=== PATIENT | female | born 1995 | race Caucasian/White ===

== ENCOUNTER 2021-12-13 16:10 | Emergency (ER) | payer OTHER, SELFPAY ==
[2021-12-13 16:32] VITALS: BP 116/69; PULSE 91; RESP 18; TEMP 36.9; O2SAT 99
--- NOTE | 2021-12-13 17:17 | ED.URI ---
HPI - URI/Sore Throat General Chief Complaint: Upper Respiratory Infection Stated Complaint: sob,cough Time Seen by Provider: 12/13/21 17:18 Source: patient, family, RN notes reviewed and old records reviewed Mode of arrival: ambulatory Limitations: no limitations History of Present Illness HPI Narrative: 26-year-old female presents to express care with complaints of sore throat, body aches, cough for the past 1 week duration. Patient reports daughter had strep throat last week,she states she took 3 doses of amoxicillin 875mg that was her 's over the last 2 days, has also been taking ibuprofen and Tylenol for her symptoms.Patient has not had COVID vaccinations or Flu shot. Patient reports highest fever noted 99.9F reports feels like skin is on fire. MD elicited complaint: fever, cough, sore throat and nasal congestion Onset (ago): week(s) (1) Pain scale (0-10): 4 Able to tolerate fluids by mouth: Yes Related Data Allergies Allergy/AdvReac Type Severity Reaction Status Date / Time No Known Allergies Allergy Verified 12/13/21 16:50 Review of Systems Review of Systems: CONSTITUTIONAL: Reports highest fever 99.9F,positive for chills, or sweats. EYES: Denies visual changes, redness, or discharge. ENT: Positive rhinorrhea, congestion, sore throat, no otalgia. CARDIOVASCULAR: Denies chest pain, palpitations, or edema. RESPIRATORY: Positive for cough denies dyspnea. GASTROINTESTINAL: Denies abdominal pain, nausea, vomiting, or diarrhea. GENITOURINARY: Denies dysuria or hematuria. SKIN: Denies rash or itching. MUSCULOSKELETAL: Denies back pain, joint pain, or myalgia. NEUROLOGIC: Denies headache, numbness, or weakness. PSYCHIATRIC: Positive history of anxiety or depression. [facility] Past Medical History Medical History (Updated 12/14/21 @ 10:51 by Diamond Garcia NP) Anxiety Surgical History Surgical History (Updated 12/13/21 @ 17:35 by Diamond Garcia NP) Hx of appendectomy Social History Social History (Updated 12/14/21 @ 10:49 by Diamond Garcia NP) Smoking status: Current some day smoker Tobacco type: e-cigarettes/vaping Alcohol intake: never Substance use type: marijuana Last use: occaisional Living arrangements: with family Gender identity (if verbalized by the patient): Female Comments At time of signature, agree with nursing past medical, surgical, social and family history. There is no relevant family history pertinent to the presenting complaint Exam Narrative: GENERAL: Well-appearing, well-nourished, and in no acute distress. HEAD: Normocephalic, atraumatic. EYES: PERRLA and EOMI. ENT: Nares clear, no rhinorrhea or epistaxis. Mucous membranes moist.TM's normal with good light reflex, throat red no lesions or exudate, tonsils swollen huge and red. NECK: Supple.lymphadenopathy CHEST: Clear to auscultation. No respiratory distress.no dyspnea noted, speaks in full sentences, SAO2 99% on room air, no tachypnea HEART: Regular rate and rhythm. No murmur heard. Normal peripheral pulses. ABDOMEN: Soft, nontender, nondistended, normal active bowel sounds. EXTREMITIES: Normal range of motion. No edema. SKIN: Warm, dry, no rash. NEURO: No focal deficits. Alert and oriented x3. Course Course Level of Care: Express Care Visit Vital Signs Vital signs: Vital Signs Temperature 36.9 C 12/13/21 16:32 Pulse Rate 91 12/13/21 16:32 Respiratory Rate 18 12/13/21 16:32 Blood Pressure 116/69 12/13/21 16:32 Pulse Oximetry 99 12/13/21 16:32 Oxygen Delivery Room Air 12/13/21 16:32 Temperature 36.9 C 12/13/21 16:32 Pulse Rate 91 12/13/21 16:32 Respiratory Rate 18 12/13/21 16:32 Blood Pressure 116/69 12/13/21 16:32 Pulse Oximetry 99 12/13/21 16:32 Oxygen Delivery Room Air 12/13/21 16:32 MDM - URI/Sore Throat Differential Diagnosis Differential diagnosis: Likely upper respiratory infection, sinusitis, viral infection, pharyngitis and other (Strep pharyn
== END 2021-12-13 17:45 | disposition home or self-care (01) ==
PROVIDERS: Emergency Provider Registered Nurse; PCP Physician Assistant
DX: J06.9 Acute upper respiratory infection, unspecified (principal); Z20.818 Contact with and (suspected) exposure to other bacterial communicable diseases; Z20.822 Contact with and (suspected) exposure to COVID-19; F17.290 Nicotine dependence, other tobacco product, uncomplicated
CPT/HCPCS: 87081; 87426; 87880; 99213; C9803; G0463

== ENCOUNTER 2022-02-08 11:21 | Emergency (ER) | payer OTHER, SELFPAY ==
--- NOTE | ~2022-02-08 | XR_ITS ---
EXAMINATION: XR chest 2V 02/08/2022 11:51 INDICATION: Chest pain PROCEDURE: 2 view chest COMPARISON: 11/23/2016 FINDINGS: The lungs are clear. The cardiomediastinal silhouette is within normal limits. There are no pleural effusions. There is no pneumothorax suspected. IMPRESSION: 1: NO ACUTE CARDIOPULMONARY DISEASE. Reviewed, dictated and finalized at location A.
--- NOTE | ~2022-02-08 | XR_ITS ---
EXAMINATION: XR abdomen/kub 1V DATE: 02/08/2022 12:27 INDICATION: Lower to mid abdominal pain TECHNIQUE: A supine view of the abdomen on 2 radiographs was obtained. COMPARISON: 12/27/2017 FINDINGS: Moderate to large amount of stool scattered throughout the colon. No dilated gas-filled loops of smal l bowel to suggest obstruction. Hypoplastic riblets at a transitional thoracolumbar segment. 4 more c audal nonrib-bearing lumbar segments. IMPRESSION: 1. Moderate to large amount of colonic stool which could be seen with constipation. Reviewed, dictated and finalized at location A. IMPRESSION: 1. Moderate to large amount of colonic stool which could be seen with constipat ion.
[2022-02-08 11:30] VITALS: BP 114/65; PULSE 66; RESP 18; TEMP 37.2; O2SAT 100
--- NOTE | 2022-02-08 12:05 | ED.GENADULT ---
HPI - General Adult General Chief complaint: Abdominal Pain Stated complaint: Chest Pain,Abdominal Pain Time Seen by Provider: 02/08/22 12:05 History of Present Illness HPI narrative: Magda Vernon is a 27 yo female with a history of chest pain, chronic constipation, COVID in October, who comes with general complaints of abdominal pain and chest pain that resolved this morning. Patient states she has had chest pain on and off since her daughter was born 4 years ago. Patient has difficulty with constipation and states that he says she needs to manually remove feces at times. He is afebrile vital signs are stable; she states that her child is ill and had a negative strep and COVID at the ER last night Patient had COVID in October and she is unvaccinated Related Data Home Medications Medication Instructions Recorded Confirmed No Home Medications 02/08/22 02/08/22 Allergies Allergy/AdvReac Type Severity Reaction Status Date / Time No Known Allergies Allergy Verified 02/08/22 11:30 Review of Systems Review of Systems: CONSTITUTIONAL: Denies fever, chills, sweats. EYES: Denies visual changes, redness, discharge. ENT: Denies rhinorrhea, congestion, sore throat, otalgia. CARDIOVASCULAR: chest pain this morning that has resolved, palpitations, edema. RESPIRATORY: Denies dyspnea, wheezing, cough GASTROINTESTINAL: abdominal pain that made her leave work,no nausea, vomiting, diarrhea. GENITOURINARY: Denies dysuria, hematuria, abnormal discharge SKIN: Denies rash or itching. NEUROLOGIC: Denies numbness, or focal weakness. PSYCHIATRIC: Denies anxiety or depression. [facility] Past Medical History Medical History Acute appendicitis with localized peritonitis Anxiety Chronic constipation Surgical History Surgical History Hx of appendectomy Social History Social History Smoking status: Current some day smoker Tobacco type: e-cigarettes/vaping Alcohol intake: never Substance use type: marijuana Last use: occaisional Gender identity (if verbalized by the patient): Female Comments At time of signature, I agree with nursing past medical, surgical, social and family history. There is no relevant family history pertinent to the presenting complaint. Exam Narrative: GENERAL: This is a well-nourished, well-developed patient, in mild distress. HEAD: normocephalic, atraumatic. EYES: Sclera clear/white. Vision is grossly intact. EARS: External ears normal, Hearing grossly intact. NOSE: External nose normal without nasal discharge, nares without redness, no rhinorrhea. THROAT: Mucous membranes moist, NECK: Neck supple, non-tender CARDIOVASCULAR: Regular rate and rhythm without murmurs, gallops, or rubs. RESPIRATORY: Clear to auscultation. Breath sounds equal bilaterally. No wheezes, rales, or rhonchi. GASTROINTESTINAL: Abdomen soft, left lower quadrant pain, has hypoactive bowel sounds SKIN: warm, intact with no suspicious lesions or rash, good texture and turgor. NEURO: awake, alert, and oriented to person, place and time. There were no obvious focal neurologic abnormalities. Steady gait EXTREMITIES: Normal range of motion. BACK: Nontender without deformity Course Course Emergency Course: Patient comes with abdominal pain and she has had chest pain that has since resolved she has a history of intermittent chest pain for the last number of years Chest x-ray was negative has a normal cardiomediastinal silhouette and lungs are clear KUB- shows moderate to large amount of colonic stool moderate to large amount of colonic stool moderate to large amount of colonic stool Her uri to large amount colonic stoolnalysis showed trace blood trace protein and 1+ leukocytes but patient denies any dysuria or burning Discussed bowel routine with her and questioned her abo
== END 2022-02-08 12:54 | disposition home or self-care (01) ==
PROVIDERS: Emergency Provider Nurse Practitioner
DX: K59.00 Constipation, unspecified (principal); F17.290 Nicotine dependence, other tobacco product, uncomplicated; Z86.16 Personal history of COVID-19
CPT/HCPCS: 71046; 74018; 81003; 87086; 99213; G0463

== ENCOUNTER 2022-04-16 10:50 | Emergency (ER) | payer OTHER, SELFPAY ==
[2022-04-16 11:32] VITALS: BP 140/59; PULSE 80; RESP 20; TEMP 36.8; O2SAT 100
--- NOTE | 2022-04-16 12:12 | ED.FEMALEGU ---
HPI - Female Genitourinary General Chief complaint: Urogenital-Female Stated complaint: Possible UTI Source: patient Mode of arrival: ambulatory Limitations: no limitations History of Present Illness HPI Narrative: 27-year-old female presents to [facility] with complaints of urinary frequency, urgency, pain, burning and vaginal itching for the past 3 days. Patient reports history of urinary tract infections. Patient denies concern for STD or . Patient denies abdominal pain, flank pain, fever, bodies, chills, nausea, vomiting, diarrhea or vaginal discharge. MD elicited complaint: UTI and vaginal discharge Onset (ago): day(s) (3) Vaginal discharge: none Vaginal bleeding: none Urinary symptoms: Dysuria, Urgency and Frequency Treatment prior to arrival: OTC urinary analgesics Sexual activity: Yes Patient : No Related Data Allergies Allergy/AdvReac Type Severity Reaction Status Date / Time No Known Allergies Allergy Verified 04/16/22 12:09 Review of Systems Constitutional: Constitutional: Denies chills and Denies fatigue ENT: Denies vertigo and Denies dizziness Cardiovascular: Cardiovascular: Denies chest pain Respiratory: Respiratory: Denies chest congestion, Denies cough, Denies dyspnea and Denies wheezing Gastrointestinal: Gastrointestinal: Denies diarrhea, Denies nausea and Denies vomiting Genitourinary: Genitourinary: Reports nocturia and Reports dysuria Comments: Vaginal itching Integumentary/Breasts: Skin/Breast: Denies rash Neurologic: Denies headache(s) PMFSH Past Medical History Medical History Acute appendicitis with localized peritonitis Anxiety Chronic constipation Surgical History Surgical History Hx of appendectomy Social History Social History Smoking status: Current some day smoker Tobacco type: e-cigarettes/vaping Alcohol intake: never Substance use type: marijuana Last use: occaisional Gender identity (if verbalized by the patient): Female Comments At time of signature, I agree with nursing past medical, surgical, social and family history. There is no relevant family history pertinent to the presenting complaint. Exam Const: General: healthy appearing Nutritional Appearance: well nourished Orientation/consciousness: patient oriented x3 Limitations: no limitations Resp: Effort & Inspection: normal respiratory effort and not labored Auscultation: clear to auscultation bilaterally and no crackles Cardio: Rate: regular rate Rhythm: regular rhythm Heart sounds: no murmurs GI: Inspection: non-distended GI Palp: Yes Soft to palpation, No Tenderness to palpation present (GI), No Guarding due to palpation present (GI) and No Rigid due to palpation Auscultation: normal bowel sounds : General: Yes bladder normal to palpation and Yes no CVA tenderness Back/Spine/Pelvis: Back: no CVA tenderness Skin: General skin exam: normal color Rashes: no rashes Wounds: no wounds Neuro: General: patient oriented x3 Speech: normal speech Gait exam (Neuro): Normal gait present Psych: Appearance: grossly normal Affect: normal affect Attitude: cooperative Course Course Level of Care: Express Care Visit Vital Signs Vital signs: Vital Signs Temperature 36.8 C 04/16/22 11:32 Pulse Rate 80 04/16/22 11:32 Respiratory Rate 20 04/16/22 11:32 Blood Pressure 140/59 L 04/16/22 11:32 Pulse Oximetry 100 04/16/22 11:32 Oxygen Delivery Room Air 04/16/22 11:32 Temperature 36.8 C 04/16/22 11:32 Pulse Rate 80 04/16/22 11:32 Respiratory Rate 20 04/16/22 11:32 Blood Pressure 140/59 L 04/16/22 11:32 Pulse Oximetry 100 04/16/22 11:32 Oxygen Delivery Room Air 04/16/22 11:32 MDM - Female Genitourinary MDM Narrative Medical decision making narrative: Urine r
== END 2022-04-16 12:20 | disposition home or self-care (01) ==
PROVIDERS: Emergency Provider Nurse Practitioner Family
DX: N39.0 Urinary tract infection, site not specified (principal); F17.290 Nicotine dependence, other tobacco product, uncomplicated; F12.90 Cannabis use, unspecified, uncomplicated
CPT/HCPCS: 81003; 87077; 87086; 87088; 99213; G0463

== ENCOUNTER 2022-07-11 15:54 | Emergency (ER) | payer OTHER, SELFPAY ==
--- NOTE | ~2022-07-11 | US_ITS ---
EXAMINATION: US OB <=14 wk fetus w TV INDICATION: vaginal bleeding TECHNIQUE: Sonography of the pelvis was performed by transabdominal and transvaginal techniques. COMPARISON: None. RESULT: Uterus: Orientation: Retroverted. 9.1 x 6.2 x 4.8 cm. Myometrium: homogeneous echogenicity. Gestation: - Intrauterine gestational sac: Single present. - Mean Sac Diameter: 0.58 cm, corresponding gestational age 5 week 2 days. - Yolk sac: 0.27 cm . - Embryo: Not seen. - Subgestational hematoma: Absent . Right ovary: 3.2 x 2.0 x 1.8 cm. Normal sonographic appearance with physiologic follicles. . . Left ovary: 2.5 x 3.0 x 3.6 cm. Normal sonographic appearance with physiologic follicles. . . Pelvis free fluid: Small volume deep pelvic and right adnexal fluid. IMPRESSION: Intrauterine of uncertain viability. Recommend continued close clinical and sonographic fol low-up. Estimated Gestational Age: 5 weeks, 2 days by mean gestational sac diameter. DANIA by ultrasound 023. Reviewed, dictated and finalized at location K. BASKET TOP MAKER IMPRESSION: Intrauterine of uncertain viability. Recommend continued close clinic al and sonographic follow-up. Estimated Gestational Age: 5 weeks, 2 days by mean gestational sac diameter. E DD by ultrasound 03/11/2023.
[2022-07-11 16:36] VITALS: BP 109/66; PULSE 72; RESP 18; TEMP 36.4; O2SAT 100
[2022-07-11 18:44] VITALS: BP 117/63; PULSE 65; RESP 16; TEMP 36.8; O2SAT 100
[2022-07-11 19:03] LABS: Basophils Absolute Auto 0.1 K/mm3 (0.0-0.1); Basophils Percent Auto 0.9 % (0.2-1.2); Eosinophils Absolute Auto 0.3 K/mm3 (0-0.3); Eosinophils Percent Auto 3.7 % (0-4.4); Hematocrit 36.6 % (37.0-47.0); Hemoglobin 11.8 g/dL (12.0-15.0); Immature Granulocyte Absolute 0.02 K/mm3 (0.00-0.031); Immature Granulocyte Percent A 0.3 % (0-0.5); Lymphocytes Absolute Auto 1.88 K/mm3 (0.9-3.2); Lymphocytes Percent Auto 27.9 % (18.3-44.2); Mean Corpuscular HGB Conc 32.2 g/dl (32-36); Mean Corpuscular Hemoglobin 26.9 pg (26-34); Mean Corpuscular Volume 83.6 fl (80-100); Mean Platelet Volume 10.4 fl (7.4-10.4); Monocytes Absolute Auto 0.5 K/mm3 (0.1-0.6); Monocytes Percent Auto 7.9 % (2.6-8.5); Neutrophils Percent Auto 59.3 % (45.5-73.1); Platelet Count Result 356 k/mm3 (150-375); Red Blood Count 4.38 M/mm3 (4.2-5.4); White Blood Count 6.8 K/mm3 (4.5-10.0)
--- NOTE | 2022-07-11 22:05 | PC.NURSE ---
Patient did not answer page for room.
== END 2022-07-11 22:10 | disposition left against medical advice (07) ==
PROVIDERS: Emergency Provider Emergency Medicine
DX: O20.9 Hemorrhage in early pregnancy, unspecified (principal); Z3A.01 Less than 8 weeks gestation of pregnancy
CPT/HCPCS: 36415; 76801; 76817; 81025; 84702; 85025; 85461; 86850; 86900; 86901; 99199

== ENCOUNTER 2022-07-13 16:25 | Emergency (ER) | payer OTHER, SELFPAY ==
--- NOTE | ~2022-07-13 | US_ITS ---
US OB <=14 wk fetus w TV 07/13/2022 20:22 Indication: Vaginal bleeding. Positive beta hCG test. Procedure: High-resolution Limited obstetrical ultrasound using transabdominal and transvaginal techn ique. Comparison: Ultrasound dated 07/11/2022 Findings: Uterus measures 7.3 x 4.4 x 6.1 cm. There is fluid in the endometrium. No intrauterine gestational sac or pole identified. Endometr ium measures 7 mm. Right ovary measures 3.8 x 1.9 x 1.9 cm. Left ovary measures 4.3 x 2.1 x 2.6 cm. T here is normal Doppler signal in both ovaries. No free fluid in the pelvis. Uterus is retroverted. Impression: 1: No evidence for uterine gestational sac or pole, consistent with failed . Trace flu id in the endometrium. Recommend follow-up with serial quantitative beta-hCG levels and ultrasound as clinically indicated. Reviewed, dictated and finalized at location A. N MORTISER OPERATOR Impression: 1: No evidence for uterine gestational sac or pole, consistent with faile d . Trace fluid in the endometrium. Recommend follow-up with serial qu antitative beta-hCG levels and ultrasound as clinically indicated.
--- NOTE | 2022-07-13 16:49 | PC.NURSE ---
patient presented with POC and soiled underwear in grocery sack. both items were placed, unopened, into a specimen container. specimen container walked to pathology by tony Olvera.
[2022-07-13 17:18] VITALS: BP 112/52; PULSE 72; RESP 16; TEMP 36.9; O2SAT 100
[2022-07-13 17:43] LABS: Basophils Absolute Auto 0.1 K/mm3 (0.0-0.1); Basophils Percent Auto 0.6 % (0.2-1.2); Eosinophils Absolute Auto 0.3 K/mm3 (0-0.3); Eosinophils Percent Auto 2.8 % (0-4.4); Hematocrit 37.4 % (37.0-47.0); Hemoglobin 11.9 g/dL (12.0-15.0); Immature Granulocyte Absolute 0.05 K/mm3 (0.00-0.031); Immature Granulocyte Percent A 0.5 % (0-0.5); Lymphocytes Absolute Auto 1.72 K/mm3 (0.9-3.2); Lymphocytes Percent Auto 18.4 % (18.3-44.2); Mean Corpuscular HGB Conc 31.8 g/dl (32-36); Mean Corpuscular Hemoglobin 26.8 pg (26-34); Mean Corpuscular Volume 84.2 fl (80-100); Mean Platelet Volume 10.6 fl (7.4-10.4); Monocytes Absolute Auto 0.6 K/mm3 (0.1-0.6); Monocytes Percent Auto 6.8 % (2.6-8.5); Neutrophils Absolute Auto 6.6 K/mm3 (1.3-6.7); Neutrophils Percent Auto 70.9 % (45.5-73.1); Platelet Count Result 375 k/mm3 (150-375); Red Blood Count 4.44 M/mm3 (4.2-5.4); Red Cell Distribution Width 12.9 % (11.5-14.5); White Blood Count 9.3 K/mm3 (4.5-10.0)
--- NOTE | 2022-07-13 21:28 | ED.FEMALEGU ---
HPI - Female Genitourinary General Chief complaint: Vaginal Bleeding Stated complaint: miscarriage, has fetus? Time Seen by Provider: 07/13/22 21:28 Source: patient Mode of arrival: ambulatory Limitations: no limitations History of Present Illness HPI Narrative: Patient is a 27-year-old female G2, P1 approximately 8 weeks dated by last menstrual period May 21 returning to the ER for evaluation of passage of material that pt is worried is consistent with parts. Patient was seen her left third, no noticeable to review but patient had an OB ultrasound that showed an intrauterine without a detected heartbeat, and concern for failed . Patient's beta hCG at that visit per my chart review was 2052. Patient here with resolution of bleeding after passage of large clot that is concerning for material. This was taken down to pathology per protocol. Patient denies any significant pain. She denies fever, chills, nausea or vomiting. Patient had not followed with an FACTORY REPRESENTATIVE this . She is unsure of her blood type. Pt denies lightheadedness, dizziness, syncope. Pt denies dysuria or hematuria. Related Data Allergies Allergy/AdvReac Type Severity Reaction Status Date / Time No Known Allergies Allergy Verified 04/16/22 12:09 Review of Systems Review of Systems: CONSTITUTIONAL: Denies fever CARDIOVASCULAR: Denies chest pain RESPIRATORY: Denies cough or dyspnea. GASTROINTESTINAL: Denies abdominal pain, no pelvic pain : Reports vaginal bleeding, mostly resolved SKIN: Denies rash MUSCULOSKELETAL: Denies back pain NEUROLOGIC: Denies headache PMFSH Past Medical History Medical History Acute appendicitis with localized peritonitis Anxiety Chronic constipation Surgical History Surgical History Hx of appendectomy Social History Social History Smoking status: Current some day smoker Tobacco type: e-cigarettes/vaping Alcohol intake: never Substance use type: marijuana Last use: occaisional Gender identity (if verbalized by the patient): Female Exam Narrative: GENERAL: Awake, alert, conversant HEAD: Normocephalic, atraumatic. EYES: PERRLA and EOMI. ENT: Nares clear, no rhinorrhea or epistaxis. Mucous membranes moist. NECK: Supple. CHEST: No respiratory distress, breathing even and non labored HEART: Regular rate, sinus rhythm ABDOMEN:Non distended, non tender, no flank tenderness : Labia majora and minora normal without lesions. Vagina with scant blood. No brisk bleeding. No cervical motion tenderness. No adnexal tenderness or fullness bilaterally. No other discharge present. EXTREMITIES: Normal range of motion. No edema. SKIN: Warm, dry, no rash. NEURO:No focal deficits. Alert and oriented x3 Course Vital Signs Vital signs: Vital Signs Temperature 36.9 C 07/13/22 17:18 Pulse Rate 72 07/13/22 17:18 Respiratory Rate 16 07/13/22 17:18 Blood Pressure 112/52 L 07/13/22 17:18 Pulse Oximetry 100 07/13/22 17:18 Oxygen Delivery Room Air 07/13/22 17:18 Temperature 36.9 C 07/13/22 17:18 Pulse Rate 72 07/13/22 17:18 Respiratory Rate 16 07/13/22 17:18 Blood Pressure 112/52 L 07/13/22 17:18 Pulse Oximetry 100 07/13/22 17:18 Oxygen Delivery Room Air 07/13/22 17:18 MDM - Female Genitourinary MDM Narrative Medical decision making narrative: Patient is a 27-year-old female G2, P1 currently 8 weeks , presenting for evaluation of vaginal bleeding with concern for passed material. At the time of assessment, ABCs are intact and vital signs are stable. Patient is ambulatory, no significant tachycardia. No significant pain. She reports bleeding is mostly resolved. IV access obtained and labs are drawn. Laboratory results are notable for only very mild anem
--- NOTE | 2022-07-13 22:43 | PC.NURSE ---
[employer] Set Up Operator called. Spoke with Corrine Cardozo. Pt was given Share packet but declines to be contacted by Share.
== END 2022-07-13 22:44 | disposition home or self-care (01) ==
LOC: ANHED 21:57
PROVIDERS: Emergency Provider Emergency Medicine
DX: O03.9 Complete or unspecified spontaneous abortion without complication (principal); F17.290 Nicotine dependence, other tobacco product, uncomplicated
CPT/HCPCS: 36415; 76801; 76817; 84702; 85025; 85461; 86850; 86900; 86901; 88305; 99284

== ENCOUNTER 2024-02-25 00:51 | Emergency (ER) | payer OTHER, SELFPAY ==
--- NOTE | ~2024-02-25 | US_ITS ---
EXAMINATION: US OB transvaginal DATE: 02/25/2024 03:25 INDICATION: Vaginal bleeding in . TECHNIQUE: Real-time transvaginal pelvic ultrasound was performed. COMPARISON: Ultrasound 07/13/2022 FINDINGS: The uterus measures 7.9 x 4.7 x 5.6 cm. There is no visible intrauterine gestational sac. The endomet rial complex measures 17 mm in thickness. The right ovary measures 3.7 x 2.8 x 2.4 cm. The left ovary measures 2.6 x 2.1 x 2.4 cm. There is physiologic free fluid in the pelvis. IMPRESSION: 1. No visible intrauterine gestational sac, which may be normal in early . Spontaneous abor tion and ectopic are not excluded. Serial beta-hCGs are recommended. Reviewed, dictated and finalized at location A. IMPRESSION: 1. No visible intrauterine gestational sac, which may be normal in early pregn adelfo. Spontaneous and ectopic are not excluded. Serial beta- hCGs are recommended.
[2024-02-25 01:12] VITALS: BP 128/66; PULSE 96; RESP 20; TEMP 36.4; O2SAT 99
[2024-02-25 01:50] VITALS: BP 104/70; PULSE 80; RESP 15; O2SAT 100
--- NOTE | 2024-02-25 02:34 | PC.NURSE ---
[facility] coroner office called. Released at [id number].
--- NOTE | 2024-02-25 02:36 | PC.NURSE ---
Attempted to call share coordinator without answer.
--- NOTE | 2024-02-25 02:55 | PC.NURSE ---
SHARE folder given to patient at [phone], decision to have hospital dispose of remains.
[2024-02-25 03:41] VITALS: BP 114/74; PULSE 74; RESP 15; O2SAT 100
[2024-02-25 03:42] LABS: BEDSIDEPREGUCG Negative
[2024-02-25 03:47] LABS: Alanine Aminotransferase 9 U/L (6-35); Albumin Level 4.4 g/dL (3.5-5.1); Alkaline Phosphatase 55 U/L (38-126); Anion Gap 9 mmol/L (4-12); Aspartate Amino Transferase 16 U/L (14-36); Bilirubin,Total 0.2 mg/dL (0.2-1.3); Blood Urea Nitrogen 9 mg/dL (7-17); Calcium 9.2 mg/dL (8.4-10.2); Carbon Dioxide 27 mmol/L (22-30); Chloride 101 mmol/L (98-107); Estimated CRCL calculation 105 ml/min; Estimated Glomerular Filt Rate > 60; Glucose 113 mg/dL (65-110); Potassium 4.1 mmol/L (3.4-5.0); Sodium 137 mmol/L (137-145)
[2024-02-25 03:57] LABS: Basophils Percent Auto 0.5 % (0.2-1.2); Eosinophils Absolute Auto 0.3 K/mm3 (0-0.3); Eosinophils Percent Auto 3.1 % (0-4.4); Hematocrit 34.9 % (37.0-47.0); Hemoglobin 10.6 g/dL (12.0-15.0); Immature Granulocyte Absolute 0.02 K/mm3 (0.00-0.031); Immature Granulocyte Percent A 0.2 % (0-0.5); Lymphocytes Absolute Auto 2.47 K/mm3 (0.9-3.2); Lymphocytes Percent Auto 28.7 % (18.3-44.2); Mean Corpuscular HGB Conc 30.4 g/dl (32-36); Mean Corpuscular Hemoglobin 24.7 pg (26-34); Mean Corpuscular Volume 81.2 fl (80-100); Mean Platelet Volume 10.9 fl (7.4-10.4); Monocytes Absolute Auto 0.8 K/mm3 (0.1-0.6); Monocytes Percent Auto 9.2 % (2.6-8.5); Neutrophils Percent Auto 58.3 % (45.5-73.1); Platelet Count Result 387 k/mm3 (150-375); Red Cell Distribution Width 13.9 % (11.5-14.5); White Blood Count 8.6 K/mm3 (4.5-10.0)
--- NOTE | 2024-02-25 04:01 | PC.NURSE ---
Patient's bedside was positive.
[2024-02-25 04:02] LABS: Appearance Urine Clear (Clear); Color Urine Light Yellow (Yellow)
[2024-02-25 04:04] LABS: Blood Urine 3+ (Negative); Glucose Urine UA Negative (Negative); Ketones Urine Negative (Negative); Nitrate Urine Negative (Negative); Protein Urine 1+ mg/dL (Negative)
[2024-02-25 04:05] LABS: Add Urine Microscopic? YES; Bilirubin Urine Negative (Negative); Leukocyte Esterase Ur Negative LEU/UL (Negative); Urobilinogen Urine 0.2 mg/dL (<2.0)
--- NOTE | 2024-02-25 05:13 | ED.GENADULT ---
HPI - General Adult General Chief complaint: Vaginal Bleeding Stated complaint: vag bleed, miscarriage Time Seen by Provider: 02/25/24 01:53 History of Present Illness HPI narrative: This is a 29-year-old female presenting ED with chief of vaginal bleeding. Patient says that she began spotting 12 days ago. Then over the last 2-3 days she has had passage of clot which she believes to be material. Since the past clots her bleeding has slowed down. Patient then took a test is positive. She has 2 previous miscarriages last 2 pregnancies. Patient has no other complaints this time. Related Data Allergies Allergy/AdvReac Type Severity Reaction Status Date / Time No Known Allergies Allergy Verified 02/25/24 01:16 [facility] Past Medical History Medical History Acute appendicitis with localized peritonitis Anxiety Chronic constipation Surgical History Surgical History Hx of appendectomy Social History Social History Smoking status: Current some day smoker Tobacco type: e-cigarettes/vaping Alcohol intake: never Substance use type: marijuana Last use: occaisional Living arrangements: with family Gender identity (if verbalized by the patient): Female Exam Narrative: APPEARANCE: No apparent distress. Head: atraumatic. EYES: EOMI, NOSE: Atraumatic NECK: Trachea midline RESPIRATORY: No increased rate of breathing CARDIOVASCULAR: RRR, ABDOMINAL: Non-distended, soft nontender no guarding or rebound MUSCULOSKELETAl: No obvious deformities NEURO: Alert. Moving 4/4 extremities SKIN:: Warm, dry. Normal color PSYCHIATRIC: Normal affect Course Vital Signs Vital signs: Vital Signs Temperature 97.6 F 02/25/24 01:12 Pulse Rate 96 02/25/24 01:12 Respiratory Rate 20 02/25/24 01:12 Blood Pressure 128/66 02/25/24 01:12 Pulse Oximetry 99 02/25/24 01:12 Oxygen Delivery Room Air 02/25/24 01:12 Temperature 97.6 F 02/25/24 01:12 Pulse Rate 74 02/25/24 03:41 Respiratory Rate 15 02/25/24 03:41 Blood Pressure 114/74 02/25/24 03:41 Pulse Oximetry 100 02/25/24 03:41 Oxygen Delivery Room Air 02/25/24 01:12 Medical Decision Making MDM Narrative Medical decision making narrative: -Course: 27 vaginal bleeding in . Blood type A positive. HCG 1891. Transvaginal ultrasound: No visible intrauterine gestational sac, which may be normal in early . Spontaneous and ectopic are not excluded. Serial beta-hCGs are recommended. Results were explained to the patient. She has to leave immediately to go pickling solution maker her child. She is instructed to follow-up with her OBGYN in [address] Given return precautions. Vital Signs Vital Signs: Vital Signs Temperature 97.6 F 02/25/24 01:12 Pulse Rate 96 02/25/24 01:12 Respiratory Rate 20 02/25/24 01:12 Blood Pressure 128/66 02/25/24 01:12 Pulse Oximetry 99 02/25/24 01:12 Oxygen Delivery Room Air 02/25/24 01:12 Temperature 97.6 F 02/25/24 01:12 Pulse Rate 74 02/25/24 03:41 Respiratory Rate 15 02/25/24 03:41 Blood Pressure 114/74 02/25/24 03:41 Pulse Oximetry 100 02/25/24 03:41 Oxygen Delivery Room Air 02/25/24 01:12 Lab Data 02/25/24 03:40 02/25/24 03:00 Labs: Lab Results 02/25/24 02/25/24 02/25/24 Range/Units 03:00 03:33 03:40 WBC 8.6 (4.5-10.0) K/mm3 RBC 4.30 (4.2-5.4) M/mm3 Hgb 10.6 L (12.0-15.0) g/dL Hct 34.9 L (37.0-47.0) % MCV 81.2 (80-100) fl MCH 24.7 L (26-34) pg MCHC 30.4 L (32-36) g/dl RDW 13.9 (11.5-14.5) % Plt Count 387 H (150-375) k/mm3 MPV 10.9 H (7.4-10.4) fl Immature Gran % (Auto) 0.2 (0-0.5) % Neut % (Auto) 58.3 (45.5-73.1) % Lymph % (Auto) 28.7 (1
[2024-02-25 06:36] VITALS: BP 108/74; PULSE 77; RESP 15; O2SAT 100
== END 2024-02-25 06:37 | disposition home or self-care (01) ==
PROVIDERS: Emergency Provider Emergency Medicine
DX: N93.9 Abnormal uterine and vaginal bleeding, unspecified (principal); F17.290 Nicotine dependence, other tobacco product, uncomplicated
CPT/HCPCS: 36415; 76817; 80053; 81001; 81025; 84702; 85025; 88305; 99284

== ENCOUNTER 2024-06-30 08:51 | Emergency (ER) | payer OTHER, SELFPAY ==
[2024-06-30 09:09] VITALS: BP 113/67; PULSE 79; RESP 16; TEMP 36.5; O2SAT 100
--- NOTE | 2024-06-30 09:53 | ED_ITS ---
HPI - Dental/Oral General Chief complaint: Dental/Oral Stated complaint: RT Side tooth pain Time Seen by Provider: 06/30/24 09:53 Source: patient Mode of arrival: ambulatory History of Present Illness HPI Narrative: 29-year-old female presented for complaint of right lower with some to pain for few days. She states she has had intermittent pain to this tooth for over a year. She does not have a dentist or an oral surgeon. She states the center of the wisdom tooth did not grow in. She has taken ibuprofen and used liquid lidocaine which is no longer helping. Denies facial swelling, difficulty swallowing or fever. MD Complaint: tooth pain Related Data Home Medications ?Medication ?Instructions ?Recorded ?Confirmed ?Last Taken ?Type drospirenone (contraceptive) 4 mg 06/30/24 Unknown History (28) tablet (Slynd) Allergies Allergy/AdvReac Type Severity Reaction Status Date / Time No Known Allergies Allergy Verified 06/30/24 09:42 Review of Systems Review of Systems: CONSTITUTIONAL: Denies body aches, fever, chills ENT: Denies rhinorrhea, congestion, sore throat, or otalgia. Reports dental pain CARDIOVASCULAR: Denies chest pain, palpitations RESPIRATORY: Denies cough or dyspnea. SKIN: Denies rash, itching, or wounds. MUSCULOSKELETAL: Denies myalgia. NEUROLOGIC: Denies headache, numbness, tingling, or weakness. [facility], [facility] Past Medical History Medical History Chronic constipation Acute appendicitis with localized peritonitis Anxiety Surgical History Surgical History Hx of appendectomy Social History Social History Smoking status: Current some day smoker Tobacco type: e-cigarettes/vaping Alcohol intake: never Substance use type: marijuana Last use: occaisional Living arrangements: with family Gender identity (if verbalized by the patient): Female Comments At time of signature, I have reviewed and agree with nursing past medical, surgical, social and family history unless otherwise noted. Please see nursing chart for further information. There is no relevant family history pertinent to the presenting complaint Exam Narrative: GENERAL: Appears in pain; no acute distress. HEAD: Normocephalic, atraumatic. EYES: EOMI. No redness or drainage. Conjunctivae normal. ENT: Dental pain location of #32, center of tooth appears decayed, mild gum swelling and erythema surrounding the tooth. No facial swelling. Mucous membranes pink and moist. TMs normal bilaterally. Throat normal. no dysphagia, odynophagia, dysphonia, or dyspnea. No uvular deviation or soft palate edema. NECK: Normal AROM. No lymphadenopathy. no induration below mandible, no neck pain. CHEST: No respiratory distress. Clear to auscultation. HEART: Regular rate and rhythm. No murmur appreciated. SKIN: Warm, dry, no rash. Normal skin turgor. NEURO: No focal deficits. Alert and oriented x3. Gait steady. Course Course Emergency Course: Patient is aware of diagnosis, understands and agrees to treatment plan. Anticipatory guidance given. Patient agrees to follow-up as directed and is aware of reasons to seek care at the emergency department. Portions of this record may have been created with voice recognition software Level of Care: Express Care Visit Vital Signs Vital signs: Vital Signs Temperature 97.7 F 06/30/24 09:09 Pulse Rate 79 06/30/24 09:09 Respiratory Rate 16 06/30/24 09:09 Blood Pressure 113/67 06/30/24 09:09 Pulse Oximetry 100 06/30/24 09:09 Oxygen Delivery Room Air 06/30/24 09:09 Temperature 97.7 F 06/30/24 09:09 Pulse Rate 79 06/30/24 09:09 Respiratory Rate 16 06/30/24 09:09 Blood Pressure 113/67 06/30/24 09:09 Pulse Oximetry 100 06/30/24 09:09 Oxygen Delivery Room Air 06/30/24 09:09 MDM - Dental/Oral MDM Narrative Medical decision making narrative: Patients pain and complaint coupled with physical findings are consistent with dentalgia. There are no focal signs of space occupying lesions that are compromising to the airway; Patient is non-toxic appearing. The floor of the mouth is soft with no signs of Emeterio's Angina; Patient is without trismus or drooling and able to swallow secretions. Patient is felt appropriate for discharge home with dental follow up. Differential Diagnosis Differential diagnosis: Likely gingival abscess, dental caries, toothache, dental abscess, fracture of tooth and aphthous ulcer Discharge Plan Discharge Clinical Impression: Dental abscess Patient Disposition: Home, Self-Care Condition: Stable Instructions: Antibiotic Form, Dental Abscess (ED) Additional Instructions: Take antibiotic as directed May apply heat or ice to the face Gentle brushing and flossing. Rinse mouth with warm salt water at least 2 times a day. Alternate Tylenol and ibuprofen as needed for pain Follow-up with the dentist as soon as possible--see the list provided Go to the ER for worsening symptoms or concerns Patient Language: [place] Prescriptions: New ibuprofen 800 mg tablet 800 mg PO TID PRN (Reason: pain) Qty: 15 0RF lidocaine HCl [Lidocaine Viscous] 2 % solution 1 applic mucous membrane TID PRN (Reason: pain) Qty: 100 0RF Rx Instructions: apply with cotton swab to site of pain amoxicillin-pot clavulanate 875-125 mg tablet 1 tablet PO Q12H 7 Days Qty: 14 0RF No Action Slynd 4 mg (28) tablet nitrofurantoin monohyd/m-cryst [Macrobid] 100 mg capsule 100 mg PO Q12H 7 Days Qty: 14 0RF Rx Instructions: must administer with a meal/food fluconazole [Diflucan] 150 mg tablet 150 mg PO ONCE Qty: 1 0RF Rx Instructions: as a single dose acetaminophen 500 mg capsule 500 mg PO Q6H PRN (Reason: fever or pain) Qty: 30 0RF ibuprofen 400 mg tablet 400 mg PO TID PRN (Reason: fever or pain) 10 Days Qty: 30 0RF Follow-up/Referrals: PHYSICIAN,CYBER DEFENSE ANALYST [Primary Care Provider] - Time of Disposition: 10:00
--- OUTSIDE RECORDS SUMMARY | 2024-07-07 22:31 | XMS_ITS | Encounter Summary ---
Author Organization [facility] Address [address] [place] [address]. [place] [address] [place] [address] Care Team Providers Care Superintendent Stevedoring Name Role Phone None, Provider Primary Care Provider Jonel boyer Encounter Details Date Type Department Care Team (Late Contact Info) Description 02/26/2018 Hospital Follow-up Call [facility] [place] [address] Chapito Escalante, RN Social History Tobacco Use Types Packs/Day Years Used Date Smoking Tobacco: Some Days Cigarettes Smokeless Tobacco: Never Alcohol Use Standard Drinks/Week Comments No 0 (1 standard drink = 0.6 oz pur e alcohol) Comments Yes Sex and Gender Information Value Date Recorded Sex Assigned at Not on file Legal Sex Female 6:37 PM CDT Gender Identity Not on file Sexual Orientation Straight 10/30/2018 5: 50 PM CDT documented as of this encounter Plan of Treatment Upcoming Encounters Date Type Department Care Team (Late st Contact Info) Description 07/24/2024 Hospital Encounter [facility] [place], [place] [id number] Osmin Hunt MD [address] [place] [address] [address] [place] [address] Scheduled Procedures Name Priority Associated Diagnoses Date/Ti me ROBOTIC XI HYSTERECTOMY MENORRHAGIA, DYSMENORRHEA N92.4, N94.4 documented as of this encounter Visit Diagnoses Not on filedocumented in this encounter Care Teams Superintendent Stevedoring Relationship Specialty Start Date End Date None, Provider, PCP - General 07/17/18 documented as of this encounter
--- OUTSIDE RECORDS SUMMARY | 2024-07-07 22:31 | XMS_ITS | Encounter Summary ---
Author Organization [facility] Address [address] [place] [address]. [place] [address] [place] [address] Care Team Providers Care Trash Collector Supervisor Name Role Phone Unavailable Primary Care Provider Unavailabl e Reason for Visit * Reason Comments (Nausea and Vomiting) Encounter Details Date Type Department Care Team (Latest Contact Info) Description 04/15/2018 2:53 PM CDT - 04/15/2018 6:55 PM CDT Hospital Encounter [facility] [place] [address] Zohra Marie, (Nausea and Vomiting) Discharge Disposition: Home or Self Care (Routine Discharge) Social History Tobacco Use Types Packs/Day Years Used Date Smoking Tobacco: Former Cigarettes Q uit: 03/09/2018 Smokeless Tobacco: Never Alcohol Use Standard Drinks/Week Comments No 0 (1 standard drink = 0.6 oz pur e alcohol) Comments Yes Sex and Gender Information Value Date Recorded Sex Assigned at Not on file Legal Sex Female 6:37 PM CDT Gender Identity Not on file Sexual Orientation Straight 10/30/2018 5: 50 PM CDT documented as of this encounter Last Filed Vital Signs Vital Sign Reading Time Taken Comments Blood Pressure 109/72 04/15/2018 4:30 PM CDT Pulse 77 04/15/2018 4:30 PM CDT Temperature 36.6 ??C (97.9 ??F) 04/15/2018 4:14 PM CD T Respiratory Rate 18 04/15/2018 4:14 PM CDT Oxygen Saturation - - Inhaled Oxygen Concentration - - Weight 70.8 kg (156 lb) 04/15/2018 3:44 PM CDT Height 177.8 cm (5' 10 ) 04/15/2018 3:44 PM CDT Body Mass Index 22.38 04/15/2018 3:44 PM CDT documented in this encounter Discharge Summaries * Klever Mercer CNM - 04/15/2018 6:36 PM CDT Physician Final Progress Note Patient ID: Magda Vernon [id number] 23-year-old 1995 Admit date: 04/15/2018 Outcome of Hospitalization: Discharged home in stable condition Disposition: Home or Self Care (Routine Discharge) Provisions for Follow Up Care: Follow-up with [facility] provider in 1 week. Principal Diagnoses: Vomiting or nausea of Secondary Diagnoses: IUP @ 34.6 wks; Signed: KLEVER MERCER CNM 04/15/2018 6:36 PM documented in this encounter Discharge Instructions * Discharge Instructions* Charisse Husain RN - 04/15/2018 6:45 PM CDT Images from the original note were not included. Nausea and Vomiting of About this topic When you are , changes take place in your body. Some of these changes may make you feel sick to your stomach. You may also throw up. This stomach sickness may happen between the 5th to 18th weeks of your . Your nausea often gets better by the time you reach the 4th or 5th month. Some women say they have morning sickness because they feel worse in the morning. Morning sickness mayhappen at other times during the day as well. You may also have loss of appetite, sweating, feel dizzy, or belly pain. Treatment may be needed if your nausea or vomiting becomes very bad. Too much throwing up can causemany other health problems. Severe nausea may also affect your baby. What are the causes? ?? Hormone changes ?? Belly being pushed by the baby inside ?? Use of control pills and estrogen before getting ?? Motion sickness ?? Family history ?? History of migraine headaches What can make this more likely to happen? ?? History of nausea and vomiting in a previous ?? You are having more than one baby at one time ?? Belly problems even before getting What are the main signs? ?? Upset stomach ?? Throwing up ?? Feeling dizzy ?? Belly pain or cramps ?? Motion sickness How does the doctor diagnose this health problem? ?? Your doctor will take your history. Talk to your doctor about: ?? All the drugs you are taking. Be sure to include all prescription and mpav-iij-rrwyzma (OTC) drugs, and herbal supplements. Tell the doctor about any drug allergy. Bring a list of drugs you take with you. ?? Your doctor will do an exam and may order: ?? Lab tests ?? Ultrasound How does the doctor treat this health problem? ?? Your doctor may put an IV line into your blood vessels if you have been vomiting too much. The doctor may place an IV if you have signs of too much fluid loss. The doctor may give you drugs through this line if the nutrients in your body are too low. ?? Your doctor may give you a mouth rinse. Rinse your mouth after each time you throw up. ?? Your doctor may tell you to put a warm compress over your neck or chest. The warmth will help with any pain after throwing up. ?? Your doctor may want you to stay in bed for a few days What lifestyle changes are needed? ?? Stay away from foods that can bother your throat like popcorn, dry cereals, salty chips, and chocolate cake. ?? Stay away from spicy and sour foods. Spicy foods may make an upset stomach worse. ?? Eat small meals more often. Instead of eating 3 big meals, eat 5 to 6 small meals in a day. ?? Eat when you feel hungry. Hunger can sometimes cause nausea and vomiting. ?? Soft foods like soups, pureed fruits and vegetables may help with throat pain. ?? Eat bland foods that are easy on your stomach like oatmeal, applesauce, rice, and bananas. Your doctor may give you a list of foods. ?? Have a light snack before going to bed. Eat crackers or a sandwich before bedtime. Sit upright for 20 to 30 minutes before lying down to avoid heartburn. What drugs may be needed? The doctor may order drugs to: ?? Control vomiting ?? Stop dizziness ?? Help with pain ?? Soothe a sore throat ?? Balance the minerals inside your body ?? Control the acid in your belly What problems could happen? ?? Too much fluid loss ?? Belly pain ?? Throat bleeding ?? Problems with your baby ?? Malnutrition from too much nausea and vomiting What can be done to prevent this health problem? ?? Stay away from places where your triggers might be. If the smell of fish makes you feel sick, avoid going to lakes, beaches, and places that serve fish and seafood. If the smell of perfume makes you sick, ask the people around you to wear less perfume. ?? Take drugs to help with motion sickness before you travel. Ask your doctor what drugs you shouldtake. ?? Try to move about slowly. Avoid sudden movements that can make you dizzy and feel sick. Helpful tips ?? Know what triggers your nausea and vomiting. Try to stay away from these triggers. Stay away from smells that makes you feel sick to your stomach. ?? Drink 6 to 8 glasses of water each day if you can to replace what you lose when you vomit. Sip on a glass of water from time to time. ?? If you vomit while eating, wait for 20 minutes before your next bite. ?? Suck on a hard menthol candy or mints. The candy or mints may also help with the taste after vomiting. ?? Suck on ice chips or popsicles to relieve throat pain. ?? Take your time when getting out of bed. Sit up for a few minutes before standing to get out of bed. ?? Open the windows in your room or house to let fresh air in. Turn the exhaust fan on when workinginside the kitchen. Where can I learn more? September http://www.marchofdimes.com//yourbody_nausea.html National Association of [employer]ist Obstetricians [employer] Gynaecologists http://www.nasog.org.au/women/ovocof-k-karh/just-/hvgpqb-qrg-yojghmkn-du ring- Last Reviewed Date 2013-12-05 Consumer Information Use and Disclaimer This information is not specific medical advice and does not replace information you receive from your health care provider. This is only a brief summary of general information. It does NOT include all information about conditions, illnesses, injuries, tests, procedures, treatments, therapies, discharge instructions or life-style choices that may apply to you. You must talk with your health care provider for complete information about your health and treatment options. This information should not be used to decide whether or not to accept your health care provider???s advice, instructions or recommendations. Only your health care provider has the knowledge and training to provide advice that is right for you. Copyright Copyright ?? 2017 [employer] and its affiliates and/or licensors. All rights reserved. documented in this encounter Medications at Time of Discharge metoclopramide 10 MG tablet Take 1 tablet (10 mg total) by mouth 4 (four) times daily. 60 tablet 1 04/15/2018 9 ondansetron 4 MG tablet Take 1 tablet (4 mg total) by mouth every 8 (eight) hours as needed for Nausea. 60 tablet 1 04/15/2018 9 vitamin 27-1 MG Tab tablet Take 1 tablet by mouth daily. 9 promethazine 12.[address] 1 suppository (12.5 mg total) rectally every 6 (six) hours as needed for Nausea. 12 each 04/15/2018 8 Pyridoxine HCl 25 MG Tab Take 25 mg by mouth 3 (three) times a day. 9 ranitidine 150 MG tablet Take 150 mg by mouth 2 (two) times daily. 9 documented as of this encounter H&P Notes * Klever Mercer CNM - 04/15/2018 3:01 PM CDT Obstetric Antepartum Progress Note Date: 04/15/2018 Hospital Day: 0 Subjective: Admission for: Vomiting or nausea of Magda Vernon is a 23-year-old at 34w6d. Patient reports vomiting. States she has noteaten anything all day, and also notes she only drank 2 juice boxes. Movement: is normal Review of Systems Constitutional: Negative. HENT: Negative. Respiratory: Negative. Cardiovascular: Negative. Gastrointestinal: Positive for abdominal pain, nausea and vomiting. Genitourinary: Negative. Musculoskeletal: Negative. Neurological: Negative. Psychiatric/Behavioral: Negative. All other systems reviewed and are negative. Objective: Filed Vitals: 04/15/18 1516 04/15/18 1530 04/15/18 1544 BP: 108/72 109/67 Pulse: 100 106 Weight: 70.8 kg (156 lb) Height: 5' 10 (1.778 m) No intake or output data in the 24 hours ending 04/15/18 1547 Physical Exam: Physical Exam Constitutional: She is oriented to person, place, and time. She appears well- developed and well-nourished. Cardiovascular: Normal rate and regular rhythm. Pulmonary/Chest: Effort normal and breath sounds normal. Abdominal: Soft. Bowel sounds are normal. She exhibits no distension. There is no tenderness. Thereis no rebound and no guarding. Genitourinary: Vagina normal. Musculoskeletal: Normal range of motion. Neurological: She is alert and oriented to person, place, and time. Skin: Skin is warm. Cervix: Long/Firm/Closed/ Heart Tones: 155 BPM, moderate variability, present accelerations, absent decelerations, Category 1 Contraction frequency: irritability Contraction strength: Mild Non-stress Test: reactive Assessment/Plan: 23-year-old at 34w6d admitted for Vomiting or nausea of 1. IV hydration 2. Continuous monitoring 3. Anti-emetic therapy prn 4. Anticipate DC home documented in this encounter Plan of Treatment Upcoming Encounters Date Type Department Care Team (Late st Contact Info) Description 07/24/2024 Hospital Encounter [facility] [place] [address] Osmin Hunt MD [address] [facility] [address] [place] [address] Scheduled Procedures Name Priority Associated Diagnoses Date/Ti me ROBOTIC XI HYSTERECTOMY MENORRHAGIA, DYSMENORRHEA N92.4, N94.4 documented as of this encounter Procedures Procedure Name Priority Date/Time Associated Diagnosis Comments DRUG SCREEN RAPID STAT 04/15/2018 3:0 0 PM CDT Vomiting or nausea of (HHS/HCC) URINALYSIS STAT 04/15/2018 3:00 PM CDT Vomiting or nausea of (HHS/HCC) documented in this encounter Results * URINALYSIS (04/15/2018 3:00 PM CDT) SPECIMEN TYPE URINE CLEAN CATCH 04/15/2018 3:20 PM CDT [facility] COLOR (U) YELLOW 04/15/2018 3:49 PM CDT [facility] TRANSPARENCY CLEAR 04/15/2018 3:49 PM CDT [facility] SPECIFIC GRAVITY (U) 1.013 1.001 - 1.030 04/15/2018 3:49 PM CDT [facility] U PH 7.0 5.0 - 9.0 04/15/2018 3:49 PM CDT [facility] LEUKOCYTES (U) NEGATIVE NEGATIVE 04/15/2018 3:49 PM CDT [facility] NITRITES NEGATIVE NEGATIVE 04/15/2018 3:49 PM CDT [facility] PROTEIN (U) NEGATIVE <30 MG/DL 04/15/2018 3:49 PM CDT [facility] URINE GLUCOSE NEGATIVE NEGATIVE MG/DL 04/15/2018 3:49 PM CDT [facility] KETONES MG/DL (U) NEGATIVE NEGATIVE MG/DL 04/15/2018 3:49 PM CDT [facility] UROBILINOGEN NEGATIVE NEGATIVE MG/DL 04/15/2018 3:49 PM CDT [facility] BILIRUBIN (U) NEGATIVE NEGATIVE MG/DL 04/15/2018 3:49 PM CDT [facility] BLOOD (U) NEGATIVE NEGATIVE 04/15/2018 3:49 PM CDT [facility] URINE SPECIMEN OBTAINED BY CLEAN CATCH PROCEDURE / Unknown 04/15/2018 3:00 PM CDT us Klever Eagle VelascoJose CN URINE ORDERABLES Final Result [facility] [address] [place] [address], [place] [phone] * DRUG SCREEN RAPID (04/15/2018 3:00 PM CDT) Pathologist [facility] AMPHETAMINE (U) NEGATIVE NEGATIVE 8 3:58 PM CDT [facility] BARBITURATES SCREEN (U) NEGATIVE NEGATIVE 04/15/2018 3:58 PM CDT [facility] BENZODIAZEPINES SCREEN (U) NEGATIVE NEGATIVE 04/15/2018 3:58 PM CDT [facility] CANNABINOIDS SCREEN (U) NEGATIVE NEGATIVE 04/15/2018 3:58 PM CDT [facility] COCAINE METABOLITES (U) NEGATIVE NEGATIVE 04/15/2018 3:58 PM CDT [facility] METHADONE (U) NEGATIVE NEGATIVE 04/15/2018 3:58 PM CDT [facility] OPIATE SCREEN (U) NEGATIVE NEGATIVE 018 3:58 PM CDT [facility] PHENCYCLIDINE PCP (U) NEGATIVE NEGATIVE 04/15/2018 3:58 PM CDT [facility] Comment: NOTE: RESULTS OF THIS DRUG SCREEN SHOULD BE USED FOR MEDICAL PURPOSES ONLY AND NOT FOR LEGAL OR EMPLOYMENT PURPOSES. POSITIVE RESULTS ARE NOT CONFIRMED. MEDICATIONS CONTAINING EPHEDRINE MAY CAUSE FALSE POSITIVE AMPHETAMINE CALL [phone], LAB, TO REQUEST CONFIRMATION TESTING. IF CREATININE IS <40 mg/dL. ??RECOLLECTION IS SUGGESTED. AMPHETAMINE- ?500 NG/ML BARBITURATE- ?200 NG/ML BENZODIAZEPINES- ??200 NG/ML THC- ? 50 NG/ML COCAINE- ?150 NG/ML METHADONE- ?300 NG/ML OPIATE- ? 300 MG/ML PCP- ? 25 NG/ML CREATININE (U) 79.3 28 - 217 MG/DL 04/15/2018 3:58 PM CDT [facility] Urine specimen (specimen) URINE SPECIMEN / Unknown 04/15/2018 3:00 PM CDT us Klever Mercer CNM URINE ORDERABLES Final Result Performing Organization Address City/State/[facility] Co de Phone Number [facility] [address] [place] [address], [place] [phone] documented in this encounter Visit Diagnoses Diagnosis Vomiting or nausea of (HHS/HCC)- Primary Unspecified vomiting of , unspecified as to episode of care Vomiting or nausea of (HHS/HCC) Unspecified vomiting of , unspecified as to episode of care documented in this encounter Administered Medications Inactive Administered Medications - up to 3 most recent administrations Medication Order MAR Action Action Date Dose Rate Site lactated ringers bolus infusion 1,000 mL 1,000 mL, Intravenous, Administer over 60 Minutes, Once, 1 dose, On Sun04/15/18 at 1530, Notify provider once infusion is complete.Indications:Vomit ing or nausea of (HHS/HCC) New Bag 04/15/2018 3:54 PM CDT 1,000 mLs Right Arm lactated ringers infusion at 250 mL/hr, Intravenous, Continuous, Starting on 04/15/18 at 1530, Until Sun04/15/18 at 2108Indications:Vomiting or nausea of (HHS/HCC) New Bag 04/15/2018 4:39 PM CDT 250 mL/hr llywpsidh-emvqmxnh-felrgpo cone (MAALOX, MYLANTA EXTRA STRENGTH) 0466-6531-250 mg/30mL suspension 10 mL, Oral, Every 4 hours PRN, Heartburn, dyspepsia, Starting on Sun04/15/18 at 1457, Until Sun04/15/18 at 2108, Charles LockwoodIndications:Vomiting or nausea of (HHS/HCC) Given 04/15/2018 4:38 PM CDT 10 mLs ondansetron (ZOFRAN) injection 4 mg 4 mg, Intravenous, Every 6 hours PRN, Nausea, Vomiting, Starting on Sun04/15/18 at 1457, Until Sun04/15/18 at 2108Indications:Vomiting or nausea of (HHS/HCC) Given 04/15/2018 4:38 PM CDT 4 mg ondansetron (ZOFRAN-ODT) disintegrating tablet 4 mg 4 mg, Oral, Every 8 hours PRN, Nausea, Vomiting, Starting on Sun04/15/18 at 1513, Until Sun04/15/18 at 2108 documented in this encounter Active and Recently Administered Medications Times are shown in CDT. Scheduled Medication Order 04/13/2018 04/14/2018 04/15/2018 lactated ringers bolus infusion 1,000 mL (COMPLETED) 1,000 mL, Intravenous, Administer over 60 Minutes, Once, 1 dose, On Sun04/15/18 at 1530, Notify provider once infusion is complete. 1554 (New Bag - Prov ider: Charisse Husain RN)1639 (Infusion Stop Time - Provider: Charisse Husain RN) Continuous Medication Order 04/13/2018 04/14/2018 04/15/2018 lactated ringers infusion at 250 mL/hr, Intravenous, Continuous, Starting on Sun04/15/18 at 1530, Until Sun04/15/18 at 2108 1639 (New Bag - Prov ider: Charisse Husain RN)1850 (Infusion Stop Time - Provider: Charisse Husain RN) PRN Medication Order 04/13/2018 04/14/2018 04/15/2018 yavdqoqno-uqyzasqd-zxbgndxzcej (MAALOX, MYLANTA EXTRA STRENGTH) 2025-3483-135 mg/30mL suspension 10 mL, Oral, Every 4 hours PRN, Heartburn, dyspepsia, Starting on Sun04/15/18 at 1457, Until Sun04/15/18 at 2108, Shake Well 1638 (Given - Provid er: Charisse Husain RN) ondansetron (ZOFRAN) injection 4 mg 4 mg, Intravenous, Every 6 hours PRN, Nausea, Vomiting, Starting on Sun04/15/18 at 1457, Until Sun04/15/18 at 2108 1638 (Given - Provid er: Charisse Husain RN) ondansetron (ZOFRAN-ODT) disintegrating tablet 4 mg 4 mg, Oral, Every 8 hours PRN, Nausea, Vomiting, Starting on Sun04/15/18 at 1513, Until Sun04/15/18 at 2108 ondansetron (ZOFRAN-ODT) disintegrating tablet 8 mg 8 mg, Oral, Every 8 hours PRN, Nausea, Vomiting, Starting on Sun04/15/18 at 1457, Until Sun04/15/18 at 2108 documented in this encounter
--- OUTSIDE RECORDS SUMMARY | 2024-07-07 22:31 | XMS_ITS | Encounter Summary ---
Author Organization [facility] Address [address] [place] [address]. [place] [address] [place] [address] Care Team Providers Care Freight Engineer Name Role Phone None, Provider Primary Care Provider Jonel boyer Encounter Details Date Type Department Care Team (Latest Contact Info) Description 11/10/2023 Travel Social History Tobacco Use Types Packs/Day Years Used Date Smoking Tobacco: Former Cigarettes Q uit: 03/09/2018 Smokeless Tobacco: Never Alcohol Use Standard Drinks/Week Comments No 0 (1 standard drink = 0.6 oz pur e alcohol) Comments No Sex and Gender Information Value Date Recorded Sex Assigned at Not on file Legal Sex Female 6:37 PM CDT Gender Identity Not on file Sexual Orientation Straight 10/30/2018 5: 50 PM CDT documented as of this encounter Functional Status * RETIRED Are you deaf or do you have serious difficulty hearing Answer Date of Assessment Author Status No 11/01/2018 11:00 AM CDT Acti ve * RETIRED Are you blind or do you have serious difficulty seeing, even when wearing glasses? Answer Date of Assessment Author Status No 11/01/2018 11:00 AM CDT Acti ve * Do you have serious difficulty walking or climbing stairs? Answer Date of Assessment Author Status No 11/01/2018 11:00 AM YAHAIRAT Griselda Whitt FNP Active * Do you have difficulty dressing or bathing? Answer Date of Assessment Author Status No 11/01/2018 11:00 AM Griselda Martines FNP Active * Because of a physical, mental, or emotional condition, do you have difficulty doing errands alone such as visiting a doctor's office or shopping? Answer Date of Assessment Author Status No 11/01/2018 11:00 AM Griselda Martines FNP Active documented as of this encounter Mental Status * Because of a physical, mental, or emotional condition, do you have serious difficulty concentrating, remembering, or making decisions? Answer Entry Date Author Status No 11/01/2018 11:00 AM Griselda Martines FNP Active documented in this encounter Plan of Treatment Upcoming Encounters Date Type Department Care Team (Late st Contact Info) Description 07/24/2024 Hospital Encounter [facility] [place] [address] Osmin Hunt MD [address] [place] [id number] Scheduled Procedures Name Priority Associated Diagnoses Date/Ti me ROBOTIC XI HYSTERECTOMY MENORRHAGIA, DYSMENORRHEA N92.4, N94.4 documented as of this encounter Visit Diagnoses Not on filedocumented in this encounter Care Teams Freight Engineer Relationship Specialty Start Date End Date None, Provider, PCP - General 07/17/18 documented as of this encounter
--- OUTSIDE RECORDS SUMMARY | 2024-07-07 22:31 | XMS_ITS | Encounter Summary ---
Author Organization [facility] Address [address] [place] [address]. [place] [address] [place] [address] Care Team Providers Care Video Systems Engineer Name Role Phone Patti Briceño MD Primary Care Provider Unavailable None, Provider Primary Care Provider Unavaila ble Encounter Details Date Type Department Care Team (Late Contact Info) Description 05/12/2017 [place] [address] Patti Briceño MD Social History Tobacco Use Types Packs/Day Years Used Date Smoking Tobacco: Never Assessed Comments Unknown Sex and Gender Information Value Date Recorded Sex Assigned at Not on file Legal Sex Female 6:37 PM CDT Gender Identity Not on file Sexual Orientation Straight 10/30/2018 5: 50 PM CDT documented as of this encounter Plan of Treatment Upcoming Encounters Date Type Department Care Team (Late Contact Info) Description 07/24/2024 Hospital Encounter [facility] [place] [address] Osmin Hunt MD [address] [place] [address] Scheduled Procedures Name Priority Associated Diagnoses Date/Ti me ROBOTIC XI HYSTERECTOMY MENORRHAGIA, DYSMENORRHEA N92.4, N94.4 documented as of this encounter Visit Diagnoses Not on filedocumented in this encounter Care Teams Video Systems Engineer Relationship Specialty Start Date End Date Patti Briceño MD PCP - General 08/06/15 None, Provider, PCP - General 07/17/18 documented as of this encounter
--- OUTSIDE RECORDS SUMMARY | 2024-07-07 22:31 | XMS_ITS | Encounter Summary ---
Author Organization [facility] Address [address] [place] [address]. [place] [address] [place] [address] Care Team Providers Care Public Relations Manager Name Role Phone Unavailable Primary Care Provider Unavailabl e Reason for Visit * Reason Comments (Nausea and Vomiting) * Auth/Cert Specialty Diagnoses / Procedures Referred By Contac t Referred To Contact Diagnoses Nausea and vomiting Nausea & vomiting Referral ID Status Reason Start Date Expiration Date Visits Re quested Visits Authorized [id number] 1 1 Encounter Details Date Type Department Care Team (Latest Contact Info) Description 02/25/2018 2:40 PM CDT - 02/26/2018 8:00 AM [facility] Hospital Encounter [facility] [place] [address] Rosanna Aquino MD [address] [place] [address] [phone] Aiden Schreiber MD [address] [place] [phone] (Nausea and Vomiting) Discharge Disposition: Home or [...] Sign Reading Time Taken Comments Blood Pressure 103/58 02/26/2018 7:07 AM CDT Pulse 79 02/26/2018 7:07 AM CDT Temperature 36.9 ??C (98.5 ??F) 02/25/2018 3:30 PM CD T Respiratory Rate 16 02/25/2018 3:00 PM CDT Oxygen Saturation - - Inhaled Oxygen Concentration - - Weight 73.5 kg (162 lb) 02/26/2018 5:00 AM CDT Height 172.7 cm (5' 8 ) 02/26/2018 5:00 AM CDT Body Mass Index 24.63 02/26/2018 5:00 AM CDT documented in this encounter Discharge Summaries * Charline Dunbar, BRITTA - 02/26/2018 8:00 AM CDT Obstetric Antepartum Progress Note Date: 03/09/2018 Hospital Day: 1 Subjective: Admission for: <principal problem not specified> Magda Vernon is a 23-year-old at 29w4d weeks gestation with Estimated Date of Delivery: 05/21/18 who presents with nausea and vomiting. Denies vaginal bleeding, leaking of fluid and contractions. Movement: is normal Travel Exposure: Objective: Filed Vitals: 02/25/18 1739 02/25/18 1836 02/26/18 0500 02/26/18 0707 BP: (!) 86/42 104/60 103/58 Pulse: 87 88 79 Resp: Temp: Weight: 73.5 kg (162 lb) Height: 5' 8 (1.727 m) No intake or output data in the 24 hours ending 03/09/18 1127 Physical Exam: General: alert, mild distress Lungs: no respiratory distress Heart: regular rate and rhythm Abdomen: soft, non-tender, gravid Extremities: nontender, no edema, Jassi's sign: negative FHT: reactive NST Labs: WBC (x10'3/uL) Date Value 02/26/2018 12.3 HGB (G/DL) Date Value 02/26/2018 8.6 PLT (x10'3/uL) Date Value 02/26/2018 257 No results for input(s): NA, K, CL, CO2, AGAP, BUN, CR, BUNCREATININ, GFRNON, GFR, GLU, CA, TP, ALB, TBIL, ALKP, AST, ALT in the last 168 hours. No results found for this or any previous visit. Non-stress Test: reassuring for gestational age Assessment/Plan: 23-year-old at 29w4d admitted for <principal problem not specified>. has beencomplicated by hyperemesis. Plan as follows: 1. She received IV fluids and anti emetics. She was feeling better and sent home. She is to return if she starts vomiting again. documented in this encounter Discharge Instructions * Discharge Instructions* Chapito Escalante RN - 02/26/2018 7:46 AM CDT Images from the original note were [...] Be sure to include all prescription and febm-lpb-xasrkzk (OTC) drugs, and herbal supplements. Tell the [...] kitchen. Where can I learn more? September [employer] http://www.[employer].com//yourbody_nausea.html National Association of Specialist Obstetricians and Gynaecologists http://www.nasog.org.au/women/mosybn-p-cfih/just-/djxksw-bag-sddwrmnt-du ring- Last Reviewed Date 2013-12-05 Consumer Information [...] right for you. Copyright Copyright ?? 2017 [employer], [employer]. and its affiliates and/or licensors. All rights reserved. documented in this encounter Medications at Time of Discharge metoclopramide 10 MG tablet Take 10 mg by mouth 4 (four) times daily. 04/15/2018 ondansetron 4 MG tablet Take 4 mg by mouth every 8 (eight) hours as needed for Nausea. 04/15/2018 vitamin 27-1 MG Tab tablet Take 1 tablet by mouth daily. 07/17/2018 promethazine 12.5 MG tablet Take 12.5 mg by mouth every 6 (six) hours as needed for Nausea. 04/15/2018 Pyridoxine HCl 25 MG Tab Take 25 mg by mouth 3 (three) times a day. 07/17/2018 ranitidine 150 MG tablet Take 150 mg by mouth 2 (two) times daily. 07/17/2018 documented as of this encounter Progress Notes * Mariah Montelongo CNM - 02/25/2018 7:07 PM CDT Obstetric Antepartum Progress Note Date: 02/25/2018 Hospital Day: 1 Subjective: Patient states that she is feeling a little better but is still nauseous. Objective: Filed Vitals: 02/25/18 1728 02/25/18 1733 02/25/18 1739 02/25/18 1836 BP: (!) 86/42 104/60 Pulse: 88 86 87 88 Resp: Temp: Weight: No intake or output data in the 24 hours ending 02/25/18 1907 Physical Exam: General: alert, no distress, pale Lungs: no respiratory distress Heart: regular rate and rhythm Abdomen: gravid, non-tender Extremities: normal, non-tender bilaterally, edema None Assessment/Plan: 23-year-old at 27w6d observed for nausea and vomiting 1. Keep for observation and hydration 2. LR 150 mL/hr after D5LR complete 3. Repeat labs in the a.m. MARIAH MONTELONGO CNM documented in this encounter H&P Notes * Mariah Montelongo CNM - 02/25/2018 4:28 PM CDT Antepartum History and Physical Date: 02/25/2018 Hospital Day: 1 Subjective: Admission for: <principal problem not specified> Magda Vernon is a 23-year-old at 27w6d. Patient reports nausea and vomiting. She denies contractions, leaking of fluid or vaginal bleeding. Movement: is normal. has been complicated by hyperemesis which improved in second trimesters. She reports today that she feels the same as she did in the first trimester. Objective: Filed Vitals: 02/25/18 1608 02/25/18 1613 02/25/18 1618 02/25/18 1623 BP: Pulse: 83 93 91 84 Resp: Temp: No intake or output data in the 24 hours ending 02/25/18 1628 Labs: WBC (x10'3/uL) Date Value 02/25/2018 15.9 HGB (G/DL) Date Value 02/25/2018 10.1 PLT (x10'3/uL) Date Value 02/25/2018 295 No results found for this or any previous visit. History: No past medical history on file. Past Surgical History: Procedure Laterality Date ??? APPENDECTOMY Obstetric History T0 L0 SAB0 TAB0 Ectopic0 Molar0 Multiple0 Live Births0 Results 1st Trimester Date Time ABO/Rh A POSITIVE 09/30/17 0056 Antibody HCT 36.9 % (L) 09/29/17 2223 HGB 11.9 G/DL (L) 09/29/17 2223 Rubella Antibody RPR Urine Protein 30 MG/DL (H) 02/25/18 1550 HBsAG HIV Gonorrhea Chlamydia Pap Smear 2nd Trimester Date Time HCT 30.9 % (L) 02/25/18 1512 HGB 10.1 G/DL (L) 02/25/18 1512 Glucose 3rd Trimester Date Time HCT HGB RPR HIV Legend: ^: External ^^: Historical Physical Exam: General: alert, no distress, pale, afebrile Lungs: no respiratory distress Heart: regular rate and rhythm Abdomen: gravid, non-tender Extremities: normal, non-tender bilaterally, edema None Heart Tones: WNL for gestational age Contraction frequency: none Assessment/Plan: 23-year-old at 27w6d admitted for <principal problem not specified> 1. UA, UDS, CBC, CMP 2. Bolus 1 L D5LR and then 150 ml/hr 3. Observe 4. zofran for nausea MARIAH MONTELONGO CNM documented in this encounter Plan of Treatment Upcoming Encounters Date Type Department Care Team (Late st Contact Info) Description 07/24/[address] [facility] [place] [address] Osmin Hunt MD [address] [address] Scheduled Procedures Name Priority Associated Diagnoses Date/Ti me ROBOTIC XI HYSTERECTOMY MENORRHAGIA, DYSMENORRHEA N92.4, N94.4 documented as of this encounter Procedures Procedure Name Priority Date/Time Associated Diagnosis Comments COMPREHENSIVE METABOLIC PANEL Routine 02/26/2018 4:35 AM CDT CBC W/DIFF AUTOMATED Routine 02/26/2018 4:35 AM CDT DRUG SCREEN RAPID Routine 02/25/2018 3:5 0 PM CDT Vomiting affecting , delivered ([facility]) URINALYSIS STAT 02/25/2018 3:50 PM CDT Vomiting affecting , delivered ([facility]) URINE BACTERIA CULTURE Routine 8 3:50 PM CDT COMPREHENSIVE METABOLIC PANEL STAT 02/25/2018 3:12 PM CDT Vomiting affecting , delivered ([facility]) CBC W/DIFF AUTOMATED STAT 02/25/2018 3:12 PM CDT Vomiting affecting , delivered ([facility]) documented in this encounter Results * (ABNORMAL) COMPREHENSIVE METABOLIC PANEL (02/26/2018 4:35 AM CDT) [facility] GLUCOSE 81 70 - 99 MG/DL 02/26/2018 5:36 AM CDT [facility] BUN 5(L) 7 - 18 MG/DL 02/26/2018 5:36 AM CDT [facility] CREATININE S/P/B 0.48(L) 0.55 - 1.02 MG/DL 02/26/2018 5:36 AM T [facility] SODIUM S/P/B 141 136 - 145 MMOL/L 02/26/2018 5:36 AM T [facility] POTASSIUM S/P/B 3.6 3.5 - 5.1 MMOL/L 02/26/2018 5:36 AM T [facility] CHLORIDE S/P/B 110(H) 100 - 108 MMOL/L 02/26/2018 5:36 AM T [facility] CO2 24.0 21 - 32 MMOL/L 02/26/2018 5:36 AM T [facility] CALCIUM S/P/B 8.2(L) 8.5 - 10.1 MG/DL 02/26/2018 5:36 AM T [facility] BILIRUBIN TOTAL S/P/B 0.5 0.2 - 1.2 MG/DL 02/26/2018 5:36 AM CDT [facility] TOTAL PROTEIN S/P/B 6.2(L) 6.4 - 8.2 G/DL 02/26/2018 5:36 AM T [facility] ALBUMIN S/P/B 2.6(L) 3.4 - 5.0 G/DL 02/26/2018 5:36 AM T [facility] AST 12(L) 15 - 37 U/L 02/26/2018 5:36 AM CDT [facility] ALT 13(L) 14 - 55 U/L 02/26/2018 5:36 AM CDT [facility] ALKALINE PHOSPHATASE S/P/B 78 50 - 136 U/L 02/26/2018 5:36 AM CDT [facility] ANION GAP 10.6 8 - 20 MMOL/L 02/26/2018 5:36 AM CDT [facility] BUN CREATININE RATIO 10.3 6 - 26 02/26/2018 5:36 AM CDT [facility] A/G RATIO 0.7(L) 1.0 - 2.0 RATIO 02/26/2018 5:36 AM CDT [facility] EGFR NON-AFR. AMER. >90 >90 ML/MIN/1.7 3 M2 02/26/2018 5:36 AM CDT [facility] EGFR AFR. AMER. >90 >90 ML/MIN/1.7 3 M2 02/26/2018 5:36 AM CDT [facility] Comment: NOTE: eGFR is not calculated for patients <18 years of age. This is an estimated GFR (CKD EPI) and should not be used for calculating drug doses. 02/26/2018 4:35 AM CDT Mariah BALL LABORATORY Final Result [facility] [address] [place] [address], [place] [phone] * (ABNORMAL) CBC W/DIFF AUTOMATED (02/26/2018 4:35 AM CDT) WBC 12.3(H) 4.5 - 11.0 x10'3/uL 02/26/2018 5:13 AM CDT [facility] RBC 3.23(L) 4.20 - 5.40 x10'6/uL 02/26/2018 5:13 AM CDT [facility] HGB 8.6(L) 12.0 - 16.0 G/DL 02/26/2018 5:13 AM T [facility] HCT 27.3(L) 38.0 - 48.0 % 02/26/2018 5:13 AM CDT [facility] MCV 84.5 80.0 - 94.0 FL 02/26/2018 5:13 AM CDT [facility] MCH 26.6(L) 27.0 - 31.0 PG 02/26/2018 5:13 AM CDT [facility] MCHC 31.5(L) 32.0 - 36.0 G/DL 02/26/2018 5:13 AM CDT [facility] RDW 12.4 11.5 - 14.5 % 02/26/2018 5:13 AM CDT [facility] PLT 257 130 - 400 x10'3/uL 02/26/2018 5:13 AM T [facility] MPV 10.4 9.3 - 12.2 FL 02/26/2018 5:13 AM T [facility] DIFFERENTIAL TYPE MANUAL DIFFERENTIAL 02/26/2018 5:35 AM T [facility] SEG NEUTROPHILS 88 % 8 5:35 AM CDT [facility] LYMPHOCYTES 5 % 02/26/2018 5:35 AM CDT [facility] MONOCYTES 7 % 02/26/2018 5:35 AM T [facility] ABS. NEUTROPHILS CALCULATED 10.82(H) 1.80 - 7.70 x10'3/uL 02/26/2018 5:35 AM CDT [facility] ABS.LYMPHOCYTES CALCULATED 0.62(L) 1.00 - 4.80 x10'3/uL 02/26/2018 5:35 AM CDT [facility] ABS. MONOCYTES CALCULATED 0.86 0.24 - 0.86 x10'3/uL 02/26/2018 5:35 AM CDT [facility] RBC MORPHOLOGY RBC MORPHOLOGY APPEARS NORMAL. SLIDE REVIEWED. 02/26/2018 5:35 AM CDT [facility] PLT EST. ADEQUATE 02/26/2018 5:35 AM CDT [facility] 02/26/2018 4:35 AM CDT us Mraiah Montelongo CNM LABORATORY Final Result Performing Organization Address [facility] Co de Phone Number [facility] [address] [place] [phone], * CULTURE URINE (02/25/2018 3:50 PM CDT) SPEC DESCRIPTION URINE CLEAN CATCH 02/25/2018 8:51 PM CDT [facility] SPECIAL REQUESTS NO SPECIAL REQUEST 02/25/2018 8:51 PM CDT [facility] CULTURE RESULT POLYMICROBIAL GROWTH CONSISTENT WITH NORMAL GENITAL DEBORAH. ?? SUSCEPTIBILITIES NOT ROUTINELY PERFORMED. 02/28/2018 10:02 AM CDT [facility] URINE SPECIMEN OBTAINED BY CLEAN CATCH PROCEDURE / Unknown 02/25/2018 3:50 PM CDT 02/25/2018 8:51 PM CDT Aiden Schreiber MD MICROBIOLOGY - GENERAL ORDERA BLES Final Result Performing Organization Address [facility] Co de Phone Number [facility] [address] [place] [address], * (ABNORMAL) URINALYSIS (02/25/2018 3:50 PM CDT) SPECIMEN TYPE URINE CLEAN CATCH 02/25/2018 3:56 PM CDT [facility] COLOR (U) YELLOW 02/25/2018 4:12 PM CDT [facility] TRANSPARENCY CLOUDY 02/25/2018 4:12 PM CDT [facility] SPECIFIC GRAVITY (U) 1.018 1.001 - 1.030 02/25/2018 4:12 PM CDT [facility] U PH 6.0 5.0 - 9.0 02/25/2018 4:12 PM CDT [facility] LEUKOCYTES (U) SMALL(A) NEGATIVE 02/25/2018 4:12 PM CDT [facility] NITRITES NEGATIVE NEGATIVE 02/25/2018 4:12 PM CDT [facility] PROTEIN (U) 30(H) <30 MG/DL 02/25/2018 4:12 PM CDT [facility] URINE GLUCOSE NEGATIVE NEGATIVE MG/DL 02/25/2018 4:12 PM CDT [facility] KETONES MG/DL (U) 20(A) NEGATIVE MG/DL 02/25/2018 4:12 PM CDT [facility] UROBILINOGEN 2.0(A) NEGATIVE MG/DL 02/25/2018 4:12 PM CDT [facility] BILIRUBIN (U) NEGATIVE NEGATIVE MG/DL 02/25/2018 4:12 PM CDT [facility] BLOOD (U) NEGATIVE NEGATIVE 02/25/2018 4:12 PM CDT [facility] SQUAMOUS EPITHELIALS MANY /LPF 02/25/2018 4:12 PM CDT [facility] MUCUS MANY /LPF 02/25/2018 4:12 PM CDT [facility] WBC/HPF 5 <6 /HPF 02/25/2018 4:12 PM CDT [facility] RBC/HPF <1 <6 /HPF 02/25/2018 4:12 PM CDT [facility] URINE SPECIMEN OBTAINED BY CLEAN CATCH PROCEDURE / Unknown 02/25/2018 3:50 PM CDT Mariah Montelongo LIZZY URINE ORDERABLES Final Result [facility] [address] [place] [address], * (ABNORMAL) DRUG SCREEN RAPID (02/25/2018 3:50 PM CDT) AMPHETAMINE (U) NEGATIVE NEGATIVE 8 4:14 PM CDT [facility] BARBITURATES SCREEN (U) NEGATIVE NEGATIVE 02/25/2018 4:14 PM CDT [facility] BENZODIAZEPINES SCREEN (U) NEGATIVE NEGATIVE 02/25/2018 4:14 PM CDT [facility] CANNABINOIDS SCREEN (U) NEGATIVE NEGATIVE 02/25/2018 4:14 PM CDT [facility] COCAINE METABOLITES (U) NEGATIVE NEGATIVE 02/25/2018 4:14 PM CDT [facility] METHADONE (U) NEGATIVE NEGATIVE 02/25/2018 4:14 PM CDT [facility] OPIATE SCREEN (U) NEGATIVE NEGATIVE 018 4:14 PM CDT [facility] PHENCYCLIDINE PCP (U) NEGATIVE NEGATIVE 02/25/2018 4:14 PM CDT [facility] Comment: NOTE: RESULTS OF THIS DRUG SCREEN SHOULD BE USED FOR MEDICAL PURPOSES ONLY AND NOT FOR LEGAL OR EMPLOYMENT PURPOSES. POSITIVE RESULTS ARE NOT CONFIRMED. MEDICATIONS CONTAINING EPHEDRINE MAY CAUSE FALSE POSITIVE AMPHETAMINE CALL [phone], LAB, TO REQUEST CONFIRMATION TESTING. IF CREATININE IS <40 mg/dL. ??RECOLLECTION IS SUGGESTED. AMPHETAMINE- ?500 NG/ML BARBITURATE- ?200 NG/ML BENZODIAZEPINES- ??200 NG/ML THC- ? 50 NG/ML COCAINE- ?150 NG/ML METHADONE- ?300 NG/ML OPIATE- ? 300 MG/ML PCP- ? 25 NG/ML CREATININE (U) 247.0(H) 28 - 217 MG/DL 02/25/2018 4:14 PM CDT [facility] Urine specimen (specimen) URINE SPECIMEN / Unknown 02/25/2018 3:50 PM CDT Mariah BALL URINE ORDERABLES Final Result Performing Organization Address [facility]/State/ZIP Co de Phone Number [facility] [address] [place] [address], * (ABNORMAL) COMPREHENSIVE METABOLIC PANEL (02/25/2018 3:12 PM CDT) GLUCOSE 86 70 - 99 MG/DL 02/25/2018 4:20 PM CDT [facility] BUN 8 7 - 18 MG/DL 02/25/2018 4:20 PM CDT [facility] CREATININE S/P/B 0.58 0.55 - 1.02 MG/DL 02/25/2018 4:20 PM CDT [facility] SODIUM S/P/B 141 136 - 145 MMOL/L 02/25/2018 4:20 PM CDT [facility] POTASSIUM S/P/B 3.4(L) 3.5 - 5.1 MMOL/L 02/25/2018 4:20 PM CDT [facility] CHLORIDE S/P/B 109(H) 100 - 108 MMOL/L 02/25/2018 4:20 PM T [facility] CO2 21.8 21 - 32 MMOL/L 02/25/2018 4:20 PM [facility] CALCIUM S/P/B 8.5 8.5 - 10.1 MG/DL 02/25/2018 4:20 PM T [facility] BILIRUBIN TOTAL S/P/B 0.6 0.2 - 1.2 MG/DL 02/25/2018 4:20 PM T [facility] TOTAL PROTEIN S/P/B 7.3 6.4 - 8.2 G/DL 02/25/2018 4:20 PM [facility] ALBUMIN S/P/B 3.1(L) 3.4 - 5.0 G/DL 02/25/2018 4:20 PM T [facility] AST 17 15 - 37 U/L 02/25/2018 4:20 PM [facility] ALT 16 14 - 55 U/L 02/25/2018 4:20 PM [facility] ALKALINE PHOSPHATASE S/P/B 89 50 - 136 U/L 02/25/2018 4:20 PM [facility] ANION GAP 13.6 8 - 20 MMOL/L 02/25/2018 4:20 PM T [facility] BUN CREATININE RATIO 13.7 6 - 26 02/25/2018 4:20 PM [facility] A/G RATIO 0.7(L) 1.0 - 2.0 RATIO 02/25/2018 4:20 PM [facility] EGFR NON-AFR. AMER. >90 >90 ML/MIN/1.7 3 M2 02/25/2018 4:20 PM T [facility] EGFR AFR. AMER. >90 >90 ML/MIN/1.7 3 M2 02/25/2018 4:20 PM CDT [facility] Comment: NOTE: eGFR is not calculated for patients <18 years of age. This is an estimated GFR (CKD EPI) and should not be used for calculating drug doses. 02/25/2018 3:12 PM CDT Mariah BALL LABORATORY Final Result [facility] [address] [place] [address], * (ABNORMAL) CBC W/DIFF AUTOMATED (02/25/2018 3:12 PM CDT) WBC 15.9(H) 4.5 - 11.0 x10'3/uL 02/25/2018 4:05 PM CDT [facility] RBC 3.75(L) 4.20 - 5.40 x10'6/uL 02/25/2018 4:05 PM CDT [facility] HGB 10.1(L) 12.0 - 16.0 G/DL 02/25/2018 4:05 PM CDT [facility] HCT 30.9(L) 38.0 - 48.0 % 02/25/2018 4:05 PM CDT [facility] MCV 82.4 81.0 - 99.0 FL 02/25/2018 4:05 PM CDT [facility] MCH 26.9(L) 27.0 - 31.0 PG 02/25/2018 4:05 PM CDT [facility] MCHC 32.7 32.0 - 36.0 G/DL 02/25/2018 4:05 PM CDT [facility] RDW 12.3 11.5 - 14.5 % 02/25/2018 4:05 PM CDT [facility] PLT 295 130 - 400 x10'3/uL 02/25/2018 4:05 PM T [facility] MPV 10.2 9.3 - 12.2 FL 02/25/2018 4:05 PM T [facility] DIFFERENTIAL TYPE AUTOMATED DIFFERENTIAL 02/25/2018 4:05 PM CDT [facility] NEUTROPHILS % 86.9 % 02/25/2018 4:05 PM CDT [facility] LYMPHOCYTES % 5.9 % 02/25/2018 4:05 PM T [facility] MONOCYTES % 6.1 % 02/25/2018 4:05 PM CDT [facility] EOSINOPHILS 0.3 % 02/25/2018 4:05 PM CDT [facility] BASOPHILS 0.2 % 02/25/2018 4:05 PM CDT [facility] IMMATURE GRANS % 0.6(H) 0 % 02/26/20 4:05 PM T [facility] ABS. NEUTROPHILS TOTAL 13.77(H) 1.80 - 7.70 x10'3/uL 02/25/2018 4:05 PM T [facility] ABS. LYMPHOCYTES 0.93(L) 1.00 - 4.80 x10'3/uL 02/25/2018 4:05 PM CDT [facility] ABS. MONOCYTES 0.97(H) 0.24 - 0.86 x10'3/uL 02/25/2018 4:05 PM [facility] ABS. EOSINOPHILS 0.05 0.04 - 0.36 x10'3/uL 02/25/2018 4:05 PM T [facility] ABS. BASOPHILS 0.03 0.01 - 0.08 x10'3/uL 02/25/2018 4:05 PM CDT [facility] ABS. IMMATURE GRANULOCYTES 0.10(H) 0.00 - 0.03 x10'02/25/2018 4:05 PM CDT [facility] 02/25/2018 3:12 PM CDT Mariah Montelongo CNM LABORATORY Final Result [facility] [address] [place] [address], [place] [phone] documented in this encounter Visit Diagnoses Diagnosis Vomiting affecting , delivered ([facility])- Primary Nausea & vomiting Nausea with vomiting documented in this encounter Administered Medications Inactive Administered Medications - up to 3 most recent administrations Medication Order MAR Action Action Date Dose Rate Site acetaminophen (TYLENOL) tablet 1,000 mg 1,000 mg, Oral, Every 6 hours PRN, Mild pain (Scale 1 - 3), Starting on Sun02/25/18 at 2045, Until Sun02/26/18 at 1027, Maximum dose of acetaminophen is 4000 mg from all sources in 24 hours. Given 02/26/2018 7:54 AM CDT 1,000 mg Given 02/25/2018 9:00 PM CDT 1,000 mg dextrose 5 % lactated ringers infusion at 999 mL/hr, Intravenous, Once, 1 dose, On Sun02/25/18 at 1530Indications:Vomiting affecting , delivered ([facility]) New Bag 02/25/2018 4:00 PM CDT 999 mL/hr 999 mL/hr dextrose 5 % lactated ringers infusion at 150 mL/hr, Intravenous, Continuous, Starting on Sun02/25/18 at 1745, Until Sun02/25/18 at 1912 New Bag 02/25/2018 5:40 PM CDT 150 mL/hr 150 mL/hr lactated ringers infusion at 150 mL/hr, Intravenous, Continuous, Starting on Sun02/25/18 at 1930, Until Sun02/26/18 at 1027 New Bag 02/26/2018 2:36 AM CDT 150 mLs 150 mL/hr New Bag 02/25/2018 8:30 PM CDT 150 mL/hr 150 mL/hr metoclopramide (REGLAN) injection 10 mg 10 mg, Intravenous, Every 6 hours, First dose on Sun02/25/18 at 1930, Until Discontinued, Administer IV over 1-2 minutes Given 02/26/2018 7:53 AM CDT 10 mg ondansetron (ZOFRAN) injection 4 mg 4 mg, Intravenous, Every 6 hours PRN, Nausea, Vomiting, Starting on Sun02/25/18 at 1510, Until Sun02/26/18 at 1027Indications:Vomiting affecting , delivered ([facility]) Given 02/25/2018 4:47 PM CDT 4 mg ondansetron (ZOFRAN-ODT) disintegrating tablet 8 mg 8 mg, Oral, Every 8 hours PRN, Nausea, Vomiting, Starting on Sun02/25/18 at 1510, Until Sun02/26/18 at 1027Indications:Vomiting affecting , delivered ([facility]) potassium chloride 20 mEq in sodium chloride 0.9 % 250 mL IV Infusion 20 mEq, Intravenous, Administer over 120 Minutes, Once, 1 dose, On Sun02/25/18 at 1700 New Bag 02/25/2018 6:04 PM CDT 20 mEq 125 mL/hr documented in this encounter Active and Recently Administered Medications Times are shown in CDT. Scheduled Medication Order 02/24/2018 02/25/2018 02/26/2018 dextrose 5 % lactated ringers infusion (COMPLETED) at 999 mL/hr, Intravenous, Once, 1 dose, On Sun02/25/18 at 1530 1600 (New Bag - Provider: Bella Miranda RN) metoclopramide (REGLAN) injection 10 mg 10 mg, Intravenous, Every 6 hours, First dose on Sun02/25/18 at 1930, Until Discontinued, Administer IV over 1-2 minutes 1930 (Canceled Entry - Provider: Automatic Discharge Provider - Comment: Automatically canceled at discontinue of medication order) 0234 (Not Given - Provider: Bekah Ewing RN - Reason: Patient sleeping)0753 (Given - Provider: Chapito Escalante RN) potassium chloride 20 mEq in sodium chloride 0.9 % 250 mL IV Infusion (COMPLETED) 20 mEq, Intravenous, Administer over 120 Minutes, Once, 1 dose, On Sun02/25/18 at 1700 1804 (New Bag - Provider: Bella Miranda, RN)2009 (Infusion Stop Time - Provider: Kezia Yang RN) Continuous Medication Order 02/24/2018 02/25/2018 02/26/2018 dextrose 5 % lactated ringers infusion (CANCELED) at 150 mL/hr, Intravenous, Continuous, Starting on Sun02/25/18 at 1745, Until Sun02/25/18 at 1912 1740 (New Bag - Provider: Bella Miranda, DENY) lactated ringers infusion at 150 mL/hr, Intravenous, Continuous, Starting on Sun02/25/18 at 1930, Until Sun02/26/18 at 1027 2030 (New Bag - Provider: Bekah Ewing, DENY) 0236 (New Bag - Provider: Bekah Ewing, DENY) PRN Medication Order 02/24/2018 02/25/2018 02/26/2018 acetaminophen (TYLENOL) tablet 1,000 mg 1,000 mg, Oral, Every 6 hours PRN, Mild pain (Scale 1 - 3), Starting on Sun02/25/18 at 2045, Until Sun02/26/18 at 1027, Maximum dose of acetaminophen is 4000 mg from all sources in 24 hours. 2100 (Given - Provider: Kezia Yang, DENY) 0754 (Given - Provider: Chapito Escalante, DENY) ondansetron (ZOFRAN) injection 4 mg 4 mg, Intravenous, Every 6 hours PRN, Nausea, Vomiting, Starting on Sun02/25/18 at 1510, Until Sun02/26/18 at 1027 1647 (Given - Provider: Britt Azevedo RN) ondansetron (ZOFRAN-ODT) disintegrating tablet 8 mg 8 mg, Oral, Every 8 hours PRN, Nausea, Vomiting, Starting on Sun02/25/18 at 1510, Until Sun02/26/18 at 1027 documented in this encounter
--- OUTSIDE RECORDS SUMMARY | 2024-07-07 22:31 | XMS_ITS | Encounter Summary ---
Author Organization [facility] Address [address] [place] [address]. [place] [address] [place] [address] Care Team Providers Care Automatic Lehr Operator Name Role Phone None, Provider Primary Care Provider Unavaila ble Reason for Referral * Imaging (Emergency) - Closed Specialty Diagnoses / Procedures Referred By Contac t Referred To Contact Procedures US PELVIC NON OB COMP TV Mario Rodríguez MD Referral ID Status Reason Start Date Expiration Date Visits Re quested Visits Authorized [id number] Closed 07/17/2018 08/17/2019 1 1 TELLER * Imaging (Emergency) - Closed Specialty Diagnoses / Procedures Referred By Contac t Referred To Contact Procedures CT ABD+PEL W IV CON ONLY Mario Rodríguez MD Referral ID Status Reason Start Date Expiration Date Visits Re quested Visits Authorized [id number] Closed 07/17/2018 08/17/2019 1 1 TELLER Reason for Visit * Reason Comments Chest Pain Encounter Details Date Type Department Care Team (Late st Contact Info) Description 07/17/2018 3:46 AM TUBE TELLER - 07/17/2018 8:26 AM TUBE TELLER Emergency [facility] [place] [address] Mario Rodríguez MD Chest Pain Discharge Disposition: Home or Self Care (Routine Discharge) Social History Tobacco Use Types Packs/Day Years Used Date Smoking Tobacco: Former Cigarettes Q uit: 03/09/2018 Smokeless Tobacco: Never Alcohol Use Standard Drinks/Week Comments No 0 (1 standard drink = 0.6 oz pur e alcohol) Comments Unknown Sex and Gender Information Value Date Recorded Sex Assigned at Not on file Legal Sex Female 6:37 PM CDT Gender Identity Not on file Sexual Orientation Straight 10/30/2018 5: 50 PM CDT documented as of this encounter Last Filed Vital Signs Vital Sign Reading Time Taken Comments Blood Pressure 110/70 07/17/2018 8:16 AM TUBE TELLER Pulse 62 07/17/2018 8:16 AM TUBE TELLER Temperature 36.9 ??C (98.5 ??F) 07/17/2018 8:16 AM CS T Respiratory Rate 20 07/17/2018 8:16 AM TUBE TELLER Oxygen Saturation 99% 07/17/2018 8:16 AM TUBE TELLER Inhaled Oxygen Concentration - - Weight 74 kg (163 lb 1.6 oz) 07/17/2018 3:37 AM TUBE TELLER Height 170.2 cm (5' 7 ) 07/17/2018 3:37 AM TUBE TELLER Body Mass Index 25.55 07/17/2018 3:37 AM TUBE TELLER documented in this encounter Discharge Instructions * Discharge Instructions* Mario Rodríguez MD - 07/17/2018 7:57 AM TUBE TELLER Please follow-up with your CABLE DRILLER for further evaluation of your cysts on your ovaries and the endometrial findings on the ultrasound. This requires repeat ultrasounds and further evaluation as we discussed. Please take the oral medicines to help make your bowel movements looser. If this does not help, please use the rectal suppositories as directed. This should stimulate your intestines to cause a bowelmovement. Increase your fluid intake as dehydration can worsen your constipation. When your constipation has improved please increase your fiber intake in the future to prevent future episodes, for instance please eat foods with fiber supplementation, fruits and veggies. If you take narcotic pain medicines please contact your primary care provider as these can cause constipation. Additionally, itis important you follow up with your primary care provider as you may require additional testing, for example a colonoscopy, to determine why you are having constipation. TELLER * Attachments The following attachments cannot be sent through Care Everywhere. * Ovarian Cyst Discharge Instructions (Libyan) * Constipation Discharge Instructions, Adult (Libyan) documented in this encounter Medications at Time of Discharge bisacodyl [address] 1 suppository (10 mg total) rectally daily as needed for Constipation. 12 suppository 07/17/2018 07/27/19 19 gabapentin 300 MG capsule Take 300 mg by mouth 3 (three) times daily. 0 06/25/2018 10/31/19 19 polyethylene glycol (MIRALAX) powder Take 17 g by mouth daily for 5 days. Dissolve powder in 240 mL water 85 g 07/17/2018 07/22/19 19 documented as of this encounter ED Notes * Alicia Vega RN - 07/17/2018 5:49 AM CST Pt returned from CT Scan TELLER * Mario Rodríguez MD - 07/17/2018 4:00 AM CST Chief Complaint Chief Complaint Patient presents with ??? Chest Pain History of Present Illness 23 year old female with PMH of anemia presents to ED for evaluation of midsternal chest pain that radiates to right chest and down center of abdomen. Reports intermittent episodes of chest pain that last about 5 minutes. Reports she had to stop on the way here to vomit. Denies any pain medication. Denies diarrhea. Has surgical history of appendectomy. Has no history of kidney stones or gallbladder disease. No known allergies. Reports she quit smoking and does not use alcohol. History provided by: Patient american sign language interpreter used: No Chest Pain Associated symptoms: abdominal pain and vomiting Associated symptoms: no back pain, no cough, no fever, no headache and no nausea Medical History ALLERGIES: No Known Allergies MEDICATIONS: Prior to Admission medications Medication Sig Start Date End Date Taking? Authorizing Provider bisacodyl [address] 1 suppository (10 mg total) rectally daily as needed for Constipation. 07/17/18 07/27/18 Yes Mario Rodríguez MD gabapentin 300 MG capsule Take 300 mg by mouth 3 (three) times daily. 06/25/18 Yes Doc Abstract polyethylene glycol (MIRALAX) powder Take 17 g by mouth daily for 5 days. Dissolve powder in 240 mLwater 07/17/18 07/22/18 Yes Mario Rodríguez MD PAST MEDICAL HISTORY: Past Medical History: Diagnosis Date ??? Anemia dx with PAST SURGICAL HISTORY: Past Surgical History: Procedure Laterality Date ??? APPENDECTOMY FAMILY HISTORY: No family history on file. SOCIAL HISTORY: Social History Tobacco Use ??? Smoking status: Former Smoker Packs/day: 0.25 Types: Cigarettes Last attempt to quit: 03/09/2018 Years since quittin.3 ??? Smokeless tobacco: Never Used Substance Use Topics ??? Alcohol use: No ??? Drug use: No Review of Systems Review of Systems Constitutional: Negative for chills and fever. HENT: Negative for ear pain and hearing loss. Respiratory: Negative for cough. Cardiovascular: Positive for chest pain. Gastrointestinal: Positive for abdominal pain and vomiting. Negative for diarrhea and nausea. Genitourinary: Negative for dysuria. Musculoskeletal: Negative for back pain, myalgias and neck pain. Skin: Negative for rash. Neurological: Negative for headaches. Physical Exam Filed Vitals: 07/17/18 0438 07/17/18 0445 07/17/18 0500 07/17/18 0617 BP: 118/68 118/68 95/58 112/66 Pulse: 51 59 (!) 49 58 Resp: 17 19 18 18 Temp: SpO2: 100% Weight: Height: Physical Exam Constitutional: She is oriented to person, place, and time. She appears well- developed and well-nourished. No distress. HENT: Head: Normocephalic and atraumatic. Eyes: EOM are normal. Neck: Normal range of motion. Neck supple. No tracheal deviation present. Cardiovascular: Normal rate, regular rhythm, normal heart sounds and intact distal pulses. Exam reveals no gallop and no friction rub. No murmur heard. Pulmonary/Chest: Effort normal and breath sounds normal. No stridor. No respiratory distress. She has no wheezes. She has no rales. She exhibits no tenderness. Abdominal: Soft. She exhibits no distension. There is tenderness. There is no rebound and no guarding. Musculoskeletal: Normal range of motion. She exhibits no edema. Neurological: She is alert and oriented to person, place, and time. Skin: Skin is warm and dry. She is not diaphoretic. Psychiatric: She has a normal mood and affect. Her behavior is normal. Judgment normal. Nursing note and vitals reviewed. Diagnostic Studies / Procedures ELECTROCARDIOGRAMS: Results for orders placed or performed during the hospital encounter of 07/17/18 ECG 12-Lead Narrative [facility] [address] [place] [address] Test Date: 2018-07-17 Pat Name: DOREEN NOBLES Department: Room: Gender: Female Kennel Supervisor: amy : 1995 Requested By: MARIO RODRÍGUEZ Order Number: [id number] Reading MD: Measurements Intervals [place] Rate: 50 P: 57 IA: 132 QRS: 43 QRSD: 85 T: 26 QT: 415 QTc: 381 Interpretive Statements SINUS BRADYCARDIA WITH SINUS ARRHYTHMIA No previous ECG available for comparison Sinus bradycardia, rate of 50. Normal axis, normal intervals. No ischemic changes. LABORATORY STUDIES: Results for orders placed or performed during the hospital encounter of 07/17/18 CBC W/DIFF AUTOMATED Result Value Ref Range WBC 8.1 4.5 - 11.0 x10'3/uL RBC 4.66 4.20 - 5.40 x10'6/uL HGB 11.1 (L) 12.0 - 16.0 G/DL HCT 37.7 (L) 38.0 - 48.0 % MCV 80.9 80.0 - 94.0 FL MCH 23.8 (L) 27.0 - 31.0 PG MCHC 29.4 (L) 32.0 - 36.0 G/DL RDW 16.8 (H) 11.5 - 14.5 % PLT 428 (H) 130 - 400 x10'3/uL MPV 10.7 9.3 - 12.2 FL DIFFERENTIAL TYPE AUTOMATED DIFFERENTIAL NEUTROPHILS 51.7 % LYMPHOCYTES 33.7 % MONOCYTES 9.3 % EOSINOPHILS 4.3 % BASOPHILS 0.9 % IMMATURE GRANS 0.1 (H) 0 % ABS. NEUTROPHILS TOTAL 4.21 1.80 - 7.70 x10'3/uL ABS. LYMPHOCYTES 2.74 1.00 - 4.80 x10'3/uL ABS. MONOCYTES 0.76 0.24 - 0.86 x10'3/uL ABS. EOSINOPHILS 0.35 0.04 - 0.36 x10'3/uL ABS. BASOPHILS 0.07 0.01 - 0.08 x10'3/uL ABS. IMMATURE GRANULOCYTES 0.01 0.00 - 0.03 x10'3/uL COMPREHENSIVE METABOLIC PANEL Result Value Ref Range GLUCOSE 104 (H) 70 - 99 MG/DL BUN 10 7 - 18 MG/DL CREATININE 0.84 0.55 - 1.02 MG/DL SODIUM 140 136 - 145 MMOL/L POTASSIUM 3.3 (L) 3.5 - 5.1 MMOL/L CHLORIDE 104 100 - 108 MMOL/L CO2 29.8 21 - 32 MMOL/L CALCIUM 8.7 8.5 - 10.1 MG/DL TOTAL BILIRUBIN 0.3 0.2 - 1.2 MG/DL TOTAL PROTEIN 8.1 6.4 - 8.2 G/DL ALBUMIN 4.1 3.4 - 5.0 G/DL AST 14 (L) 15 - 37 U/L ALT 15 14 - 55 U/L ALK PHOS 108 50 - 136 U/L ANION GAP 9.5 8 - 20 MMOL/L BUN CREATININE RATIO 12.0 6 - 26 A/G RATIO 1.0 1.0 - 2.0 RATIO eGFR Non-Afr. Amer. >90 >90 ML/MIN/1.73 M2 eGFR Afr. Amer. >90 >90 ML/MIN/1.73 M2 TROPONIN, QUANT Result Value Ref Range TROPONIN I <0.015 <0.045 ng/mL. LIPASE Result Value Ref Range LIPASE 250 73 - 393 UNITS/L POCT urine Result Value Ref Range URINE HCG TEST NEG NEGATIVE INT CTRL PERFORMED EXPECTED? LOT: [id number] IMAGING STUDIES US PELVIC NON OB COMP TV Final Result by User, [id number] (07/17 738) EXAMINATION: Pelvic ultrasound EXAM DATE/TIME: 07/17/2018 6:28 AM REASON FOR EXAM: r/o torsion Right lower quadrant and left lower quadrant abdominal pain. Nausea. 2 months ago. Check for ovarian torsion. COMPARISON: CT scan abdomen pelvis July 17, 2018. TECHNIQUE: Transvaginal ultrasound evaluation of the pelvic contents was performed for analysis of grayscale and color Doppler imaging characteristics. FINDINGS: The uterus measures 7.4 cm in length. Uterus is retroflexed. No myometrial mass identified. Endometrial complex is thickened measuring up to 21.6 mm. Heterogeneous echogenicity of the endometrium. Etiology is findings uncertain. Underlying hemorrhage or mass cannot be excluded. Small amount of free fluid is noted in the pelvis. Right ovary measures 3.9 x 2.5 x 2.1 cm. Follicle cysts are noted on the right ovary. Blood flow right ovary on spectral analysis. Mixed echogenicity region right ovary measuring up to 8.6 mm. This is primarily hyperechoic. Etiology uncertain. Possible hemorrhagic cyst. Possible fatty mass. Left ovary measures 5.95 x 4.7 x 3.0 cm. Blood flow left ovary on spectral analysis. None simple cystic area left ovary measuring 4.4 x 3.3 x 2.8 cm. Some internal soft tissue and septation noted. Small internal daughter cyst is possible. Other nonsimple cystic lesions are noted in the left adnexa. ===== IMPRESSION: ===== 1. No ovarian torsion. 2. Multiple nonsimple cystic lesions left ovary. Largest one measures up to 4.4 cm. Etiology uncertain. Correlate with beta hCG level to exclude ectopic. Developing cystic mass is not excluded. Continued follow-up recommended. 3. Follicle cysts right ovary. Predominantly echogenic lesion right ovary measuring up to 8.6 mm. Etiology uncertain. Possible hemorrhagic cyst. Possible fat-containing lesion. 4. Thickened endometrial complex up to 21.6 mm with heterogeneous echogenicity. Etiology uncertain. Underlying hemorrhage or mass not excluded. Follow-up recommended. 5. Free fluid within the pelvis. Interpreted By: Darryl Green MD, 07/17/2018 7:[address] ABD+PEL W IV CON ONLY Final Result by User, [email or web address] (07/17 0552) CT ABD+PEL W CON: 07/17/2018 5:26 AM CLINICAL INFORMATION: abdominal pain lower midline abdominal pain recurrent episodes COMPARISON: No relevant studies available for comparison. TECHNIQUE: Computed tomography of the abdomen, and pelvis was performed before after the administration of 100 mL Isovue-370 contrast according to routine protocol without immediate complication. A dose lowering technique was used for this procedure, which may include, but is not limited to, dose reduction technique, automated exposure control, the use of iterative reconstruction, and ALARA (As Low As Reasonably Achievable) / Image Gently techniques. Oral contrast: No oral contrast administered. FINDINGS: Lower Chest: within normal limits. Abdomen: Liver: Mild diffuse fatty infiltration of the liver. Bile Ducts: Normal caliber. Gallbladder: Few small calculi dependent aspect of the gallbladder. No gallbladder wall thickening. Pancreas: No pancreatic ductal dilatation. No discrete mass. Spleen: No evidence of splenomegaly. Adrenals: No suspicious adrenal enlargement. Kidneys: No hydronephrosis. No suspicious mass. Pelvis: Reproductive Organs: Prominent left ovary measuring 4 cm in diameter probable multiple ovarian cysts. Some free pelvic fluid and prominence of the endometrium. Nonspecific in a premenopausal female. Left ovary measures 3 cm. Ureters: within normal limits. Bladder: Incompletely distended and of the bladder. Appendix: The appendix is not visualized. Bowel: Moderate stool burden ascending and transverse colon. No small bowel distention. Mesenteric Lymph Nodes: No enlarged mesenteric lymph nodes. Peritoneum: Minimal free fluid within the pelvis Vessels: Normal caliber aorta Retroperitoneum: within normal limits. Abdominal Wall: within normal limits. Bones: No osseous destructive lesions. IMPRESSION: Enlarged left adnexa probably ovarian cysts. Nonvisualization of appendix. Moderate stool burden ascending transverse colon. CHEST PORTABLE Final Result by User, [id number] (07/17 0415) Examination: Chest radiograph Exam time: 07/17/2018 3:58 AM Clinical history: chest pain . Comparison: None Technique: Single of the chest obtained. Findings: The cardiac silhouette, mediastinal contours, and pulmonary vessels appear normal. The lungs are clear. No pneumothorax. No consolidations or effusions are seen. Osseous structures are unremarkable. IMPRESSION: No acute findings. Course / Medical Decision Making The patient is a 23-year-old female who has a past medical history of Anemia. The patient presents today with pain from her sternum down through her abdomen. Patient initially came in for chest pain however during prolonged discussion it appears that it is entire abdominal pain. Unclear etiology patient is a fairly poor historian. Concern for gastritis, pancreatitis, bowel obstruction, or possible pneumonia with referred pain. Obtain blood work chest x-ray CT scan of the abdomen and pelvis. After the patient's urine test was negative we gave the patient morphine for her pain. EKG was unremarkable, chest x-ray was clear. Blood work was notable for hypokalemia but was otherwise unremarkable. The CT scan showed significant significant stool burden up to her transverse colon as well as right ovarian cysts. Patient was continuing to have a significant amount of diffuse abdominal pain. Will obtain transvaginal ultrasound to rule out torsion. On explaining the results the patient says that this could be her constipation pain however says it is more significant. Was given adose of Dilaudid as well as another dose of Zofran as she still felt nauseous. Transvaginal ultrasound showed no signs of torsion however mention multiple different cystic masseson the ovaries. Repeatedly stressed the importance to the patient and her that she needs tohave CABLE DRILLER follow-up for these. Patient stated an understanding. was in the room during this discussion and he expressed an understanding as well. Will prescribe MiraLAX and suppositories for the constipation and will discharge home. Addendum: Patient was given a printout of her results, states that they will make an appointment later today. Clinical Impression Bilateral ovarian cysts (Primary) Constipation Disposition: Discharge I, Ely Smiley, acting as a scribe, am personally taking down the notes in the presence of Dr. Mario Rodríguez MD. Take no action on this note until reviewed and authenticated by the physician. Mario Rodríguez MD 07/17/18 0759 Mario Rodríguez MD 07/17/18 0804 TELLER TELLER * Cyndi Fuentes RN - 07/17/2018 3:46 AM CST Bed: 18 Expected date: Expected time: Means of arrival: Comments: Do not use TELLER * Alicia Vega RN - 07/17/2018 3:36 AM CST Pt reports substernal chest pain today sharp in nature that occurred 2 other times, states it radiates into right chest area. TELLER documented in this encounter Plan of Treatment Upcoming Encounters Date Type Department Care Team (Late st Contact Info) Description 07/24/[address] [facility] [place] [address] Osmin Hunt MD [address] [place] [address] Scheduled Procedures Name Priority Associated Diagnoses Date/Ti me ROBOTIC XI HYSTERECTOMY MENORRHAGIA, DYSMENORRHEA N92.4, N94.4 documented as of this encounter Procedures Procedure Name Priority Date/Time Associated Diagnosis Comments US PELVIC NON OB COMP TV STAT 07/17/2018 7:[address] ABD+PEL W CON STAT 07/17/2018 5:32 AM TUBE TELLER POCT URINE (BACK OFFICE) STAT 07/17/2018 4:31 AM TUBE TELLER XR CHEST PORTABLE STAT 07/17/2018 4:1 3 AM TUBE TELLER COMPREHENSIVE METABOLIC PANEL STAT 07/17/2018 3:46 AM TUBE TELLER CBC W/DIFF AUTOMATED STAT 07/17/2018 3:46 AM TUBE TELLER TROPONIN, QUANT STAT 07/17/2018 3:46 AM TUBE TELLER LIPASE STAT 07/17/2018 3:46 AM TUBE TELLER ECG 12-LEAD STAT 07/17/2018 3:37 AM TUBE TELLER documented in this encounter Results * US PELVIC NON OB COMP TV (07/17/2018 7:31 AM TUBE TELLER) Anatomical Region Laterality Modality Pelvis Ultrasound 07/17/2018 7:31 AM TUBE TELLER Narrative 07/17/2018 7:38 AM TUBE TELLER EXAMINATION: Pelvic ultrasound EXAM DATE/TIME: 07/17/2018 6:28 AM REASON FOR EXAM: ??r/o torsion ?? Right lower quadrant and left lower quadrant abdominal pain. ??Nausea. ??C- section 2 months ago. ??Check for ovarian torsion. COMPARISON: CT scan abdomen pelvis July 17, 2018. TECHNIQUE: Transvaginal ultrasound evaluation of the pelvic contents was performed for analysis of grayscale and color Doppler imaging characteristics. FINDINGS: The uterus measures 7.4 cm in length. ??Uterus is retroflexed. ??No myometrial mass identified. ??Endometrial complex is thickened measuring up to 21.6 mm. ??Heterogeneous echogenicity of the endometrium. ??Etiology is findings uncertain. ??Underlying hemorrhage or mass cannot be excluded. ??Small amount of free fluid is noted in the pelvis. Right ovary measures 3.9 x 2.5 x 2.1 cm. ??Follicle cysts are noted on the right ovary. ??Blood flow right ovary on spectral analysis. ??Mixed echogenicity region right ovary measuring up to 8.6 mm. ??This is primarily hyperechoic. ??Etiology uncertain. ??Possible hemorrhagic cyst. ??Possible fatty mass. Left ovary measures 5.95 x 4.7 x 3.0 cm. ??Blood flow left ovary on spectral analysis. ??None simple cystic area left ovary measuring 4.4 x 3.3 x 2.8 cm. ??Some internal soft tissue and septation noted. ??Small internal daughter cyst is possible. ??Other nonsimple cystic lesions are noted in the left adnexa. ===== IMPRESSION: ===== 1. ??No ovarian torsion. 2. ??Multiple nonsimple cystic lesions left ovary. ??Largest one measures up to 4.4 cm. ??Etiology uncertain. ??Correlate with beta hCG level to exclude ectopic. ??Developing cystic mass is not excluded. ??Continued follow-up recommended. 3. ??Follicle cysts right ovary. ??Predominantly echogenic lesion right ovary measuring up to 8.6 mm. ??Etiology uncertain. ??Possible hemorrhagic cyst. ??Possible fat-containing lesion. 4. ??Thickened endometrial complex up to 21.6 mm with heterogeneous echogenicity. ??Etiology uncertain. ??Underlying hemorrhage or mass not excluded. ??Follow-up recommended. 5. ??Free fluid within the pelvis. Interpreted By: Darryl Green MD, 07/17/2018 7:31 AM Procedure Note Adan Green MD - 07/17/2018 EXAMINATION: Pelvic ultrasound EXAM DATE/TIME: 07/17/2018 6:28 AM REASON FOR EXAM: r/o torsion Right lower quadrant and left lower quadrant abdominal pain. Nausea. 2 months ago. Check for ovarian torsion. COMPARISON: CT scan abdomen pelvis July 17, 2018. TECHNIQUE: Transvaginal ultrasound evaluation of the pelvic contents wasperformed for analysis of grayscale and color Doppler imagingcharacteristics. FINDINGS: The uterus measures 7.4 cm in length. Uterus is retroflexed.No myometrial mass identified. Endometrial complex is thickened measuringup to 21.6 mm. Heterogeneous echogenicity of the endometrium. Etiologyis findings uncertain. Underlying hemorrhage or mass cannot be excluded.Small amount of free fluid is noted in the pelvis. Right ovary measures 3.9 x 2.5 x 2.1 cm. Follicle cysts are noted on theright ovary. Blood flow right ovary on spectral analysis. Mixedechogenicity region right ovary measuring up to 8.6 mm. This is primarilyhyperechoic. Etiology uncertain. Possible hemorrhagic cyst. Possiblefatty mass. Left ovary measures 5.95 x 4.7 x 3.0 cm. Blood flow left ovary onspectral analysis. None simple cystic area left ovary measuring 4.4 x 3.3x 2.8 cm. Some internal soft tissue and septation noted. Small internaldaughter cyst is possible. Other nonsimple cystic lesions are noted inthe left adnexa. ===== IMPRESSION: ===== 1. No ovarian torsion. 2. Multiple nonsimple cystic lesions left ovary. Largest one measures upto 4.4 cm. Etiology uncertain. Correlate with beta hCG level to excludeectopic. Developing cystic mass is not excluded. Continued follow-uprecommended. 3. Follicle cysts right ovary. Predominantly echogenic lesion rightovary measuring up to 8.6 mm. Etiology uncertain. Possible hemorrhagiccyst. Possible fat-containing lesion. 4. Thickened endometrial complex up to 21.6 mm with heterogeneousechogenicity. Etiology uncertain. Underlying hemorrhage or mass notexcluded. Follow-up recommended. 5. Free fluid within the pelvis. Interpreted By: Darryl Green MD, 07/17/2018 7:31 AM Mario Rodríguez MD ULTRASOUND Final Result * CT ABD+PEL W IV CON ONLY (07/17/2018 5:32 AM TUBE TELLER) Anatomical Region Laterality Modality Abdomen Computed Tomogra phy 07/17/2018 5:47 AM TUBE TELLER Impressions 07/17/2018 5:51 AM TUBE TELLER IMPRESSION: Enlarged left adnexa probably ovarian cysts. Nonvisualization of appendix. Moderate stool burden ascending transverse colon. Narrative 07/17/2018 5:[address] ABD+PEL W CON: 07/17/2018 5:26 AM CLINICAL INFORMATION: abdominal pain ?lower midline abdominal pain recurrent episodes COMPARISON: No relevant studies available for comparison. TECHNIQUE: Computed tomography of the ??abdomen, and pelvis was performed before after the administration of 100 mL Isovue-370 contrast according to routine protocol without immediate complication. A dose lowering technique was used for this procedure, which may include, but is not limited to, dose reduction technique, automated exposure control, the use of iterative reconstruction, and ALARA (As Low As Reasonably Achievable) / Image Gently techniques. Oral contrast: No oral contrast administered. ?? FINDINGS: Lower Chest: within normal limits. Abdomen: Liver: Mild diffuse fatty infiltration of the liver. Bile Ducts: Normal caliber. Gallbladder: Few small calculi dependent aspect of the gallbladder. No gallbladder wall thickening. Pancreas: No pancreatic ductal dilatation. No discrete mass. Spleen: No evidence of splenomegaly. Adrenals: No suspicious adrenal enlargement. Kidneys: No hydronephrosis. No suspicious mass. Pelvis: Reproductive Organs: Prominent left ovary measuring 4 cm in diameter probable multiple ovarian cysts. Some free pelvic fluid and prominence of the endometrium. Nonspecific in a premenopausal female. Left ovary measures 3 cm. Ureters: within normal limits. Bladder: Incompletely distended and of the bladder. Appendix: The appendix is not visualized. Bowel: Moderate stool burden ascending and transverse colon. No small bowel distention. Mesenteric Lymph Nodes: No enlarged mesenteric lymph nodes. Peritoneum: Minimal free fluid within the pelvis Vessels: Normal caliber aorta Retroperitoneum: within normal limits. Abdominal Wall: within normal limits. Bones: No osseous destructive lesions. ?? Procedure Note Genny Pineda MD - 07/17/2018 CT ABD+PEL W CON: 07/17/2018 5:26 AM CLINICAL INFORMATION: abdominal pain lower midline abdominal pain recurrent episodes COMPARISON: No relevant studies available for comparison. TECHNIQUE: Computed tomography of the abdomen, and pelvis was performed before after the administration of 100 mL Isovue-370 contrast accordingto routine protocol without immediate complication. A dose loweringtechnique was used for this procedure, which may include, but is not limited to,dose reduction technique, automated exposure control, the use of iterative reconstruction, and ALARA (As Low As Reasonably Achievable) / ImageGently techniques. Oral contrast: No oral contrast administered. FINDINGS: Lower Chest: within normal limits. Abdomen: Liver: Mild diffuse fatty infiltration of the liver. Bile Ducts: Normal caliber. Gallbladder: Few small calculi dependent aspect of the gallbladder. No gallbladder wall thickening. Pancreas: No pancreatic ductal dilatation. No discrete mass. Spleen: No evidence of splenomegaly. Adrenals: No suspicious adrenal enlargement. Kidneys: No hydronephrosis. No suspicious mass. Pelvis: Reproductive Organs: Prominent left ovary measuring 4 cm in diameter probable multiple ovarian cysts. Some free pelvic fluid and prominenceof the endometrium. Nonspecific in a premenopausal female. Left ovarymeasures 3 cm. Ureters: within normal limits. Bladder: Incompletely distended and of the bladder. Appendix: The appendix is not visualized. Bowel: Moderate stool burden ascending and transverse colon. No smallbowel distention. Mesenteric Lymph Nodes: No enlarged mesenteric lymph nodes. Peritoneum: Minimal free fluid within the pelvis Vessels: Normal caliber aorta Retroperitoneum: within normal limits. Abdominal Wall: within normal limits. Bones: No osseous destructive lesions. IMPRESSION: Enlarged left adnexa probably ovarian cysts. Nonvisualization of appendix. Moderate stool burden ascending transverse colon. Mario Rodríguez MD CT Final Result * POCT urine (07/17/2018 4:31 AM TUBE TELLER) URINE HCG TEST NEG NEGATIVE Internal Control performed as Expected? LOT: [id number] Comment:CONTROL PRESENT us Mario Rodríguez MD POINT OF CARE TEST ORDERABLES Fi nal Result * XR CHEST PORTABLE (07/17/2018 4:13 AM TUBE TELLER) Anatomical Region Laterality Modality Chest Radiographic Heidi ging 07/17/2018 4:14 AM TUBE TELLER Impressions 07/17/2018 4:14 AM TUBE TELLER IMPRESSION: No acute findings. Narrative 07/17/2018 4:14 AM TUBE TELLER Examination: Chest radiograph Exam time: 07/17/2018 3:58 AM Clinical history: chest pain ? . Comparison: None Technique: ??Single of the chest obtained. Findings: ??The cardiac silhouette, mediastinal contours, and pulmonary vessels appear normal. The lungs are clear. No pneumothorax. No consolidations or effusions are seen. Osseous structures are unremarkable. Procedure Note Genny Pineda MD - 07/17/2018 Examination: Chest radiograph Exam time: 07/17/2018 3:58 AM Clinical history: chest pain . Comparison: None Technique: Single of the chest obtained. Findings: The cardiac silhouette, mediastinal contours, and pulmonary vessels appear normal. The lungs are clear. No pneumothorax. No consolidationsor effusions are seen. Osseous structures are unremarkable. IMPRESSION: No acute findings. us Mario Rodríguez MD GENERAL IMAGING Final Result * LIPASE (07/17/2018 3:46 AM TUBE TELLER) LIPASE 250 73 - 393 UNITS/L 07/17/2018 4:18 AM TUBE TELLER [facility] 07/17/2018 3:46 AM TUBE TELLER Mario Rodríguez MD LABORATORY Final Result Performing Organization Address City/[facility]/ZIP Co de Phone Number [facility] [address] [place] [address], [place] [phone] * TROPONIN, QUANT (07/17/2018 3:46 AM TUBE TELLER) TROPONIN I <0.015 <0.045 ng/mL. 07/17/2018 4:18 AM TUBE TELLER [facility] Comment: HIGH DOSES OF BIOTIN MAY INTERFERE WITH THIS TEST RESULT. CORRELATION TO CLINICAL HISTORY AND PRESENTATION RECOMMENDED. 07/17/2018 3:46 AM TUBE TELLER Mario Rodríguez MD LABORATORY Final Result Performing Organization Address [facility] Co de Phone Number [facility] [address] [place] [address], [place] [phone] * (ABNORMAL) COMPREHENSIVE METABOLIC PANEL (07/17/2018 3:46 AM TUBE TELLER) GLUCOSE 104(H) 70 - 99 MG/DL 07/17/2018 4:18 AM [facility] BUN 10 7 - 18 MG/DL 07/17/2018 4:18 AM [facility] CREATININE S/P/B 0.84 0.55 - 1.02 MG/DL 07/17/2018 4:18 AM [facility] SODIUM S/P/B 140 136 - 145 MMOL/L 07/17/2018 4:18 AM [facility] POTASSIUM S/P/B 3.3(L) 3.5 - 5.1 MMOL/L 07/17/2018 4:18 AM [facility] CHLORIDE S/P/B 104 100 - 108 MMOL/L 07/17/2018 4:18 AM [facility] CO2 29.8 21 - 32 MMOL/L 07/17/2018 4:18 AM [facility] CALCIUM S/P/B 8.7 8.5 - 10.1 MG/DL 07/17/2018 4:18 AM [facility] BILIRUBIN TOTAL S/P/B 0.3 0.2 - 1.2 MG/DL 07/17/2018 4:18 AM [facility] TOTAL PROTEIN S/P/B 8.1 6.4 - 8.2 G/DL 07/17/2018 4:18 AM [facility] ALBUMIN S/P/B 4.1 3.4 - 5.0 G/DL 07/17/2018 4:18 AM [facility] AST 14(L) 15 - 37 U/L 07/17/2018 4:18 AM [facility] ALT 15 14 - 55 U/L 07/17/2018 4:18 AM [facility] ALKALINE PHOSPHATASE S/P/B 108 50 - 136 U/L 07/17/2018 4:18 AM [facility] ANION GAP 9.5 8 - 20 MMOL/L 07/17/2018 4:18 AM [facility] BUN CREATININE RATIO 12.0 6 - 26 07/17/2018 4:18 AM [facility] A/G RATIO 1.0 1.0 - 2.0 RATIO 07/17/2018 4:18 AM [facility] EGFR NON-AFR. AMER. >90 >90 ML/MIN/1.7 3 M2 07/17/2018 4:18 AM [facility] EGFR AFR. AMER. >90 >90 ML/MIN/1.7 3 M2 07/17/2018 4:18 AM [facility] Comment: NOTE: eGFR is not calculated for patients <18 years of age. This is an estimated GFR (CKD EPI) and should not be used for calculating drug doses. 07/17/2018 3:46 AM TUBE TELLER Mario Rodríguez MD LABORATORY Final Result [facility] [address] [place] [address], * (ABNORMAL) CBC W/DIFF AUTOMATED (07/17/2018 3:46 AM TUBE TELLER) WBC 8.1 4.5 - 11.0 x10'3/uL 07/17/2018 4:09 AM [facility] RBC 4.66 4.20 - 5.40 x10'6/uL 07/17/2018 4:09 AM [facility] HGB 11.1(L) 12.0 - 16.0 G/DL 07/17/2018 4:09 AM [facility] HCT 37.7(L) 38.0 - 48.0 % 07/17/2018 4:09 AM [facility] MCV 80.9 80.0 - 94.0 FL 07/17/2018 4:09 AM [facility] MCH 23.8(L) 27.0 - 31.0 PG 07/17/2018 4:09 AM [facility] MCHC 29.4(L) 32.0 - 36.0 G/DL 07/17/2018 4:09 AM [facility] RDW 16.8(H) 11.5 - 14.5 % 07/17/2018 4:09 AM [facility] PLT 428(H) 130 - 400 x10'3/uL 07/17/2018 4:09 AM [facility] MPV 10.7 9.3 - 12.2 FL 07/17/2018 4:09 AM [facility] DIFFERENTIAL TYPE AUTOMATED DIFFERENTIAL 07/17/2018 4:09 AM [facility] NEUTROPHILS % 51.7 % 07/17/2018 4:09 AM [facility] LYMPHOCYTES % 33.7 % 07/17/2018 4:09 AM [facility] MONOCYTES % 9.3 % 07/17/2018 4:09 AM [facility] EOSINOPHILS 4.3 % 07/17/2018 4:09 AM [facility] BASOPHILS 0.9 % 07/17/2018 4:09 AM [facility] IMMATURE GRANS % 0.1(H) 0 % 07/17/19 19 4:09 AM [facility] ABS. NEUTROPHILS TOTAL 4.21 1.80 - 7.70 x10'3/uL 07/17/2018 4:09 AM [facility] ABS. LYMPHOCYTES 2.74 1.00 - 4.80 x10'3/uL 07/17/2018 4:09 AM [facility] ABS. MONOCYTES 0.76 0.24 - 0.86 x10'3/uL 07/17/2018 4:09 AM [facility] ABS. EOSINOPHILS 0.35 0.04 - 0.36 x10'3/uL 07/17/2018 4:09 AM [facility] ABS. BASOPHILS 0.07 0.01 - 0.08 x10'3/uL 07/17/2018 4:09 AM [facility] ABS. IMMATURE GRANULOCYTES 0.01 0.00 - 0.03 x10'3/uL 07/17/2018 4:09 AM [facility] 07/17/2018 3:46 AM TUBE TELLER us Mario Rodríguez MD LABORATORY Final Result [facility] [address] [place] [address], * ECG 12-Lead (07/17/2018 3:37 AM TUBE TELLER) 07/17/2018 3:37 AM TUBE TELLER Narrative [facility] NEAL RODRIGUEZ ([facility]) RAD - 07/17/2018 10:17 PM TUBE TELLER ?[facility] [address] [facility] [place] ? Test Date: ?2018-07-17 Pat Name: ? DOREEN NOBLES ?Department: ? Room: ? Gender: ? Female ? 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 ev : ?1995 ? Requested By: MARIO RODRÍGUEZ Order Number: [id number] ? Reading : ?? Maria Del Rosario Shahid ? Measurements Intervals ?[place] ? Rate: ? 50 ? P: ?57 IA: ? 132 ?QRS: ?43 QRSD: ? 85 ? T: ?26 QT: ? 415 ? QTc: ?381 ? Interpretive Statements SINUS BRADYCARDIA WITH SINUS ARRHYTHMIA Early transition No previous ECG available for comparison TELLER Procedure Note Maria Del Rosario Shahid MD - 07/17/[address] 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: ev : 1995 Requested By: MARIO RODRÍGUEZ Order Number: [id number] Reading : Maria Del Rosario Shahid Measurements Intervals [place] Rate: 50 P: 57 IA: 132 QRS: 43 QRSD: 85 T: 26 QT: 415 QTc: 381 Interpretive Statements SINUS BRADYCARDIA WITH SINUS ARRHYTHMIA Early transition No previous ECG available for comparison TELLER us Mario Rodríguez MD ECG ORDERABLES Final Result [facility] NEAL RODRIGUEZ ([facility]EN[facility]) RAD documented in this encounter Visit Diagnoses Diagnosis Bilateral ovarian cysts- Primary Other and unspecified ovarian cyst Constipation Unspecified constipation documented in this encounter Administered Medications Inactive Administered Medications - up to 3 most recent administrations Medication Order MAR Action Action Date Dose Rate Site HYDROmorphone (DILAUDID) injection 1 mg 1 mg, Intravenous, Once, 1 dose, On Sun07/17/18 at 0630, Administer slowly over at least 2-3 minutes. Given 07/17/2018 6:44 AM TUBE TELLER 1 mg iopamidol (ISOVUE-370) 76 % injection 100 mL 100 mL, Intravenous, IMG once as needed, Contrast, 1 dose, Starting on Sun07/17/18 at 0541, Until Sun07/17/18 at 0528 Given 07/17/2018 5:28 AM TUBE TELLER 100 mLs Other morphine injection 4 mg 4 mg, Intravenous, Once, 1 dose, On Sun07/17/18 at 0445 Given 07/17/2018 6:07 AM TUBE TELLER 4 mg ondansetron (ZOFRAN) injection 4 mg 4 mg, Intravenous, Once, 1 dose, On Sun07/17/18 at 0415, IV push over 2-5 minutes. Given 07/17/2018 6:07 AM TUBE TELLER 4 mg ondansetron (ZOFRAN) injection 4 mg 4 mg, Intravenous, Once, 1 dose, On Sun07/17/18 at 0645, IV push over 2-5 minutes. Given 07/17/2018 6:42 AM TUBE TELLER 4 mg potassium chloride (K-TAB) tablet 40 mEq 40 mEq, Oral, Once, 1 dose, On Sun07/17/18 at 0730, Do not break, chew, or crush. Given 07/17/2018 8:09 AM TUBE TELLER 40 mEq documented in this encounter Active and Recently Administered Medications Times are shown in TUBE TELLER. Scheduled Medication Order 07/15/2018 07/16/2018 07/17/2018 aspirin chewable tablet 324 mg 324 mg, Oral, Once, 1 dose, On Sun07/17/18 at 0345, If not given by EMS or taken immediately prior to arrival 0345 (Canceled Entry - Provider: Automatic Discharge Provider - Comment: Automatically canceled at discontinue of medication order) HYDROmorphone (DILAUDID) injection 1 mg (COMPLETED) 1 mg, Intravenous, Once, 1 dose, On Sun07/17/18 at 0630, Administer slowly over at least 2-3 minutes. 0644 (Given - Provid er: Shanda Box RN) morphine injection 4 mg (COMPLETED) 4 mg, Intravenous, Once, 1 dose, On Sun07/17/18 at 0445 0607 (Given - Provid er: Bekah Tuttle RN) ondansetron (ZOFRAN) injection 4 mg (COMPLETED) 4 mg, Intravenous, Once, 1 dose, On Sun07/17/18 at 0415, IV push over 2-5 minutes. 0607 (Given - Provid er: Bekah Tuttle RN)0645 (Due) ondansetron (ZOFRAN) injection 4 mg (COMPLETED) 4 mg, Intravenous, Once, 1 dose, On Sun07/17/18 at 0645, IV push over 2-5 minutes. 0642 (Given - Provid er: Shanda Box RN) potassium chloride (K-TAB) tablet 40 mEq (COMPLETED) 40 mEq, Oral, Once, 1 dose, On Sun07/17/18 at 0730, Do not break, chew, or crush. 0809 (Given - Provid er: Sharon Grimes RN) PRN Medication Order 07/15/2018 07/16/2018 07/17/2018 iopamidol (ISOVUE-370) 76 % injection 100 mL (COMPLETED) 100 mL, Intravenous, IMG once as needed, Contrast, 1 dose, Starting on Sun07/17/18 at 0541, Until Sun07/17/18 at 0528 0528 (Given - Provid er: Joseph Gong, RTR - Comment: Right Wrist) documented in this encounter Care Teams Automatic Lehr Operator Relationship Specialty Start Date End Date None, Provider, PCP - General 07/17/18 documented as of this encounter
--- OUTSIDE RECORDS SUMMARY | 2024-07-07 22:31 | XMS_ITS | Encounter Summary ---
Author Organization [facility] Address [address] [place] [address]. [place] [address] [place] [address] Care Team Providers Care Fabricator Special Items Name Role Phone None, Provider Primary Care Provider Unavaila ble Reason for Visit * Auth/Cert Specialty Diagnoses / Procedures Referred By Contac t Referred To Contact Diagnoses Abdominal pain Nausea and vomiting Common bile duct dilatation Abdominal pain Procedures INPT Referral ID Status Reason Start Date Expiration Date Visits Re quested Visits Authorized [id number] 1 1 Encounter Details Date Type Department Care Team (Late st Contact Info) Description 10/31/2018 4:42 PM CDT Anesthesia Event [facility] [place] [address] Tal Nuñez MD [address] [place] [phone] [phone] (Work) Richi Thomas, MULTI OPERATION FORMING MACHINE SETTER [address] [address] Anesthesia Record Procedure Summary Procedure Name Responsible Anesthesiologist Anesthesia Start Time Anesthesia Stop Time ERCP with sphinterotomy , Cholangiogram, stone removal with extractor and placement of Pancreatic Stent 4x 5, Tal Nuñez MD 10/31/18 1642 10/31/18 1750 Events Date Time Event Comment 10/31/2018 1640 1640 AN Anesthesia Prepped 1641 AN MULTI OPERATION FORMING MACHINE SETTER Prepped 1642 An Start Patient ID and consent checked and patient reassessed. 1642 An Start Data 1644 Preoxygenation 1646 An Induction 1648 An Intubation 1655 Anesthesia Ready 1732 an norma now 1734 An Emergence 1741 An Extubation 1741 Face Mask Applied 1745 an stop data 1748 Post Anesthetic Care Handoff I completed my handoff to the receiving nurse during which we: 1. Identified the patient 2. Identified the responsible provider 3. Reviewed the pertinent medical history 4. Discussed the surgical course 5. Reviewed intra-op anesthesia management and issues during anesthesia 6. Set expectations for post-procedure period 7. Allowed opportunity for questions and acknowledgement of understanding. 1750 An Stop Meds Name Total midazolam 2 mg/2 mL injection 2 mg fentaNYL (SUBLIMAZE) 100 mcg/2 mL inject ion 100 mcg lidocaine (PF) (XYLOCAINE) 2% injection 50 mg propofol (DIPRIVAN) 200 mg/20 mL injecti on 200 mg succinylcholine (ANECTINE) 20 mg/mL inje ction 120 mg ondansetron (ZOFRAN) 4 mg/2 mL injection 4 mg glycopyrrolate (ROBINUL) injection 0.2 m g phenylephrine (LEIGHA-SYNEPHRINE) 1 mg/10 m L IV premix syringe 200 mcg glucagon injection (diagnostic) 0.5 mg lactated ringers infusion 800 mL * Agents Name O2 N2O Air Inspired Sevoflurane Inspired Isoflurane Sevoflurane Isoflurane * Blood No blood administrations on file. Lines, Drains, and Airways Type Details Placement Removal Peripheral IV Placement Date: 10/08 10/25; Placement Time: 1526; Placed Outside of This Facility?: No; Size: 22 G; Orientation: Right; Location: Antecubital; Site Prep: Chlorhexidine; Insertion attempts: 1; Patient Tolerance: Tolerated well; Removal Date: 11/02/18; Removal Time: 0839; Removal Reason: Patient Discharged 10/30/18 1526 by Raj Galicia RN 11/02/18 0839 by Erika Dalton RN Peripheral IV Placement Date: 10/08 11/24; Placed Outside of This Facility?: No; Size: 20 G; Orientation: Left; Location: Hand; Removal Date: 11/02/18; Removal Time: 0839; Removal Reason: Patient Discharged 10/31/18 0000 by Luciana Bear RN 11/02/18 0839 by Erika Dalton RN Peripheral IV Placement Date: 10/08 11/24; Placement Time: 1018; Placed Outside of This Facility?: No; Size: 20 G; Orientation: Distal, Right, Anterior; Location: Forearm; Removal Date: 11/02/18; Removal Time: 0840; Removal Reason: Other (IV not present at discharge) 10/31/18 1018 by MARGARET Sharp 11/02/18 0840 by Erika Dalton RN ETT Placement Date: 10/08 11/24; Placement Time: 1648; Placed Outside of This Facility?:No; Mask Ventilate: Prior to intubation, Easy; Size (mm) : 7; Endotracheal: Oral, Stylet used; Blade Type: MAC 3; Placement Method: Direct Laryngoscopy (blade type in comment); View Grade: 1; Viewable Anatomy: Epiglottis, Arytenoid, Vocal cords; Insertion Attempts: 1; Placement Verified By: Capnography, Auscultation, Chest Rise; Placed By: BRE; Extubation Assessment: Alert, Tolerated well, Suctioned, Aware of surroundings, Patient spontaneously breathing, Deep breathes w/equal chest movements, Able to swallow, Atraumatic; Removal Date: 10/31/18; Removal Time: 174; Removal Person: MULTI OPERATION FORMING MACHINE SETTER; Removal Reason: End of Case 10/31/18 164 by Richi Thomas CRNA 10/31/18 174 by Richi Thomas CRNA documented in this encounter Social History Tobacco Use Types Packs/Day Years [...] as of this encounter Functional Status * Question Answer Date of Assessment Author Status Do you have serious difficulty walking or climbing stairs? No 11/01/2018 11:00 AM CDT Zamzam Whitt FNP Active * Question Answer Date of Assessment Author Status Do you have difficulty dressing or bathing? No 11/01/2018 11:00 AM YAHAIRAT Steven Whitt FNP Active Because of a physical, mental, or emotional condition, do you have difficulty doing errands alone such as visiting a doctor's office or shopping? No 11/01/2018 11:00 AM YAHAIRAT Zamzam Whitt FNP Active * RETIRED Are you deaf or do you have serious difficulty hearing Answer Date of Assessment Author Status No 10/30/2018 5:52 PM CDT Activ e * RETIRED Are you blind or do you have serious difficulty seeing, even when wearing glasses? Answer Date of Assessment Author Status No 10/30/2018 5:52 PM CDT Activ e * Do you have serious difficulty walking or climbing stairs? Answer Date of Assessment Author Status No 10/30/2018 5:52 PM CDT Ti [place] R N Active * Do you have difficulty dressing or bathing? Answer Date of Assessment Author Status No 10/30/2018 5:52 PM CDT Ti [place] R N Active * Because of a physical, mental, or emotional condition, do you have difficulty doing errands alone such as visiting a doctor's office or shopping? Answer Date of Assessment Author Status No 10/30/2018 5:52 PM CDT Ti [place] R N Active documented as of this encounter Mental Status * Question Answer Entry Date Author Status Because of a physical, mental, or emotional condition, do you have serious difficulty concentrating, remembering, or making decisions? No 11/01/2018 11:00 AM Griselda Martines FNP Active documented in this encounter OR Notes * Anesthesia Postprocedure Evaluation - Rich Mulligan CRNA - 11/01/2018 1:53 PM CDT Anesthesia Post-op Note Magda Vernon Procedure(s): ERCP with sphinterotomy , Cholangiogram, stone removal with extractor and placement of Pancreatic Stent 4x 5, (N/A ) Anesthesia type: general Vitals: 11/01/18 1300 BP: 99/62 Vitals: 11/01/18 1300 Pulse: 85 Vitals: 11/01/18 1300 Resp: 15 Vitals: 11/01/18 1300 Temp: 36.8 ??C Vitals: 11/01/18 1300 SpO2: 99% Patient Location: Inpatient Unit Level of Consciousness: awake, alert and oriented Pain Management: adequate analgesia Airway Patency: patent Respiratory Status: acceptable Cardiovascular Status: acceptable and stable Post-Op Nausea: none Postoperative Hydration: euvolemic Complications: no anesthesia complication Comments: Blood pressure 99/62, pulse 85, temperature 36.8 ??C, temperature source Oral, resp. rate15, height 5' 8 (1.727 m), weight 67.7 kg (149 lb 4 oz), last menstrual period 10/09/2018, SpO2 99%, not currently . * Anesthesia Postprocedure Evaluation - Tal Nuñez MD - 11/01/2018 6:47 AM CDT Anesthesia Post-op Note Magda Lindquist Vernon Procedure(s): ERCP with sphinterotomy , Cholangiogram, stone removal with extractor and placement of Pancreatic Stent 4x 5, (N/A ) Anesthesia type: general Vitals: 11/01/185 BP: 99/45 Vitals: 11/01/18 0425 Pulse: (!) 47 Vitals: 11/01/18 0425 Resp: 17 Vitals: 11/01/185 Temp: 36.6 ??C Vitals: 11/01/185 SpO2: 98% Patient Location: PACU Level of Consciousness: awake, alert and oriented Pain Management: adequate analgesia Airway Patency: patent Respiratory Status: spontaneous ventilation, unassisted and nonlabored ventilation Cardiovascular Status: hemodynamically stable Post-Op Nausea: none Postoperative Hydration: euvolemic Complications: no anesthesia complication Comments: Patient evaluated prior to discharge from PACU. * Anesthesia Preprocedure Evaluation - Tal Nuñez MD - 10/31/2018 4:39 PM CDT Anesthesia ROS/MED History Reviewed: Patient summary , Nursing notes , ECG, Family history anesthesia, Anesthesia history , Medications , Labs , Unchecked boxes are not applicable Pre-Anesthetic State: alert, awake and responds appropriately Pulmonary (+) smoker Cardiovascular Exercise tolerance:good Neuro/Psych neg neuro/psych ROS GI/Hepatic/Renal neg GI/hepatic/renal ROS Endo/Other neg endo/other ROS GENERAL COMMENTS Past Surgical History: No date: APPENDECTOMY Past Medical History: No date: Anemia Comment: dx with Physical Evaluation Airway Mallampati: II TM Distance: >3 FB Neck ROM: normal Dental No notable dental history Pulmonary Pulmonary exam normal Breath sounds clear to auscultation Cardiovascular Rhythm: regular Rate: normal Cardiovascular exam normal Anesthesia Plan ASA 2 Intravenous Induction Anesthesia type: general Discussed potential risks of General Anesthesia including but not limited to corneal abrasion, visual impairment or visual loss, mouth injury, dental damage, sore throat, hoarseness, esophageal injury, awareness under anesthesia, nerve injury due to positioning, aspiration, pneumonia, stroke, cardiac event, adverse drug reactions and . Informed Consent Anesthetic plan and risks discussed with patient of whom consent was obtained. . documented in this encounter Plan of Treatment Upcoming Encounters Date Type Department Care Team (Late st Contact Info) Description 07/24/2024 Hospital Encounter [facility] [place] [address] Osmin Hunt MD [address] [place] [id number] Scheduled Procedures Name Priority Associated Diagnoses Date/Ti me ROBOTIC XI HYSTERECTOMY MENORRHAGIA, DYSMENORRHEA N92.4, N94.4 documented as of this encounter Visit Diagnoses Not on filedocumented in this encounter Administered Medications Inactive Administered Medications - up to 3 most recent administrations Medication Order MAR Action Action Date Dose Rate Site fentaNYL (SUBLIMAZE) injection Intravenous, PRN, Starting on [place] 10/31/18 at 1642, Until [place] 10/31/18 at 1750, Anesthesia Intra-Op Given 10/31/2018 5:00 PM CDT 50 mcg Given 10/31/2018 4:42 PM CDT 50 mcg glucagon injection PRN, Starting on [place] 10/31/18 at 1716, Until [place] 10/31/18 at 1750, Anesthesia Intra-Op Given 10/31/2018 5:16 PM CDT 0.5 mg glycopyrrolate (ROBINUL) injection Intravenous, PRN, Starting on [place] 10/31/18 at 1659, Until [place] 10/31/18 at 1750, Anesthesia Intra-Op Given 10/31/2018 4:59 PM CDT 0.2 mg lactated ringers infusion Intravenous, Continuous PRN, Starting on [place] 10/31/18 at 1642, Until [place] 10/31/18 at 1750, Anesthesia Intra-Op New Bag 10/31/2018 4:42 PM CDT lidocaine (PF) (XYLOCAINE) 2 % injection Intravenous, PRN, Starting on [place] 10/31/18 at 1646, Until [place] 10/31/18 at 1750, Anesthesia Intra-Op Given 10/31/2018 4:46 PM CDT 50 mg midazolam (VERSED) injection Intravenous, PRN, Starting on [place] 10/31/18 at 1642, Until [place] 10/31/18 at 1750, Anesthesia Intra-Op Given 10/31/2018 4:42 PM CDT 2 mg ondansetron (ZOFRAN) injection Intravenous, PRN, Starting on [place] 10/31/18 at 1712, Until [place] 10/31/18 at 1750, Anesthesia Intra-Op Given 10/31/2018 5:12 PM CDT 4 mg phenylephrine (LEIGHA-SYNEPHRINE) injection Intravenous, PRN, Starting on [place] 10/31/18 at 1657, Until [place] 10/31/18 at 1750, Anesthesia Intra-Op Given 10/31/2018 5:20 PM CDT 100 mcg Given 10/31/2018 4:57 PM CDT 100 mcg propofol (DIPRIVAN) IV bolus Intravenous, PRN, Starting on [place] 10/31/18 at 1646, Until [place] 10/31/18 at 1750, Anesthesia Intra-Op Given 10/31/2018 4:46 PM CDT 200 mg succinylcholine (ANECTINE) injection Intravenous, PRN, Starting on [place] 10/31/18 at 1647, Until [place] 10/31/18 at 1750, Anesthesia Intra-Op Given 10/31/2018 4:47 PM CDT 120 mg documented in this encounter Care Teams Fabricator Special Items Relationship Specialty Start Date End Date None, Provider, PCP - General 07/17/18 documented as of this encounter
--- OUTSIDE RECORDS SUMMARY | 2024-07-07 22:31 | XMS_ITS | Encounter Summary ---
Author Organization [facility] Address [address] [place] [address]. [place] [address] [place] [address] Care Team Providers Care Durability Technician Name Role Phone Unavailable Primary Care Provider Unavailabl e Reason for Visit * Reason Comments Cough Encounter Details Date Type Department Care Team (Latest Contact Info) Description 10/27/2017 1:03 PM CDT - 10/27/2017 1:34 PM CDT Hospital Encounter [facility] [address] [place] [address] Olena Canales, FOAM MOLDER [address] [place], [place] [id number] Cough Discharge Disposition: Home or Self Care (Routine Discharge) Social History Tobacco Use Types Packs/Day Years Used Date Smoking Tobacco: Some Days Smokeless Tobacco: Never Alcohol Use Standard Drinks/Week [...] Sign Reading Time Taken Comments Blood Pressure 112/63 10/27/2017 1:08 PM CDT Pulse 82 10/27/2017 1:08 PM CDT Temperature 36.9 ??C (98.4 ??F) 10/27/2017 1:08 PM CD T Respiratory Rate 18 10/27/2017 1:08 PM CDT Oxygen Saturation 98% 10/27/2017 1:08 PM CDT Inhaled Oxygen Concentration - - Weight 70.8 kg (156 lb) 10/27/2017 1:08 PM CDT Height 172.7 cm (5' 8 ) 10/27/2017 1:08 PM CDT Body Mass Index 23.72 10/27/2017 1:08 PM CDT documented in this encounter Discharge Instructions * Discharge Instructions* Olena Canales, FOAM MOLDER - 10/27/2017 1:25 PM CDT Images from the original note were not included. Patient Education Viral Upper Respiratory Infection Discharge Instructions, Adult About this topic You have a viral upper respiratory infection. It is also called a URI or cold. A tiny germ called avirus causes this infection. It often affects your nose, throat, ears, and sinuses. A cold can easily spread from person to person. Coughing, sneezing, and touching something with the germ on it spreads the cold. Viral infections often go away after 2 to 3 weeks without treatment. But some can cause very serious health problems. What care is needed at home? ?? Ask your doctor what you need to do when you go home. Make sure you ask questions if you do not understand what the doctor says. This way you will know what you need to do. ?? Drink lots of water, juice, or broth to replace fluids lost in runny nose and fever. ?? Gargle with warm salt water a few times daily. Mix 1/2 teaspoon (2.5 grams) salt with a cup (240mL) of warm water. ?? Keep your room cool. Use a cool mist humidifier. This will add moisture to the air and help easecongestion and coughing. ?? You may use saline nose drops to relieve stuffiness. ?? Use 2 to 3 pillows under your head and shoulders when you lie down. This will make it easier to breathe and sleep. ?? Do not smoke. Stay away from others who are smoking. What follow-up care is needed? Your doctor may ask you to make visits to the office to check on your progress. Be sure to keep these visits. What drugs may be needed? The doctor may order drugs to: ?? Open up the tubes of your lungs ?? Treat viral infection ?? Relieve or stop coughing ?? Help with pain from a sore throat ?? Relieve runny and stuffy nose ?? Provide oxygen Will physical activity be limited? You need to rest for a few days to let your body recover from the infection. What changes to diet are needed? Eat soft foods like soup if swallowing is too painful. What problems could happen? ?? Asthma attack ?? Sinus infections ?? Lung problems like pneumonia and bronchitis ?? Severe fluid loss. This is dehydration. What can be done to prevent this health problem? ?? Wash your hands often with soap and water for at least 15 seconds, especially after coughing or sneezing. Alcohol-based hand sanitizers also work to kill the virus. ?? If you are sick, cover your mouth and nose with tissue when you cough or sneeze. You can also cough into your elbow. Throw away tissues in the trash and wash your hands after touching used tissues. ?? Do not get too close (kissing, hugging) to people who are sick. ?? Do not share towels or hankies with anyone who is sick. Clean commonly handled things like door handles, remotes, toys, and phones. Wipe them with a disinfectant. ?? Stay away from crowded places. ?? Cover your nose and mouth when you sneeze or cough. ?? Take vitamin C to help build up your body's ability to fight disease. ?? Get a flu shot each year. When do I need to call the doctor? ?? Signs of infection. These include a fever of 100.4??F (38??C) or higher, chills, very bad sore throat, ear or sinus pain, cough, more sputum or change in color of sputum, mouth sores. ?? Throwing up and can't keep liquids down ?? Breathing very fast, more than 40 breaths in 1 minute ?? Trouble breathing while lying down flat on your back ?? Excessive tiredness ?? Your fingertips or lips are starting to turn bluish Teach Back: Helping You Understand The Teach Back Method helps you understand the information we are giving you. The idea is simple. After talking with the staff, tell them in your own words what you were just told. This helps to makesure the staff has covered each thing clearly. It also helps to explain things that may have been abit confusing. Before going home, make sure you are able to do these: ?? I can tell you about my condition. ?? I can tell you what may help ease my signs. ?? I can tell you what I will do if I have a fever, chills, breathing very fast, or trouble breathing. Where can I learn more? [place] [employer] http://www.lung.ca/diseases-maladies/a-z/cold-rhume/index_e.php National [place] [employer]ious [employer] http://www.niaid.nih.gov/topics/commonCold/Pages/treatment.aspx Last Reviewed Date 2015-03-05 Consumer Information Use and Disclaimer This information [...] is right for you. Copyright Copyright ?? 2018 [employer] and its affiliates and/or licensors. All rights reserved. * Attachments The following attachments cannot be sent through Care Everywhere. * SMOKING IN (GHANAIAN) * TAKING [id number] MEDICINES DURING (GHANAIAN) documented in this encounter Medications at Time of Discharge fluticasone propionate (FLONASE) 50 MCG/ACT nasal spray 1 spray by Each Nare route 2 (two) times a day for 10 days. 16 g 10/27/2017 11/06/2017 guaifenesin 12 hr (MUCINEX) 600 MG 12 hr tablet Take 2 tablets (1,200 mg total) by mouth 2 (two) times daily for 10 days. 40 tablet 10/27/2017 11/06/2017 documented as of this encounter ED Notes * Olena Canales APRN - 10/27/2017 1:19 PM CDT Chief Complaint Chief Complaint Patient presents with ??? Cough History of Present Illness HPI Comments: 22-year-old female resents to urgent care with complaints of deep cough for the past week. Patient is 10 weeks she has not seen OB care. She is tried Advil or established cold and sinus without any relief. Patient denies fever shortness of breath nausea vomiting diarrhea urinary frequency burning hesitancy Patient is a 22-year-old female presenting with cough. 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 Authorizing Provider fluticasone propionate (FLONASE) 50 MCG/ACT nasal spray 1 spray by Each Nare route 2 (two) times a day for 10 days. 10/27/17 11/06/17 Yes Olena Canales APRN guaifenesin 12 hr (MUCINEX) 600 MG 12 hr tablet Take 2 tablets (1,200 mg total) by mouth 2 (two) times daily for 10 days. 10/27/17 11/06/17 Yes Olena Canales APRN PAST MEDICAL HISTORY: History reviewed. No pertinent past medical history. PAST SURGICAL HISTORY: Past Surgical History: Procedure Laterality Date ??? APPENDECTOMY FAMILY HISTORY: No family history on file. SOCIAL HISTORY: Social History Substance Use Topics ??? Smoking status: Current Some Day Smoker ??? Smokeless tobacco: Never Used ??? Alcohol use No Review of Systems Review of Systems Constitutional: Negative. HENT: Positive for congestion and rhinorrhea. Eyes: Negative. Respiratory: Positive for cough. Cardiovascular: Negative. Gastrointestinal: Negative. Endocrine: Negative. Genitourinary: Negative. Musculoskeletal: Negative. Skin: Negative. Allergic/Immunologic: Negative. Hematological: Negative. Psychiatric/Behavioral: Negative. Physical Exam Filed Vitals: 10/27/17 1308 BP: 112/63 Pulse: 82 Resp: 18 Temp: 98.4 ??F (36.9 ??C) TempSrc: Oral SpO2: 98% Weight: 70.8 kg (156 lb) Height: 5' 8 (1.727 m) Physical Exam Constitutional: She is oriented to person, place, and time. Vital signs are normal. She appears well-developed and well-nourished. She is cooperative. Non- toxic appearance. She does not have a sicklyappearance. She does not appear ill. No distress. 22 y/o female 10 weeks gestation HENT: Head: Normocephalic. Right Ear: Hearing, tympanic membrane, external ear and ear canal normal. Left Ear: Hearing, tympanic membrane, external ear and ear canal normal. Nose: Mucosal edema and rhinorrhea present. Mouth/Throat: Uvula is midline and oropharynx is clear and moist. Eyes: Conjunctivae are normal. Pupils are equal, round, and reactive to light. Neck: Normal range of motion. Neck supple. Cardiovascular: Normal rate and normal heart sounds. Pulmonary/Chest: Effort normal and breath sounds normal. She has no decreased breath sounds. She has no wheezes. She has no rhonchi. She has no rales. Abdominal: Soft. Bowel sounds are normal. Musculoskeletal: Normal range of motion. Neurological: She is alert and oriented to person, place, and time. No cranial nerve deficit. Coordination normal. Skin: Skin is warm and dry. She is not diaphoretic. Psychiatric: She has a normal mood and affect. Her behavior is normal. Judgment and thought contentnormal. Nursing note and vitals reviewed. Diagnostic Studies / Procedures ELECTROCARDIOGRAMS: No results found for this visit on 10/27/17. LABORATORY STUDIES: No results found for this visit on 10/27/17. IMAGING STUDIES No orders to display ED Course / Medical Decision Making MDM Number of Diagnoses or Management Options Risk of Complications, Morbidity, and/or Mortality Presenting problems: low Diagnostic procedures: low Management options: low Patient Progress Patient progress: stable Clinical Impression Viral URI with cough (Primary) Disposition: Discharge Olena Canales APRN 10/27/17 1326 * Cristina Yi RN - 10/27/2017 1:12 PM CDT PT TO UC WITH C/O DEEP COUGH, DRY, CHEST SORE. NASAL DRAINAGE, SINUS CONGESTION, POST NASAL DRIP, SX FOR 1 WEEK. PT IS 10 WEEKS . documented in this encounter Plan of Treatment Upcoming Encounters Date Type Department Care Team (Late st Contact Info) Description 07/24/2024 Hospital Encounter [facility] [place] [address] Osmin Hunt MD [address] [place], [place] [id number] Scheduled Procedures Name Priority Associated Diagnoses Date/Ti me ROBOTIC XI HYSTERECTOMY MENORRHAGIA, DYSMENORRHEA N92.4, N94.4 documented as of this encounter Visit Diagnoses Diagnosis Viral URI with cough- Primary Acute upper respiratory infections of unspecified site documented in this encounter
--- OUTSIDE RECORDS SUMMARY | 2024-07-07 22:31 | XMS_ITS | Encounter Summary ---
Author Organization [facility] Address [address] [place] [address]. [place] [address] [place] [address] Care Team Providers Care Beauty Counselor Name Role Phone None, Provider Primary Care Provider Unavaila ble Reason for Referral * Surgical (Routine) - Closed Specialty Diagnoses / Procedures Referred By Contac t Referred To Contact Procedures Case request operating room: ERCP WITH STONE REMOVAL DUCT Cecilio Rousseau MD [address] [place] [id number] Phone: tel: fax: Referral ID Status Reason Start Date Expiration Date Visits Re quested Visits Authorized [id number] Closed 10/31/2018 12/01/2019 1 1 * Imaging (Emergency) - Closed Specialty Diagnoses / Procedures Referred By Contac t Referred To Contact RADIOLOGY Procedures CT ABD+PEL W CON Elena Horta FNP-BC Referral ID Status Reason Start Date Expiration Date Visits Re quested Visits Authorized [id number] Closed 10/30/2018 11/30/2019 1 1 Reason for Visit * Reason Comments Abdominal Pain * Auth/Cert Specialty Diagnoses / Procedures Referred By Contac t Referred To Contact Diagnoses Abdominal pain Nausea and vomiting Common bile duct dilatation Abdominal pain Procedures INPT Referral ID Status Reason Start Date Expiration Date Visits Re quested Visits Authorized [id number] 1 1 Encounter Details Date Type Department Care Team (Late st Contact Info) Description 10/30/2018 12:46 PM CDT - 11/02/2018 9:08 AM CDT Hospital Encounter [facility] Clinical Decision Unit [address] [place] [address] Elena Horta, PSYCHIATRIC SECRETARY- Ignacio Sherman MD [address] [place], [place] [id number] Lety Meza MD [address] [facility] [address] [place] [address] Abdominal Pain Discharge Disposition: Home or Self Care [...] Sign Reading Time Taken Comments Blood Pressure 105/59 11/02/2018 4:21 AM CDT Pulse 60 11/02/2018 4:21 AM CDT Temperature 36.6 ??C (97.8 ??F) 11/02/2018 4:21 AM CD T Respiratory Rate 18 11/02/2018 4:21 AM CDT Oxygen Saturation 100% 11/02/2018 4:21 AM CDT Inhaled Oxygen Concentration - - Weight 67.7 kg (149 lb 4 oz) 10/31/2018 5:48 AM CDT Height 172.7 cm (5' 8 ) 10/30/2018 12:41 PM CDT Body Mass Index 22.69 10/30/2018 12:41 PM CDT documented in this encounter Functional Status * Question Answer Date of Assessment Author Status Do you have serious difficulty walking or climbing stairs? No 11/01/2018 11:00 AM Zamzam Martines FNP Active * Question Answer Date of Assessment Author Status Do you have difficulty dressing or bathing? No 11/01/2018 11:00 AM Steven Martines FNP Active Because of a physical, mental, or emotional condition, do you have difficulty doing errands alone such as visiting a doctor's office or shopping? No 11/01/2018 11:00 AM Zamzam Martines FNP Active * RETIRED Are you deaf [...] 11:00 AM Griselda Martines FNP Active * Do you have difficulty [...] Martines FNP Active documented in this encounter Discharge Summaries * Leno Oconnor MD - 10/31/2018 2:36 PM CDT Physician Discharge Summary Patient ID: Doreen Nobles [id number] 23-year-old 1995 Admit date: 10/30/2018 Expected Discharge Date: 11/02/2018 Admitting Physician: Lety Meza MD Discharge Physician: Lety Meza MD Admission Diagnoses: Abdominal pain [R10.9] Nausea and vomiting [R11.2] Common bile duct dilatation [K83.8] Discharge Diagnoses: cholelithiasis Admission Condition: good Discharged Condition: good Indication for Admission: abdominal pain with gallstones requiring intervention Hospital Course: Ms. Nobles is a 23 yo F with PMH of anxiety, appendicitis s/p appendectomy, constipation, who presented with 3 days of severe epigastric pain. Labs and CT abdomen were done and she wasfound to have elevated liver enzymes and dilated common bile duct, with cholelithiasis. She was started on high volume IV fluids, and had endoscopic retrograde cholangiopancreatography on 10/31, and one 4mm stone was removed. A pancreatic stent was initially placed, but then removed when it failed to remain in place. Her pain improved post- procedure. An iatrogenic pancreatitis, concurrent with a mild to moderate epigastric pain was observed following the procedure. High volume fluids were given.Her pain and nausea continued to decrease on oral acetaminophen, diet was advanced to regular, and on day of discharge, her vitals were within normal limits for 24 hours, and her LFTs trending down. She was discharged to home, and instructed to follow-up by scheduling cholecystectomy with general surgery, and seeing her PCP. Code Status: Full Code Procedures: ERCP Significant Diagnostic Studies: radiology: CT scan: Radiology Results (Last 30 days) 10/31/18 1733 SURG XR ERCP W YANI Final result Impression: IMPRESSION: 1) Fluoroscopy and imaging for operative control purposes. 10/30/[address] ABD+PEL W CON Final result Impression: Impression: 1. Mild intrahepatic and extra hepatic biliary dilation. The common bile duct measures up to 1 cm in diameter. No definite intraluminal filling defect is identified on this study. Consider further evaluation with an MRCP. 2. Stones are seen within the gallbladder lumen without findings of cholecystitis. 3. A 5.6 cm right ovarian cyst is identified. There is a small amount of free fluid adjacent to the ovary, which may represent sequelae of a ruptured cyst versus physiologic free fluid. Treatments: ERCP Disposition: Home or Self Care (Routine Discharge) Patient Instructions: There are no discharge medications for this patient. Activity: activity as tolerated Diet: regular diet Wound Care: none needed Follow-up with PCP in 2-4 weeks. Signed: Leno Oconnor MD 11/02/2018 10:52 AM Cosigned by Lety Meza MD at 11/02/2018 4:44 PM CDT Associated attestation - Lety Meza MD - 11/02/2018 4:44 PM CDT I saw the patient on the day of discharge and agree with the discharge plans and disposition. documented in this encounter Discharge Instructions * Discharge Instructions* Erika Dalton RN - 11/02/2018 8:45 AM CDT Images from the original note were not included. Patient Education Acute Abdomen (Belly Pain) Discharge Instructions, Adult About this topic Pain can be an unpleasant feeling that happens in any part of the body. It can be mild or very bad.Pain can cause upset stomach and throwing up. When you are in pain you may not feel hungry. You mayfeel nervous. Pain may be a warning sign that something is wrong inside the body. The pain may be from many different health conditions. Acute pain happens over a short period of time. This may be a few hours or a few days. Abdominal or belly pain is pain between your chest and hips. Sometimes, it is a sign of a problem that is not very serious. Viruses or germs are a common cause. Overeating, gas pains, and food poisoning can all cause belly pain. Stools that are too loose or too hard can also cause belly pain. Sometimes, belly pain is a sign of a very bad health problem, like appendicitis. How bad the pain is does not reflect how bad the problem may be. Some serious problems can cause very little pain. What care is needed at home? ?? Ask your doctor what you need to do when you go home. Make sure you ask questions if you do not understand what the doctor says. This way you will know what you need to do. ?? Keep a diary of the pain. Write down: ? How often the pain happens, when it started, and how long it lasts ? If anything brings it on or what you were doing before the pain started ? What the pain feels like, such as throbbing, pricking, dull ache, cramping, burning, stabbing, sharp, or off and on, coming in waves ? Where the pain is located and if it is widespread, spreading throughout more than half of your belly or in one area of your belly ? If the pain spreads and to what other part of your body ? What helps to ease the pain ? How you feel after taking drugs for pain ? Any side effects from the pain drugs ? Any other problems you get with the pain, like nausea, throwing up, and loose stools ?? Share this information with your doctor on your follow-up visits. ?? Be active. It is OK to rest until your belly pain is better. ?? If you have loose stools, ask the doctor if you need special fluids. ?? The doctor may tell you to use heat or cold to help with pain. If so: ? Place an ice pack or a bag of frozen peas wrapped in a towel over the painful part. Never put iceright on the skin. Do not leave the ice on more than 10 to 15 minutes at a time. Use for the first 24 to 48 hours after an injury or workout. ? Heat may be used later but not right away. Do not use heat with sharp pain or after an acute injury. Heat can make swelling worse. If your doctor tells you to use heat, put a heating pad on your painful part for no more than 20 minutes at a time. Never go to sleep with a heating pad on as this can cause saunders. ?? Stress may make you feel more pain. Find ways to manage stress and keep yourself calm. ?? Your doctor may suggest a soft diet or other special food or drinks until your stomach or bowel is better and ready for regular food. ?? Drink 8 to 10 glasses of water each day. This may help prevent loss of body fluids. ?? You may try other methods of relieving pain such as massage, relaxation, breathing exercises, yoga, image therapy, or music therapy. What follow-up care is needed? Your doctor may ask you to make visits to the office to check on your progress. Be sure to keep these visits. What drugs may be needed? The drugs that your doctor will give depend on what causes the pain. The doctor may order drugs to: ?? Help with pain and swelling ?? Lower muscle spasms or contractions ?? Lower acid levels in your belly ?? Relax bowel muscles ?? Fight an infection ?? Control hormones ?? Lower stress or anxiety Take your drugs as directed by your doctor. Talk to you doctor about side effects of the drugs. Will physical activity be limited? ?? Physical activities may be limited if you are in pain. Ask your doctor about the right amount ofactivities for you. ?? Regular exercise is good unless the pain is too much. What changes to diet are needed? ?? Eating smaller meals more often may help. Ask your doctor about eating foods that are high in fiber. ?? Avoid eating greasy foods. ?? Avoid foods that may cause gas. ?? Eliminate foods that are proven to cause allergies or problems for you, like lactose or gluten. Your doctor will advise you about this. ?? Avoid alcohol. What problems could happen? ?? Trouble dealing with ongoing pain ?? Less appetite ?? Not able to do regular activities What can be done to prevent this health problem? ?? Treat the underlying condition that causes belly pain. ?? Ask your doctor for ways to prevent conditions that cause belly pain. When do I need to call the doctor? ?? Signs of infection. These include a fever of 100.4??F (38??C) or higher, chills, pain with passing urine. ?? Blood in the urine, stool, or throw up ?? Black or tarry stools ?? Very bad back, side, chest, or belly pain ?? Very bad dizziness or passing out ?? Trouble breathing ?? Upset stomach or throwing up ?? Skin looks yellow ?? Pain gets worse or comes more often ?? You are not feeling better in 2 to 3 days or you are feeling worse Teach Back: Helping You Understand The Teach [...] ?? I can tell you about my pain. ?? I can tell you what may help ease my pain. ?? I can tell you what I will do if I have very bad back, side, chest, or belly pain; more pain; orthe pain comes more often. Where can I learn more? International Foundation for Gastrointestinal Diseases https://www.iffgd.org/ National Institutes for Health [employer] [place] of Diabetes and Digestive and Kidney Diseases https://www.niddk.nih.gov/health-information/digestive-diseases National Institutes of Health https://www.niddk.nih.gov/health-information/professionals/bwvjwplb-ncvde-tqoxod k-zedfacuoc-pzfmqmyl?q=abdominal+pain&o=relevance&au=pa Last Reviewed Date 2018-07-11 Consumer Information Use and Disclaimer This information [...] is right for you. Copyright Copyright ?? 2019 [employer] and its affiliates and/or licensors. All rights reserved. * Attachments The following attachments cannot be sent through Care Everywhere. * High Fiber Diet (Malaysian) * Constipation in Adults (Malaysian) documented in this encounter Progress Notes * Pebbles Stubbs RN - 11/02/2018 6:10 AM CDT Problem: Pain Goal: Patient's pain/discomfort is manageable Assess and monitor patient's pain using appropriate pain scale. Collaborate with interdisciplinary team and initiate plan and interventions as ordered. Re- assess patient's pain level 30 - 60 minutes after pain management intervention. Outcome: Progressing Patient complained of abdominal pain. RN gave Tylenol x2. Problem: Safety Goal: Patient will be injury free during hospitalization Assess and monitor vitals signs, neurological status including level of consciousness and orientation. Assess patient's risk for falls and implement fall prevention plan of care and interventions perhospital policy. Ensure arm band on, uncluttered walking paths in room, adequate room lighting, call light and overbed table within reach, bed in low position, wheels locked, side rails up per policy, and non-skid footwear provided. Outcome: Met This Shift Patient remained free of falls and injury. Problem: Daily Care Goal: Daily care needs are met Assess and monitor ability to perform self care and identify potential discharge needs. Outcome: Met This Shift Daily care needs are met by patient and staff. Comments: Patient rested well overnight; will continue to monitor. * MARGARET Carlson - 11/01/2018 10:36 AM CDT GASTROENTEROLOGY PROGRESS NOTE GI Consultation Dr. Rousseau Interval History: Patient seen and examined at bedside today. Patient states she's feeling better. Reports that abdominal pain is improving. Denies n/v. Tolerated general diet for breakfast, back to clears for now. Abdomen soft, mild tenderness. Labs: Recent Labs Lab 10/30/18 1258 WBC 5.8 HGB 11.4* HCT 36.9* MCV 80.9* PLT 380 Ref. Range 10/31/2018 06:12 11/01/2018 05:42 TOTAL BILIRUBIN Latest Ref Range: 0.2 - 1.2 MG/DL 2.8 (H) 0.9 ALK PHOS Latest Ref Range: 50 - 136 U/L 283 (H) 210 (H) AST Latest Ref Range: 15 - 37 U/L 285 (H) 103 (H) ALT Latest Ref Range: 14 - 55 U/L 409 (H) 255 (H) LIPASE Latest Ref Range: 73 - 393 UNITS/L 13,500 (H) Assessment & Recommendations: A. Abdominal pain, n/v, choledocholithiasis -10/31/18 ERCP w/ sphinterotomy with Dr. Rousseau: 4mm stone extracted from distal CBD, protective PD stent placed -Will need outpatient cholecystectomy -LFTs improved B. Acute pancreatitis -Most likely related to ERCP -Elevated lipase, re-check tomorrow -Clear liquid diet for now -Supportive treatment -Continue to observe Thank you very much for allowing me to share in the care of your patient. MARGARET Ba Cosigned by Cecilio Rousseau MD at 11/01/2018 4:11 PM CDT * Elle Roy DO - 11/01/2018 7:41 AM CDTAssociated Problem(s): Acute pancreatitis (HHS/HCC) Acute, 2/2 pancreatic duct stent placement. Symptoms mild at this time, has tolerated ana maria crackers and sips of water. - Discussed with GI, recommended observing patient until symptoms resolve and repeat lipase in am to ensure trending down - Continue toradol PRN pain - Continue zofran PRN nausea - Repeat lipase in am - ADAT * Elle Roy DO - 11/01/2018 7:12 AM CDT Subjective: CBD and PD stent placed last night, with removal of 4mm obstructing stone. Per GI, patient will need to have non-urgent cholecystectomy as an outpatient. This morning, continues to have epigastric pain, different than when she was admitted. Was able to eat a few ana maria crackers this morning with sips of water. Denies SOB, CP, diarrhea. ROS-as above Scheduled medications: ??? famotidine 20 mg Intravenous 2 times per day Or ??? famotidine 20 mg Oral 2 times per day PRN medications: ibuprofen, ketorolac, meperidine, ondansetron, prochlorperazine Objective: Temp: [97.5 ??F (36.4 ??C)-98.9 ??F (37.2 ??C)] 97.8 ??F (36.6 ??C) Pulse: [46-105] 47 Resp: [12-22] 17 BP: (98-119)/(45-77) 99/45 Blood pressure 99/45, pulse (!) 47, temperature 97.8 ??F (36.6 ??C), temperature source Oral, resp.rate 17, height 5' 8 (1.727 m), weight 67.7 kg (149 lb 4 oz), last menstrual period 10/09/2018, SpO2 98 %, not currently . Intake/Output Summary (Last 24 hours) at 11/01/2018 0744 Last data filed at 10/31/20182024 Gross per 24 hour Intake 920 ml Output 1 ml Net 919 ml Last 5 Recorded Weights 10/30/18 1241 10/30/18 2104 10/31/18 0548 Weight: 67.5 kg (148 lb 12.8 oz) 67.7 kg (149 lb 4 oz) 67.7 kg (149 lb 4 oz) Physical Exam Constitutional: She is oriented to person, place, and time. Vital signs are normal. She appears healthy. She does not have a sickly appearance. She appears distressed. HENT: Head: Normocephalic and atraumatic. Cardiovascular: Normal rate and regular rhythm. Pulmonary/Chest: Effort normal and breath sounds normal. Abdominal: Soft. Bowel sounds are normal. There is tenderness in the epigastric area. Neurological: She is oriented to person, place, and time. Skin: Skin is warm, dry and intact. Psychiatric: Mood and affect normal. Labs: Recent Labs Lab 10/30/18 1258 WBC 5.8 RBC 4.56 HGB 11.4* HCT 36.9* MCV 80.9* MCH 25.0* MCHC 30.9* PLT 380 RDW 14.2 MPV 10.5 PERNEU 73.1 PERLYM 14.2 PERMON 9.2 LYMC 0.82* MONOC 0.53 EOSC 0.14 BASOC 0.05 DTYPE AUTOMATED DIFFERENTIAL Recent Labs Lab 10/30/18 1258 10/31/18 0612 11/01/18 0542 NA 138 138 139 K 3.9 3.5 3.5 CL 104 107 111* CO2 28.5 26.7 24.9 AGAP 9.4 7.8* 6.6* BUN 6* 5* 6* CR 0.72 0.65 0.57 BUNCREATININ 8.3 7.7 10.6 GFRNON >90 >90 >90 GFR >90 >90 >90 GLU 103* 90 93 CA 9.6 8.6 8.2* TP 8.7* 7.4 6.1* ALB 4.3 3.7 3.0* TBIL 3.7* 2.8* 0.9 ALKP 343* 283* 210* AST 436* 285* 103* ALT 539* 409* 255* No results for input(s): INR in the last 168 hours. Invalid input(s): PT Recent Labs Lab 10/30/18 1258 TROP <0.015 CPK 57 No results for input(s): LACTICACID, PROCT in the last 168 hours. No results for input(s): PH, PCO2, PO2, [id number], BICARBWB, BASEDEFICIT, BASEEXCESS in the [id number] hours. Cultures: Blood: No results found for this visit on 10/30/18 (from the past 168 hour(s)). Urine: No results found for this visit on 10/30/18 (from the past 168 hour(s)). Radiology studies: Radiology Results (Last 48 hours) 10/30/[address] ABD+PEL W CON Final result Impression: Impression: 1. Mild intrahepatic and extra hepatic biliary dilation. The common bile duct measures up to 1 cm in diameter. No definite intraluminal filling defect is identified on this study. Consider further evaluation with an MRCP. 2. Stones are seen within the gallbladder lumen without findings of cholecystitis. 3. A 5.6 cm right ovarian cyst is identified. There is a small amount of free fluid adjacent to the ovary, which may represent sequelae of a ruptured cyst versus physiologic free fluid. Assessment and Plan: Nervous * Abdominal pain Assessment & Plan Acute, resolving. Pain now epigastric post-ERCP with stent placement x2. Tolerating some PO intake. - Continue nausea and pain control - GI to see this afternoon - F/U with GI as outpatient - Will need cholecystectomy as outpatient Digestive Acute pancreatitis Assessment & Plan Acute, 2/2 pancreatic duct stent placement. Symptoms mild at this time, has tolerated ana maria crackers and sips of water. - Discussed with GI, recommended observing patient until symptoms resolve and repeat lipase in am to ensure trending down - Continue toradol PRN pain - Continue zofran PRN nausea - Repeat lipase in am - ADAT FEN: 100mL/hr, ADAT PPx: SCDs DISPO: Pending resolution of symptoms. Discussed with loan processing supervisor. Discussed with attending physician. ELLE ROY DO, Resident Physician, PGY-2 Cosigned by Lety Meza MD at 11/01/2018 12:30 PM CDT Associated attestation - Lety Meza MD - 11/01/2018 12:30 PM CDT I reviewed with the resident the medical history and the resident???s findings on physical examination. I discussed with the resident the patient???s diagnosis and concur with the treatment plan as documented in the resident note. High volume fluid resuscitation in setting of pancreatitis. * MELANI Campbell - 10/31/2018 11:15 AM CDT 11:15 AM 10/31 Pt denies any discharge needs. Pt and friend didn't say much but deny any needs. Pt to return home with family. Family/friend to transport home. No hh or dme needs. Pt IADL. No financial concerns. Pt denies any needs. * Corrine Duarte, PharmD - 10/31/2018 10:18 AM CDT Pharmacy VTE Note Stratified patient as moderate VTE risk per MD. Will enter a pharmacologic contraindication since plans for ERCP on 11/01. SCD's ordered. * Elle Roy, DO - 10/31/2018 7:04 AM CDT Subjective: No events overnight. Pain well controlled. No N/V. Review of Systems Constitutional: Negative for chills and fever. Eyes: Negative for blurred vision. Respiratory: Negative for shortness of breath. Gastrointestinal: Positive for abdominal pain. Negative for nausea and vomiting. Skin: Negative for itching. Scheduled medications: ??? famotidine 20 mg Intravenous 2 times per day Or ??? famotidine 20 mg Oral 2 times per day PRN medications: ibuprofen, ketorolac, ondansetron Objective: Temp: [97.7 ??F (36.5 ??C)-98.4 ??F (36.9 ??C)] 97.7 ??F (36.5 ??C) Pulse: [66-73] 66 Resp: [18] 18 BP: (101-123)/(49-74) 106/60 Blood pressure 106/60, pulse 66, temperature 97.7 ??F (36.5 ??C), temperature source Oral, resp. rate 18, height 5' 8 (1.727 m), weight 67.7 kg (149 lb 4 oz), last menstrual period 10/09/2018, SpO2 100 %, not currently . No intake or output data in the 24 hours ending 10/31/18 0704 Last 5 Recorded Weights 10/30/18 1241 10/30/18 2104 10/31/18 0548 Weight: 67.5 kg (148 lb 12.8 oz) 67.7 kg (149 lb 4 oz) 67.7 kg (149 lb 4 oz) Physical Exam Constitutional: She is well-developed, well-nourished, and in no distress. No distress. Cardiovascular: Normal rate and regular rhythm. Pulmonary/Chest: Effort normal and breath sounds normal. Abdominal: Soft. There is tenderness. Labs: Recent Labs Lab 10/30/18 1258 WBC 5.8 RBC 4.56 HGB 11.4* HCT 36.9* MCV 80.9* MCH 25.0* MCHC 30.9* PLT 380 RDW 14.2 MPV 10.5 PERNEU 73.1 PERLYM 14.2 PERMON 9.2 LYMC 0.82* MONOC 0.53 EOSC 0.14 BASOC 0.05 DTYPE AUTOMATED DIFFERENTIAL Recent Labs Lab 10/30/18 1258 NA 138 K 3.9 CL 104 CO2 28.5 AGAP 9.4 BUN 6* CR 0.72 BUNCREATININ 8.3 GFRNON >90 GFR >90 GLU 103* CA 9.6 TP 8.7* ALB 4.3 TBIL 3.7* ALKP 343* AST 436* ALT 539* No results for input(s): INR in the last 168 hours. Invalid input(s): PT Recent Labs Lab 10/30/18 1258 TROP <0.015 CPK 57 No results for input(s): LACTICACID, PROCT in the last 168 hours. No results for input(s): PH, PCO2, PO2, [id number], BICARBWB, BASEDEFICIT, BASEEXCESS in the [id number] hours. Cultures: Blood: No results found for this visit on 10/30/18 (from the past 168 hour(s)). Urine: No results found for this visit on 10/30/18 (from the past 168 hour(s)). Radiology studies: Radiology Results (Last 48 hours) 10/30/[address] ABD+PEL W CON Final result Impression: Impression: 1. Mild intrahepatic and extra hepatic biliary dilation. The common bile duct measures up to 1 cm in diameter. No definite intraluminal filling defect is identified on this study. Consider further evaluation with an MRCP. 2. Stones are seen within the gallbladder lumen without findings of cholecystitis. 3. A 5.6 cm right ovarian cyst is identified. There is a small amount of free fluid adjacent to the ovary, which may represent sequelae of a ruptured cyst versus physiologic free fluid. Assessment and Plan: Nervous * Abdominal pain Assessment & Plan Acute, imaging shows dilated CBD and gall stones. GI recommending NPO at midnight and ERCP per ED provider. - GI consulted, will follow recommendations - Toradol PRN pain - Zofran PRN nausea - NPO at midnight pending ERCP FEN: 100mL/hr NS, NPO PPx: SCDs DISPO: Pending ERCP. Discussed with attending physician. ELLE ROY DO, Resident Physician, PGY-2 Cosigned by Osmin Rousseau MD at 10/31/2018 11:27 AM CDT Associated attestation - Osmin Rousseau MD - 10/31/2018 11:27 AM CDT I have seen and examined the patient with the resident and I agree with the findings and plan of care as documented by the resident. * Elle Roy DO - 10/30/2018 6:32 PM CDTAssociated Problem(s): Abdominal pain Acute, resolving. Pain now epigastric post-ERCP with stent placement x2. Tolerating some PO intake. - Continue nausea and pain control - GI to see this afternoon - F/U with GI as outpatient - Will need cholecystectomy as outpatient documented in this encounter H&P Notes * Elle Roy DO - 10/30/2018 4:35 PM CDT HISTORY, PHYSICAL, ASSESSMENT, PLAN DATE: 10/30/2018 ID: [id number] Doreen Nobles CC: abdominal pain HPI: Ms. Nobles is a 23 yo F with PMH of anxiety (not treated), appendicitis s/p appendectomy, and anemia related to previous , who presents to the ED for 3 days of severe, epigastric pain. She states she has had this pain on and off for quite some time , but the past three days have been severe. She has waves of nausea but denies vomiting. She states her pain comes and goes, is not associatedwith eating, and is not sure if the pain is associated with BMs because she is severely constipated. She requires use of enemas every few days at home for relief of constipation. She denies personal or family history of gall bladder disease. Denies fevers/chills or recent illness. ED Course: Vitals: WNL Labs: Total bilirubin 3.7, ALP 343, AST 436, ALT 539, Hb 11.4 with MCV of 80.9 Imaging: CT abdomen shows: 1. Mild intrahepatic and extra hepatic biliary dilation. The common bile duct measures up to 1 cm in diameter. No definite intraluminal filling defect is identified on this study. Consider further evaluation with an MRCP. 2. Stones are seen within the gallbladder lumen without findings of cholecystitis. ED provider discussed patient's CT findings with loan processing supervisor. Will admit to med/surg for ERCP tomorrow. REVIEW OF SYSTEMS: Review of Systems Constitutional: Negative for chills, fever, malaise/fatigue and weight loss. Eyes: Negative for blurred vision and double vision. Respiratory: Negative for shortness of breath. Cardiovascular: Negative for chest pain. Gastrointestinal: Positive for abdominal pain, constipation and nausea. Negative for diarrhea and vomiting. Genitourinary: Negative for dysuria. Musculoskeletal: Negative for myalgias. Neurological: Negative for dizziness, weakness and headaches. Endo/Heme/Allergies: Does not bruise/bleed easily. Psychiatric/Behavioral: The patient is nervous/anxious. PAST MEDICAL HISTORY: Past Medical History: Diagnosis Date ??? Anemia dx with SURGICAL HISTORY: Past Surgical History: Procedure Laterality Date ??? APPENDECTOMY ALLERGIES: No Known Allergies MEDICATIONS: ??? famotidine 20 mg Intravenous 2 times per day Or ??? famotidine 20 mg Oral 2 times per day SOCIAL HISTORY: Social History Socioeconomic History ??? Marital status: Single Spouse name: Not on file ??? Number of children: Not on file ??? Years of education: Not on file ??? Highest education level: Not on file Occupational History ??? Not on file Social Needs ??? Financial resource strain: Not on file ??? Food insecurity: Worry: Not on file Inability: Not on file ??? Transportation needs: Medical: Not on file Non-medical: Not on file Tobacco Use ??? Smoking status: Former Smoker Packs/day: 0.25 Types: Cigarettes Last attempt to quit: 03/09/2018 Years since quittin.6 ??? Smokeless tobacco: Never Used Substance and Sexual Activity ??? Alcohol use: No ??? Drug use: No ??? Sexual activity: Not on file Lifestyle ??? Physical activity: Days per week: Not on file Minutes per session: Not on file ??? Stress: Not on file Relationships ??? Social connections: Talks on phone: Not on file Gets together: Not on file Attends latter-day service: Not on file Active member of club or organization: Not on file Attends meetings of clubs or organizations: Not on file Relationship status: Not on file ??? Intimate partner violence: Fear of current or ex partner: Not on file Emotionally abused: Not on file Physically abused: Not on file Forced sexual activity: Not on file Other Topics Concern ??? Not on file Social History Narrative ??? Not on file FAMILY HISTORY: No family history on file. PRIMARY CARE PROVIDER: Provider None, MD CODE STATUS: Code Status: Full Code OBJECTIVE Temp: [98.2 ??F (36.8 ??C)] 98.2 ??F (36.8 ??C) Pulse: [71] 71 Resp: [18] 18 BP: (123)/(74) 123/74 Blood pressure 123/74, pulse 71, temperature 98.2 ??F (36.8 ??C), temperature source Oral, resp. rate 18, height 5' 8 (1.727 m), weight 67.5 kg (148 lb 12.8 oz), last menstrual period 10/09/2018, SpO2 99 %, not currently . Last Recorded Weight 10/30/18 1241 Weight: 67.5 kg (148 lb 12.8 oz) Body mass index is 22.62 kg/m??. Physical Exam: Physical Exam Constitutional: She is oriented to person, place, and time and well-developed, well-nourished, and in no distress. Vital signs are normal. She appears not dehydrated. She appears healthy. She does not have a sickly appearance. HENT: Head: Normocephalic and atraumatic. Eyes: EOM are normal. Pupils are equal, round, and reactive to light. Cardiovascular: Normal rate and regular rhythm. Pulses: Radial pulses are 2+ on the right side, and 2+ on the left side. Pulmonary/Chest: Effort normal and breath sounds normal. Abdominal: Soft. Normal appearance and bowel sounds are normal. There is tenderness in the right upper quadrant. Neurological: She is oriented to person, place, and time. Skin: Skin is warm and dry. Psychiatric: Mood and affect normal. Labs: Recent Labs Lab 10/30/18 1258 WBC 5.8 RBC 4.56 HGB 11.4* HCT 36.9* MCV 80.9* MCH 25.0* MCHC 30.9* PLT 380 RDW 14.2 MPV 10.5 PERNEU 73.1 PERLYM 14.2 PERMON 9.2 LYMC 0.82* MONOC 0.53 EOSC 0.14 BASOC 0.05 DTYPE AUTOMATED DIFFERENTIAL Recent Labs Lab 10/30/18 1258 NA 138 K 3.9 CL 104 CO2 28.5 AGAP 9.4 BUN 6* CR 0.72 BUNCREATININ 8.3 GFRNON >90 GFR >90 GLU 103* CA 9.6 TP 8.7* ALB 4.3 TBIL 3.7* ALKP 343* AST 436* ALT 539* No results for input(s): PTT, INR in the last 168 hours. Recent Labs Lab 10/30/18 1258 TROP <0.015 CPK 57 No results for input(s): LACTICACID, PROCT in the last 168 hours. No results for input(s): PH, PCO2, PO2, [id number], BICARBWB, BASEDEFICIT, BASEEXCESS in the [id number] hours. Cultures: Blood: No results found for this visit on 10/30/18 (from the past 168 hour(s)). Urine: No results found for this visit on 10/30/18 (from the past 168 hour(s)). Radiology studies: Radiology Results (Last 48 hours) 10/30/[address] ABD+PEL W CON Final result Impression: Impression: 1. Mild intrahepatic and extra hepatic biliary dilation. The common bile duct measures up to 1 cm in diameter. No definite intraluminal filling defect is identified on this study. Consider further evaluation with an MRCP. 2. Stones are seen within the gallbladder lumen without findings of cholecystitis. 3. A 5.6 cm right ovarian cyst is identified. There is a small amount of free fluid adjacent to the ovary, which may represent sequelae of a ruptured cyst versus physiologic free fluid. SSMENT and PLAN 23 yo F with no significant medical history admitted for dilated CBD and GI consultation, likely ERCP tomorrow. Abdominal pain Acute, imaging shows dilated CBD and gall stones. GI recommending NPO at midnight and ERCP per ED provider. - GI consulted, will follow recommendations - Toradol PRN pain - Zofran PRN nausea - NPO at midnight pending ERCP FEN: SLIV, NPO and midnight VTE Prophylaxis: SCDs DISPO: Pending GI recommendations. Discussed with attending physician. ELLE ROY DO, Resident Physician, PGY-2 Cosigned by Osmin Rousseau MD at 10/31/2018 11:21 AM CDT Associated attestation - Osmin Rousseau MD - 10/31/2018 11:21 AM CDT I have seen and examined the patient with the resident and I agree with the findings and plan of care as documented by the resident. documented in this encounter Consult Notes * Cecilio Rousseau MD - 10/30/2018 6:05 PM CDTAssociated Order(s): IP CONSULT TO GASTROENTEROLOGY GASTROENTEROLOGY CONSULT 10/30/2018 6:05 PM Reason for Consult: Severe abdominal pain. Chief Complaint: Same History of Present Illness: Doreen Nobles is a 23-year-old female admitted to the hospital with severe abdominal pain. Rather sudden onset of upper abdominal pain and epigastric pain. She also had nausea and vomiting. The first symptoms have subsided and the pain is less currently. She was found on imaging studies to h ave a dilated common bile duct. She also has markedly elevated liver enzymes as well as elevated bilirubin of 3.5. Common bile duct measures up to 1 cm in size. She also has stones in the gallbladder. Patient Active Problem List Diagnosis ? ? Nausea & vomiting ??? Vomiting or nausea of ??? Abdominal pain Past Medical History: Diagnosis Date ??? Anemia dx with Past Surgical History: Procedure Laterality Date ??? APPENDECTOMY No family history on file. Social History Socioeconomic History ??? Marital status: Single Spouse name: Not on file ??? Number of children: Not on file ??? Years of education: Not on file ??? Highest education level: Not on file Occupational History ??? Not on file Social Needs ??? Financial resource strain: Not on file ??? Food insecurity: Worry: Not on file Inability: Not on file ??? Transportation needs: Medical: Not on file Non-medical: Not on file Tobacco Use ??? Smoking status: Former Smoker Packs/day: 0.25 Types: Cigarettes Last attempt to quit: 03/09/2018 Years since quittin.6 ??? Smokeless tobacco: Never Used Substance and Sexual Activity ??? Alcohol use: No ??? Drug use: No ??? Sexual activity: Not on file Lifestyle ??? Physical activity: Days per week: Not on file Minutes per session: Not on file ??? Stress: Not on file Relationships ??? Social connections: Talks on phone: Not on file Gets together: Not on file Attends latter-day service: Not on file Active member of club or organization: Not on file Attends meetings of clubs or organizations: Not on file Relationship status: Not on file ??? Intimate partner violence: Fear of current or ex partner: Not on file Emotionally abused: Not on file Physically abused: Not on file Forced sexual activity: Not on file Other Topics Concern ??? Not on file Social History Narrative ??? Not on file ??? ondansetron ??? enoxaparin 40 mg Subcutaneous Q24H ??? famotidine 20 mg Intravenous 2 times per day Or ??? famotidine 20 mg Oral 2 times per day No Known Allergies REVIEW OF SYSTEMS: General: no fever, chills, malaise, fatigue, weight loss or gain. HEENT: no acute changes in vision or hearing Respiratory: no shortness of breath, cough, sputum production, hemoptysis Cardiovascular: no chest pain, palpitations, orthopnea Gastrointestinal: as per HPI Genitourinary: no dysuria, hematuria, incontinence Musculoskeletal: no extremity edema, myalgia. Neuro: no dizziness, headache, seizures Hematology: no easy bruising, bleeding Skin: no new skin rashes or lesions. PHYSICAL EXAM: Filed Vitals: 10/30/18 1241 BP: 123/74 Pulse: 71 Resp: 18 Temp: 98.2 ??F (36.8 ??C) TempSrc: Oral SpO2: 99% Weight: 67.5 kg (148 lb 12.8 oz) Height: 5' 8 (1.727 m) Wt Readings from Last 3 Encounters: 10/30/18 67.5 kg (148 lb 12.8 oz) 07/17/18 74 kg (163 lb 1.6 oz) 04/15/18 70.8 kg (156 lb) General: pleasant, no distress HEENT: conjunctivae/corneas clear. PERRL. Neck: supple, symmetrical, trachea midline Lungs: clear to auscultation bilaterally Heart: regular rate and rhythm, normal s1-s2 Abdomen: soft, epig tender, non-distended, bowel sounds normal, no palpable masses Rectal: deferred Extremities: no edema, palpable pulses Skin: no obvious rashes, no jaundice Neuro: Alert, oriented, cooperative Labs: Recent Labs Lab 10/30/18 1258 WBC 5.8 HGB 11.4* MCV 80.9* PLT 380 Recent Labs Lab 10/30/18 1258 NA 138 K 3.9 CL 104 CO2 28.5 BUN 6* Recent Labs Lab 10/30/18 1258 AST 436* ALT 539* ALB 4.3 ? Imaging/Procedures: CT scan shows dilated common bile duct of 1 cm. Stones in the gallbladder. Previous Endoscopy: None Assessment and Plan: Severe upper abdominal pain associated with an elevated bilirubin and transaminases. CT scan with dilated common bile duct and gallstones noted. She very likely has choledocholithiasis and will need an ERCP. Eventually she should have a cholecystectomy as well. PLAN ERCP in the morning. Patient was advised procedure risks benefits alternatives and specific risks related to the procedure are pancreatitis, bleeding, bowel injury or perforation, infection, anesthesia related risks but not limited to the above. He voices understanding of these risks and wishes to proceed. The procedural risks, benefits, alternatives, including the risks of complications of bleeding, infection, bowel injury or perforation, anesthesia related risks, but not limited to the above were explained and discussed fully with the patient and all questions answered. The complications could leadto possible hospitalization, antibiotics and surgery and even remote chance of . The patient verbalizes understanding and wishes to proceed. Thank you for this consult. Please do not hesitate to contact us with further questions. CECILIO ROUSSEAU MD documented in this encounter OR Notes * Op Note - Cecilio Rousseau MD - 10/31/2018 5:29 PM CDT [facility] OpNote ERCP with sphinterotomy and STONE REMOVAL ,and stone extraction , insertion of Pancreatic Stent 4x 5, Procedure Note Doreen Nobles 10/30/2018 - 10/31/2018 1630 Procedure(s) (LRB): ERCP with sphinterotomy and STONE REMOVAL ,and stone extraction , insertion of Pancreatic Stent 4x 5, (N/A) Surgeon(s): Cecilio Rousseau MD Staff: GI Nurse: Rafaela Bauman, DENY; Deysi Peterson, DENY; Melisa Guevara RN assembler corncob pipes: Cinthya Lim [facility] Anesthesia: General Anesthesiologist: Tal Nuñez MD NURSE'S ASSISTANT: Micha Son CRNA; Richi Thomas CRNA Pre-Op Diagnosis: choledocholith Post-Op Diagnosis: Dilated common bile duct with stone. Procedure Description: Informed consent obtained earlier. Patient brought to the OR placed in supine lateral decubitus position and sedated under MAC anesthesia. The GIF 180 side-viewing duodenoscopewas lubricated and inserted into the hypopharynx and advanced by indirect technique. Stomach was grossly normal. For second part of duodenum grossly normal. Ampulla was identified to be grossly normal. Ultratome with a 20 mm monofilament was utilized to cannulate the pancreatic duct initially. Wirewas utilized. Small amount of contrast was injected to confirm the pancreatic duct. Looked normal. After several attempts kept going into the PD so a 4 Sami by 5 cm PD stent was placed. The Ultratome was then reorientated and common duct was cannulated. Contrast was injected and it showed a markedly dilated common bile duct. The common duct as well as intrahepatics were moderately dilated. There was a small 4 mm filling defect distally. Sphincterotomy was subsequently performed. A 9 to 12 mm balloon was then threaded over the wire into the duct and balloon dredging was performed to remove the stone. Duct cholangiogram was obtained and it was clean. There is excellent flow of bile afterward. The PD stent was almost out so it was removed. Patient was given rectal Indocin. Findings: Dilated common bile duct and intrahepatics. 4 mm filling defect was seen in the distal CBD. Stone was extracted using a balloon after sphincterotomy performed. Protective PD stent was initially placed and removed. Plan: Advance diet as tolerated. Patient will need a cholecystectomy. Timing of the cholecystectomyper surgeon discretion. Complications: None immediate. Watch for signs of pancreatitis. Estimated Blood Loss: * No values recorded between 10/31/2018 4:42 PM and 10/31/2018 5:29 PM * Specimens:* No orders in the log * CECILIO ROUSSEAU MD Date: 10/31/2018 Time: 5:29 PM documented in this encounter ED Notes * Jaja Cantor RN - 10/30/2018 1:57 PM CDT Patient heard hollering from the room at the nurses station. Upon entering room patient is screaming and kicking on the stretcher and cursing at staff saying the IV is hurting. IV inspected and notedto have infiltrated. IV fluids stopped, IV removed and KENNY wrap placed for compression. This nurse asked patient if she wants another IV for the fluids or if she would like to do without, stated the choice is hers. Patient stated she wanted to calm down and think about it. Emotional support provided to patient. Patient continued to scream and kick and use curse words. * MARGARET Schmitt - 10/30/2018 1:46 PM CDT Chief Complaint Chief Complaint Patient presents with ??? Abdominal Pain History of Present Illness History provided by: Patient performance test consultant used: No Abdominal Pain Associated symptoms: nausea and vomiting Associated symptoms: no chest pain, no chills, no constipation, no cough, no diarrhea, no dysuria, no fever, no shortness of breath and no sore throat Doreen Nobles is a 23 year old female who presents to ED c/o abdominal pain, nausea, and vomiting x 3 days. Pt states she has discomfort in her chest when she needs to vomit. Pt also states I am severely dehydrated and reports orange pee. She has recently increased her water intake and has been urinating more frequently. Denies pain with urination or any other acute complaints. She has not taken any medication at home for symptoms. Medical History ALLERGIES: No Known Allergies MEDICATIONS: Prior to Admission medications Not on File PAST MEDICAL HISTORY: Past Medical History: Diagnosis Date ??? Anemia dx with PAST SURGICAL HISTORY: Past Surgical History: Procedure Laterality Date ??? APPENDECTOMY FAMILY HISTORY: No family history on file. SOCIAL HISTORY: Social History Tobacco Use ??? Smoking status: Former Smoker Packs/day: 0.25 Types: Cigarettes Last attempt to quit: 03/09/2018 Years since quittin.6 ??? Smokeless tobacco: Never Used Substance Use Topics ??? Alcohol use: No ??? Drug use: No Review of Systems Review of Systems Constitutional: Negative for chills and fever. HENT: Negative for congestion, sinus pain and sore throat. Eyes: Negative for pain and redness. Respiratory: Negative for cough, chest tightness, shortness of breath and wheezing. Cardiovascular: Negative for chest pain. Chest discomfort. Gastrointestinal: Positive for abdominal pain, nausea and vomiting. Negative for constipation and diarrhea. Genitourinary: Negative for dysuria. Musculoskeletal: Negative for arthralgias and joint swelling. Skin: Negative for rash and wound. Neurological: Negative for headaches. Psychiatric/Behavioral: Negative for agitation. The patient is not nervous/anxious. Physical Exam Filed Vitals: 10/30/18 1241 BP: 123/74 Pulse: 71 Resp: 18 Temp: 98.2 ??F (36.8 ??C) TempSrc: Oral SpO2: 99% Weight: 67.5 kg (148 lb 12.8 oz) Height: 5' 8 (1.727 m) Physical Exam Constitutional: She is oriented to person, place, and time. She appears well- developed and well-nourished. HENT: Head: Normocephalic and atraumatic. Eyes: Pupils are equal, round, and reactive to light. Neck: Normal range of motion. Cardiovascular: Normal rate, regular rhythm and normal heart sounds. Pulmonary/Chest: Effort normal and breath sounds normal. No respiratory distress. Abdominal: Soft. Bowel sounds are normal. She exhibits no distension. Diffuse abdominal tenderness with palpation. Musculoskeletal: Normal range of motion. No CVA tenderness. Neurological: She is alert and oriented to person, place, and time. Skin: Skin is warm and dry. Psychiatric: She has a normal mood and affect. Nursing note and vitals reviewed. Diagnostic Studies / Procedures ELECTROCARDIOGRAMS: Results for orders placed or performed during the hospital encounter of 10/30/18 ECG 12 lead Narrative [place] Test Date: 2018-10-30 Pat Name: DOREEN NOBLES Department: Room: Gender: Female [employer] Developer: EJ : 1995 Requested By: ELENA HORTA Order Number: [id number] Reading MD: Measurements Intervals [place] Rate: 63 P: 55 NM: 122 QRS: 59 QRSD: 83 T: 37 QT: 379 QTc: 388 Interpretive Statements SINUS RHYTHM WITH SINUS ARRHYTHMIA Compared to ECG 07/17/2018 03:37:32 Sinus bradycardia no longer present 13:[address] Shaikh. No ischemic changes. Compared to EKG on 07/17/2018. Normal Sinus Rhythm. Rate of 63. LABORATORY STUDIES: Results for orders placed or performed during the hospital encounter of 10/30/18 CBC W/DIFF AUTOMATED Result Value Ref Range WBC 5.8 4.5 - 11.0 x10'3/uL RBC 4.56 4.20 - 5.40 x10'6/uL HGB 11.4 (L) 12.0 - 16.0 G/DL HCT 36.9 (L) 38.0 - 48.0 % MCV 80.9 (L) 81.0 - 99.0 FL MCH 25.0 (L) 27.0 - 31.0 PG MCHC 30.9 (L) 32.0 - 36.0 G/DL RDW 14.2 11.5 - 14.5 % PLT 380 130 - 400 x10'3/uL MPV 10.5 9.3 - 12.2 FL DIFFERENTIAL TYPE AUTOMATED DIFFERENTIAL NEUTROPHILS 73.1 % LYMPHOCYTES 14.2 % MONOCYTES 9.2 % EOSINOPHILS 2.4 % BASOPHILS 0.9 % IMMATURE GRANS 0.2 % ABS. NEUTROPHILS TOTAL 4.24 1.80 - 7.70 x10'3/uL ABS. LYMPHOCYTES 0.82 (L) 1.00 - 4.80 x10'3/uL ABS. MONOCYTES 0.53 0.24 - 0.86 x10'3/uL ABS. EOSINOPHILS 0.14 0.04 - 0.36 x10'3/uL ABS. BASOPHILS 0.05 0.01 - 0.08 x10'3/uL ABS. IMMATURE GRANULOCYTES 0.01 0.00 - 0.49 x10'3/uL COMPREHENSIVE METABOLIC PANEL Result Value Ref Range GLUCOSE 103 (H) 70 - 99 MG/DL BUN 6 (L) 7 - 18 MG/DL CREATININE 0.72 0.55 - 1.02 MG/DL SODIUM 138 136 - 145 MMOL/L POTASSIUM 3.9 3.5 - 5.1 MMOL/L CHLORIDE 104 100 - 108 MMOL/L CO2 28.5 21 - 32 MMOL/L CALCIUM 9.6 8.5 - 10.1 MG/DL TOTAL BILIRUBIN 3.7 (H) 0.2 - 1.2 MG/DL TOTAL PROTEIN 8.7 (H) 6.4 - 8.2 G/DL ALBUMIN 4.3 3.4 - 5.0 G/DL AST 436 (H) 15 - 37 U/L ALT 539 (H) 14 - 55 U/L ALK PHOS 343 (H) 50 - 136 U/L ANION GAP 9.4 8 - 20 MMOL/L BUN CREATININE RATIO 8.3 6 - 26 A/G RATIO 1.0 1.0 - 2.0 RATIO eGFR Non-Afr. Amer. >90 >90 ML/MIN/1.73 M2 eGFR Afr. Amer. >90 >90 ML/MIN/1.73 M2 LIPASE Result Value Ref Range LIPASE 144 73 - 393 UNITS/L URINALYSIS WI REFLEX TO CULTURE Result Value Ref Range Specimen Type URINE CLEAN CATCH COLOR ROBIN TRANSPARENCY CLEAR Specific [place] (U) 1.020 1.001 - 1.030 U PH 7.0 5.0 - 9.0 LEUKOCYTE ESTERASE NEGATIVE NEGATIVE NITRITES NEGATIVE NEGATIVE PROTEIN, URINE 30 (H) <30 MG/DL URINE GLUCOSE NEGATIVE NEGATIVE MG/DL U KETONES TRACE (A) NEGATIVE MG/DL UROBILINOGEN 4.0 (A) NEGATIVE MG/DL Urine Bilirubin 4.0 (A) NEGATIVE MG/DL BLOOD NEGATIVE NEGATIVE CULTURE & SENSITIVITY INDICATED? CULTURE IS NOT INDICATED SQUAMOUS EPITHELIALS MANY /LPF MUCUS MODERATE /LPF WBC/HPF 1 <6 /HPF RBC/HPF 1 <6 /HPF TROPONIN, QUANT Result Value Ref Range TROPONIN I <0.015 <0.045 ng/mL. CK (CPK) Result Value Ref Range CPK 57 21 - 215 U/L POCT urine Result Value Ref Range URINE HCG TEST negative NEGATIVE INT CTRL PERFORMED EXPECTED? [id number]: IMAGING STUDIES CT ABD+PEL W CON Final Result by User, [id number] (10/30 [id number]) Examination: CT abdomen and pelvis with IV contrast. Clinical Information: Abdominal pain with nausea and vomiting. Comparison: CT 07/17/2018. Technique: IV contrast: 100 mL Isovue 370. Oral contrast: None. Technical comments: Standard technique. Dose reduction: This CT exam was performed using one or more of the following dose reduction techniques: Automated exposure control, adjustment of the mA and/or kV according to patient size, and/or use of iterative reconstruction technique. Findings: LOWER CHEST Heart is normal in size. Lung bases are clear. No pleural or pericardial effusions. UPPER ABDOMEN Liver and bile ducts: No focal liver lesion. Portal vein and hepatic veins are patent. Mild intrahepatic and extrahepatic biliary dilation. The common bile duct measures up to 1 cm in diameter. No definite intraluminal filling defect is identified on this exam. Gallbladder: Stones are seen within the gallbladder lumen. No gallbladder wall thickening or pericholecystic fluid. Pancreas: Normal. Spleen: Normal. RETROPERITONEUM Adrenals: Normal. Kidneys: Normal. Lymph nodes: No lymphadenopathy in the abdomen or pelvis. BOWEL AND PERITONEUM Bowel: No obstruction. No bowel wall thickening or inflammatory change identified. Free air or fluid: Trace free fluid seen in the pelvic cul-de-sac. VASCULATURE The abdominal aorta is normal in caliber. PELVIS The uterus enhances normally. A 5.6 x 3.7 cm water density simple appearing right ovarian cyst is identified (series 2 image 125). A small amount of free pelvic fluid is seen adjacent to the ovary, which may represent sequelae of a ruptured cyst or physiologic fluid. The left ovary demonstrates normal physiologic follicles. The urinary bladder is decompressed. BONES/SOFT TISSUES No significant lesion. Impression: 1. Mild intrahepatic and extra hepatic biliary dilation. The common bile duct measures up to 1 cm in diameter. No definite intraluminal filling defect is identified on this study. Consider further evaluation with an MRCP. 2. Stones are seen within the gallbladder lumen without findings of cholecystitis. 3. A 5.6 cm right ovarian cyst is identified. There is a small amount of free fluid adjacent to the ovary, which may represent sequelae of a ruptured cyst versus physiologic free fluid. Course / Medical Decision Making ED Course as of Oct 30 1633SunOct 30, 2018 1618 1615--Paged GI. Dr Rousseau returned page. Agreeable to ERCP tomorrow. Would like patient to remainNPO after midnight. Pt aware of plan and agreeable. Community coverage paged for admission. [MP] 1631 1632--Dr Hutchinson, U resident, returned page. Agreeable to med/surg admission. Orders placed accordingly. [MP] ED Course User Index [MP] MARGARET Schmitt Clinical Impression Abdominal pain (Primary) Nausea and vomiting Common bile duct dilatation Disposition: Admit I, Erika Theodore, acting as a scribe, am personally taking down the notes in the presence of MARGARET Schmitt. Take no action on this note until reviewed and authenticated by the physician. MARGARET Schmitt 10/30/18 1634 Cosigned by Sandra Shaikh MD at 10/30/2018 9:00 PM CDT * Jaja Cantor RN - 10/30/2018 1:22 PM CDT Attempted IV access x 1. Patient did not tolerate well, became tense and could not sit still. Patient requested nurse return after she calms down to make second attempt at an IV. * Sharon Grimes RN - 10/30/2018 12:43 PM CDT Pt presents to triage with c/o abdominal pain (epigastric/upper abdomen) x 3 Days with nausea and vomiting. Pt denies urinary symptoms or diarrhea. LMP 2-3 weeks ago, denies chances of . * MARGARET Schmitt - 10/30/2018 12:32 PM CDT [place], [place] EMERGENCY DEPARTMENT ENCOUNTER Medical Screening Examination 10/30/18 12:32 PM Chief Complaint : No chief complaint on file. HPI : Doreen Nobles is a 23-year-old female who presents c/o abdominal pain, nausea and vomiting that began 3 days ago. Pt reports that she has discomfort in her chest when she needs to vomit. Pt also reports I am severely dehydrated and reports orange pee . Vital Signs: There were no vitals filed for this visit. Physical exam: A brief physical exam was completed to facilitate/expedite patient care. Diffuse abdominal pain Plan: Necessary labs/imaging/medications ordered to initiate pt care. MARGARET Schmitt 10/30/18 1232 Cosigned by Sandra Shaikh MD at 10/30/2018 8:59 PM CDT documented in this encounter Plan of Treatment Upcoming Encounters Date Type Department Care Team (Late st Contact Info) Description 07/24/2024 Hospital Encounter [facility] [place] [address] Osmin Hunt MD [address] [place] [address] [address] [place] [address] Scheduled Orders Name Type Priority Associated Diagnoses Orde r Schedule Case request operating room: ERCP WITH STONE REMOVAL DUCT Case Request Routine Once for 1 Occur rences starting 10/31/2018 until 10/31/2018 Scheduled Procedures Name Priority Associated Diagnoses Date/Ti me ROBOTIC XI HYSTERECTOMY MENORRHAGIA, DYSMENORRHEA N92.4, N94.4 documented as of this encounter Procedures Procedure Name Priority Date/Time Associated Diagnosis Comments LIPASE Routine 11/02/2018 6:34 AM CDT COMPREHENSIVE METABOLIC PANEL TIMED 11/01/2018 5:42 AM CDT LIPASE TIMED 11/01/2018 5:42 AM CDT SURG XR ERCP W YANI Routine 10/31/2018 5 :33 PM CDT Pain PROCEDURE GENERIC 10/31/2018 4:3 6 PM CDT ERCP WITH STONE REMOVAL DUCT 10/31/2018 4:26 PM CDT choledocholith COMPREHENSIVE METABOLIC PANEL Routine 10/31/2018 6:12 AM CDT MAGNESIUM Routine 10/31/2018 6:[address] ABD+PEL W CON STAT 10/30/2018 3:40 PM CDT URINALYSIS WI REFLEX TO CULTURE STAT 10/30/2018 1:08 PM CDT POCT URINE (BACK OFFICE) STAT 10/30/2018 1:08 PM CDT ECG 12-LEAD STAT 10/30/2018 1:01 PM CDT COMPREHENSIVE METABOLIC PANEL STAT 10/30/2018 12:58 PM CDT CBC W/DIFF AUTOMATED STAT 10/30/2018 12:58 PM CDT TROPONIN, QUANT STAT 10/30/2018 12:58 PM CDT LIPASE STAT 10/30/2018 12:58 PM CDT CK (CPK) STAT 10/30/2018 12:58 PM CDT documented in this encounter Results * (ABNORMAL) LIPASE (11/02/2018 6:34 AM CDT) LIPASE 3,235(H) 73 - 393 UNITS/L 11/02/2018 7:07 AM CDT [facility] 11/02/2018 6:34 AM CDT Elle Roy DO LABORATORY Final Resul t [facility] [address] [place] [address], * (ABNORMAL) COMPREHENSIVE METABOLIC PANEL (11/01/2018 5:42 AM CDT) GLUCOSE 93 70 - 99 MG/DL 11/01/2018 6:27 AM CDT [facility] BUN 6(L) 7 - 18 MG/DL 11/01/2018 6:27 AM CDT [facility] CREATININE S/P/B 0.57 0.55 - 1.02 MG/DL 11/01/2018 6:27 AM CDT [facility] SODIUM S/P/B 139 136 - 145 MMOL/L 11/01/2018 6:27 AM CDT [facility] POTASSIUM S/P/B 3.5 3.5 - 5.1 MMOL/L 11/01/2018 6:27 AM CDT [facility] CHLORIDE S/P/B 111(H) 100 - 108 MMOL/L 11/01/2018 6:27 AM CDT [facility] CO2 24.9 21 - 32 MMOL/L 11/01/2018 6:27 AM T [facility] CALCIUM S/P/B 8.2(L) 8.5 - 10.1 MG/DL 11/01/2018 6:27 AM [facility] BILIRUBIN TOTAL S/P/B 0.9 0.2 - 1.2 MG/DL 11/01/2018 6:27 AM T [facility] TOTAL PROTEIN S/P/B 6.1(L) 6.4 - 8.2 G/DL 11/01/2018 6:27 AM [facility] ALBUMIN S/P/B 3.0(L) 3.4 - 5.0 G/DL 11/01/2018 6:27 AM [facility] AST 103(H) 15 - 37 U/L 11/01/2018 6:27 AM [facility] ALT 255(H) 14 - 55 U/L 11/01/2018 6:27 AM [facility] ALKALINE PHOSPHATASE S/P/B 210(H) 50 - 136 U/L 11/01/2018 6:27 AM [facility] ANION GAP 6.6(L) 8 - 20 MMOL/L 11/01/2018 6:27 AM [facility] BUN CREATININE RATIO 10.6 11/01/2018 6:27 AM [facility] A/G RATIO 1.0 1.0 - 2.0 RATIO 11/01/2018 6:27 AM [facility] EGFR NON-AFR. AMER. >90 >90 ML/MIN/1.7 3 M2 11/01/2018 6:27 AM [facility] EGFR AFR. AMER. >90 >90 ML/MIN/1.7 3 M2 11/01/2018 6:27 AM CDT [facility] Comment: NOTE: eGFR is not calculated for patients <18 years of age. This is an estimated GFR (CKD EPI) and should not be used for calculating drug doses. 11/01/2018 5:42 AM CDT [facility] LABORATORY Final Resul t Performing Organization Address [facility] Co de Phone Number [facility] [address] [place] [address], [place] [phone] * (ABNORMAL) LIPASE (11/01/2018 5:42 AM CDT) LIPASE 13,500(H) 73 - 393 UNITS/L 11/01/2018 6:27 AM CDT [facility] 11/01/2018 5:42 AM CDT [facility] LABORATORY Final Resul t Performing Organization Address [facility] de Phone Number [facility] [address] [place] [address], [place] [phone] * SURG XR ERCP W YANI (10/31/2018 5:33 PM CDT) Anatomical Region Laterality Modality Abdomen Fluoroscopy 11/01/2018 8:37 AM CDT Impressions 11/01/2018 8:39 AM CDT IMPRESSION: 1) Fluoroscopy and imaging for operative control purposes. Narrative 11/01/2018 8:39 AM CDT Examination: SURG XR ERCP W YANI Exam time: 10/31/2018 4:46 PM Clinical history: Sphincterotomy and stone removal. Insertion of pancreatic stent. Comparison: 10/30/2018 CT abdomen and pelvis Technique: 3 fluoroscopic spot film images were obtained for procedure control purposes. 4 minutes 25 seconds fluoroscopy time. Findings: Images demonstrate an endoscope. Guidewire is visualized within the pancreatic duct. There are rounded filling defect within the distal common bile duct with significant dilatation of the common hepatic and common bile duct. Procedure Note Joseph Perry MD - 11/01/2018 Examination: SURG XR ERCP W YANI Exam time: 10/31/2018 4:46 PM Clinical history: Sphincterotomy and stone removal. Insertion ofpancreatic stent. Comparison: 10/30/2018 CT abdomen and pelvis Technique: 3 fluoroscopic spot film images were obtained for procedure control purposes. 4 minutes 25 seconds fluoroscopy time. Findings: Images demonstrate an endoscope. Guidewire is visualizedwithin the pancreatic duct. There are rounded filling defect within the distal common bile duct with significant dilatation of the common hepatic and common bile duct. IMPRESSION: 1) Fluoroscopy and imaging for operative control purposes. Cecilio Rousseau MD IMAGES ONLY Final Result * PROCEDURE GENERIC (10/31/2018 4:36 PM CDT) Narrative 10/31/2018 4:36 PM CDT Ordered by an unspecified provider. us Documents [facility] Final Result * MAGNESIUM (10/31/2018 6:12 AM CDT) MAGNESIUM 2.1 1.8 - 2.4 MG/DL 10/31/2018 7:53 AM CDT [facility] 10/31/2018 6:12 AM CDT Elle Roy DO LABORATORY Final Resul t [facility] [address] [place] [address], [place] [phone] * (ABNORMAL) COMPREHENSIVE METABOLIC PANEL (10/31/2018 6:12 AM CDT) GLUCOSE 90 70 - 99 MG/DL 10/31/2018 7:53 AM CDT [facility] BUN 5(L) 7 - 18 MG/DL 10/31/2018 7:53 AM T [facility] CREATININE S/P/B 0.65 0.55 - 1.02 MG/DL 10/31/2018 7:53 AM T [facility] SODIUM S/P/B 138 136 - 145 MMOL/L 10/31/2018 7:53 AM T [facility] POTASSIUM S/P/B 3.5 3.5 - 5.1 MMOL/L 10/31/2018 7:53 AM T [facility] CHLORIDE S/P/B 107 100 - 108 MMOL/L 10/31/2018 7:53 AM T [facility] CO2 26.7 21 - 32 MMOL/L 10/31/2018 7:53 AM T [facility] CALCIUM S/P/B 8.6 8.5 - 10.1 MG/DL 10/31/2018 7:53 AM T [facility] BILIRUBIN TOTAL S/P/B 2.8(H) 0.2 - 1.2 MG/DL 10/31/2018 7:53 AM T [facility] TOTAL PROTEIN S/P/B 7.4 6.4 - 8.2 G/DL 10/31/2018 7:53 AM T [facility] ALBUMIN S/P/B 3.7 3.4 - 5.0 G/DL 10/31/2018 7:53 AM T [facility] AST 285(H) 15 - 37 U/L 10/31/2018 7:53 AM T [facility] ALT 409(H) 14 - 55 U/L 10/31/2018 7:53 AM T [facility] ALKALINE PHOSPHATASE S/P/B 283(H) 50 - 136 U/L 10/31/2018 7:53 AM CDT [facility] ANION GAP 7.8(L) 8 - 20 MMOL/L 10/31/2018 7:53 AM CDT [facility] BUN CREATININE RATIO 7.7 6 - 26 10/31/2018 7:53 AM CDT [facility] A/G RATIO 1.0 1.0 - 2.0 RATIO 10/31/2018 7:53 AM CDT [facility] EGFR NON-AFR. AMER. >90 >90 ML/MIN/1.7 3 M2 10/31/2018 7:53 AM CDT [facility] EGFR AFR. AMER. >90 >90 ML/MIN/1.7 3 M2 10/31/2018 7:53 AM CDT [facility] Comment: NOTE: eGFR is not calculated for patients <18 years of age. This is an estimated GFR (CKD EPI) and should not be used for calculating drug doses. 10/31/2018 6:12 AM CDT us Elle Roy DO LABORATORY Final Resul t [facility] [address] [place] [address], * CT ABD+PEL W CON (10/30/2018 3:40 PM CDT) Anatomical Region Laterality Modality Abdomen Computed Tomogra phy 10/30/2018 3:51 PM CDT Impressions 10/30/2018 4:06 PM CDT Impression: 1. Mild intrahepatic and extra hepatic biliary dilation. The common bile duct measures up to 1 cm in diameter. No definite intraluminal filling defect is identified on this study. Consider further evaluation with an MRCP. 2. Stones are seen within the gallbladder lumen without findings of cholecystitis. 3. A 5.6 cm right ovarian cyst is identified. There is a small amount of free fluid adjacent to the ovary, which may represent sequelae of a ruptured cyst versus physiologic free fluid. Narrative 10/30/2018 4:06 PM CDT Examination: CT abdomen and pelvis with IV contrast. Clinical Information: Abdominal pain with nausea and vomiting. Comparison: CT 07/17/2018. Technique: IV contrast: 100 mL Isovue 370. Oral contrast: None. Technical comments: Standard technique. Dose reduction: This CT exam was performed using one or more of the following dose reduction techniques: Automated exposure control, adjustment of the mA and/or kV according to patient size, and/or use of iterative reconstruction technique. Findings: LOWER CHEST Heart is normal in size. Lung bases are clear. No pleural or pericardial effusions. UPPER ABDOMEN Liver and bile ducts: No focal liver lesion. ??Portal vein and hepatic veins are patent. Mild intrahepatic and extrahepatic biliary dilation. The common bile duct measures up to 1 cm in diameter. No definite intraluminal filling defect is identified on this exam. Gallbladder: Stones are seen within the gallbladder lumen. No gallbladder wall thickening or pericholecystic fluid. Pancreas: Normal. Spleen: Normal. RETROPERITONEUM Adrenals: Normal. Kidneys: Normal. Lymph nodes: No lymphadenopathy in the abdomen or pelvis. BOWEL AND PERITONEUM Bowel: No obstruction. No bowel wall thickening or inflammatory change identified. Free air or fluid: Trace free fluid seen in the pelvic cul-de-sac. VASCULATURE The abdominal aorta is normal in caliber. PELVIS The uterus enhances normally. A 5.6 x 3.7 cm water density simple appearing right ovarian cyst is identified (series 2 image 125). A small amount of free pelvic fluid is seen adjacent to the ovary, which may represent sequelae of a ruptured cyst or physiologic fluid. The left ovary demonstrates normal physiologic follicles. The urinary bladder is decompressed. BONES/SOFT TISSUES No significant lesion. Procedure Note Ti Ruano MD - 10/30/2018 Examination: CT abdomen and pelvis with IV contrast. Clinical Information: Abdominal pain with nausea and vomiting. Comparison: CT 07/17/2018. Technique: IV contrast: 100 mL Isovue 370. Oral contrast: None. Technical comments: Standard technique. Dose reduction: This CT exam was performed using one or more of the following dose reduction techniques: Automated exposure control,adjustment of the mA and/or kV according to patient size, and/or use of iterative reconstruction technique. Findings: LOWER CHEST Heart is normal in size. Lung bases are clear. No pleural or pericardial effusions. UPPER ABDOMEN Liver and bile ducts: No focal liver lesion. Portal vein and hepaticveins are patent. Mild intrahepatic and extrahepatic biliary dilation. Thecommon bile duct measures up to 1 cm in diameter. No definite intraluminalfilling defect is identified on this exam. Gallbladder: Stones are seen within the gallbladder lumen. Nogallbladder wall thickening or pericholecystic fluid. Pancreas: Normal. Spleen: Normal. RETROPERITONEUM Adrenals: Normal. Kidneys: Normal. Lymph nodes: No lymphadenopathy in the abdomen or pelvis. BOWEL AND PERITONEUM Bowel: No obstruction. No bowel wall thickening or inflammatory change identified. Free air or fluid: Trace free fluid seen in the pelvic cul-de-sac. VASCULATURE The abdominal aorta is normal in caliber. PELVIS The uterus enhances normally. A 5.6 x 3.7 cm water density simpleappearing right ovarian cyst is identified (series 2 image 125). A small amount of free pelvic fluid is seen adjacent to the ovary, which may represent sequelae of a ruptured cyst or physiologic fluid. The left ovary demonstrates normal physiologic follicles. The urinary bladder is decompressed. BONES/SOFT TISSUES No significant lesion. Impression: 1. Mild intrahepatic and extra hepatic biliary dilation. The common bile duct measures up to 1 cm in diameter. No definite intraluminal filling defect is identified on this study. Consider further evaluation with an MRCP. 2. Stones are seen within the gallbladder lumen without findings of cholecystitis. 3. A 5.6 cm right ovarian cyst is identified. There is a small amount of free fluid adjacent to the ovary, which may represent sequelae of a ruptured cyst versus physiologic free fluid. Elena Horta PSYCHIATRIC SECRETARY-BC CT Final Res ult * (ABNORMAL) URINALYSIS WI REFLEX TO CULTURE (10/30/2018 1:08 PM CDT) SPECIMEN TYPE URINE CLEAN CATCH 10/30/2018 1:09 PM CDT [facility] COLOR (U) ROBIN 10/30/2018 1:38 PM CDT [facility] TRANSPARENCY CLEAR 10/30/2018 1:38 PM T [facility] SPECIFIC GRAVITY (U) 1.020 1.001 - 1.030 10/30/2018 1:38 PM T [facility] U PH 7.0 5.0 - 9.0 10/30/2018 1:38 PM T [facility] LEUKOCYTES (U) NEGATIVE NEGATIVE 10/30/2018 1:38 PM T [facility] NITRITES NEGATIVE NEGATIVE 10/30/2018 1:38 PM T [facility] PROTEIN (U) 30(H) <30 MG/DL 10/30/2018 1:38 PM T [facility] URINE GLUCOSE NEGATIVE NEGATIVE MG/DL 10/30/2018 1:38 PM T [facility] KETONES MG/DL (U) TRACE(A) NEGATIVE MG/DL 10/30/2018 1:38 PM T [facility] UROBILINOGEN 4.0(A) NEGATIVE MG/DL 10/30/2018 1:38 PM T [facility] BILIRUBIN (U) 4.0(A) NEGATIVE MG/DL 10/30/2018 1:38 PM T [facility] BLOOD (U) NEGATIVE NEGATIVE 10/30/2018 1:38 PM T [facility] CULTURE & SENSITIVITY INDICATED? CULTURE IS NOT INDICATED 10/30/2018 1:38 PM T [facility] SQUAMOUS EPITHELIALS MANY /LPF 10/30/2018 1:38 PM T [facility] MUCUS MODERATE /LPF 10/30/2018 1:38 PM [facility] WBC/HPF 1 <6 /HPF 10/30/2018 1:38 PM T [facility] RBC/HPF 1 <6 /HPF 10/30/2018 1:38 PM CDT [facility] URINE SPECIMEN OBTAINED BY CLEAN CATCH PROCEDURE / Unknown 10/30/2018 1:08 PM CDT Elena Horta PSYCHIATRIC SECRETARY-BC URINE ORDERABLES Final Re sult [facility] [address] [place] [address], * POCT urine (10/30/2018 1:08 PM CDT) URINE HCG TEST negative NEGATIVE Internal Control performed as Expected? [id number] P: Elena Horta PSYCHIATRIC SECRETARY-BC POINT OF CARE TEST ORDERA BLES Final Result * ECG 12 lead (10/30/2018 1:01 PM CDT) 10/30/2018 1:01 PM CDT Narrative [facility] ([place] - 10/31/2018 1:10 AM CDT ?[facility] ? [address] [place] ? Test Date: ?2018-10-30 Pat Name: ? DOREEN NOBLES ?Department: ? Room: ? C10 Gender: ? Female ? Datacap Developer: ?? CM : ?1995 ? Requested By: ELENA HORTA Order Number: [id number] ? Reading : ?? Coreen Apodaca ? Measurements Intervals ?Somers ? Rate: ? 63 ? P: ?55 NM: ? 122 ?QRS: ?59 QRSD: ? 83 ? T: ?37 QT: ? 379 ? QTc: ?388 ? Interpretive Statements SINUS RHYTHM WITH SINUS ARRHYTHMIA Compared to ECG 07/17/2018 03:37:32 Rate is faster. Procedure Note Coreen Apodaca MD - 10/31/[address] [place] Test Date: 2018-10-30 Pat Name: DOREEN NOBLES Department: Room: [facility] Gender: Female Datacap Developer: EJ : 1995 Requested By: ELENA HORTA Order Number: [id number] Reading MD: Coreen Apodaca Measurements Intervals [place] Rate: 63 P: 55 NM: 122 QRS: 59 QRSD: 83 T: 37 QT: 379 QTc: 388 Interpretive Statements SINUS RHYTHM WITH SINUS ARRHYTHMIA Compared to ECG 07/17/2018 03:37:32 Rate is faster. Elena Horta PSYCHIATRIC SECRETARY-BC ECG ORDERABLES Final Res ult [facility] ([place] * CK (CPK) (10/30/2018 12:58 PM CDT) CPK 57 21 - 215 U/L 10/30/2018 1:34 PM CDT [facility] 10/30/2018 12:5 8 PM CDT Elena Horta [facility]- LABORATORY Final Res ult [facility] [address] [place] [address], [place] [phone] * TROPONIN, QUANT (10/30/2018 12:58 PM CDT) TROPONIN I <0.015 <0.045 ng/mL. 10/30/2018 1:34 PM CDT [facility] Comment: HIGH DOSES OF BIOTIN MAY INTERFERE WITH THIS TEST RESULT. CORRELATION TO CLINICAL HISTORY AND PRESENTATION RECOMMENDED. 10/30/2018 12:5 8 PM CDT Elena Horta [facility] Final Res ult [facility] [address] [place] [address], * LIPASE (10/30/2018 12:58 PM CDT) LIPASE 144 73 - 393 UNITS/L 10/30/2018 1:34 PM CDT [facility] 10/30/2018 12:5 8 PM CDT Elena Horta [facility] Final Res ult Performing Organization Address [facility] Co de Phone Number [facility] [address] [place] [address], * (ABNORMAL) COMPREHENSIVE METABOLIC PANEL (10/30/2018 12:58 PM CDT) GLUCOSE 103(H) 70 - 99 MG/DL 10/30/2018 1:34 PM CDT [facility] BUN 6(L) 7 - 18 MG/DL 10/30/2018 1:34 PM CDT [facility] CREATININE S/P/B 0.72 0.55 - 1.02 MG/DL 10/30/2018 1:34 PM CDT [facility] SODIUM S/P/B 138 136 - 145 MMOL/L 10/30/2018 1:34 PM CDT [facility] POTASSIUM S/P/B 3.9 3.5 - 5.1 MMOL/L 10/30/2018 1:34 PM CDT [facility] CHLORIDE S/P/B 104 100 - 108 MMOL/L 10/30/2018 1:34 PM CDT [facility] CO2 28.5 21 - 32 MMOL/L 10/30/2018 1:34 PM [facility] CALCIUM S/P/B 9.6 8.5 - 10.1 MG/DL 10/30/2018 1:34 PM [facility] BILIRUBIN TOTAL S/P/B 3.7(H) 0.2 - 1.2 MG/DL 10/30/2018 1:34 PM [facility] TOTAL PROTEIN S/P/B 8.7(H) 6.4 - 8.2 G/DL 10/30/2018 1:34 PM [facility] ALBUMIN S/P/B 4.3 3.4 - 5.0 G/DL 10/30/2018 1:34 PM [facility] AST 436(H) 15 - 37 U/L 10/30/2018 1:34 PM [facility] ALT 539(H) 14 - 55 U/L 10/30/2018 1:34 PM [facility] ALKALINE PHOSPHATASE S/P/B 343(H) 50 - 136 U/L 10/30/2018 1:34 PM [facility] ANION GAP 9.4 8 - 20 MMOL/L 10/30/2018 1:34 PM [facility] BUN CREATININE RATIO 8.3 6 - 26 10/30/2018 1:34 PM [facility] A/G RATIO 1.0 1.0 - 2.0 RATIO 10/30/2018 1:34 PM [facility] EGFR NON-AFR. AMER. >90 >90 ML/MIN/1.7 3 M2 10/30/2018 1:34 PM [facility] EGFR AFR. AMER. >90 >90 ML/MIN/1.7 3 M2 10/30/2018 1:34 PM [facility] Comment: NOTE: eGFR is not calculated for patients <18 years of age. This is an estimated GFR (CKD EPI) and should not be used for calculating drug doses. 10/30/2018 12:5 8 PM CDT us Elena Horta PSYCHIATRIC SECRETARY-BC LABORATORY Final Res ult [facility] [address] [place] [address], * (ABNORMAL) CBC W/DIFF AUTOMATED (10/30/2018 12:58 PM CDT) WBC 5.8 4.5 - 11.0 x10'3/uL 10/30/2018 1:09 PM CDT [facility] RBC 4.56 4.20 - 5.40 x10'6/uL 10/30/2018 1:09 PM CDT [facility] HGB 11.4(L) 12.0 - 16.0 G/DL 10/30/2018 1:09 PM CDT [facility] HCT 36.9(L) 38.0 - 48.0 % 10/30/2018 1:09 PM CDT [facility] MCV 80.9(L) 81.0 - 99.0 FL 10/30/2018 1:09 PM CDT [facility] MCH 25.0(L) 27.0 - 31.0 PG 10/30/2018 1:09 PM CDT [facility] MCHC 30.9(L) 32.0 - 36.0 G/DL 10/30/2018 1:09 PM CDT [facility] RDW 14.2 11.5 - 14.5 % 10/30/2018 1:09 PM CDT [facility] PLT 380 130 - 400 x10'3/uL 10/30/2018 1:09 PM CDT [facility] MPV 10.5 9.3 - 12.2 FL 10/30/2018 1:09 PM CDT [facility] DIFFERENTIAL TYPE AUTOMATED DIFFERENTIAL 10/30/2018 1:09 PM CDT [facility] NEUTROPHILS % 73.1 % 10/30/2018 1:09 PM CDT [facility] LYMPHOCYTES % 14.2 % 10/30/2018 1:09 PM CDT [facility] MONOCYTES % 9.2 % 10/30/2018 1:09 PM CDT [facility] EOSINOPHILS 2.4 % 10/30/2018 1:09 PM CDT [facility] BASOPHILS 0.9 % 10/30/2018 1:09 PM CDT [facility] IMMATURE GRANS % 0.2 % 10/31/19 19 1:09 PM CDT [facility] ABS. NEUTROPHILS TOTAL 4.24 1.80 - 7.70 x10'3/uL 10/30/2018 1:09 PM CDT [facility] ABS. LYMPHOCYTES 0.82(L) 1.00 - 4.80 x10'3/uL 10/30/2018 1:09 PM CDT [facility] ABS. MONOCYTES 0.53 0.24 - 0.86 x10'3/uL 10/30/2018 1:09 PM CDT [facility] ABS. EOSINOPHILS 0.14 0.04 - 0.36 x10'3/uL 10/30/2018 1:09 PM CDT [facility] ABS. BASOPHILS 0.05 0.01 - 0.08 x10'3/uL 10/30/2018 1:09 PM CDT [facility] ABS. IMMATURE GRANULOCYTES 0.01 0.00 - 0.49 x10'3/uL 10/30/2018 1:09 PM CDT [facility] 10/30/2018 12:5 8 PM CDT Elena Horta [facility] Final Res ult [facility] [address] [place] [address], documented in this encounter Visit Diagnoses Diagnosis Abdominal pain- Primary Abdominal pain, unspecified site Abdominal pain Abdominal pain, unspecified site Nausea and vomiting Nausea with vomiting Common bile duct dilatation Other specified disorders of biliary tract Pain Generalized pain Acute pancreatitis (HHS/HCC) Acute pancreatitis documented in this encounter Administered Medications Inactive Administered Medications - up to 3 most recent administrations Medication Order MAR Action Action Date Dose Rate Site acetaminophen (TYLENOL) tablet 650 mg 650 mg, Oral, Every 4 hours PRN, Mild pain (Scale 1 - 3), Starting on Sun11/01/18 at 0838, Until 11/02/18 at 1108, Maximum dose of acetaminophen is 4000 mg from all sources in 24 hours. Given 11/02/2018 1:24 AM CDT 650 mg Given 11/01/2018 8:49 PM CDT 650 mg Given 11/01/2018 2:21 PM CDT 650 mg famotidine (PEPCID) injection 20 mg 20 mg, Intravenous, Every 12 hours scheduled (2 times per day), First dose on Sun10/30/18 at 2100, Until Discontinued, Give if unable to take PO. IV Push over 2 minutes Given 11/01/2018 8:05 AM CDT 20 mg Given 10/31/2018 8:29 PM CDT 20 mg Given 10/31/2018 8:10 AM CDT 20 mg famotidine (PEPCID) tablet 20 mg 20 mg, Oral, Every 12 hours scheduled (2 times per day), First dose on Sun10/30/18 at 2100, Until Discontinued Given 11/01/2018 8:48 PM CDT 20 mg Given 10/30/2018 9:33 PM CDT 20 mg ibuprofen (MOTRIN) tablet 400 mg 400 mg, Oral, Every 6 hours PRN, Mild pain (Scale 1 - 3), Starting on Sun10/30/18 at 1634, Until Sun11/01/18 at 0838 Given 10/31/2018 1:16 PM CDT 400 mg Given 10/31/2018 6:49 AM CDT 400 mg iopamidol (ISOVUE-370) 76 % injection 100 mL 100 mL, Intravenous, IMG once as needed, Contrast, 1 dose, Starting on Sun10/30/18 at 1540, Until Sun10/30/18 at 1540 Given 10/30/2018 3:40 PM CDT 100 mLs Ri ght Arm ketorolac (TORADOL) injection 15 mg 15 mg, Intravenous, Once, 1 dose, On Sun10/30/18 at 1245, For IV administration, give over 15 seconds. Given 10/30/2018 1:42 PM CDT 15 mg ketorolac (TORADOL) injection 15 mg 15 mg, Intravenous, Once, 1 dose, On Sun10/30/18 at 1630, For IV administration, give over 15 seconds. Given 10/30/2018 5:08 PM CDT ketorolac (TORADOL) injection 15 mg 15 mg, Intravenous, Every 6 hours PRN, Moderate pain (Scale 4 - 7), Starting on Sun10/30/18 at 1826, Until Sun11/01/18 at 0838, For IV administration, give over 15 seconds. Given 10/31/2018 11:50 AM CDT 15 mg Given 10/31/2018 4:41 AM CDT 15 mg lactated ringers infusion at 250 mL/hr, Intravenous, Continuous, Starting on [place] 10/31/18 at 1730, Until 11/02/18 at 1108, PACU New Bag 11/02/2018 5:43 AM CDT 250 m L/hr New Bag 11/02/2018 1:24 AM CDT 250 mL/hr New Bag 11/01/2018 6:47 PM CDT 250 mL/hr ondansetron (ZOFRAN) 4 MG/2ML injection 1 dose, Starting on Sun10/30/18 at 1758, Until Sun10/30/18 at 1819, Created by cabinet override Given 10/30/2018 6:19 PM CDT ondansetron (ZOFRAN) injection 4 mg 4 mg, Intravenous, Once, 1 dose, On Sun10/30/18 at 1245, IV push over 2-5 minutes. Given 10/30/2018 1:42 PM CDT 4 mg ondansetron (ZOFRAN) injection 4 mg 4 mg, Intravenous, Every 6 hours PRN, Nausea, Starting on Sun10/30/18 at 1756, Until 11/02/18 at 1108, IV push over 2-5 minutes. Given 10/31/2018 4:50 AM CDT 4 mg prochlorperazine (COMPAZINE) injection 5 mg 5 mg, Intravenous, Every 6 hours PRN, Nausea, Vomiting, Starting on [place] 10/31/18 at 1904, Until 11/02/18 at 1108, Further dilute to a concentration of 1 mg/mL and give 1 mL/min. Monitor vitals every 10 minutes for 30 minutes post dose. Given 10/31/2018 7:54 PM CDT 5 mg sodium chloride 0.9% bolus infusion SOLN 1,000 mL 1,000 mL, Intravenous, Administer over 15 Minutes, Once, 1 dose, On Sun10/30/18 at 1245 Rate/Dose Change 10/30/2018 4:00 PM CDT 1,000 mLs New Bag 10/30/2018 1:42 PM CDT 1,000 mLs sodium chloride 0.9% infusion at 100 mL/hr, Intravenous, Continuous, Starting on Sun10/31/18 at 0000, Until Sun10/31/18 at 2359 New Bag 10/30/2018 11:53 PM CDT 100 mL/hr documented in this encounter Active and Recently Administered Medications Times are shown in CDT. Scheduled Medication Order 10/31/2018 11/01/2018 11/02/2018 famotidine (PEPCID) injection 20 mg(Linked Group 1) 20 mg, Intravenous, Every 12 hours scheduled (2 times per day), First dose on Sun10/30/18 at 2100, Until Discontinued, Give if unable to take PO. IV Push over 2 minutes 0810 (Given - Provider: Griselda Whitt)2028 (Given - Provider: Pebbles Stubbs RN) 0805 (Given - Provider: Griselda Whitt)2047 (See Alternative - Provider: Pebbles Stubbs RN) 0900 (Canceled Entry - Provider: Automatic Discharge Provider - Comment: Automatically canceled at discontinue of medication order) famotidine (PEPCID) tablet 20 mg(Linked Group 1) 20 mg, Oral, Every 12 hours scheduled (2 times per day), First dose on Sun10/30/18 at 2100, Until Discontinued 0810 (See Alternative - Provider: Griselda Whitt)2028 (See Alternative - Provider: Pebbles Stubbs RN) 0805 (See Alternative - Provider: Griselda Whitt)204 (Given - Provider: Pebbles Stubbs RN) 0900 (Canceled Entry - Provider: Automatic Discharge Provider - Comment: Automatically canceled at discontinue of medication order) Continuous Medication Order 10/31/2018 11/01/2018 11/02/2018 lactated ringers infusion at 250 mL/hr, Intravenous, Continuous, Starting on [place] 10/31/18 at 1730, Until 11/02/18 at 1108, PACU 1830 (Not Given - Provider: Griselda Whitt - Reason: Other - Comment: Bag already given in PACU and not scanned) 0142 (New Bag - Provider: Pebbles Stubbs RN)0919 (Rate/Dose Change - Provider: Griselda Whitt)1015 (New Bag - Provider: Griselda Whitt)1457 (New Bag - Provider: Griselda Whitt)1847 (New Bag - Provider: Griselda Whitt) 0124 (New Bag - Provider: Pebbles Stubbs RN)0543 (New Bag - Provider: Pebbles Stubbs RN)0840 (Infusion Stop Time - Provider: Erika Dalton RN) PRN Medication Order 10/31/2018 11/01/2018 11/02/2018 acetaminophen (TYLENOL) tablet 650 mg 650 mg, Oral, Every 4 hours PRN, Mild pain (Scale 1 - 3), Starting on 11/01/18 at 0838, Until 11/02/18 at 1108, Maximum dose of acetaminophen is 4000 mg from all sources in 24 hours. 1016 (Given - Provider: Griselda Whitt)1421 (Given - Provider: Griselda Whitt)2049 (Given - Provider: Pebbles Stubbs RN) 0124 (Given - Provider: Pebbles Stubbs RN) ibuprofen (MOTRIN) tablet 400 mg (CANCELED) 400 mg, Oral, Every 6 hours PRN, Mild pain (Scale 1 - 3), Starting on Sun10/30/18 at 1634, Until Sun11/01/18 at 0838 0649 (Given - Provider: Osmin Nguyen RN)1316 (Given - Provider: Ti Boston RN) indomethacin (INDOCIN) supppository (CANCELED) As needed, Starting on [place] 10/31/18 at 1724, Until Sun10/31/18 at 1743, Intra-Op 1724 (Given - Provider: Melisa Guevara RN - Comment: 100 mg given) iopamidol (ISOVUE-M 300) 61 % 10 mL in sodium chloride 0.9 % 10 mL contrast solution (CANCELED) As needed, Starting on Sun10/31/18 at 1000, Until [place] 10/31/18 at 1743, Intra-Op 1000 (Given - Provider: Cecilio Rousseau MD - Comment: Cholangiogram) ketorolac (TORADOL) injection 15 mg (CANCELED) 15 mg, Intravenous, Every 6 hours PRN, Moderate pain (Scale 4 - 7), Starting on Sun10/30/18 at 1826, Until Sun11/01/18 at 0838, For IV administration, give over 15 seconds. 0441 (Given - Provider: Osmin Nguyen RN)1150 (Given - Provider: Griselda Whitt) ondansetron (ZOFRAN) injection 4 mg 4 mg, Intravenous, Every 6 hours PRN, Nausea, Starting on Sun10/30/18 at 1756, Until 11/02/18 at 1108, IV push over 2-5 minutes. 0450 (Given - Provider: Osmin Nguyen RN) prochlorperazine (COMPAZINE) injection 5 mg 5 mg, Intravenous, Every 6 hours PRN, Nausea, Vomiting, Starting on Sun10/31/18 at 1904, Until 11/02/18 at 1108, Further dilute to a concentration of 1 mg/mL and give 1 mL/min. Monitor vitals every 10 minutes for 30 minutes post dose. 1953 (Given - Provider: Pebbles Stubbs RN) Linked Groups Order Group 1: famotidine (PEPCID) injection 20 mgJump to med 20 mg, Intravenous, Every 12 hours scheduled (2 times per day), First dose on Sun10/30/18 at 2100, Until Discontinued, Give if unable to take PO. IV Push over 2 minutes Or famotidine (PEPCID) tablet 20 mgJump to med 20 mg, Oral, Every 12 hours scheduled (2 times per day), First dose on Sun10/30/18 at 2100, Until Discontinued documented in this encounter Care Teams Beauty Counselor Relationship Specialty Start Date End Date None, Provider, PCP - General 07/17/18 documented as of this encounter
--- OUTSIDE RECORDS SUMMARY | 2024-07-07 22:31 | XMS_ITS | Encounter Summary ---
Author Organization [facility] Address [address] [place] [address]. [place] [address] [place] [address] Care Team Providers Care Client Success Specialist Name Role Phone None, Provider Primary Care Provider Unavaila ble Reason for Visit * Imaging (Routine) - Closed Specialty Diagnoses / Procedures Referred By Contac t Referred To Contact RADIOLOGY Diagnoses Calculus of gallbladder and bile duct without cholecystitis Procedures US ABD LIMITED US ABD COMPLETE Jami Henson PA-C [address] [place] [address] Phone: tel: fax: Referral ID Status Reason Start Date Expiration Date Visits Re quested Visits Authorized [id number] Closed 07/11/2019 08/11/2020 1 1 Encounter Details Date Type Department Care Team (Latest Contact Info) Description 07/17/2019 8:14 AM [employer] ARCHITECT - 07/17/2019 11:59 PM [facility] Hospital Encounter [facility] Ultrasound [address] [place] [address] Jami Henson PA-C [address] [place] [address] Discharge Disposition: Home or Self Care (Routine [...] st Contact Info) Description 07/24/2024 Hospital Encounter [facility] [place] [address] Osmin Hunt MD [address] [address] Scheduled Procedures Name Priority Associated Diagnoses Date/Ti me ROBOTIC XI HYSTERECTOMY MENORRHAGIA, DYSMENORRHEA N92.4, N94.4 documented as of this encounter Procedures Procedure Name Priority Date/Time Associated Diagnosis Comments US ABD LIMITED Routine 07/17/2019 8:56 AM [employer] ARCHITECT Calculus of gallbladder and bile duct without cholecystitis documented in this encounter Results * US ABD LIMITED (07/17/2019 8:56 AM [employer] ARCHITECT) Anatomical Region Laterality Modality Abdomen Ultrasound 07/17/2019 10:3 9 AM [employer] ARCHITECT Impressions 07/17/2019 10:41 AM [employer] ARCHITECT IMPRESSION: 1. ??Dilation of the common bile duct consistent with prior history of cholelithiasis and ERCP. No visible gallstones. Interpreted By: Donavan Klein, 07/17/2019 10:39 AM Narrative 07/17/2019 10:41 AM [employer] ARCHITECT IMAGING STUDIES: ??US ABD LIMITED ? DATE: ??07/17/2019 8:35 AM COMPARISON STUDIES: No previous exams available CLINICAL HISTORY: Calculus of gallbladder and bile duct without cholecystitis without obstruction. Past history of ERCP, stone removal and stent placement. FINDINGS: Real-time ultrasound examination performed by the wrapper off demonstrates: Pancreas: No obvious focal lesions within the partially visualized pancreatic region. Liver: The liver appears homogeneous without evidence of focal lesions. The portal vein and hepatic veins are patent. ?? . Gallbladder: The gallbladder demonstrates no internal echoes, gallbladder wall thickening or pericholecystic fluid. The common bile duct measures 5.2 mm. Right kidney: The right kidney has a longitudinal diameter of 10.6 cm. with normal corticomedullary differentiation and no hydronephrosis. . ?. Procedure Note Donavan Klein MD - 07/17/2019 IMAGING STUDIES: US ABD LIMITED DATE: 07/17/2019 8:35 AM COMPARISON STUDIES: No previous exams available CLINICAL HISTORY: Calculus of gallbladder and bile duct without cholecystitis without obstruction. Past history of ERCP, stone removaland stent placement. FINDINGS: Real-time ultrasound examination performed by the wrapper off demonstrates: Pancreas: No obvious focal lesions within the partially visualized pancreatic region. Liver: The liver appears homogeneous without evidence of focal lesions.The portal vein and hepatic veins are patent. . Gallbladder: The gallbladder demonstrates no internal echoes,gallbladder wall thickening or pericholecystic fluid. The common bile duct measures5.2 mm. Right kidney: The right kidney has a longitudinal diameter of 10.6 cm.with normal corticomedullary differentiation and no hydronephrosis. . . IMPRESSION: 1. Dilation of the common bile duct consistent with prior history of cholelithiasis and ERCP. No visible gallstones. Interpreted By: Donavan Klein, 07/17/2019 10:39 AM us Jami Henson PA-C ULTRASOUND Final Resul t documented in this encounter Visit Diagnoses Diagnosis Calculus of gallbladder and bile duct without cholecystitis Calculus of gallbladder and bile duct without cholecystitis, without mention of obstruction documented in this encounter Care Teams Client Success Specialist Relationship Specialty Start Date End Date None, Provider, PCP - General 07/17/18 documented as of this encounter
--- OUTSIDE RECORDS SUMMARY | 2024-07-07 22:31 | XMS_ITS | Encounter Summary ---
Author Organization [facility] Address [address] [place] [address]. [place] [address] [place] [address] Care Team Providers Care Fish And Wildlife Biologist Name Role Phone None, Provider Primary Care Provider Unavaila ble Reason for Visit * Reason Comments Ankle Pain Encounter Details Date Type Department Care Team (Late st Contact Info) Description 11/10/2023 2:02 PM CDT - 11/10/2023 2:40 PM CDT Emergency [facility] [place] [address] Diane Da Silva PA [address] [place] [address] Ankle Pain Discharge Disposition: Home or Self Care (Routine Discharge) Social History Tobacco Use Types Packs/Day Years Used Date Smoking Tobacco: Former Cigarettes Q uit: 03/09/2018 Smokeless Tobacco: Never Tobacco Cessation:Counseling Given: Not Answered Alcohol Use Standard Drinks/Week Comments No 0 [...] Sign Reading Time Taken Comments Blood Pressure 103/60 11/10/2023 1:11 PM CDT Pulse 78 11/10/2023 1:11 PM CDT Temperature 36.6 ??C (97.8 ??F) 11/10/2023 1:11 PM CD T Respiratory Rate 16 11/10/2023 1:11 PM CDT Oxygen Saturation 98% 11/10/2023 1:11 PM CDT Inhaled Oxygen Concentration - - Weight 74.8 kg (165 lb) 11/10/2023 1:12 PM CDT Height 172.7 cm (5' 8 ) 11/10/2023 1:11 PM CDT Body Mass Index 25.09 11/10/2023 1:11 PM CDT documented in this encounter Functional Status * RETIRED Are [...] Author Status No 11/01/2018 11:00 AM CDT Griselda Whitt FNP Active * Do you have difficulty dressing or bathing? Answer Date of Assessment Author Status No 11/01/2018 11:00 AM CDT Griselda Whitt FNP Active * Because of a physical, mental, or emotional condition, do you have difficulty doing errands alone such as visiting a doctor's office or shopping? Answer Date of Assessment Author Status No 11/01/2018 11:00 AM YAHAIRAT Griselda Whitt FNP Active documented as of this encounter Mental Status * Because of a physical, mental, or emotional condition, do you have serious difficulty concentrating, remembering, or making decisions? Answer Entry Date Author Status No 11/01/2018 11:00 AM YAHAIRAT Griselda Whitt FNP Active documented in this encounter Discharge Instructions * Discharge Instructions* SEMAJ Louie - 11/10/2023 2:11 PM CDT 1)Important to rest the affected area for the next 24-48 hours. Ice 20 min on and off multiple times a day to help reduce swelling. Keep area wrapped and elevated above heart level. Can use Tylenol/Iburprofen per packet instructions for additional pain relief. 2) Follow up with PCP/your doctor in 1 week for re-evaluation. 3) Return to the emergency room for any new or worsening symptoms which include:fever, loss of sensation, loss of mobility, loss of warmth/color in affected area, increase pain/redness/swelling or other new emergent concerns. Thank you for giving us the opportunity to care for you today. If at any point you are becoming more ill, your condition worsens or have concern, please call your doctor or return here. You are always welcome back. If you have any questions about this visit, concerns about your symptoms, questions about your medications or other concerns, please give us a call... Our practice is committed to providing you the exceptional care. We want to hear from you! Please fill out the survey you get from us. Your feedback is anonymous & helps us improve the patient experience for you and others in the community we serve. - Diane Da Silva PA-C - Emergency Medicine Provider ADDITIONAL DISCHARGE INSTRUCTIONS: --Please follow all the instructions that we have discussed or are provided here. Take all medications as directed. --Emergency Departments (ED) provide medical screening exams and initial stabilizing treatment of emergency medical conditions. Medicine is an inexact science and many conditions cannot be diagnosed or completely treated during a single ED visit. Your treating healthcare provider(s) today feel yourcondition has been stabilized so further care as an outpatient is reasonable. Emergency care does not substitute for complete, ongoing, or follow-up care by your primary care physician or peoplesoft consultant.Please mention to your follow-up physician that you were in the emergency department and request that they review your labs and/or imaging to ensure all findings are followed up on. --Your medication list was reviewed prior to treatment, and at discharge, by the treating provider for the purpose of this outpatient visit only. Please review this entire medication list with your pharmacist, primary care physician, and specialist(s). It is your responsibility to share any new medication instructions you received this visit with your doctor(s). Although no medicine is without risk, your healthcare provider today feels reasonable decisions were made concerning starting new medications and stopping or changing the dosages of your usual medications until you receive follow-up care. Take medications only as directed. Many medications can cause drowsiness, especially those for pain, anxiety, muscle spasms, nausea, and allergies. DO NOT drive, drink alcohol, operate power machinery, or participate in potentially dangerous activities if taking medicines that make you tired. Chronic pain is best managed by pain specialists or primary care physicians, so narcotic refills are not routinely dispensed in the ED. DO NOT take multiple medications containing acetaminophen (Tylenol), such as many narcotic drug combinations and [id number] cold medicines. --Again, it was a pleasure taking care of you. * Attachments The following attachments cannot be sent through Care Everywhere. * Ankle Sprain Discharge Instructions (Tanzanian) documented in this encounter ED Notes * Marisel Roberts RN - 11/10/2023 2:41 PM CDT Provider discussed today's findings with the patient/family. The patient has been given informationregarding their treatment, follow up and concerning symptoms for which they should seek urgent or emergent attention. I have expressed the the importance of seeking attention should there be any new,or worsening symptoms or persistence of their condition. Patient verbalized understanding of the discharge instructions. * Karen Rand RN - 11/10/2023 2:02 PM CDT Bed: H42 Expected date: Expected time: Means of arrival: Comments: MERI MCKEON * Rosanna Galicia RN - 11/10/2023 1:19 PM CDT Pt to triage with c/o I was on the playground today and I hurt my left ankle. Pt presents with a swollen ankle. Limited ROM d/t swelling/pain. Unable to bare weight d/t pain. ROSANNA GALICIA RN * SEMAJ Louie - 11/10/2023 1:04 PM CDT ED NOTE Chief Complaint Chief Complaint Patient presents with Ankle Pain History of Present Illness 28-year-old female with a history of anemia presents to the emergency room for left ankle pain thatstarted today. Patient was on a platform that was couple feet off the ground at the playground whenshe stepped down and rolled her left ankle. Hard to bear weight. Has swelling to the lateral aspect. Does have some tenderness to the distal foot. No other areas of injury or concern. No history of surgical invention to affected area in the past. Medical History ALLERGIES: Review of patient's allergies indicates: No Known Allergies MEDICATIONS: Prior to Admission medications Not on File PAST MEDICAL HISTORY: Past Medical History: Diagnosis Date Anemia dx with PAST SURGICAL HISTORY: Past Surgical History: Procedure Laterality Date APPENDECTOMY FAMILY HISTORY: No family history on file. SOCIAL HISTORY: Social History Tobacco Use Smoking status: Former Current packs/day: 0.00 Types: Cigarettes Quit date: 03/09/2018 Years since quittin.6 Smokeless tobacco: Never Vaping Use Vaping status: Every Day Substance Use Topics Alcohol use: No Drug use: No Physical Exam Filed Vitals: 11/10/23 1311 11/10/23 1312 BP: 103/60 Pulse: 78 Resp: 16 Temp: 97.8 ??F (36.6 ??C) TempSrc: Oral SpO2: 98% Weight: 74.8 kg (165 lb) 74.8 kg (165 lb) Height: 1.727 m (5' 8 ) Physical Exam Vitals and nursing note reviewed. Constitutional: Appearance: Normal appearance. She is well-developed. Comments: Nontoxic appearing HENT: Head: Normocephalic and atraumatic. Nose: Nose normal. Mouth/Throat: Mouth: Mucous membranes are moist. Pharynx: Oropharynx is clear. Eyes: Conjunctiva/sclera: Conjunctivae normal. Cardiovascular: Rate and Rhythm: Normal rate and regular rhythm. Pulses: Normal pulses. Heart sounds: Normal heart sounds. Pulmonary: Effort: Pulmonary effort is normal. No respiratory distress. Breath sounds: Normal breath sounds. Abdominal: General: Bowel sounds are normal. Palpations: Abdomen is soft. Musculoskeletal: General: Normal range of motion. Cervical back: Normal range of motion and neck supple. Comments: Left knee- no obvious swelling, erythema, or signs of trauma. Full AROM w/o limitation. Left leg compartments soft. Nonttp. Distal pulses, sensation, CR, temp and strength intact. Left ankle- swelling to lateral aspect. limitedROM 2/2 pain. No redness/warmth. Diffusely ttp. Ableto wiggle all toes. Unable to assess gait. No left calf pain Skin: General: Skin is warm and dry. Capillary Refill: Capillary refill takes less than 2 seconds. Neurological: General: No focal deficit present. Mental Status: She is alert and oriented to person, place, and time. Psychiatric: Mood and Affect: Mood normal. Behavior: Behavior normal. Diagnostic Studies / Procedures ELECTROCARDIOGRAMS: No results found for this visit on 11/10/23. LABORATORY STUDIES: No results found for this visit on 11/10/23. IMAGING STUDIES XR FOOT LT 3V Final Result by User, [id number] (11/09 0459) Examination: Left ankle and foot. Exam time: 1321 hours. Clinical history: Lateral sided pain and swelling after injury. Comparison: None. Technique: Three views each. Findings: No fracture, dislocation or other acute bony abnormality is identified. No other significant bone or joint abnormality is noted.Os peroneum, accessory ossicle, is incidentally noted. There is mild soft tissue swelling overlying the lateral malleolus. The soft tissues are otherwise unremarkable. IMPRESSION: No evidence of acute osseous injury. Referred By: Interpreted By: Thierry Garza MD, 11/10/2023 2:03 PM XR ANKLE LT M3V Final Result by User, [id number] (11/09 6452) Examination: Left ankle and foot. Exam time: 1321 hours. Clinical history: Lateral sided pain and swelling after injury. Comparison: None. Technique: Three views each. Findings: No fracture, dislocation or other acute bony abnormality is identified. No other significant bone or joint abnormality is noted.Os peroneum, accessory ossicle, is incidentally noted. There is mild soft tissue swelling overlying the lateral malleolus. The soft tissues are otherwise unremarkable. IMPRESSION: No evidence of acute osseous injury. Referred By: Interpreted By: Thierry Garza MD, 11/10/2023 2:03 PM ED Course / Medical Decision Making MDM Amount and/or Complexity of Data Reviewed Tests in the radiology section of CPT??: ordered and reviewed ED Course as of 11/10/23 1423 Sat November 10, 2023 1410 XR ANKLE LT M3V Per rad read: No evidence of acute osseous injury. [AD] 1410 XR FOOT LT 3V Per rad read: No evidence of acute osseous injury. [AD] 1414 XR negative for fx, suspect likely sprain. Imaging results reviewed with pt. No signs of arterial or vascular occlusion. No evidence of compartment syndrome. No overlying cellulitis to suggest septic arthritis/joint. No pain out of proportion, crepitus, areas of necrosis/gangrene to suggest necrotizing soft tissue infection. Recommend conservative measures. RICE instructions provided. Advised Follow-up with PCP this week for re-evaluation. Diagnosis: ankle sprain State it occurred in: [place] Right ankle stirrup applied to right ankle NVI post application. Strict verbal return precautions reviewed. Patient expresses verbal understanding and agreement with plan. All questions answered to the best of my ability. Teachback performed by patient. Nontoxic exit exam. Patient discharged home in stable condition. [AD] ED Course User Index [AD] SEMAJ Louie Medications HYDROcodone-acetaminophen (NORCO) 5-325 MG tablet 1 tablet (1 tablet Oral Given 11/10/23 5594) Clinical Impression Ankle sprain (Primary) There are no discharge medications for this patient. Disposition: Discharge Follow-Up: [address], [address], [place] [address] SEMAJ LOUIE 11/10/2023 SEMAJ Louie 11/10/23 1423 Cosigned by Bekah Perez MD at 11/10/2023 2:53 PM CDT documented in this encounter Plan of Treatment Upcoming Encounters Date Type Department Care Team (Late st Contact Info) Description 07/24/2024 Hospital Encounter [facility] [place] [address] Osmin Hunt MD [address] [facility] [address] [place] [address] Scheduled Procedures Name Priority Associated Diagnoses Date/Ti me ROBOTIC XI HYSTERECTOMY MENORRHAGIA, DYSMENORRHEA N92.4, N94.4 documented as of this encounter Procedures Procedure Name Priority Date/Time Associated Diagnosis Comments XR FOOT LT 3V STAT 11/10/2023 1:54 PM CDT XR ANKLE LT M3V STAT 11/10/2023 1:54 PM CDT documented in this encounter Results * XR ANKLE LT M3V (11/10/2023 1:54 PM CDT) Anatomical Region Laterality Modality Ankle Radiographic Heidi ging 11/10/2023 2:03 PM CDT Impressions 11/10/2023 2:05 PM CDT IMPRESSION: No evidence of acute osseous injury. Referred By: ?? Interpreted By: Thierry Garza MD, 11/10/2023 2:03 PM Narrative 11/10/2023 2:05 PM CDT Examination: Left ankle and foot. Exam time: 1321 hours. Clinical history: Lateral sided pain and swelling after injury. Comparison: None. Technique: Three views each. Findings: No fracture, dislocation or other acute bony abnormality is identified. No other significant bone or joint abnormality is noted.Os peroneum, accessory ossicle, is incidentally noted. ??There is mild soft tissue swelling overlying the lateral malleolus. The soft tissues are otherwise unremarkable. Procedure Note Thierry Garza MD - 11/10/2023 Examination: Left ankle and foot. Exam time: 1321 hours. Clinical history: Lateral sided pain and swelling after injury. Comparison: None. Technique: Three views each. Findings: No fracture, dislocation or other acute bony abnormality isidentified. No other significant bone or joint abnormality is noted.Osperoneum, accessory ossicle, is incidentally noted. There is mild softtissue swelling overlying the lateral malleolus. The soft tissues areotherwise unremarkable. IMPRESSION: No evidence of acute osseous injury. Referred By: Interpreted By: Thierry Garza MD, 11/10/2023 2:03 PM us Diane [facility] Final Result * XR FOOT LT 3V (11/10/2023 1:54 PM CDT) Anatomical Region Laterality Modality Foot Radiographic Heidi ging 11/10/2023 2:03 PM CDT Impressions 11/10/2023 2:05 PM CDT IMPRESSION: No evidence of acute osseous injury. Referred By: ?? Interpreted By: Thierry Garza MD, 11/10/2023 2:03 PM Narrative 11/10/2023 2:05 PM CDT Examination: Left ankle and foot. Exam time: 1321 hours. Clinical history: Lateral sided pain and swelling after injury. Comparison: None. Technique: Three views each. Findings: No fracture, dislocation or other acute bony abnormality is identified. No other significant bone or joint abnormality is noted.Os peroneum, accessory ossicle, is incidentally noted. ??There is mild soft tissue swelling overlying the lateral malleolus. The soft tissues are otherwise unremarkable. Procedure Note Thierry Garza MD - 11/10/2023 Examination: Left ankle and foot. Exam time: 1321 hours. Clinical history: Lateral sided pain and swelling after injury. Comparison: None. Technique: Three views each. Findings: No fracture, dislocation or other acute bony abnormality isidentified. No other significant bone or joint abnormality is noted.Osperoneum, accessory ossicle, is incidentally noted. There is mild softtissue swelling overlying the lateral malleolus. The soft tissues areotherwise unremarkable. IMPRESSION: No evidence of acute osseous injury. Referred By: Interpreted By: Thierry Garza MD, 11/10/2023 2:03 PM Diane [facility] Final Result documented in this encounter Visit Diagnoses Diagnosis Ankle sprain- Primary Sprain of ankle, unspecified site documented in this encounter Administered Medications Inactive Administered Medications - up to 3 most recent administrations Medication Order MAR Action Action Date Dose Rate Site HYDROcodone-acetaminophen (NORCO) 5-325 MG tablet 1 tablet 1 tablet, Oral, Once, 1 dose, On 11/10/23 at 1315, Maximum dose of acetaminophen is 4000 mg from all sources in 24 hours. Given 11/10/2023 2:09 PM CDT 1 tablet documented in this encounter Active and Recently Administered Medications Times are shown in CDT. Scheduled Medication Order 11/08/2023 11/09/2023 11/10/2023 HYDROcodone-acetaminophen (NORCO) 5-325 MG tablet 1 tablet (COMPLETED) 1 tablet, Oral, Once, 1 dose, On 11/10/23 at 1315, Maximum dose of acetaminophen is 4000 mg from all sources in 24 hours. 1409 (Given - Provid er: Marisel Roberts RN) documented in this encounter Care Teams Fish And Wildlife Biologist Relationship Specialty Start Date End Date None, Provider, PCP - General 07/17/18 documented as of this encounter
--- OUTSIDE RECORDS SUMMARY | 2024-07-07 22:31 | XMS_ITS | Clinical Summary ---
Author Organization [facility] Address [address] [place] [address]. [place] [address] [place] [address] Care Team Providers Care Commercial Technician Name Role Phone None, Provider MD Primary Care Provider Unavaila ble Allergies No known active allergies Medications No known medications Active Problems Problem Noted Date Diagnosed Date Acute pancreatitis ([facility]) 11/01/2018 Assessment & Plan (11/01/2018 7:42 AM CDT): Acute, 2/2 pancreatic duct stent placement. Symptoms mild at this time, has tolerated aan maria crackers and sips of water. - Discussed with GI, recommended observing patient until symptoms resolve and repeat lipase in am to ensure trending down - Continue toradol PRN pain - Continue zofran PRN nausea - Repeat lipase in am - ADAT Abdominal pain 10/30/2018 Assessment & Plan (11/01/2018 7:44 AM CDT): Acute, resolving. Pain now epigastric post-ERCP with stent placement x2. Tolerating some PO intake. - Continue nausea and pain control - GI to see this afternoon - F/U with GI as outpatient - Will need cholecystectomy as outpatient Vomiting or nausea of ([facility]) 2017 Nausea & vomiting 02/25/2018 Social History Tobacco Use Types Packs/Day Years [...] Orientation Straight 10/30/2018 5: 50 PM CDT Last Filed Vital Signs Vital Sign Reading [...] Mass Index 25.09 11/10/2023 1:11 PM CDT Plan of Treatment Upcoming Encounters Date Type Department Care Team (Late st Contact Info) Description 07/24/[address] [facility] [place] [address] Osmin Hunt MD [address] [place] [address] Scheduled Procedures Name Priority Associated Diagnoses Date/Ti me ROBOTIC XI HYSTERECTOMY MENORRHAGIA, DYSMENORRHEA N92.4, N94.4 Health Maintenance Due Date Last Done Comments Cervical Cancer Screening Pap Smear (Age 21 to 29) Every 3 Years 1997 Cervical Cancer Screening 1997 Annual Physical 01/21/2000 DTaP, Tdap and Td Vaccines (5 - Tdap) 01/21/2008 01/13/2003, 02/14/2002, 05/02/2001, Additional history exists Hepatitis C 2015 Hepatitis B Vaccines (1 of 3 - 19+ 3-dose series) 01/21/2016 COVID-19 Vaccine ( season) 2024 Influenza Adult (#1) 2024 05/12/2009 Meningococcal Vaccine Aged Out 03/10/2009 No dain oziel eligible based on patient's age to complete this topic HPV Vaccines Completed 09/08/2009, 110 10/2008, 03/10/2009 Pneumococcal Vaccine: Pediatrics (0 to 5 Years) and At-Risk Patients (6 to 64 Years) Aged Out No longer eligible based on patient's age to complete this topic RSV Immunizations Under 20 Months Aged Out No longer eligible based on patient's age to complete this topic Medical Devices Implanted Type [employer] Manager Device Identifier Shelf Expiration Date Model / Serial / Lot Advanix Pancreatic Stent Implanted:Qty: 1 on 10/31/2018 by Isrrael Rousseau MD at [facility] N/A: Pancreas [id number] 03/26/2020 / [id number] / [id number] Insurance [facility] Advance Directives * Full Code (Latest Code Status on File) Date Activated Date Inactivated Comments 10/30/2018 4:35 PM 11/02/2018 11:13 AM Care Teams Commercial Technician Relationship Specialty Start Date End Date None, Provider, PCP - General 07/17/18
--- OUTSIDE RECORDS SUMMARY | 2024-07-07 22:31 | XMS_ITS | Encounter Summary ---
Author Organization [facility] Address [address] [place] [address]. [place] [address] [place] [address] Care Team Providers Care Plate Glass Installer Name Role Phone Patti Cortez MD Primary Care Provider Unavailable Encounter Details Date Type Department Care Team (Late st Contact Info) Description 08/06/[address] [facility] [address] [place] [address] Griselda Han, REPRINT SORTER [address] [facility] [address] [place] [address] Social History Tobacco Use Types Packs/Day Years [...] Contact Info) Description 07/24/[address] [facility] [place], [place] [address] Osmin Hunt MD [address] [place] [address] [address] [place] [address] Scheduled Procedures Name Priority Associated Diagnoses Date/Ti me ROBOTIC XI HYSTERECTOMY MENORRHAGIA, DYSMENORRHEA N92.4, N94.4 documented as of this encounter Procedures Procedure Name Priority Date/Time Associated Diagnosis Comments CULTURE STREP A Routine 08/06/2015 12:30 PM JOY OPERATOR RAPID STREP A STAT 08/06/2015 12:30 PM JOY OPERATOR documented in this encounter Results * CULTURE STREP A (08/06/2015 12:30 PM JOY OPERATOR) SPEC DESCRIPTION THROAT 08/06/2015 12:44 PM JOY OPERATOR [facility] SPECIAL REQUESTS NO SPECIAL REQUEST 08/06/2015 12:44 PM JOY OPERATOR [facility] CULTURE RESULT NO STREPTOCOCCUS PYOGENES (GROUP A) ISOLATED 08/08/2015 9:02 AM JOY OPERATOR [facility] THROAT SWAB / Unknown 08/06/2015 12:30 PM JOY OPERATOR 08/06/2015 12:43 PM JOY OPERATOR us Generic Conversion Md [facility] MICROBIOLOGY - GENERAL ORDERABLES Final Result Performing Organization Address City/[facility]/ZIP Co de Phone Number [facility] [address] [place] [place] [address], * RAPID STREP A (08/06/2015 12:30 PM JOY OPERATOR) SPECIMEN TYPE THROAT 08/06/2015 12:35 PM JOY OPERATOR [facility] RAPID STREP TEST NEGATIVE NEGATIVE 08/06/2015 12:43 PM JOY OPERATOR [facility] Comment: TESTING PERFORMED AT [facility] [address] [place] [address] ??[id number] JOHANNA DAVIS M.D., QUALITY ASSURANCE NURSE THROAT SWAB / Unknown 08/06/2015 12:30 PM JOY OPERATOR 08/06/2015 12:35 PM JOY OPERATOR us Generic Conversion Md [facility] MICROBIOLOGY - GENERAL ORDERABLES Final Result [facility] [address] [place] [address], documented in this encounter Visit Diagnoses Diagnosis Acute pharyngitis documented in this encounter Care Teams Plate Glass Installer Relationship Specialty Start Date End Date Patti Cortez, PCP - General 08/06/15 documented as of this encounter
--- OUTSIDE RECORDS SUMMARY | 2024-07-07 22:31 | XMS_ITS | Encounter Summary ---
Author Organization [facility] Address [address] [place] [address]. [place] [address] [place] [address] Care Team Providers Care Financial Associate Name Role Phone None, Provider Primary Care Provider Unavaila ble Reason for Visit * Reason Comments Abdominal Pain * Auth/Cert Specialty Diagnoses / Procedures Referred By Contac t Referred To Contact Diagnoses Abdominal pain Nausea and vomiting Common bile duct dilatation Abdominal pain Procedures INPT Referral ID Status Reason Start Date Expiration Date Visits Re quested Visits Authorized [id number] 1 1 Encounter Details Date Type Department Care Team (Late st Contact Info) Description 10/31/2018 4:30 PM CDT - 10/31/2018 5:56 PM CDT Surgery [facility] [place] [address] Cceilio Rousseau MD [address] [address] ERCP with sphinterotomy , Cholangiogram, stone removal with extractor and placement of Pancreatic Stent 4x 5, Surgery Details Date/Time Status Location OR Service Patient Class Case Class Case Type Trauma Case? 10/31/2018 4:30 PM Posted [facility] 3 Gastroenterology Inpatient No Panel 1 Procedure LRB Anes Op Region Wound Class Comments ERCP with sphinterotomy , Cholangiogram, stone removal with extractor and placement of Pancreatic Stent 4x 5, N/A General Clean Contaminated Fluoroscopy time 4..29 sec Surgeon Surgeon Role Service Panel Cecilio Rousseau MD Primary Gastroenterology 1 documented in this encounter Social History Tobacco [...] Sign Reading Time Taken Comments Blood Pressure 104/75 10/31/2018 5:46 PM CDT Pulse 96 10/31/2018 5:46 PM CDT Temperature 36.6 ??C (97.8 ??F) 10/31/2018 5:46 PM CD T Respiratory Rate 12 10/31/2018 5:46 PM CDT Oxygen Saturation 99% 10/31/2018 5:46 PM CDT Inhaled Oxygen Concentration - - Weight 67.7 kg (149 lb 4 oz) 10/31/2018 5:48 AM CDT Height 172.7 cm (5' 8 ) 10/30/2018 12:41 PM CDT Body Mass Index 22.69 10/30/2018 12:41 PM CDT documented in this encounter Functional Status * Question Answer Date of Assessment Author Status Do you have serious difficulty walking or climbing stairs? No 10/30/2018 5:52 PM CDT Ti Boston RN Acti ve * Question Answer Date of Assessment Author Status Do you have difficulty dressing or bathing? No 10/30/2018 5:52 PM CDT Ti Boston RN Active Because of a physical, mental, or emotional condition, do you have difficulty doing errands alone such as visiting a doctor's office or shopping? No 10/30/2018 5:52 PM CDT Carlito Boston RN Active * RETIRED Are you deaf or [...] Physician Discharge Summary Patient ID: Doreen Nobles [id number] 23-year-old 1995 Admit date: 10/30/2018 Expected Discharge [...] Diseases https://www.iffgd.org/ National Institutes for Health National [place] of Diabetes and Digestive and Kidney Diseases https://www.niddk.nih.gov/health-information/digestive-diseases National Institutes of Health https://www.niddk.nih.gov/health-information/professionals/crnxjixl-zryvf-uhlzjv y-gpmwmifqp-zjhezfes?q=abdominal+pain&o=relevance&au=pa Last Reviewed Date 2018-07-11 Consumer Information Use [...] right for you. Copyright Copyright ?? 2019 [employer]. and its affiliates and/or licensors. All rights reserved. * Attachments The following attachments cannot be sent through Care Everywhere. * High Fiber Diet ([place]) * Constipation in Adults ([place]) documented in this encounter Progress Notes * [...] overnight; will continue to monitor. * MARGARET Carlosn - 11/01/2018 10:36 AM CDT GASTROENTEROLOGY PROGRESS [...] No results for input(s): PH, PCO2, PO2, [id number], BICARBWB, BASEDEFICIT, BASEEXCESS in the fajp562 hours. Cultures: Blood: No results found for [...] DISPO: Pending resolution of symptoms. Discussed with energy derivatives trader. Discussed with attending physician. ELLE ROY DO, [...] ERCP on 11/01. SCD's ordered. * Elle Roy DO - 10/31/2018 7:04 AM CDT Subjective: [...] No results for input(s): PH, PCO2, PO2, [id number], BICARBWB, BASEDEFICIT, BASEEXCESS in the ccim100 hours. Cultures: Blood: No results found for [...] HISTORY, PHYSICAL, ASSESSMENT, PLAN DATE: 10/30/2018 ID: [id number] Doreen Nobles CC: abdominal pain HPI: Ms. [...] ED provider discussed patient's CT findings with energy derivatives trader. Will admit to med/surg for ERCP tomorrow. [...] file Gets together: Not on file Attends latter day service: Not on file Active member of [...] history on file. PRIMARY CARE PROVIDER: Provider Guillermina, CODE STATUS: Code Status: Full Code OBJECTIVE [...] No results for input(s): PH, PCO2, PO2, [id number], BICARBWB, BASEDEFICIT, BASEEXCESS in the mxld313 hours. Cultures: Blood: No results found for [...] file Gets together: Not on file Attends latter day service: Not on file Active member of [...] DENY; Deysi Peterson, DENY; Melisa Guevara RN car rental deliverer: Cinthya Lim [facility] Anesthesia: General Anesthesiologist: Tal Nuñez MD SET UP MECHANIC STAMPING MACHINES: Micha Son CRNA; Richi Thomas CRNA Pre-Op [...] going into the PD so a 4 Polish by 5 cm PD stent was placed. [...] and kick and use curse words. * Elena Eden AustynMARGARET - 10/30/2018 1:46 PM CDT Chief Complaint Chief Complaint Patient presents with ??? Abdominal Pain History of Present Illness History provided by: Patient interpreter and translator used: No Abdominal Pain Associated symptoms: nausea [...] encounter of 10/30/18 ECG 12 lead Narrative [place] Test Date: 2018-10-30 Pat Name: DOREEN NOBLES Department: Room: Gender: Female Bread Slicer Machine: EJ : 1995 Requested By: ELENA HORTA Order Number: [id number] Reading MD: Measurements Intervals [place] Rate: 63 P: 55 [place]: 122 QRS: 59 QRSD: 83 T: 37 [...] CLEAN CATCH COLOR ROBIN TRANSPARENCY CLEAR Specific [place] (U) 1.020 1.001 - 1.030 U PH [...] TEST negative NEGATIVE INT CTRL PERFORMED EXPECTED? [id number]: IMAGING STUDIES CT ABD+PEL W CON Final Result by User, [id number] (10/30 3474) Examination: CT abdomen and pelvis with IV [...] as of Oct 30 1633SunOct 30, 2018 [phone]--Paged GI. Dr Rousseau returned page. Agreeable to ERCP tomorrow. Would like patient to remainNPO after midnight. Pt aware of plan and agreeable. Community coverage paged for admission. [MP] [phone]--Dr Hutchinson, U resident, returned page. Agreeable to med/surg admission. Orders placed accordingly. [MP] ED Course User Index [MP] MARGARET Schmitt Clinical Impression Abdominal pain (Primary) Nausea and vomiting Common bile duct dilatation Disposition: Admit I, Erika Silva Colemanjanay, acting as a scribe, am personally taking [...] MARGARET Schmitt - 10/30/2018 12:32 PM CDT [place], [place] EMERGENCY DEPARTMENT ENCOUNTER Medical Screening Examination [...] st Contact Info) Description 07/24/2024 Hospital Encounter [facility] [place] [address] Osmin Hunt MD [address] [place] [id number] Scheduled Orders Name Type Priority Associated Diagnoses [...] - 393 UNITS/L 11/02/2018 7:07 AM CDT [facility] 11/02/2018 6:34 AM CDT us Elle Roy DO LABORATORY Final Resul t [facility] [address] [place] [address], [place] [phone] * (ABNORMAL) COMPREHENSIVE METABOLIC PANEL (11/01/2018 5:42 AM CDT) [facility] GLUCOSE 93 70 - 99 MG/DL 11/01/2018 6:27 AM T [facility] BUN 6(L) 7 - 18 MG/DL 11/01/2018 6:27 AM T [facility] CREATININE S/P/B 0.57 0.55 - 1.02 MG/DL 11/01/2018 6:27 AM T [facility] SODIUM S/P/B 139 136 - 145 MMOL/L 11/01/2018 6:27 AM T [facility] POTASSIUM S/P/B 3.5 3.5 - 5.1 MMOL/L 11/01/2018 6:27 AM T [facility] CHLORIDE S/P/B 111(H) 100 - 108 MMOL/L 11/01/2018 6:27 AM T [facility] CO2 24.9 21 - 32 MMOL/L 11/01/2018 6:27 AM T [facility] CALCIUM S/P/B 8.2(L) 8.5 - 10.1 MG/DL 11/01/2018 6:27 AM T [facility] BILIRUBIN TOTAL S/P/B 0.9 0.2 - 1.2 MG/DL 11/01/2018 6:27 AM T [facility] TOTAL PROTEIN S/P/B 6.1(L) 6.4 - 8.2 G/DL 11/01/2018 6:27 AM T [facility] ALBUMIN S/P/B 3.0(L) 3.4 - 5.0 G/DL 11/01/2018 6:27 AM T [facility] AST 103(H) 15 - 37 U/L 11/01/2018 6:27 AM T [facility] ALT 255(H) 14 - 55 U/L 11/01/2018 6:27 AM CDT [facility] ALKALINE PHOSPHATASE S/P/B 210(H) 50 - 136 U/L 11/01/2018 6:27 AM T [facility] ANION GAP 6.6(L) 8 - 20 MMOL/L 11/01/2018 6:27 AM CDT [facility] BUN CREATININE RATIO 10.6 6 11/01/2018 6:27 AM CDT [facility] A/G RATIO 1.0 1.0 - 2.0 RATIO 11/01/2018 6:27 AM T [facility] EGFR NON-AFR. AMER. >90 >90 ML/MIN/1.7 3 M2 11/01/2018 6:27 AM CDT [facility] EGFR AFR. AMER. >90 >90 ML/MIN/1.7 3 M2 11/01/2018 6:27 AM T [facility] Comment: NOTE: eGFR is not calculated for patients <18 years of age. This is an estimated GFR (CKD EPI) and should not be used for calculating drug doses. 11/01/2018 5:42 AM CDT Elle Roy DO LABORATORY Final Resul t [facility] [address] [place] [address], [place] [phone] * (ABNORMAL) LIPASE (11/01/2018 5:42 AM CDT) LIPASE 13,500(H) 73 - 393 UNITS/L 11/01/2018 6:27 AM CDT [facility] 11/01/2018 5:42 AM CDT Elle K Loyke DO LABORATORY Final Resul t [facility] [address] [place] [address], [place] [phone] * SURG XR ERCP W YANI (10/31/2018 [...] Fluoroscopy and imaging for operative control purposes. us Cecilio Rousseau MD IMAGES ONLY Final Result * PROCEDURE GENERIC (10/31/2018 4:36 PM CDT) Narrative 10/31/2018 4:36 PM CDT Ordered by an unspecified provider. us Documents [facility] Final Result * MAGNESIUM (10/31/2018 6:12 AM CDT) MAGNESIUM 2.1 1.8 - 2.4 MG/DL 10/31/2018 7:53 AM CDT [facility] 10/31/2018 6:12 AM CDT Elle Roy DO LABORATORY Final Resul t [facility] [address] [place] [address], * (ABNORMAL) COMPREHENSIVE METABOLIC PANEL (10/31/2018 6:12 AM CDT) GLUCOSE 90 70 - 99 MG/DL 10/31/2018 7:53 AM CDT [facility] BUN 5(L) 7 - 18 MG/DL 10/31/2018 7:53 AM CDT [facility] CREATININE S/P/B 0.65 0.55 - 1.02 MG/DL 10/31/2018 7:53 AM CDT [facility] SODIUM S/P/B 138 136 - 145 MMOL/L 10/31/2018 7:53 AM CDT [facility] POTASSIUM S/P/B 3.5 3.5 - 5.1 MMOL/L 10/31/2018 7:53 AM CDT [facility] CHLORIDE S/P/B 107 100 - 108 MMOL/L 10/31/2018 7:53 AM CDT [facility] CO2 26.7 21 - 32 MMOL/L 10/31/2018 7:53 AM CDT [facility] CALCIUM S/P/B 8.6 8.5 - 10.1 MG/DL 10/31/2018 7:53 AM [facility] BILIRUBIN TOTAL S/P/B 2.8(H) 0.2 - 1.2 MG/DL 10/31/2018 7:53 AM [facility] TOTAL PROTEIN S/P/B 7.4 6.4 - 8.2 G/DL 10/31/2018 7:53 AM [facility] ALBUMIN S/P/B 3.7 3.4 - 5.0 G/DL 10/31/2018 7:53 AM [facility] AST 285(H) 15 - 37 U/L 10/31/2018 7:53 AM [facility] ALT 409(H) 14 - 55 U/L 10/31/2018 7:53 AM [facility] ALKALINE PHOSPHATASE S/P/B 283(H) 50 - 136 U/L 10/31/2018 7:53 AM [facility] ANION GAP 7.8(L) 8 - 20 MMOL/L 10/31/2018 7:53 AM [facility] BUN CREATININE RATIO 7.7 6 - 26 10/31/2018 7:53 AM [facility] A/G RATIO 1.0 1.0 - 2.0 RATIO 10/31/2018 7:53 AM [facility] EGFR NON-AFR. AMER. >90 >90 ML/MIN/1.7 3 M2 10/31/2018 7:53 AM [facility] EGFR AFR. AMER. >90 >90 ML/MIN/1.7 3 M2 10/31/2018 7:53 AM [facility] Comment: NOTE: eGFR is not calculated for patients <18 years of age. This is an estimated GFR (CKD EPI) and should not be used for calculating drug doses. 10/31/2018 6:12 AM CDT Elle Roy DO LABORATORY Final Resul t [facility] [address] [place] [address], [place] [phone] * CT ABD+PEL W CON (10/30/2018 3:40 [...] cyst versus physiologic free fluid. Elena Horta GEOTHERMAL PLANT MANAGER-BC CT Final Res ult * (ABNORMAL) URINALYSIS WI REFLEX TO CULTURE (10/30/2018 1:08 PM CDT) SPECIMEN TYPE URINE CLEAN CATCH 10/30/2018 1:09 PM CDT [facility] COLOR (U) ROBIN 10/30/2018 1:38 PM CDT [facility] TRANSPARENCY CLEAR 10/30/2018 1:38 PM CDT [facility] SPECIFIC GRAVITY (U) 1.020 1.001 - 1.030 10/30/2018 1:38 PM CDT [facility] U PH 7.0 5.0 - 9.0 10/30/2018 1:38 PM CDT [facility] LEUKOCYTES (U) NEGATIVE NEGATIVE 10/30/2018 1:38 PM CDT [facility] NITRITES NEGATIVE NEGATIVE 10/30/2018 1:38 PM CDT [facility] PROTEIN (U) 30(H) <30 MG/DL 10/30/2018 1:38 PM CDT [facility] URINE GLUCOSE NEGATIVE NEGATIVE MG/DL 10/30/2018 1:38 PM CDT [facility] KETONES MG/DL (U) TRACE(A) NEGATIVE MG/DL 10/30/2018 1:38 PM CDT [facility] UROBILINOGEN 4.0(A) NEGATIVE MG/DL 10/30/2018 1:38 PM CDT [facility] BILIRUBIN (U) 4.0(A) NEGATIVE MG/DL 10/30/2018 1:38 PM CDT [facility] BLOOD (U) NEGATIVE NEGATIVE 10/30/2018 1:38 PM CDT [facility] CULTURE & SENSITIVITY INDICATED? CULTURE IS NOT INDICATED 10/30/2018 1:38 PM CDT [facility] SQUAMOUS EPITHELIALS MANY /LPF 10/30/2018 1:38 PM CDT [facility] MUCUS MODERATE /LPF 10/30/2018 1:38 PM CDT [facility] WBC/HPF 1 <6 /HPF 10/30/2018 1:38 PM CDT [facility] RBC/HPF 1 <6 /HPF 10/30/2018 1:38 PM CDT [facility] URINE SPECIMEN OBTAINED BY CLEAN CATCH PROCEDURE / Unknown 10/30/2018 1:08 PM CDT Elena Horta GEOTHERMAL PLANT MANAGER-BC URINE ORDERABLES Final Re sult [facility] [address] [place] [address], * POCT urine (10/30/2018 1:08 PM CDT) URINE HCG TEST negative NEGATIVE Internal Control performed as Expected? [id number] P: Elena Karey Austyn GEOTHERMAL PLANT MANAGER-BC POINT OF CARE TEST ORDERA BLES Final Result * ECG 12 lead (10/30/2018 1:01 PM CDT) 10/30/2018 1:01 PM CDT Narrative [facility] - 10/31/2018 1:10 AM CDT ?[place]h Hardy ? [address] [facility] [place] ? Test Date: ?2018-10-30 Pat Name: ? DOREEN NOBLES ?Department: ? Room: ? C10 Gender: ? Female ? Bread Slicer Machine: ?? CM : ?1995 ? Requested By: ELENA HORTA Order Number: [id number] ? Reading MD: ?? Paban Paulie ? Measurements Intervals ?[place] ? Rate: ? 63 ? P: ?55 [place]: ? 122 ?QRS: ?59 QRSD: ? 83 ? T: ?37 QT: ? 379 ? QTc: ?388 ? Interpretive Statements SINUS RHYTHM WITH SINUS ARRHYTHMIA Compared to ECG 07/17/2018 03:37:32 Rate is faster. Procedure Note Coreen Apodaca MD - 10/31/[address] [place] Test Date: 2018-10-30 Pat Name: DOREEN NOBLES Department: Room: [facility] Gender: Female Bread Slicer Machine: EJ : 1995 Requested By: ELENA HORTA Order Number: [id number] Reading MD: Coreen Apodaca Measurements Intervals [place] Rate: 63 P: 55 [place]: 122 QRS: 59 QRSD: 83 T: 37 QT: 379 QTc: 388 Interpretive Statements SINUS RHYTHM WITH SINUS ARRHYTHMIA Compared to ECG 07/17/2018 03:37:32 Rate is faster. us Elena Horta GEOTHERMAL PLANT MANAGER-BC ECG ORDERABLES Final Res ult [facility] * CK (CPK) (10/30/2018 12:58 PM CDT) CPK 57 21 - 215 U/L 10/30/2018 1:34 PM CDT [facility] 10/30/2018 12:5 8 PM CDT [facility] Karey Horta [facility] Final Res ult Performing Organization Address City/[facility]/ZIP Co de Phone Number [facility] [address] [place] [address], [place] [phone] * TROPONIN, QUANT (10/30/2018 12:58 PM CDT) TROPONIN I <0.015 <0.045 ng/mL. 10/30/2018 1:34 PM CDT [facility] Comment: HIGH DOSES OF BIOTIN MAY INTERFERE WITH THIS TEST RESULT. CORRELATION TO CLINICAL HISTORY AND PRESENTATION RECOMMENDED. 10/30/2018 12:5 8 PM CDT [facility] Final Res ult Performing Organization Address City/[facility]/ZIP Co de Phone Number [facility] [address] [place] [address], [place] [phone] * LIPASE (10/30/2018 12:58 PM CDT) LIPASE 144 73 - 393 UNITS/L 10/30/2018 1:34 PM CDT [facility] 10/30/2018 12:5 8 PM CDT [facility] Final Res ult [facility] [address] [place] [address], [place] [phone] * (ABNORMAL) COMPREHENSIVE METABOLIC PANEL (10/30/2018 12:58 PM CDT) [facility] GLUCOSE 103(H) 70 - 99 MG/DL 10/30/2018 1:34 PM CDT [facility] BUN 6(L) 7 - 18 MG/DL 10/30/2018 1:34 PM T [facility] CREATININE S/P/B 0.72 0.55 - 1.02 MG/DL 10/30/2018 1:34 PM CDT [facility] SODIUM S/P/B 138 136 - 145 MMOL/L 10/30/2018 1:34 PM T [facility] POTASSIUM S/P/B 3.9 3.5 - 5.1 MMOL/L 10/30/2018 1:34 PM T [facility] CHLORIDE S/P/B 104 100 - 108 MMOL/L 10/30/2018 1:34 PM T [facility] CO2 28.5 21 - 32 MMOL/L 10/30/2018 1:34 PM T [facility] CALCIUM S/P/B 9.6 8.5 - 10.1 MG/DL 10/30/2018 1:34 PM T [facility] BILIRUBIN TOTAL S/P/B 3.7(H) 0.2 - 1.2 MG/DL 10/30/2018 1:34 PM CDT [facility] TOTAL PROTEIN S/P/B 8.7(H) 6.4 - 8.2 G/DL 10/30/2018 1:34 PM T [facility] ALBUMIN S/P/B 4.3 3.4 - 5.0 G/DL 10/30/2018 1:34 PM T [facility] AST 436(H) 15 - 37 U/L 10/30/2018 1:34 PM T [facility] ALT 539(H) 14 - 55 U/L 10/30/2018 1:34 PM CDT [facility] ALKALINE PHOSPHATASE S/P/B 343(H) 50 - 136 U/L 10/30/2018 1:34 PM CDT [facility] ANION GAP 9.4 8 - 20 MMOL/L 10/30/2018 1:34 PM CDT [facility] BUN CREATININE RATIO 8.3 6 - 26 10/30/2018 1:34 PM CDT [facility] A/G RATIO 1.0 1.0 - 2.0 RATIO 10/30/2018 1:34 PM CDT [facility] EGFR NON-AFR. AMER. >90 >90 ML/MIN/1.7 3 M2 10/30/2018 1:34 PM CDT [facility] EGFR AFR. AMER. >90 >90 ML/MIN/1.7 3 M2 10/30/2018 1:34 PM CDT [facility] Comment: NOTE: eGFR is not calculated for patients <18 years of age. This is an estimated GFR (CKD EPI) and should not be used for calculating drug doses. 10/30/2018 12:5 8 PM CDT Elena Eden Austyn [facility]- LABORATORY Final Res ult [facility] [address] [place] [address], * (ABNORMAL) CBC W/DIFF AUTOMATED (10/30/2018 12:58 PM CDT) WBC 5.8 4.5 - 11.0 x10'3/uL 10/30/2018 1:09 PM CDT [facility] RBC 4.56 4.20 - 5.40 x10'6/uL 10/30/2018 1:09 PM CDT [facility] HGB 11.4(L) 12.0 - 16.0 G/DL 10/30/2018 1:09 PM CDT [facility] HCT 36.9(L) 38.0 - 48.0 % 10/30/2018 1:09 PM CDT [facility] MCV 80.9(L) 81.0 - 99.0 FL 10/30/2018 1:09 PM CDT [facility] MCH 25.0(L) 27.0 - 31.0 PG 10/30/2018 1:09 PM CDT [facility] MCHC 30.9(L) 32.0 - 36.0 G/DL 10/30/2018 1:09 PM CDT [facility] RDW 14.2 11.5 - 14.5 % 10/30/2018 1:09 PM CDT [facility] PLT 380 130 - 400 x10'3/uL 10/30/2018 1:09 PM CDT [facility] MPV 10.5 9.3 - 12.2 FL 10/30/2018 1:09 PM CDT [facility] DIFFERENTIAL TYPE AUTOMATED DIFFERENTIAL 10/30/2018 1:09 PM CDT [facility] NEUTROPHILS % 73.1 % 10/30/2018 1:09 PM CDT [facility] LYMPHOCYTES % 14.2 % 10/30/2018 1:09 PM CDT [facility] MONOCYTES % 9.2 % 10/30/2018 1:09 PM CDT [facility] EOSINOPHILS 2.4 % 10/30/2018 1:09 PM CDT [facility] BASOPHILS 0.9 % 10/30/2018 1:09 PM CDT [facility] IMMATURE GRANS % 0.2 % 10/31/19 19 1:09 PM CDT [facility] ABS. NEUTROPHILS TOTAL 4.24 1.80 - 7.70 x10'3/uL 10/30/2018 1:09 PM CDT [facility] ABS. LYMPHOCYTES 0.82(L) 1.00 - 4.80 x10'3/uL 10/30/2018 1:09 PM CDT [facility] ABS. MONOCYTES 0.53 0.24 - 0.86 x10'3/uL 10/30/2018 1:09 PM CDT [facility] ABS. EOSINOPHILS 0.14 0.04 - 0.36 x10'3/uL 10/30/2018 1:09 PM CDT [facility] ABS. BASOPHILS 0.05 0.01 - 0.08 x10'3/uL 10/30/2018 1:09 PM CDT [facility] ABS. IMMATURE GRANULOCYTES 0.01 0.00 - 0.49 x10'3/uL 10/30/2018 1:09 PM CDT [facility] 10/30/2018 12:5 8 PM CDT Elena Horta [facility] Final Res ult [facility] [address] [place] [address], [place] [phone] documented in this encounter Visit Diagnoses Not on filedocumented [...] Given 10/30/2018 9:33 PM CDT 20 mg indomethacin (INDOCIN) supppository As needed, Starting on Sun10/31/18 at 1724, Until [place] 10/31/18 at 1743, Intra-Op Given 10/31/2018 5:24 PM CDT 50 mg Right Accessory Cephalic iopamidol (ISOVUE-M 300) 61 % 10 mL in sodium chloride 0.9 % 10 mL contrast solution As needed, Starting on Sun10/31/18 at 1000, Until [place] 10/31/18 at 1743, Intra-Op Given 10/31/2018 10:00 AM CDT 10 mLs Other lactated ringers infusion at 250 mL/hr, Intravenous, Continuous, Starting on [place] 10/31/18 at 1730, Until 11/02/18 at 1108, PACU New Bag 11/02/2018 5:43 AM CDT 250 mL/hr New Bag 11/02/2018 1:24 AM CDT 250 mL/hr New Bag 11/01/2018 6:47 PM CDT 250 mL/hr ondansetron (ZOFRAN) injection 4 mg 4 mg, [...] Given 10/31/2018 7:54 PM CDT 5 mg documented in this encounter Active and Recently [...] Whitt)2028 (Given - Provider: Pebbles Stubbs RN) 08 (Given - Provider: Griselda Whitt)2047 (See Alternative [...] RN) 0805 (See Alternative - Provider: Griselda Whitt)2047 (Given - Provider: Pebbles Stubbs RN) 0900 [...] (INDOCIN) supppository (CANCELED) As needed, Starting on Sun10/31/18 at 1724, Until [place] 10/31/18 at 1743, Intra-Op 1724 (Given - Provider: Melisa Guevara RN - Comment: 100 mg given) iopamidol (ISOVUE-M 300) 61 % 10 mL in sodium chloride 0.9 % 10 mL contrast solution (CANCELED) As needed, Starting on [place] 10/31/18 at 1000, Until [place] 10/31/18 at 1743, [...] Discontinued documented in this encounter Care Teams Financial Associate Relationship Specialty Start Date End Date None, Provider, PCP - General 07/17/18 documented as of this encounter
--- OUTSIDE RECORDS SUMMARY | 2024-07-07 22:31 | XMS_ITS | Encounter Summary ---
Author Organization [facility] Address [address] [place] [address]. [place] [address] [place] [address] Care Team Providers Care Inspector Type Name Role Phone Unavailable Primary Care Provider Unavailabl e Reason for Referral * (Emergency) - Closed Specialty Diagnoses / Procedures Referred By Contac t Referred To Contact Procedures US OB TRANSVAG US OB <[id number] TA Schuyler Zhong MD Phone: tel: fax: Referral ID Status Reason Start Date Expiration Date Visits Re quested Visits Authorized [id number] Closed 09/29/2017 10/30/2018 1 1 Reason for Visit * Reason Comments Abdominal Pain Encounter Details Date Type Department Care Team (Late st Contact Info) Description 09/29/2017 9:38 PM CDT - 09/30/2017 1:18 AM CDT Emergency [facility] [place] [address] Schuyler Zhong MD [address] [place] [address] [place] [address] Abdominal Pain Discharge Disposition: Home or Self [...] Sign Reading Time Taken Comments Blood Pressure 96/68 09/30/2017 1:17 AM CDT Pulse 62 09/30/2017 1:03 AM CDT Temperature 36.1 ??C (96.9 ??F) 09/29/2017 9:36 PM CD T Respiratory Rate 17 09/30/2017 1:03 AM CDT Oxygen Saturation 100% 09/30/2017 1:17 AM CDT Inhaled Oxygen Concentration - - Weight 73.6 kg (162 lb 4.1 oz) 09/29/2017 9:36 P M CDT Height 175.3 cm (5' 9 ) 09/29/2017 9:36 PM CDT Body Mass Index 23.96 09/29/2017 9:36 PM CDT documented in this encounter Discharge Instructions * Discharge Instructions* Schuyler Zhong MD - 09/30/2017 12:58 AM CDT Close follow-up without fail till resolution and further diagnostic imaging as indicated with handson reassessment. Fluids rest call follow-up abstinence vitamins care call U education Patient Education Activity During The Basics Written by the doctors and editors at [facility] What do I need to do differently while I am ???--??During , most women can be as active as they were before they got . This includes traveling, working, exercising, and having sex. If you have any questions about doing an activity during , be sure to ask your doctor or water quality specialist. Women with certain conditions might need to limit their activity. If your doctor or water quality specialist thinks you should limit your activity, he or she will let you know. Travel??--??Women can drive and travel by car throughout their . But when traveling by car, it's important to: ?Always wear your seat belt. The shoulder belt should go between your breasts and to the side of your belly. The lap belt should go under your belly. ?Take plenty of breaks during long trips. Be sure to stop often so that you can walk and stretch your legs. ?Keep the car's air bags turned on. Women can also travel by plane during . But if you are planning to fly toward the end of your , check with the airline. Most airlines don't allow women to fly during their last month of . During long flights, be sure to shift your position while seated, and move your legs and feet often. You should also stand up and move around when it is safe to do so. This can prevent blood clots from forming in your legs. If you are planning to travel to another country, let your doctor or water quality specialist know. In some countries, infection is a concern. Ask your doctor or water quality specialist whether you can safely go there. For example, many health care providers recommend that women not travel to places in the world where malaria or Zika virus is common. Exercise??--??Doctors recommend that all adults, including women, get at least 30 minutes of exercise on all or most days of the week. Exercise has many benefits during . It can help with your mood, energy level, and sleep. It can also help with symptoms such as constipation, bloating, swelling, and back pain. The type of exercise that is right for you depends on your current , past pregnancies, andhow active you were before you got . In general, doctors usually recommend walking and swimming as good types of exercise for women. women should avoid activities in which they could easily fall or hurt their belly. These include hockey, soccer, basketball, horseback riding, downhill skiing, and gymnastics. To exercise safely, you should: ?Avoid lying flat on your back (after the first 3 months of ) ?Start off slowly and slowly increase your level of activity ?Avoid exercising in hot or humid weather ?Drink plenty of water ?Wear a bra that supports your breasts ?Stop exercising if you get out of breath and can't talk easily You should stop exercising and let your doctor or water quality specialist know if you have any of the following symptoms: ?Bleeding from the vagina ?Trouble breathing ?Feeling light-headed or dizzy ?A headache or chest pain ?Muscle weakness ?Contractions ?Fluid leaking from vagina ?Leg swelling, pain, redness, or warmth ?Not feeling your baby move as much as usual Work??--??Whether or not you should stop working depends on your health, your baby's health, and what your work involves. Women who have no problems during can usually work up until they go into labor. But it depends on your job and what it involves. Every employer has a Material Safety Data Sheet that contains information on the chemical properties and health effects of the substances used in the workplace. If you work with or near chemicals or other toxic substances, you should read this worksheet and discuss with your doctor. Sex??--??Women can keep having sex during a normal . All topics are updated as new evidence becomes available and our peer review process is complete. This topic retrieved from [employer] on: Jul 12, 2017. Topic 61293 Version 5.0 Release: 25.6.2-122 - C26.3 ?2018??[employer] and/or its affiliates.??All rights reserved. Consumer Information Use and Disclaimer This information [...] or not to accept your health care provider's advice, instructions or recommendations. Only your health care provider has the knowledge and training to provide advice that is right for you.The use of [employer] content is governed by the [employer] Terms of Use. ??2018 [employer]. All rights reserved. Copyright ?2018??[employer] and/or its affiliates.??All rights reserved. Patient Education Bleeding With About this topic Vaginal bleeding when is common for many women. Bleeding happens more often during the first 3 months. You may have spotty bleeding or your bleeding may be light to very heavy. You may also pass blood clots. Many things may cause you to bleed while you are . The problem may be minor or a sign of a more serious problem. Bleeding may be a sign there is a problem with your baby. Call your doctor if you have bleeding at any time when you are . What are the causes? You may have a small amount of bleeding when the egg implants into the lining of the womb. While you are you may also have bleeding from things like: ?? Sexual relations ?? Having an exam like a Pap test or internal exam ?? A vaginal or yeast infection ?? Cervical polyp ?? Contractions that cause your cervix to dilate You may have a problem with your that causes you to bleed. You may have: ?? A problem with the placenta ?? labor ?? An egg that implants outside the womb. Doctors call this an ectopic . ?? A mass that is not a baby forms in the womb. Doctors call this is a molar . ?? A miscarriage What can make this more likely to happen? You may be more likely to have bleeding if you have been before and had problems. You may be more at risk if you are older than 35. Some health problems, like high blood pressure or sickle cell anemia, may cause bleeding. If you are carrying more than one baby, your risk is higher. Using cocaine, heroin, or methamphetamines may make bleeding more likely to happen. How does the doctor diagnose this health problem? Your doctor will take your history and do an exam. The doctor will want to know how much bleeding you have had. Also, tell the doctor when the bleeding started and what color the blood is. The doctormay listen to the baby???s heartbeat and also order tests like: ?? Lab tests ?? Ultrasound How does the doctor treat this health problem? Treatment is based on the cause of the bleeding. Your doctor may suggest: ?? Rest. You may need to be on full bedrest or even stay in the hospital. ?? Fewer activities ?? Avoiding sex ?? Keeping a record of your bleeding ?? I.V. fluids or a blood transfusion ?? Drugs ?? Surgery What drugs may be needed? The doctor may order drugs to: ?? Fight an infection ?? Stop labor ?? Help with pain What problems could happen? Miscarriage or a stillbirth What can be done to prevent this health problem? ?? Keep in close contact with your doctor, especially if you have had other pregnancies with bleeding problems. ?? Avoid smoking and use of illegal drugs. ?? Keep health problems like high blood pressure under control. Where can I learn more? [place] [employer] https://www.acog.org/Patients/FAQs/Kcewtsjf-Tsszoa-Eaizztbem [place] [employer] http://americanpregnancy.org/-complications/chexfvdd-vgzpyl-yueutyuwk/ NHS Choices http://www.nhs.uk/conditions/kowjiaxol-ano-dhcl/pages/cyphkto-bziexmxh-bxsdhnez. aspx#close Last Reviewed Date 2017-06-26 Consumer Information Use and Disclaimer This information [...] right for you. Copyright Copyright ?? 2018 [employer] and its affiliates and/or licensors. All rights reserved. documented in this encounter Medications at Time of Discharge ondansetron 4 MG disintegrating tablet Take 1 tablet (4 mg total) by mouth every 8 (eight) hours as needed. 12 tablet 09/30/201710/27/ 8 documented as of this encounter ED Notes * Frank Jimenes RN - 09/30/2017 1:17 AM CDT Patient given discharge information and prescriptions. Patient instructed to f/u with PCP or returnto the ER if symptoms persisted. Patient had no further questions and VS recorded prior to discharge. * Schuyler Zhong MD - 09/29/2017 11:51 PM CDT Chief Complaint Chief Complaint Patient presents with ??? Abdominal Pain History of Present Illness Patient is a 22-year-old female presenting with abdominal pain. History provided by: Patient (My stomach hurts in the middle and goes up into my chest lower part) Abdominal Pain Pain location: Periumbilical Pain quality: cramping and sharp Pain radiates to: Epigastric region and suprapubic region Pain severity: Moderate Onset quality: Gradual Duration: 2 weeks Timing: Intermittent Progression: Waxing and waning Chronicity: New Context comment: last menstrual period 1 month ago unsure of the Relieved by: Nothing Worsened by: Nothing Ineffective treatments: None tried Associated symptoms: no anorexia, no chest pain, no chills, no cough, no diarrhea, no dysuria, no fatigue, no fever, no hematuria, no shortness of breath, no vaginal bleeding, no vaginal discharge and no vomiting Risk factors comment: Rule out unsure last menstrual period date 1 month ago Medical History ALLERGIES: Allergies no known allergies MEDICATIONS: Prior to Admission medications Medication Sig Start Date End Date Taking? Authorizing Provider ondansetron 4 MG disintegrating tablet Take 1 tablet (4 mg total) by mouth every 8 (eight) hours asneeded. 09/30/17 Yes Schuyler Zhong MD PAST MEDICAL HISTORY: History reviewed. No pertinent past medical history. PAST SURGICAL HISTORY: Past Surgical History: Procedure Laterality Date ??? CHOLECYSTECTOMY FAMILY HISTORY: No family history on file. SOCIAL HISTORY: Social History Substance Use Topics ??? Smoking status: Current Some Day Smoker ??? Smokeless tobacco: Never Used ??? Alcohol use No Review of Systems Review of Systems Constitutional: Negative for chills, fatigue and fever. HENT: Negative for dental problem, ear discharge, facial swelling and sinus pressure. Eyes: Negative for pain. Respiratory: Negative for cough, chest tightness and shortness of breath. Cardiovascular: Negative for chest pain. Gastrointestinal: Positive for abdominal pain. Negative for anorexia, diarrhea and vomiting. Endocrine: Negative for heat intolerance and polydipsia. Genitourinary: Negative for dysuria, enuresis, hematuria, vaginal bleeding and vaginal discharge. Musculoskeletal: Negative for gait problem and joint swelling. Skin: Negative for pallor and rash. Allergic/Immunologic: Negative for environmental allergies. Neurological: Negative for facial asymmetry and numbness. Hematological: Negative for adenopathy. Does not bruise/bleed easily. Psychiatric/Behavioral: Negative for confusion, decreased concentration and dysphoric mood. All other systems reviewed and are negative. Physical Exam Filed Vitals: 09/29/17 2136 09/30/17 0103 09/30/17 0117 BP: (!) 111/39 102/52 96/68 Pulse: 68 62 Resp: 20 17 Temp: 96.9 ??F (36.1 ??C) TempSrc: Temporal SpO2: 98% 100% 100% Weight: 73.6 kg (162 lb 4.1 oz) Height: 5' 9 (1.753 m) Physical Exam Constitutional: She is oriented to person, place, and time. Vital signs are normal. She appears well-developed. Non-toxic appearance. She does not have a sickly appearance. She does not appear ill. No distress. HENT: Head: Normocephalic. Eyes: EOM are normal. Neck: No JVD present. No tracheal deviation present. No thyromegaly present. Cardiovascular: Normal rate and regular rhythm. No murmur heard. Pulmonary/Chest: No respiratory distress. She has no wheezes. Abdominal: She exhibits no distension. There is no tenderness. There is no rebound. Genitourinary: Genitourinary Comments: Pelvic negative CX close no adnexal tenderness no vaginal bleeding Musculoskeletal: She exhibits no edema. Neurological: She is alert and oriented to person, place, and time. She displays normal reflexes. No cranial nerve deficit. Skin: Skin is warm and dry. No rash noted. Psychiatric: She has a normal mood and affect. Her behavior is normal. Thought content normal. Nursing note and vitals reviewed. Diagnostic Studies / Procedures ELECTROCARDIOGRAMS: No results found for this visit on 09/29/17. LABORATORY STUDIES: Results for orders placed or performed during the hospital encounter of 09/29/17 CBC W/DIFF AUTOMATED Result Value Ref Range WBC 8.5 4.8 - 10.8 x10'3/uL RBC 4.39 4.20 - 5.40 x10'6/uL HGB 11.9 (L) 12.0 - 16.0 G/DL HCT 36.9 (L) 38.0 - 48.0 % MCV 84.1 81.0 - 99.0 FL MCH 27.1 27.0 - 31.0 PG MCHC 32.2 32.0 - 36.0 G/DL RDW 12.2 11.5 - 14.5 % PLT 339 130 - 400 x10'3/uL MPV 10.7 9.3 - 12.2 FL NEUTROPHILS 67.4 (H) 43.0 - 65.0 % LYMPHOCYTES 21.1 20.0 - 46.0 % MONOCYTES 8.9 5.0 - 12.0 % EOSINOPHILS 1.8 1.0 - 3.0 % BASOPHILS 0.6 0.0 - 1.0 % IMMATURE GRANS 0.2 0.0 - 1.0 % COMPREHENSIVE METABOLIC PANEL Result Value Ref Range GLUCOSE 102 (H) 70 - 99 MG/DL BUN 7 7 - 18 MG/DL CREATININE 0.73 0.55 - 1.02 MG/DL SODIUM 136 136 - 145 MMOL/L POTASSIUM 3.6 3.5 - 5.1 MMOL/L CHLORIDE 103 100 - 108 MMOL/L CO2 27.5 21 - 32 MMOL/L CALCIUM 9.0 8.5 - 10.1 MG/DL TOTAL BILIRUBIN 0.3 0.2 - 1.2 MG/DL TOTAL PROTEIN 8.2 6.4 - 8.2 G/DL ALBUMIN 4.2 3.4 - 5.0 G/DL AST 17 15 - 37 U/L ALT 18 14 - 55 U/L ALK PHOS 75 50 - 136 U/L ANION GAP 9.1 8 - 20 MMOL/L BUN CREATININE RATIO 9.5 6 - 26 A/G RATIO 1.0 1.0 - 2.0 RATIO eGFR Non-Afr. Amer. >60 >60 ML/MIN/1.73 M2 eGFR Afr. Amer. >60 >60 ML/MIN/1.73 M2 Quantitative HCG Result Value Ref Range HCG, QUANTITATIVE 07630 MIU/ML URINALYSIS Result Value Ref Range Specimen Type URINE CLEAN CATCH COLOR STRAW TRANSPARENCY CLEAR Specific [place] (U) 1.003 1.001 - 1.030 U PH 6.0 5.0 - 9.0 LEUKOCYTES NEGATIVE NEGATIVE NITRITES NEGATIVE NEGATIVE PROTEIN, URINE NEGATIVE <30 MG/DL URINE GLUCOSE NEGATIVE NEGATIVE MG/DL U KETONES NEGATIVE NEGATIVE MG/DL UROBILINOGEN NEGATIVE NEGATIVE MG/DL Urine Bilirubin NEGATIVE NEGATIVE MG/DL BLOOD SMALL (A) NEGATIVE CULTURE & SENSITIVITY INDICATED? CULTURE IS NOT INDICATED SQUAMOUS EPITHELIALS MODERATE /LPF WBC/HPF <1 <6 /HPF RBC/HPF 2 <6 /HPF Spermatozoa SPERMATOZOA PRESENT LIPASE Result Value Ref Range LIPASE 134 73 - 393 UNITS/L IMAGING STUDIES US OB TRANSVAG (Results Pending) ED Course / Medical Decision Making Workup Notes Comment By Time Preg + no vaginal bleeding check ultrasound threatened miscarriage ectopic not excluded Schuyler Zhong MD 09/29 2335 Single live IUP 6 weeks 2 days heart rate 124 no hemorrhage will schedule care with [facility]-threatened miscarriage still not excluded Schuyler Zhong MD 09/30 0056 MDM Number of Diagnoses or Management Options Diagnosis management comments: Abdominal pain 2 weeks unsure last menstrual period check check lab Clinical Impression Threatened miscarriage (Primary) Early stage of Disposition: Discharge Schuyler Zhong MD 09/30/17 0128 * Alicia Vega RN - 09/29/2017 9:34 PM CDT Pt complains of abdominal pain, nausea and vomiting for 2 weeks documented in this encounter Plan of Treatment Upcoming Encounters Date Type Department Care Team (Late st Contact Info) Description 07/24/2024 Hospital Encounter [facility] [place] [address] Osmin Hunt MD [address] [address] Scheduled Procedures Name Priority Associated Diagnoses Date/Ti me ROBOTIC XI HYSTERECTOMY MENORRHAGIA, DYSMENORRHEA N92.4, N94.4 documented as of this encounter Procedures Procedure Name Priority Date/Time Associated Diagnosis Comments BLOOD TYPING, ABO AND RH STAT 09/30/2017 12:56 AM CDT US OB TRANSVAG STAT 09/30/2017 12:20 AM CDT URINALYSIS STAT 09/29/2017 10:23 PM CDT COMPREHENSIVE METABOLIC PANEL STAT 09/29/2017 10:23 PM CDT HCG QUANT (SERUM)-CHORIONIC GONADOTROPIN STAT 09/29/2017 10:23 PM CDT CBC W/DIFF AUTOMATED STAT 09/29/2017 10:23 PM CDT LIPASE STAT 09/29/2017 10:23 PM CDT documented in this encounter Results * BLOOD TYPING, ABO AND RH (09/30/2017 12:56 AM CDT) ABO/RH A POSITIVE 09/30/2017 1:47 AM CDT [facility] 09/30/2017 12:5 6 AM CDT Schuyler Zhong MD BLOOD BANK TEST ORDERA BLES Final Result [facility] [address] [place] [address], [place] [phone] * US OB TRANSVAG (09/30/2017 12:20 AM CDT) Anatomical Region Laterality Modality Abdomen, Pelvis Ultrasound 09/30/2017 9:45 AM CDT Impressions 09/30/2017 9:47 AM CDT =====IMPRESSION:===== 1. ??6 week 2 day size intrauterine . Estimated due date 05/23/2018. heart rate 124 bpm. 2. ??No evidence of marginal abruption. 3. ??No adnexal mass or torsion. 4. ??Small amount of free fluid in the pelvis. Narrative 09/30/2017 9:47 AM CDT EXAMINATION: OB ultrasound with transvaginal imaging EXAM DATE/TIME: 09/29/2017 11:54 PM REASON FOR EXAM: ??threatened ab ? . Threatened . Lower abdominal pain and cramping pelvic pain. Nausea. Vomiting. COMPARISON: None TECHNIQUE: Transvaginal ultrasound evaluation of the pelvic contents was performed for analysis of grayscale and color Doppler imaging characteristics. FINDINGS: Uterus measures 8.7 cm in length. Intrauterine gestational sac identified. pole and yolk sac identified. No evidence of marginal abruption. Developing sentinel is not defined. Adequate amniotic fluid. Right ovary measures up to 4.4 cm. Follicle cysts right ovary. Blood flow right ovary on spectral analysis. Left ovary measures up to 3.5 cm. Follicle cysts left ovary. Blood flow left ovary on spectral analysis. Small amount of free fluid in the pelvis. heart rate 124 bpm. [place]-rump length 5.0 mm, 6 week 2 day size. Procedure Note Adan Green MD - 09/30/2017 EXAMINATION: OB ultrasound with transvaginal imaging EXAM DATE/TIME: 09/29/2017 11:54 PM REASON FOR EXAM: threatened ab . Threatened . Lower abdominal pain and cramping pelvic pain. Nausea. Vomiting. COMPARISON: None TECHNIQUE: Transvaginal ultrasound evaluation of the pelvic contents was performed for analysis of grayscale and color Doppler imaging characteristics. FINDINGS: Uterus measures 8.7 cm in length. Intrauterine gestational sac identified. pole and yolk sac identified. No evidence of marginal abruption. Developing sentinel is not defined. Adequate amniotic fluid. Right ovary measures up to 4.4 cm. Follicle cysts right ovary. Bloodflow right ovary on spectral analysis. Left ovary measures up to 3.5 cm. Follicle cysts left ovary. Blood flow left ovary on spectral analysis. Small amount of free fluid in the pelvis. heart rate 124 bpm. [place]-rump length 5.0 mm, 6 week 2 day size. =====IMPRESSION:===== 1. 6 week 2 day size intrauterine . Estimated due date 05/23/2018. heart rate 124 bpm. 2. No evidence of marginal abruption. 3. No adnexal mass or torsion. 4. Small amount of free fluid in the pelvis. us Schuyler Zhong MD ULTRASOUND Final Result * LIPASE (09/29/2017 10:23 PM CDT) LIPASE 134 73 - 393 UNITS/L 09/29/2017 11:19 PM CDT [facility] 09/29/2017 10:2 3 PM CDT us Schuyler Zhong MD LABORATORY Final Result [facility] [address] [place] [address], * (ABNORMAL) URINALYSIS (09/29/2017 10:23 PM CDT) SPECIMEN TYPE URINE CLEAN CATCH 09/29/2017 10:20 PM CDT [facility] COLOR (U) STRAW 09/29/2017 10:45 PM CDT [facility] TRANSPARENCY CLEAR 09/29/2017 10:45 PM CDT [facility] SPECIFIC GRAVITY (U) 1.003 1.001 - 1.030 09/29/2017 10:45 PM CDT [facility] U PH 6.0 5.0 - 9.0 09/29/2017 10:45 PM CDT [facility] LEUKOCYTES (U) NEGATIVE NEGATIVE 09/29/2017 10:45 PM CDT [facility] NITRITES NEGATIVE NEGATIVE 09/29/2017 10:45 PM CDT [facility] PROTEIN (U) NEGATIVE <30 MG/DL 09/29/2017 10:45 PM CDT [facility] URINE GLUCOSE NEGATIVE NEGATIVE MG/DL 09/29/2017 10:45 PM CDT [facility] KETONES MG/DL (U) NEGATIVE NEGATIVE MG/DL 09/29/2017 10:45 PM CDT [facility] UROBILINOGEN NEGATIVE NEGATIVE MG/DL 09/29/2017 10:45 PM CDT [facility] BILIRUBIN (U) NEGATIVE NEGATIVE MG/DL 09/29/2017 10:45 PM CDT [facility] BLOOD (U) SMALL(A) NEGATIVE 09/29/2017 10:45 PM CDT [facility] CULTURE & SENSITIVITY INDICATED? CULTURE IS NOT INDICATED 09/29/2017 10:45 PM CDT [facility] SQUAMOUS EPITHELIALS MODERATE /LPF 09/29/2017 10:45 PM CDT [facility] WBC/HPF <1 <6 /HPF 09/29/2017 10:45 PM CDT [facility] RBC/HPF 2 <6 /HPF 09/29/2017 10:45 PM CDT [facility] SPERM (U) SPERMATOZOA PRESENT 09/29/2017 10:45 PM CDT [facility] URINE SPECIMEN OBTAINED BY CLEAN CATCH PROCEDURE / Unknown 09/29/2017 10:23 PM CDT Schuyler Zhong MD URINE ORDERABLES Final Result [facility] [address] [place] [address], * Quantitative HCG (09/29/2017 10:23 PM CDT) HCG QUANTITATIVE 27,027 MIU/ML 09/30/19 18 11:17 PM CDT [facility] Comment: WEEKS OF ? REFERENCE RANGES non- female ? < or = 2 ? 3 ? 3 - ?72 ? 4 ?10 - ? 708 ? 5 ? 217 - ?? 8,245 ? 6 ? 152 - ??32,177 ? 7 ? 4,059 - 153,767 ? 8 ?31,366 - 149,094 ? 9 ?59,109 - 135,901 ?10 ?44,186 - 170,409 ?12 ?27,107 - 201,615 ?14 ?24,302 - ??93,646 ?15 ?12,540 - ??69,747 ?16 ? 8,904 - ??55,332 ?17 ? 8,240 - ??51,793 ?18 ? 9,649 - ??55,271 09/29/2017 10:2 3 PM CDT us Schuyler Zhong MD LABORATORY Final Result [facility] [address] [place] [address], [place] [phone] * (ABNORMAL) COMPREHENSIVE METABOLIC PANEL (09/29/2017 10:23 PM CDT) [facility] GLUCOSE 102(H) 70 - 99 MG/DL 09/29/2017 11:17 PM CDT [facility] BUN 7 7 - 18 MG/DL 09/29/2017 11:17 PM CDT [facility] CREATININE S/P/B 0.73 0.55 - 1.02 MG/DL 09/29/2017 11:17 PM CDT [facility] SODIUM S/P/B 136 136 - 145 MMOL/L 09/29/2017 11:17 PM CDT [facility] POTASSIUM S/P/B 3.6 3.5 - 5.1 MMOL/L 09/29/2017 11:17 PM CDT [facility] CHLORIDE S/P/B 103 100 - 108 MMOL/L 09/29/2017 11:17 PM CDT [facility] CO2 27.5 21 - 32 MMOL/L 09/29/2017 11:17 PM CDT [facility] CALCIUM S/P/B 9.0 8.5 - 10.1 MG/DL 09/29/2017 11:17 PM CDT [facility] BILIRUBIN TOTAL S/P/B 0.3 0.2 - 1.2 MG/DL 09/29/2017 11:17 PM CDT [facility] TOTAL PROTEIN S/P/B 8.2 6.4 - 8.2 G/DL 09/29/2017 11:17 PM CDT [facility] [facility] ALBUMIN S/P/B 4.2 3.4 - 5.0 G/DL 09/29/2017 11:17 PM CDT [facility] AST 17 15 - 37 U/L 09/29/2017 11:17 PM CDT [facility] ALT 18 14 - 55 U/L 09/29/2017 11:17 PM CDT [facility] ALKALINE PHOSPHATASE S/P/B 75 50 - 136 U/L 09/29/2017 11:17 PM CDT [facility] ANION GAP 9.1 8 - 20 MMOL/L 09/29/2017 11:17 PM CDT [facility] BUN CREATININE RATIO 9.5 6 - 26 09/29/2017 11:17 PM CDT [facility] A/G RATIO 1.0 1.0 - 2.0 RATIO 09/29/2017 11:17 PM CDT [facility] EGFR NON-AFR. AMER. >60 >60 ML/MIN/1.7 3 M2 09/29/2017 11:17 PM CDT [facility] EGFR AFR. AMER. >60 >60 ML/MIN/1.7 3 M2 09/29/2017 11:17 PM CDT [facility] Comment: NOTE: eGFR is not calculated for patients <18 years of age. This is an estimated GFR (CKD EPI) and should not be used for calculating drug doses. 09/29/2017 10:2 3 PM CDT Schuyler Zhong MD LABORATORY Final Result [facility] [address] [place] [address], [place] [phone] * (ABNORMAL) CBC W/DIFF AUTOMATED (09/29/2017 10:23 PM CDT) WBC 8.5 4.8 - 10.8 x10'3/uL 09/29/2017 10:39 PM CDT [facility] RBC 4.39 4.20 - 5.40 x10'6/uL 09/29/2017 10:39 PM CDT [facility] HGB 11.9(L) 12.0 - 16.0 G/DL 09/29/2017 10:39 PM T [facility] HCT 36.9(L) 38.0 - 48.0 % 09/29/2017 10:39 PM CDT [facility] MCV 84.1 81.0 - 99.0 FL 09/29/2017 10:39 PM CDT [facility] MCH 27.1 27.0 - 31.0 PG 09/29/2017 10:39 PM CDT [facility] MCHC 32.2 32.0 - 36.0 G/DL 09/29/2017 10:39 PM CDT [facility] RDW 12.2 11.5 - 14.5 % 09/29/2017 10:39 PM CDT [facility] PLT 339 130 - 400 x10'3/uL 09/29/2017 10:39 PM CDT [facility] MPV 10.7 9.3 - 12.2 FL 09/29/2017 10:39 PM T [facility] NEUTROPHILS % 67.4(H) 43.0 - 65.0 % 09/29/2017 10:39 PM CDT [facility] LYMPHOCYTES % 21.1 20.0 - 46.0 % 09/29/2017 10:39 PM CDT [facility] MONOCYTES % 8.9 5.0 - 12.0 % 09/29/2017 10:39 PM CDT [facility] EOSINOPHILS 1.8 1.0 - 3.0 % 09/29/2017 10:39 PM CDT [facility] BASOPHILS 0.6 0.0 - 1.0 % 09/29/2017 10:39 PM CDT [facility] IMMATURE GRANS % 0.2 0.0 - 1.0 % 09/29/2017 10:39 PM CDT [facility] 09/29/2017 10:2 3 PM CDT Schuyler Zhong MD LABORATORY Final Result [facility] [address] [place] [address], documented in this encounter Visit Diagnoses Diagnosis Threatened miscarriage (HHS/HCC)- Primary Threatened , unspecified as to episode of care Early stage of (HHS/HCC) documented in this encounter Administered Medications Inactive Administered Medications - up to 3 most recent administrations Medication Order MAR Action Action Date Dose Rate Site sodium chloride 0.9% bolus infusion SOLN 1,000 mL 1,000 mL, Intravenous, Administer over 15 Minutes, Once, 1 dose, On 09/29/17 at 2300 New Bag 09/29/2017 10:53 PM CDT 1,000 mLs documented in this encounter Active and Recently Administered Medications Times are shown in CDT. Scheduled Medication Order 09/28/2017 09/29/2017 09/30/2017 sodium chloride 0.9% bolus infusion SOLN 1,000 mL (COMPLETED) 1,000 mL, Intravenous, Administer over 15 Minutes, Once, 1 dose, On 09/29/17 at 2300 2253 (New Bag - Provider: Frank Jimenes RN) 0003 (Infusion Stop Time - Provider: Frank Jimenes RN) documented in this encounter
--- OUTSIDE RECORDS SUMMARY | 2024-07-07 23:22 | XMS_ITS | Clinical Summary ---
Author Organization [facility] Address [address] [place] [address]. [place] [address] [place] [address] Care Team Providers Care Yarn Handler Name Role Phone None, Provider MD Primary Care Provider Unavaila ble Allergies No known active allergies Medications No known medications Active Problems Problem Noted Date Diagnosed Date Acute pancreatitis ([facility]) 11/01/2018 Assessment & Plan (11/01/2018 7:42 [...] cholecystectomy as outpatient Vomiting or nausea of ([facility]) 2017 Nausea & vomiting 02/25/2018 Social [...] st Contact Info) Description 07/24/2024 Hospital Encounter [facility] [place] [address] Osmin Hunt MD [address] [place] [address] Scheduled Procedures Name Priority Associated Diagnoses Date/Ti [...] this topic Medical Devices Implanted Type Area Construction Plant Operator Device Identifier Shelf Expiration Date Model / Serial / Lot Advanix Pancreatic Stent Implanted:Qty: 1 on 10/31/2018 by Isrrael Rousseau MD at [facility] N/A: Pancreas [id number] 03/26/2020 / [id number] / [id number] Insurance [facility] Advance Directives * Full Code (Latest Code Status on File) Date Activated Date Inactivated Comments 10/30/2018 4:35 PM 11/02/2018 11:13 AM Care Teams Yarn Handler Relationship Specialty Start Date End Date None, Provider, PCP - General 07/17/18
--- OUTSIDE RECORDS SUMMARY | 2024-07-07 23:22 | XMS_ITS | Encounter Summary ---
Author Organization [facility] Address [address] [place] [address]. [place] [address] [place] [address] Care Team Providers Care Irrigation Flume Layer Name Role Phone None, Provider Primary Care [...] Info) Description 07/24/[address] [facility] [place] [address] Osmin Hunt MD [address] [place] [address] Scheduled Procedures Name Priority Associated Diagnoses Date/Ti me ROBOTIC XI HYSTERECTOMY MENORRHAGIA, DYSMENORRHEA N92.4, N94.4 documented as of this encounter Visit Diagnoses Not on filedocumented in this encounter Care Teams Irrigation Flume Layer Relationship Specialty Start Date End Date None, Provider, PCP - General 07/17/18 documented as of this encounter
--- OUTSIDE RECORDS SUMMARY | 2024-07-07 23:22 | XMS_ITS | Encounter Summary ---
Author Organization [facility] Address [address] [place] [address]. [place] [address] [place] [address] Care Team Providers Care Civil Engineer In Training Name Role Phone None, Provider Primary Care Provider Unavaila ble Reason for Visit * Imaging (Routine) - Closed Specialty Diagnoses / Procedures Referred By Contac t Referred To Contact RADIOLOGY Diagnoses Calculus of gallbladder and bile duct without cholecystitis Procedures US ABD LIMITED US ABD COMPLETE Jami Henson PA-C [address] [place] [address] Phone: tel: fax: Referral ID Status Reason Start Date Expiration Date Visits Re quested Visits Authorized [id number] Closed 07/11/2019 08/11/2020 1 1 Encounter Details Date Type Department Care Team (Latest Contact Info) Description 07/17/2019 8:14 AM BANDAGE MAKER - 07/17/2019 11:59 PM [facility] Hospital Encounter [facility] Ultrasound [address] [place] [address] Jami Henson PA-C [address] [place] [address] Discharge Disposition: Home or Self [...] st Contact Info) Description 07/24/2024 Hospital Encounter [facility] [place] [address] Osmin Hunt MD [address] [address] Scheduled Procedures Name Priority Associated Diagnoses Date/Ti me ROBOTIC XI HYSTERECTOMY MENORRHAGIA, DYSMENORRHEA N92.4, N94.4 documented as of this encounter Procedures Procedure Name Priority Date/Time Associated Diagnosis Comments US ABD LIMITED Routine 07/17/2019 8:56 AM BANDAGE MAKER Calculus of gallbladder and bile duct without cholecystitis documented in this encounter Results * US ABD LIMITED (07/17/2019 8:56 AM BANDAGE MAKER) Anatomical Region Laterality Modality Abdomen Ultrasound 07/17/2019 10:3 9 AM BANDAGE MAKER Impressions 07/17/2019 10:41 AM BANDAGE MAKER IMPRESSION: 1. ??Dilation of the common bile duct consistent with prior history of cholelithiasis and ERCP. No visible gallstones. Interpreted By: Donavan Klein, 07/17/2019 10:39 AM Narrative 07/17/2019 10:41 AM BANDAGE MAKER IMAGING STUDIES: ??US ABD LIMITED ? DATE: ??07/17/2019 8:35 AM COMPARISON STUDIES: No previous exams available CLINICAL HISTORY: Calculus of gallbladder and bile duct without cholecystitis without obstruction. Past history of ERCP, stone removal and stent placement. FINDINGS: Real-time ultrasound examination performed by the principal quality engineer demonstrates: Pancreas: No obvious focal lesions within [...] FINDINGS: Real-time ultrasound examination performed by the principal quality engineer demonstrates: Pancreas: No obvious focal lesions within [...] obstruction documented in this encounter Care Teams Civil Engineer In Training Relationship Specialty Start Date End Date None, Provider, PCP - General 07/17/18 documented as of this encounter
--- OUTSIDE RECORDS SUMMARY | 2024-07-07 23:22 | XMS_ITS | Encounter Summary ---
Author Organization [facility] Address [address] [place] [address]. [place] [address] [place] [address] Care Team Providers Care Blanchard Grinder Operator Name Role Phone None, Provider Primary Care Provider Unavaila ble Reason for Visit * Reason Comments Ankle Pain Encounter Details Date Type Department Care Team (Late st Contact Info) Description 11/10/2023 2:02 PM CDT - 11/10/2023 2:40 PM CDT [facility] [place] [address] Diane Da Silva PA [address] [place] [address] Ankle Pain Discharge Disposition: Home or Self [...] Author Status No 11/01/2018 11:00 AM CDT rGiselda Whitt FNP Active * Because of a [...] care by your primary care physician or disaster recovery consultant.Please mention to your follow-up physician that [...] such as many narcotic drug combinations and zcxh-[id number] cold medicines. --Again, it was a pleasure taking care of you. * Attachments The following attachments cannot be sent through Care Everywhere. * Ankle Sprain Discharge Instructions (Kazakh) documented in this encounter ED Notes * [...] FOOT LT 3V Final Result by User, [id number] (11/09 5277) Examination: Left ankle and foot. Exam time: [...] ANKLE LT M3V Final Result by User, [email or web address] (11/09 3854) Examination: Left ankle and foot. Exam time: [...] 1 tablet (1 tablet Oral Given 11/10/23 5679) Clinical Impression Ankle sprain (Primary) There are no discharge medications for this patient. Disposition: Discharge Follow-Up: [address], [address], [place] [address] SEMAJ LOUIE 11/10/2023 SEMAJ Louie 11/10/23 1423 Cosigned by Bekah Perez MD at 11/10/2023 2:53 PM CDT documented in this encounter Plan of Treatment Upcoming Encounters Date Type Department Care Team (Late st Contact Info) Description 07/24/2024 Hospital Encounter [facility] [place] [address] Osmin Hunt MD [address] [facility] [address] [place] [address] Scheduled Procedures Name Priority Associated Diagnoses Date/Ti [...] RN) documented in this encounter Care Teams Blanchard Grinder Operator Relationship Specialty Start Date End Date None, Provider, PCP - General 07/17/18 documented as of this encounter
--- OUTSIDE RECORDS SUMMARY | 2024-07-07 23:23 | XMS_ITS | Encounter Summary ---
Author Organization [facility] Address [address] [place] [address]. [place] [address] [place] [address] Care Team Providers Care Embedded Software Development Engineer Name Role Phone None, Provider Primary Care Provider Jonel boyer Encounter Details Date Type Department Care Team (Late Contact Info) Description 02/26/2018 Hospital Follow-up Call [facility] [place] [address] Chapito Escalante, RN Social History Tobacco Use [...] st Contact Info) Description 07/24/2024 Hospital Encounter [facility] [address] [place], [place] [address] Osmin Hunt MD [address] [place] [address] [address] [place] [address] Scheduled Procedures Name Priority Associated Diagnoses Date/Ti me ROBOTIC XI HYSTERECTOMY MENORRHAGIA, DYSMENORRHEA N92.4, N94.4 documented as of this encounter Visit Diagnoses Not on filedocumented in this encounter Care Teams Embedded Software Development Engineer Relationship Specialty Start Date End Date None, Provider, PCP - General 07/17/18 documented as of this encounter
--- OUTSIDE RECORDS SUMMARY | 2024-07-07 23:23 | XMS_ITS | Encounter Summary ---
Author Organization [facility] Address [address] [place] [address]. [place] [address] [place] [address] Care Team Providers Care Wire Tinner Name Role Phone None, Provider Primary Care Provider Unavaila ble Reason for Referral * Surgical (Routine) - Closed Specialty Diagnoses / Procedures Referred By Contac t Referred To Contact Procedures Case request operating room: ERCP WITH STONE REMOVAL DUCT Cecilio Rousseau MD [address] [place] [address] Phone: tel: fax: Referral ID Status Reason Start Date Expiration Date Visits Re quested Visits Authorized [id number] Closed 10/31/2018 12/01/2019 1 1 * Imaging (Emergency) - Closed Specialty Diagnoses / Procedures Referred By Contac t Referred To Contact RADIOLOGY Procedures CT ABD+PEL W CON Elena Horta FNP-BC Referral ID Status Reason Start Date Expiration Date Visits Re quested Visits Authorized [id number] Closed 10/30/2018 11/30/2019 1 1 Reason for Visit * Reason Comments Abdominal Pain * Auth/Cert Specialty Diagnoses / Procedures Referred By Contac t Referred To Contact Diagnoses Abdominal pain Nausea and vomiting Common bile duct dilatation Abdominal pain Procedures INPT Referral ID Status Reason Start Date Expiration Date Visits Re quested Visits Authorized [id number] 1 1 Encounter Details Date Type Department Care Team (Late st Contact Info) Description 10/30/2018 12:46 PM CDT - 11/02/2018 9:08 AM CDT Hospital Encounter [facility] Clinical Decision Unit [facility] [place] [address] Elena Horta, NURSE EMERGENCY ROOM- Ignacio Sherman MD [address] [place], [place] [id number] Lety Meza MD 3 [facility] [address] [place] [address] Abdominal Pain Discharge Disposition: Home [...] Physician Discharge Summary Patient ID: Doreen Nobles [id number] 23-year-old 1995 Admit date: 10/30/2018 Expected Discharge [...] Diseases https://www.iffgd.org/ National Institutes for Health National [place] of Diabetes and Digestive and Kidney Diseases https://www.niddk.nih.gov/health-information/digestive-diseases National Institutes of Health https://www.niddk.nih.gov/health-information/professionals/dtbnhvjt-rfxla-iybmis o-cuqdcpqng-dfhaxpvn?q=abdominal+pain&o=relevance&au=pa Last Reviewed Date 2018-07-11 Consumer Information Use [...] right for you. Copyright Copyright ?? 2019 [employer]. and its affiliates and/or licensors. All rights reserved. * Attachments The following attachments cannot be sent through Care Everywhere. * High Fiber Diet (Latvian) * Constipation in Adults (Latvian) documented in this encounter Progress Notes * [...] No results for input(s): PH, PCO2, PO2, [id number], BICARBWB, BASEDEFICIT, BASEEXCESS in the [id number] hours. Cultures: Blood: No results found for [...] DISPO: Pending resolution of symptoms. Discussed with dispatcher service or work. Discussed with attending physician. ELLE ROY DO, [...] No results for input(s): PH, PCO2, PO2, U2ZTCNONSEGO, BICARBWB, BASEDEFICIT, BASEEXCESS in the [id number] hours. Cultures: Blood: No results found for [...] HISTORY, PHYSICAL, ASSESSMENT, PLAN DATE: 10/30/2018 ID: [id number] Doreen Nobles CC: abdominal pain HPI: Ms. [...] ED provider discussed patient's CT findings with dispatcher service or work. Will admit to med/surg for ERCP tomorrow. [...] file Gets together: Not on file Attends evangelical service: Not on file Active member of [...] No results for input(s): PH, PCO2, PO2, [id number], BICARBWB, BASEDEFICIT, BASEEXCESS in the [id number] hours. Cultures: Blood: No results found for [...] documented in this encounter Consult Notes * Ceciilo Rousseau MD - 10/30/2018 6:05 PM CDTAssociated [...] file Gets together: Not on file Attends evangelical service: Not on file Active member of [...] DENY; Deysi Peterson, DENY; Melisa Guevara RN housekeeping room attendant: Cinthya Lim [facility] Anesthesia: General Anesthesiologist: Tal Nuñez MD NURSE HEALTHCARE MANAGER: Micha Son CRNA; Richi Thomas CRNA Pre-Op [...] going into the PD so a 4 German by 5 cm PD stent was placed. [...] of Present Illness History provided by: Patient assistant accounting manager used: No Abdominal Pain Associated symptoms: nausea [...] encounter of 10/30/18 ECG 12 lead Narrative [address] Test Date: 2018-10-30 Pat Name: DOREEN NOBLES Department: Room: Gender: Female Installation Service Representative: EJ : 1995 Requested By: ELENA HORTA Order Number: [id number] Reading MD: Measurements Intervals Broussard Rate: 63 P: 55 GA: 122 QRS: 59 QRSD: 83 T: 37 [...] CLEAN CATCH COLOR ROBIN TRANSPARENCY CLEAR Specific [place] (U) 1.020 1.001 - 1.030 U PH [...] TEST negative NEGATIVE INT CTRL PERFORMED EXPECTED? [id number]: IMAGING STUDIES CT ABD+PEL W CON Final Result by User, [id number] (10/30 1306) Examination: CT abdomen and pelvis with IV [...] MARGARET Schmitt - 10/30/2018 12:32 PM CDT [place] EMERGENCY DEPARTMENT ENCOUNTER Medical Screening Examination [...] st Contact Info) Description 07/24/2024 Hospital Encounter [facility] [place] [address] Osmin Hunt MD [address] [place] [address] 1 [place] [address] Scheduled Orders Name Type Priority Associated Diagnoses [...] - 393 UNITS/L 11/02/2018 7:07 AM CDT [facility] 11/02/2018 6:34 AM CDT Elle Roy DO LABORATORY Final Resul t [facility] [address] [place] [address], * (ABNORMAL) COMPREHENSIVE METABOLIC PANEL (11/01/2018 5:42 AM CDT) GLUCOSE 93 70 - 99 MG/DL 11/01/2018 6:27 AM CDT [facility] BUN 6(L) 7 - 18 MG/DL 11/01/2018 6:27 AM CDT [facility] CREATININE S/P/B 0.57 0.55 - 1.02 MG/DL 11/01/2018 6:27 AM CDT [facility] SODIUM S/P/B 139 136 - 145 MMOL/L 11/01/2018 6:27 AM CDT [facility] POTASSIUM S/P/B 3.5 3.5 - 5.1 MMOL/L 11/01/2018 6:27 AM CDT [facility] CHLORIDE S/P/B 111(H) 100 - 108 MMOL/L 11/01/2018 6:27 AM CDT [facility] CO2 24.9 21 - 32 MMOL/L 11/01/2018 6:27 AM T [facility] CALCIUM S/P/B 8.2(L) 8.5 - 10.1 MG/DL 11/01/2018 6:27 AM [facility] BILIRUBIN TOTAL S/P/B 0.9 0.2 - 1.2 MG/DL 11/01/2018 6:27 AM T [facility] TOTAL PROTEIN S/P/B 6.1(L) 6.4 - 8.2 G/DL 11/01/2018 6:27 AM [facility] ALBUMIN S/P/B 3.0(L) 3.4 - 5.0 G/DL 11/01/2018 6:27 AM [facility] AST 103(H) 15 - 37 U/L 11/01/2018 6:27 AM [facility] ALT 255(H) 14 - 55 U/L 11/01/2018 6:27 AM [facility] ALKALINE PHOSPHATASE S/P/B 210(H) 50 - 136 U/L 11/01/2018 6:27 AM [facility] ANION GAP 6.6(L) 8 - 20 MMOL/L 11/01/2018 6:27 AM [facility] BUN CREATININE RATIO 10.6 11/01/2018 6:27 AM [facility] A/G RATIO 1.0 1.0 - 2.0 RATIO 11/01/2018 6:27 AM [facility] EGFR NON-AFR. AMER. >90 >90 ML/MIN/1.7 3 M2 11/01/2018 6:27 AM [facility] EGFR AFR. AMER. >90 >90 ML/MIN/1.7 3 M2 11/01/2018 6:27 AM CDT [facility] Comment: NOTE: eGFR is not calculated for patients <18 years of age. This is an estimated GFR (CKD EPI) and should not be used for calculating drug doses. 11/01/2018 5:42 AM CDT [facility] [employer] [facility] Final Resul t Performing Organization Address [facility] Co de Phone Number [facility] [address] [place] [address], [place] [phone] * (ABNORMAL) LIPASE (11/01/2018 5:42 AM CDT) LIPASE 13,500(H) 73 - 393 UNITS/L 11/01/2018 6:27 AM CDT [facility] 11/01/2018 5:42 AM CDT [facility] LABORATORY Final Resul t Performing Organization Address [facility] de Phone Number [facility] [address] [place] [address], [place] [phone] * SURG XR ERCP W YANI (10/31/2018 [...] - 2.4 MG/DL 10/31/2018 7:53 AM CDT [facility] 10/31/2018 6:12 AM CDT Elle Roy DO LABORATORY Final Resul t [facility] [address] [place] [address], [place] [phone] * (ABNORMAL) COMPREHENSIVE METABOLIC PANEL (10/31/2018 6:12 AM CDT) GLUCOSE 90 70 - 99 MG/DL 10/31/2018 7:53 AM CDT [facility] BUN 5(L) 7 - 18 MG/DL 10/31/2018 7:53 AM T [facility] CREATININE S/P/B 0.65 0.55 - 1.02 MG/DL 10/31/2018 7:53 AM T [facility] SODIUM S/P/B 138 136 - 145 MMOL/L 10/31/2018 7:53 AM T [facility] POTASSIUM S/P/B 3.5 3.5 - 5.1 MMOL/L 10/31/2018 7:53 AM T [facility] CHLORIDE S/P/B 107 100 - 108 MMOL/L 10/31/2018 7:53 AM T [facility] CO2 26.7 21 - 32 MMOL/L 10/31/2018 7:53 AM T [facility] CALCIUM S/P/B 8.6 8.5 - 10.1 MG/DL 10/31/2018 7:53 AM T [facility] BILIRUBIN TOTAL S/P/B 2.8(H) 0.2 - 1.2 MG/DL 10/31/2018 7:53 AM T [facility] TOTAL PROTEIN S/P/B 7.4 6.4 - 8.2 G/DL 10/31/2018 7:53 AM T [facility] ALBUMIN S/P/B 3.7 3.4 - 5.0 G/DL 10/31/2018 7:53 AM T [facility] AST 285(H) 15 - 37 U/L 10/31/2018 7:53 AM T [facility] ALT 409(H) 14 - 55 U/L 10/31/2018 7:53 AM T [facility] ALKALINE PHOSPHATASE S/P/B 283(H) 50 - 136 U/L 10/31/2018 7:53 AM CDT [facility] ANION GAP 7.8(L) 8 - 20 MMOL/L 10/31/2018 7:53 AM CDT [facility] BUN CREATININE RATIO 7.7 6 - 26 10/31/2018 7:53 AM CDT [facility] A/G RATIO 1.0 1.0 - 2.0 RATIO 10/31/2018 7:53 AM CDT [facility] EGFR NON-AFR. AMER. >90 >90 ML/MIN/1.7 3 M2 10/31/2018 7:53 AM CDT [facility] EGFR AFR. AMER. >90 >90 ML/MIN/1.7 3 M2 10/31/2018 7:53 AM CDT [facility] Comment: NOTE: eGFR is not calculated for patients <18 years of age. This is an estimated GFR (CKD EPI) and should not be used for calculating drug doses. 10/31/2018 6:12 AM CDT us Elle Roy DO LABORATORY Final Resul t [facility] [address] [place] [address], * CT ABD+PEL W CON (10/30/2018 3:40 [...] cyst versus physiologic free fluid. Elena Horta NURSE EMERGENCY ROOM-BC CT Final Res ult * (ABNORMAL) URINALYSIS WI REFLEX TO CULTURE (10/30/2018 1:08 PM CDT) SPECIMEN TYPE URINE CLEAN CATCH 10/30/2018 1:09 PM CDT [facility] COLOR (U) ROBIN 10/30/2018 1:38 PM CDT [facility] TRANSPARENCY CLEAR 10/30/2018 1:38 PM T [facility] SPECIFIC GRAVITY (U) 1.020 1.001 - 1.030 10/30/2018 1:38 PM T [facility] U PH 7.0 5.0 - 9.0 10/30/2018 1:38 PM T [facility] LEUKOCYTES (U) NEGATIVE NEGATIVE 10/30/2018 1:38 PM T [facility] NITRITES NEGATIVE NEGATIVE 10/30/2018 1:38 PM T [facility] PROTEIN (U) 30(H) <30 MG/DL 10/30/2018 1:38 PM T [facility] URINE GLUCOSE NEGATIVE NEGATIVE MG/DL 10/30/2018 1:38 PM T [facility] KETONES MG/DL (U) TRACE(A) NEGATIVE MG/DL 10/30/2018 1:38 PM T [facility] UROBILINOGEN 4.0(A) NEGATIVE MG/DL 10/30/2018 1:38 PM T [facility] BILIRUBIN (U) 4.0(A) NEGATIVE MG/DL 10/30/2018 1:38 PM T [facility] BLOOD (U) NEGATIVE NEGATIVE 10/30/2018 1:38 PM T [facility] CULTURE & SENSITIVITY INDICATED? CULTURE IS NOT INDICATED 10/30/2018 1:38 PM T [facility] SQUAMOUS EPITHELIALS MANY /LPF 10/30/2018 1:38 PM T [facility] MUCUS MODERATE /LPF 10/30/2018 1:38 PM [facility] WBC/HPF 1 <6 /HPF 10/30/2018 1:38 PM T [facility] RBC/HPF 1 <6 /HPF 10/30/2018 1:38 PM CDT [facility] URINE SPECIMEN OBTAINED BY CLEAN CATCH PROCEDURE / Unknown 10/30/2018 1:08 PM CDT Elena Horta NURSE EMERGENCY ROOM-BC URINE ORDERABLES Final Re sult [facility] [address] [place] [address], * POCT urine (10/30/2018 1:08 PM CDT) URINE HCG TEST negative NEGATIVE Internal Control performed as Expected? [id number] P: Elena Horta NURSE EMERGENCY ROOM-BC POINT OF CARE TEST ORDERA BLES Final Result * ECG 12 lead (10/30/2018 1:01 PM CDT) 10/30/2018 1:01 PM CDT Narrative [facility] ([place] - 10/31/2018 1:10 AM CDT ?[facility] ? [address] ? Test Date: ?2018-10-30 Pat Name: ? DOREEN NOBLES ?Department: ? Room: ? C10 Gender: ? Female ? Installation Service Representative: ?? CM : ?1995 ? Requested By: ELENA HORTA Order Number: [id number] ? Reading : ?? Coreen Apodaca ? Measurements Intervals ?Broussard ? Rate: ? 63 ? P: ?55 GA: ? 122 ?QRS: ?59 QRSD: ? 83 ? T: ?37 QT: ? 379 ? QTc: ?388 ? Interpretive Statements SINUS RHYTHM WITH SINUS ARRHYTHMIA Compared to ECG 07/17/2018 03:37:32 Rate is faster. Procedure Note Coreen Apodaca MD - 10/31/[address] Test Date: 2018-10-30 Pat Name: DOREEN NOBLES Department: Room: [facility] Gender: Female Installation Service Representative: EJ : 1995 Requested By: ELENA HORTA Order Number: [id number] Reading MD: Coreen Apodaca Measurements Intervals Broussard Rate: 63 P: 55 GA: 122 QRS: 59 QRSD: 83 T: 37 QT: 379 QTc: 388 Interpretive Statements SINUS RHYTHM WITH SINUS ARRHYTHMIA Compared to ECG 07/17/2018 03:37:32 Rate is faster. Elena Horta NURSE EMERGENCY ROOM-BC ECG ORDERABLES Final Res ult [facility] ([place] * CK (CPK) (10/30/2018 12:58 PM CDT) CPK 57 21 - 215 U/L 10/30/2018 1:34 PM CDT [facility] 10/30/2018 12:5 8 PM CDT Elena Horta [facility]- LABORATORY Final Res ult [facility] [address] [place] [address], [place] [phone] * TROPONIN, QUANT (10/30/2018 12:58 PM CDT) TROPONIN I <0.015 <0.045 ng/mL. 10/30/2018 1:34 PM CDT [facility] Comment: HIGH DOSES OF BIOTIN MAY INTERFERE WITH THIS TEST RESULT. CORRELATION TO CLINICAL HISTORY AND PRESENTATION RECOMMENDED. 10/30/2018 12:5 8 PM CDT Elena Horta [facility] LABORATORY Final Res ult [facility] [address] [place] [address], * LIPASE (10/30/2018 12:58 PM CDT) LIPASE 144 73 - 393 UNITS/L 10/30/2018 1:34 PM CDT [facility] 10/30/2018 12:5 8 PM CDT Elena Horta [facility] LABORATORY Final Res ult Performing Organization Address City/[facility] Co de Phone Number [facility] [address] [place] [address], * (ABNORMAL) COMPREHENSIVE METABOLIC PANEL (10/30/2018 12:58 PM CDT) GLUCOSE 103(H) 70 - 99 MG/DL 10/30/2018 1:34 PM CDT [facility] BUN 6(L) 7 - 18 MG/DL 10/30/2018 1:34 PM CDT [facility] CREATININE S/P/B 0.72 0.55 - 1.02 MG/DL 10/30/2018 1:34 PM CDT [facility] SODIUM S/P/B 138 136 - 145 MMOL/L 10/30/2018 1:34 PM CDT [facility] POTASSIUM S/P/B 3.9 3.5 - 5.1 MMOL/L 10/30/2018 1:34 PM CDT [facility] CHLORIDE S/P/B 104 100 - 108 MMOL/L 10/30/2018 1:34 PM CDT [facility] CO2 28.5 21 - 32 MMOL/L 10/30/2018 1:34 PM [facility] CALCIUM S/P/B 9.6 8.5 - 10.1 MG/DL 10/30/2018 1:34 PM [facility] BILIRUBIN TOTAL S/P/B 3.7(H) 0.2 - 1.2 MG/DL 10/30/2018 1:34 PM [facility] TOTAL PROTEIN S/P/B 8.7(H) 6.4 - 8.2 G/DL 10/30/2018 1:34 PM [facility] ALBUMIN S/P/B 4.3 3.4 - 5.0 G/DL 10/30/2018 1:34 PM [facility] AST 436(H) 15 - 37 U/L 10/30/2018 1:34 PM [facility] ALT 539(H) 14 - 55 U/L 10/30/2018 1:34 PM [facility] ALKALINE PHOSPHATASE S/P/B 343(H) 50 - 136 U/L 10/30/2018 1:34 PM [facility] ANION GAP 9.4 8 - 20 MMOL/L 10/30/2018 1:34 PM [facility] BUN CREATININE RATIO 8.3 6 - 26 10/30/2018 1:34 PM [facility] A/G RATIO 1.0 1.0 - 2.0 RATIO 10/30/2018 1:34 PM [facility] EGFR NON-AFR. AMER. >90 >90 ML/MIN/1.7 3 M2 10/30/2018 1:34 PM [facility] EGFR AFR. AMER. >90 >90 ML/MIN/1.7 3 M2 10/30/2018 1:34 PM [facility] Comment: NOTE: eGFR is not calculated for patients <18 years of age. This is an estimated GFR (CKD EPI) and should not be used for calculating drug doses. 10/30/2018 12:5 8 PM CDT us Elena Horta NURSE EMERGENCY ROOM-BC LABORATORY Final Res ult [facility] [address] [place] [address], * (ABNORMAL) CBC W/DIFF AUTOMATED (10/30/2018 12:58 PM CDT) WBC 5.8 4.5 - 11.0 x10'3/uL 10/30/2018 1:09 PM CDT [facility] RBC 4.56 4.20 - 5.40 x10'6/uL 10/30/2018 1:09 PM CDT [facility] HGB 11.4(L) 12.0 - 16.0 G/DL 10/30/2018 1:09 PM CDT [facility] HCT 36.9(L) 38.0 - 48.0 % 10/30/2018 1:09 PM CDT [facility] MCV 80.9(L) 81.0 - 99.0 FL 10/30/2018 1:09 PM CDT [facility] MCH 25.0(L) 27.0 - 31.0 PG 10/30/2018 1:09 PM CDT [facility] MCHC 30.9(L) 32.0 - 36.0 G/DL 10/30/2018 1:09 PM CDT [facility] RDW 14.2 11.5 - 14.5 % 10/30/2018 1:09 PM CDT [facility] PLT 380 130 - 400 x10'3/uL 10/30/2018 1:09 PM CDT [facility] MPV 10.5 9.3 - 12.2 FL 10/30/2018 1:09 PM CDT [facility] DIFFERENTIAL TYPE AUTOMATED DIFFERENTIAL 10/30/2018 1:09 PM CDT [facility] NEUTROPHILS % 73.1 % 10/30/2018 1:09 PM CDT [facility] LYMPHOCYTES % 14.2 % 10/30/2018 1:09 PM CDT [facility] MONOCYTES % 9.2 % 10/30/2018 1:09 PM CDT [facility] EOSINOPHILS 2.4 % 10/30/2018 1:09 PM CDT [facility] BASOPHILS 0.9 % 10/30/2018 1:09 PM CDT [facility] IMMATURE GRANS % 0.2 % 10/31/19 19 1:09 PM CDT [facility] ABS. NEUTROPHILS TOTAL 4.24 1.80 - 7.70 x10'3/uL 10/30/2018 1:09 PM CDT [facility] ABS. LYMPHOCYTES 0.82(L) 1.00 - 4.80 x10'3/uL 10/30/2018 1:09 PM CDT [facility] ABS. MONOCYTES 0.53 0.24 - 0.86 x10'3/uL 10/30/2018 1:09 PM CDT [facility] ABS. EOSINOPHILS 0.14 0.04 - 0.36 x10'3/uL 10/30/2018 1:09 PM CDT [facility] ABS. BASOPHILS 0.05 0.01 - 0.08 x10'3/uL 10/30/2018 1:09 PM CDT [facility] ABS. IMMATURE GRANULOCYTES 0.01 0.00 - 0.49 x10'3/uL 10/30/2018 1:09 PM CDT [facility] 10/30/2018 12:5 8 PM CDT Elena Horta [facility] LAB[facility]ATORY Final Res ult [facility] [address] [place] [address], documented in this encounter Visit Diagnoses Diagnosis [...] Discontinued documented in this encounter Care Teams Wire Tinner Relationship Specialty Start Date End Date None, Provider, PCP - General 07/17/18 documented as of this encounter
--- OUTSIDE RECORDS SUMMARY | 2024-07-07 23:23 | XMS_ITS | Encounter Summary ---
Author Organization [facility] Address [address] [place] [address]. [place] [address] [place] [address] Care Team Providers Care Ortho/Prosthetic Aide Name Role Phone None, Provider Primary Care Provider Unavaila ble Reason for Visit * Auth/Cert Specialty Diagnoses / Procedures Referred By Contac t Referred To Contact Diagnoses Abdominal pain Nausea and vomiting Common bile duct dilatation Abdominal pain Procedures INPT Referral ID Status Reason Start Date Expiration Date Visits Re quested Visits Authorized [id number] 1 1 Encounter Details Date Type Department Care Team (Late st Contact Info) Description 10/31/2018 4:42 PM CDT Anesthesia Event [facility] [place] [address] Tal Nuñez MD [address] [place] [address] [id number] (Work) Richi Thomas, SURGICAL SPECIALIST [address] [address] Anesthesia Record Procedure Summary Procedure Name Responsible Anesthesiologist Anesthesia Start Time Anesthesia Stop Time ERCP with sphinterotomy , Cholangiogram, stone removal with extractor and placement of Pancreatic Stent 4x 5, Tal Nuñez MD 10/31/18 1642 10/31/18 1750 Events Date Time Event Comment 10/31/2018 1640 1640 AN Anesthesia Prepped 1641 AN SURGICAL SPECIALIST Prepped 1642 An Start Patient ID and [...] Date: 10/31/18; Removal Time: 174; Removal Person: SURGICAL SPECIALIST; Removal Reason: End of Case 10/31/18 164 [...] st Contact Info) Description 07/24/2024 Hospital Encounter [facility] [place] [address] Osmin Hunt MD [address] [place] [id number] Scheduled Procedures Name Priority Associated Diagnoses Date/Ti [...] mg documented in this encounter Care Teams Ortho/Prosthetic Aide Relationship Specialty Start Date End Date None, Provider, PCP - General 07/17/18 documented as of this encounter
--- OUTSIDE RECORDS SUMMARY | 2024-07-07 23:23 | XMS_ITS | Encounter Summary ---
Author Organization [facility] Address [address] [place] [address]. [place] [address] [place] [address] Care Team Providers Care Operator Prefinish Name Role Phone None, Provider Primary Care Provider Unavaila ble Reason for Visit * Reason Comments Abdominal Pain * Auth/Cert Specialty Diagnoses / Procedures Referred By Contac t Referred To Contact Diagnoses Abdominal pain Nausea and vomiting Common bile duct dilatation Abdominal pain Procedures INPT Referral ID Status Reason Start Date Expiration Date Visits Re quested Visits Authorized [id number] 1 1 Encounter Details Date Type Department Care Team (Late st Contact Info) Description 10/31/2018 4:30 PM CDT - 10/31/2018 5:56 PM CDT Surgery [facility] [place] [address] Cecilio Rousseau MD [address] [address] ERCP with sphinterotomy , Cholangiogram, stone removal [...] Physician Discharge Summary Patient ID: Doreen Nobles [id number] 23-year-old 1995 Admit date: 10/30/2018 Expected Discharge [...] Diseases https://www.iffgd.org/ National Institutes for Health National [place] of Diabetes and Digestive and Kidney Diseases https://www.niddk.nih.gov/health-information/digestive-diseases National Institutes of Health https://www.niddk.nih.gov/health-information/professionals/oczrkmob-yedlm-qcybil y-fuuyookgc-oambdiya?q=abdominal+pain&o=relevance&au=pa Last Reviewed Date 2018-07-11 Consumer Information Use [...] right for you. Copyright Copyright ?? 2019 [employer], [employer]. and its affiliates and/or licensors. All rights reserved. * Attachments The following attachments cannot be sent through Care Everywhere. * High Fiber Diet (Estonian) * Constipation in Adults (Estonian) documented in this encounter Progress Notes * [...] No results for input(s): PH, PCO2, PO2, [id number], BICARBWB, BASEDEFICIT, BASEEXCESS in the [id number] hours. Cultures: Blood: No results found for [...] DISPO: Pending resolution of symptoms. Discussed with oracle technical developer. Discussed with attending physician. ELLE ROY DO, [...] No results for input(s): PH, PCO2, PO2, [id number], BICARBWB, BASEDEFICIT, BASEEXCESS in the [id number] hours. Cultures: Blood: No results found for [...] HISTORY, PHYSICAL, ASSESSMENT, PLAN DATE: 10/30/2018 ID: [id number] Doreen Nobles CC: abdominal pain HPI: Ms. [...] ED provider discussed patient's CT findings with oracle technical developer. Will admit to med/surg for ERCP tomorrow. [...] file Gets together: Not on file Attends scientology service: Not on file Active member of [...] No results for input(s): PH, PCO2, PO2, [id number], BICARBWB, BASEDEFICIT, BASEEXCESS in the [id number] hours. Cultures: Blood: No results found for [...] file Gets together: Not on file Attends scientology service: Not on file Active member of [...] DENY; Deysi Peterson, DENY; Melisa Guevara RN quality technician: Cinthya Lim [facility] Anesthesia: General Anesthesiologist: Tal Nuñez MD MAINTENANCE PLANNER: Micha Son CRNA; Richi Thomas CRNA Pre-Op [...] going into the PD so a 4 Romanian by 5 cm PD stent was placed. 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 [id number]: IMAGING STUDIES CT ABD+PEL W CON Final Result by User, [email or web address] (10/30 1848) Examination: CT abdomen and pelvis with IV [...] as of Oct 30 1633SunOct 30, 2018 [id number]--Paged GI. Dr Rousseau returned page. Agreeable to ERCP tomorrow. Would like patient to remainNPO after midnight. Pt aware of plan and agreeable. Community coverage paged for admission. [MP] [phone]--Dr Hutchinson, U resident, returned page. Agreeable to [...] MARGARET Schmitt - 10/30/2018 12:32 PM CDT [place], [place] EMERGENCY DEPARTMENT ENCOUNTER Medical Screening Examination [...] st Contact Info) Description 07/24/2024 Hospital Encounter [facility] [place] [address] Osmin Hunt MD [address] [place] [id number] Scheduled Orders Name Type Priority Associated Diagnoses [...] - 393 UNITS/L 11/02/2018 7:07 AM CDT [facility] 11/02/2018 6:34 AM CDT us Elle Roy DO LABORATORY Final Resul t [facility] [address] [place] [address], [place] [phone] * (ABNORMAL) COMPREHENSIVE METABOLIC PANEL (11/01/2018 5:42 AM CDT) [facility] GLUCOSE 93 70 - 99 MG/DL 11/01/2018 6:27 AM T [facility] BUN 6(L) 7 - 18 MG/DL 11/01/2018 6:27 AM T [facility] CREATININE S/P/B 0.57 0.55 - 1.02 MG/DL 11/01/2018 6:27 AM T [facility] SODIUM S/P/B 139 136 - 145 MMOL/L 11/01/2018 6:27 AM T [facility] POTASSIUM S/P/B 3.5 3.5 - 5.1 MMOL/L 11/01/2018 6:27 AM T [facility] CHLORIDE S/P/B 111(H) 100 - 108 MMOL/L 11/01/2018 6:27 AM T [facility] CO2 24.9 21 - 32 MMOL/L 11/01/2018 6:27 AM T [facility] CALCIUM S/P/B 8.2(L) 8.5 - 10.1 MG/DL 11/01/2018 6:27 AM T [facility] BILIRUBIN TOTAL S/P/B 0.9 0.2 - 1.2 MG/DL 11/01/2018 6:27 AM T [facility] TOTAL PROTEIN S/P/B 6.1(L) 6.4 - 8.2 G/DL 11/01/2018 6:27 AM T [facility] ALBUMIN S/P/B 3.0(L) 3.4 - 5.0 G/DL 11/01/2018 6:27 AM T [facility] AST 103(H) 15 - 37 U/L 11/01/2018 6:27 AM T [facility] ALT 255(H) 14 - 55 U/L 11/01/2018 6:27 AM CDT [facility] ALKALINE PHOSPHATASE S/P/B 210(H) 50 - 136 U/L 11/01/2018 6:27 AM T [facility] ANION GAP 6.6(L) 8 - 20 MMOL/L 11/01/2018 6:27 AM CDT [facility] BUN CREATININE RATIO 10.6 6 11/01/2018 6:27 AM CDT [facility] A/G RATIO 1.0 1.0 - 2.0 RATIO 11/01/2018 6:27 AM T [facility] EGFR NON-AFR. AMER. >90 >90 ML/MIN/1.7 3 M2 11/01/2018 6:27 AM CDT [facility] EGFR AFR. AMER. >90 >90 ML/MIN/1.7 3 M2 11/01/2018 6:27 AM T [facility] Comment: NOTE: eGFR is not calculated for patients <18 years of age. This is an estimated GFR (CKD EPI) and should not be used for calculating drug doses. 11/01/2018 5:42 AM CDT Elle Roy DO LABORATORY Final Resul t [facility] [address] [place] [address], [place] [phone] * (ABNORMAL) LIPASE (11/01/2018 5:42 AM CDT) LIPASE 13,500(H) 73 - 393 UNITS/L 11/01/2018 6:27 AM CDT [facility] 11/01/2018 5:42 AM CDT Elle K Loyke DO LABORATORY Final Resul t [facility] [address] [place] [address], [place] [phone] * SURG XR ERCP W YANI (10/31/2018 [...] - 2.4 MG/DL 10/31/2018 7:53 AM CDT [facility] 10/31/2018 6:12 AM CDT Elle Roy DO LABORATORY Final Resul t [facility] [address] [place] [address], * (ABNORMAL) COMPREHENSIVE METABOLIC PANEL (10/31/2018 6:12 AM CDT) GLUCOSE 90 70 - 99 MG/DL 10/31/2018 7:53 AM CDT [facility] BUN 5(L) 7 - 18 MG/DL 10/31/2018 7:53 AM CDT [facility] CREATININE S/P/B 0.65 0.55 - 1.02 MG/DL 10/31/2018 7:53 AM CDT [facility] SODIUM S/P/B 138 136 - 145 MMOL/L 10/31/2018 7:53 AM CDT [facility] POTASSIUM S/P/B 3.5 3.5 - 5.1 MMOL/L 10/31/2018 7:53 AM CDT [facility] CHLORIDE S/P/B 107 100 - 108 MMOL/L 10/31/2018 7:53 AM CDT [facility] CO2 26.7 21 - 32 MMOL/L 10/31/2018 7:53 AM CDT [facility] CALCIUM S/P/B 8.6 8.5 - 10.1 MG/DL 10/31/2018 7:53 AM [facility] BILIRUBIN TOTAL S/P/B 2.8(H) 0.2 - 1.2 MG/DL 10/31/2018 7:53 AM [facility] TOTAL PROTEIN S/P/B 7.4 6.4 - 8.2 G/DL 10/31/2018 7:53 AM [facility] ALBUMIN S/P/B 3.7 3.4 - 5.0 G/DL 10/31/2018 7:53 AM [facility] AST 285(H) 15 - 37 U/L 10/31/2018 7:53 AM [facility] ALT 409(H) 14 - 55 U/L 10/31/2018 7:53 AM [facility] ALKALINE PHOSPHATASE S/P/B 283(H) 50 - 136 U/L 10/31/2018 7:53 AM [facility] ANION GAP 7.8(L) 8 - 20 MMOL/L 10/31/2018 7:53 AM [facility] BUN CREATININE RATIO 7.7 6 - 26 10/31/2018 7:53 AM [facility] A/G RATIO 1.0 1.0 - 2.0 RATIO 10/31/2018 7:53 AM [facility] EGFR NON-AFR. AMER. >90 >90 ML/MIN/1.7 3 M2 10/31/2018 7:53 AM [facility] EGFR AFR. AMER. >90 >90 ML/MIN/1.7 3 M2 10/31/2018 7:53 AM [facility] Comment: NOTE: eGFR is not calculated for patients <18 years of age. This is an estimated GFR (CKD EPI) and should not be used for calculating drug doses. 10/31/2018 6:12 AM CDT Elle Roy DO LABORATORY Final Resul t [facility] [address] [place] [address], [place] [phone] * CT ABD+PEL W CON (10/30/2018 3:40 [...] cyst versus physiologic free fluid. Elena Horta BOTTOM PRESSER-BC CT Final Res ult * (ABNORMAL) URINALYSIS WI REFLEX TO CULTURE (10/30/2018 1:08 PM CDT) SPECIMEN TYPE URINE CLEAN CATCH 10/30/2018 1:09 PM CDT [facility] COLOR (U) ROBIN 10/30/2018 1:38 PM CDT [facility] TRANSPARENCY CLEAR 10/30/2018 1:38 PM CDT [facility] SPECIFIC GRAVITY (U) 1.020 1.001 - 1.030 10/30/2018 1:38 PM CDT [facility] U PH 7.0 5.0 - 9.0 10/30/2018 1:38 PM CDT [facility] LEUKOCYTES (U) NEGATIVE NEGATIVE 10/30/2018 1:38 PM CDT [facility] NITRITES NEGATIVE NEGATIVE 10/30/2018 1:38 PM CDT [facility] PROTEIN (U) 30(H) <30 MG/DL 10/30/2018 1:38 PM CDT [facility] URINE GLUCOSE NEGATIVE NEGATIVE MG/DL 10/30/2018 1:38 PM CDT [facility] KETONES MG/DL (U) TRACE(A) NEGATIVE MG/DL 10/30/2018 1:38 PM CDT [facility] UROBILINOGEN 4.0(A) NEGATIVE MG/DL 10/30/2018 1:38 PM CDT [facility] BILIRUBIN (U) 4.0(A) NEGATIVE MG/DL 10/30/2018 1:38 PM CDT [facility] BLOOD (U) NEGATIVE NEGATIVE 10/30/2018 1:38 PM CDT [facility] CULTURE & SENSITIVITY INDICATED? CULTURE IS NOT INDICATED 10/30/2018 1:38 PM CDT [facility] SQUAMOUS EPITHELIALS MANY /LPF 10/30/2018 1:38 PM CDT [facility] MUCUS MODERATE /LPF 10/30/2018 1:38 PM CDT [facility] WBC/HPF 1 <6 /HPF 10/30/2018 1:38 PM CDT [facility] RBC/HPF 1 <6 /HPF 10/30/2018 1:38 PM CDT [facility] URINE SPECIMEN OBTAINED BY CLEAN CATCH PROCEDURE / Unknown 10/30/2018 1:08 PM CDT Elena Horta BOTTOM PRESSER-BC URINE ORDERABLES Final Re sult [facility] [address] [place] [address], * POCT urine (10/30/2018 1:08 PM CDT) URINE HCG TEST negative NEGATIVE Internal Control performed as Expected? [id number] P: Elena Karey Austyn BOTTOM PRESSER-BC POINT OF CARE TEST ORDERA BLES Final Result * ECG 12 lead (10/30/2018 1:01 PM CDT) 10/30/2018 1:01 PM CDT Narrative [facility] - 10/31/2018 1:10 AM CDT ?[place] ? [address] [facility] [place] ? Test Date: ?2018-10-30 Pat Name: ? DOREEN NOBLES ?Department: ? Room: ? C10 Gender: ? Female ? Bioengineer: ?? CM : ?1995 ? Requested By: ELENA HORTA Order Number: [id number] ? Reading MD: ?? Paban Paulie ? Measurements Intervals ?Metaline ? Rate: ? 63 ? P: ?55 WV: ? 122 ?QRS: ?59 QRSD: ? 83 ? T: ?37 QT: ? 379 ? QTc: ?388 ? Interpretive Statements SINUS RHYTHM WITH SINUS ARRHYTHMIA Compared to ECG 07/17/2018 03:37:32 Rate is faster. Procedure Note Coreen Apodaca MD - 10/31/[address] 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 us Elena Horta BOTTOM PRESSER-BC ECG ORDERABLES Final Res ult [facility] * CK (CPK) (10/30/2018 12:58 PM CDT) CPK 57 21 - 215 U/L 10/30/2018 1:34 PM CDT [facility] 10/30/2018 12:5 8 PM CDT [facility] Karey Horta [facility] Final Res ult Performing Organization Address City/[facility]/ZIP Co de Phone Number [facility] [address] [place] [address], [place] [phone] * TROPONIN, QUANT (10/30/2018 12:58 PM CDT) TROPONIN I <0.015 <0.045 ng/mL. 10/30/2018 1:34 PM CDT [facility] Comment: HIGH DOSES OF BIOTIN MAY INTERFERE WITH THIS TEST RESULT. CORRELATION TO CLINICAL HISTORY AND PRESENTATION RECOMMENDED. 10/30/2018 12:5 8 PM CDT [facility] Final Res ult Performing Organization Address City/[facility]/ZIP Co de Phone Number [facility] [address] [place] [address], [place] [phone] * LIPASE (10/30/2018 12:58 PM CDT) LIPASE 144 73 - 393 UNITS/L 10/30/2018 1:34 PM CDT [facility] 10/30/2018 12:5 8 PM CDT [facility] Final Res ult [facility] [address] [place] [address], [place] [phone] * (ABNORMAL) COMPREHENSIVE METABOLIC PANEL (10/30/2018 12:58 PM CDT) [facility] GLUCOSE 103(H) 70 - 99 MG/DL 10/30/2018 1:34 PM CDT [facility] BUN 6(L) 7 - 18 MG/DL 10/30/2018 1:34 PM T [facility] CREATININE S/P/B 0.72 0.55 - 1.02 MG/DL 10/30/2018 1:34 PM CDT [facility] SODIUM S/P/B 138 136 - 145 MMOL/L 10/30/2018 1:34 PM T [facility] POTASSIUM S/P/B 3.9 3.5 - 5.1 MMOL/L 10/30/2018 1:34 PM T [facility] CHLORIDE S/P/B 104 100 - 108 MMOL/L 10/30/2018 1:34 PM T [facility] CO2 28.5 21 - 32 MMOL/L 10/30/2018 1:34 PM T [facility] CALCIUM S/P/B 9.6 8.5 - 10.1 MG/DL 10/30/2018 1:34 PM T [facility] BILIRUBIN TOTAL S/P/B 3.7(H) 0.2 - 1.2 MG/DL 10/30/2018 1:34 PM CDT [facility] TOTAL PROTEIN S/P/B 8.7(H) 6.4 - 8.2 G/DL 10/30/2018 1:34 PM T [facility] ALBUMIN S/P/B 4.3 3.4 - 5.0 G/DL 10/30/2018 1:34 PM T [facility] AST 436(H) 15 - 37 U/L 10/30/2018 1:34 PM T [facility] ALT 539(H) 14 - 55 U/L 10/30/2018 1:34 PM CDT [facility] ALKALINE PHOSPHATASE S/P/B 343(H) 50 - 136 U/L 10/30/2018 1:34 PM CDT [facility] ANION GAP 9.4 8 - 20 MMOL/L 10/30/2018 1:34 PM CDT [facility] BUN CREATININE RATIO 8.3 6 - 26 10/30/2018 1:34 PM CDT [facility] A/G RATIO 1.0 1.0 - 2.0 RATIO 10/30/2018 1:34 PM CDT [facility] EGFR NON-AFR. AMER. >90 >90 ML/MIN/1.7 3 M2 10/30/2018 1:34 PM CDT [facility] EGFR AFR. AMER. >90 >90 ML/MIN/1.7 3 M2 10/30/2018 1:34 PM CDT [facility] Comment: NOTE: eGFR is not calculated for patients <18 years of age. This is an estimated GFR (CKD EPI) and should not be used for calculating drug doses. 10/30/2018 12:5 8 PM CDT Elena Eden Austyn [facility] LAB[facility]AT[facility] Final Res ult [facility] [address] [place] [address], * (ABNORMAL) CBC W/DIFF AUTOMATED (10/30/2018 12:58 PM CDT) WBC 5.8 4.5 - 11.0 x10'3/uL 10/30/2018 1:09 PM CDT [facility] RBC 4.56 4.20 - 5.40 x10'6/uL 10/30/2018 1:09 PM CDT [facility] HGB 11.4(L) 12.0 - 16.0 G/DL 10/30/2018 1:09 PM CDT [facility] HCT 36.9(L) 38.0 - 48.0 % 10/30/2018 1:09 PM CDT [facility] MCV 80.9(L) 81.0 - 99.0 FL 10/30/2018 1:09 PM CDT [facility] MCH 25.0(L) 27.0 - 31.0 PG 10/30/2018 1:09 PM CDT [facility] MCHC 30.9(L) 32.0 - 36.0 G/DL 10/30/2018 1:09 PM CDT [facility] RDW 14.2 11.5 - 14.5 % 10/30/2018 1:09 PM CDT [facility] PLT 380 130 - 400 x10'3/uL 10/30/2018 1:09 PM CDT [facility] MPV 10.5 9.3 - 12.2 FL 10/30/2018 1:09 PM CDT [facility] DIFFERENTIAL TYPE AUTOMATED DIFFERENTIAL 10/30/2018 1:09 PM CDT [facility] NEUTROPHILS % 73.1 % 10/30/2018 1:09 PM CDT [facility] LYMPHOCYTES % 14.2 % 10/30/2018 1:09 PM CDT [facility] MONOCYTES % 9.2 % 10/30/2018 1:09 PM CDT [facility] EOSINOPHILS 2.4 % 10/30/2018 1:09 PM CDT [facility] BASOPHILS 0.9 % 10/30/2018 1:09 PM CDT [facility] IMMATURE GRANS % 0.2 % 10/31/19 19 1:09 PM CDT [facility] ABS. NEUTROPHILS TOTAL 4.24 1.80 - 7.70 x10'3/uL 10/30/2018 1:09 PM CDT [facility] ABS. LYMPHOCYTES 0.82(L) 1.00 - 4.80 x10'3/uL 10/30/2018 1:09 PM CDT [facility] ABS. MONOCYTES 0.53 0.24 - 0.86 x10'3/uL 10/30/2018 1:09 PM CDT [facility] ABS. EOSINOPHILS 0.14 0.04 - 0.36 x10'3/uL 10/30/2018 1:09 PM CDT [facility] ABS. BASOPHILS 0.05 0.01 - 0.08 x10'3/uL 10/30/2018 1:09 PM CDT [facility] ABS. IMMATURE GRANULOCYTES 0.01 0.00 - 0.49 x10'3/uL 10/30/2018 1:09 PM CDT [facility] 10/30/2018 12:5 8 PM CDT Elena Horta [facility] Final Res ult [facility] [address] [place] [address], [place] [phone] documented in this encounter Visit Diagnoses Not [...] Discontinued documented in this encounter Care Teams Operator Prefinish Relationship Specialty Start Date End Date None, Provider, PCP - General 07/17/18 documented as of this encounter
--- OUTSIDE RECORDS SUMMARY | 2024-07-07 23:23 | XMS_ITS | Encounter Summary ---
Author Organization [facility] Address [address] [place] [address]. [place] [address] [place] [address] Care Team Providers Care Vice President Investor Relations Name Role Phone Unavailable Primary Care Provider Unavailabl e Reason for Visit * Reason Comments (Nausea and Vomiting) * Auth/Cert Specialty Diagnoses / Procedures Referred By Contac t Referred To Contact Diagnoses Nausea and vomiting Nausea & vomiting Referral ID Status Reason Start Date Expiration Date Visits Re quested Visits Authorized [id number] 1 1 Encounter Details Date Type Department Care Team (Latest Contact Info) Description 02/25/2018 2:40 PM CDT - 02/26/2018 8:00 AM [facility] Hospital Encounter [facility] [place] [address] Rosanna Aquino MD [address] [place] [address] [phone] Aiden Schreiber MD [address] [place] [phone] (Nausea and Vomiting) Discharge Disposition: Home or [...] Be sure to include all prescription and tqwp-bqv-xjsunls (OTC) drugs, and herbal supplements. Tell the [...] kitchen. Where can I learn more? [employer] http://www.Genecuremes.com//yourbody_nausea.html National Association of Specialist Obstetricians and Gynaecologists http://www.nasog.org.au/women/zlnyps-q-kzmi/just-/wrkubk-crh-socltwii-du ring- Last Reviewed Date 2013-12-05 Consumer Information [...] right for you. Copyright Copyright ?? 2017 [employer] and its affiliates and/or licensors. All rights [...] as of this encounter Progress Notes * Mairah Montelongo CNM - 02/25/2018 7:07 PM CDT [...] st Contact Info) Description 07/24/2024 Hospital Encounter [facility] [place] [address] Osmin Hunt MD [address] [address] Scheduled Procedures Name Priority Associated Diagnoses Date/Ti me ROBOTIC XI HYSTERECTOMY MENORRHAGIA, DYSMENORRHEA N92.4, N94.4 documented as of this encounter Procedures Procedure Name Priority Date/Time Associated Diagnosis Comments COMPREHENSIVE METABOLIC PANEL Routine 02/26/2018 4:35 AM CDT CBC W/DIFF AUTOMATED Routine 02/26/2018 4:35 AM CDT DRUG SCREEN RAPID Routine 02/25/2018 3:5 0 PM CDT Vomiting affecting , delivered ([facility]) URINALYSIS STAT 02/25/2018 3:50 PM CDT Vomiting affecting , delivered ([facility]) URINE BACTERIA CULTURE Routine 8 3:50 PM CDT COMPREHENSIVE METABOLIC PANEL STAT 02/25/2018 3:12 PM CDT Vomiting affecting , delivered ([facility]) CBC W/DIFF AUTOMATED STAT 02/25/2018 3:12 PM CDT Vomiting affecting , delivered ([facility]) documented in this encounter Results * (ABNORMAL) COMPREHENSIVE METABOLIC PANEL (02/26/2018 4:35 AM CDT) [facility] GLUCOSE 81 70 - 99 MG/DL 02/26/2018 5:36 AM CDT [facility] BUN 5(L) 7 - 18 MG/DL 02/26/2018 5:36 AM CDT [facility] CREATININE S/P/B 0.48(L) 0.55 - 1.02 MG/DL 02/26/2018 5:36 AM T [facility] SODIUM S/P/B 141 136 - 145 MMOL/L 02/26/2018 5:36 AM T [facility] POTASSIUM S/P/B 3.6 3.5 - 5.1 MMOL/L 02/26/2018 5:36 AM T [facility] CHLORIDE S/P/B 110(H) 100 - 108 MMOL/L 02/26/2018 5:36 AM T [facility] CO2 24.0 21 - 32 MMOL/L 02/26/2018 5:36 AM T [facility] CALCIUM S/P/B 8.2(L) 8.5 - 10.1 MG/DL 02/26/2018 5:36 AM T [facility] BILIRUBIN TOTAL S/P/B 0.5 0.2 - 1.2 MG/DL 02/26/2018 5:36 AM CDT [facility] TOTAL PROTEIN S/P/B 6.2(L) 6.4 - 8.2 G/DL 02/26/2018 5:36 AM T [facility] ALBUMIN S/P/B 2.6(L) 3.4 - 5.0 G/DL 02/26/2018 5:36 AM T [facility] AST 12(L) 15 - 37 U/L 02/26/2018 5:36 AM CDT [facility] ALT 13(L) 14 - 55 U/L 02/26/2018 5:36 AM CDT [facility] ALKALINE PHOSPHATASE S/P/B 78 50 - 136 U/L 02/26/2018 5:36 AM CDT [facility] ANION GAP 10.6 8 - 20 MMOL/L 02/26/2018 5:36 AM CDT [facility] BUN CREATININE RATIO 10.3 6 - 26 02/26/2018 5:36 AM CDT [facility] A/G RATIO 0.7(L) 1.0 - 2.0 RATIO 02/26/2018 5:36 AM CDT [facility] EGFR NON-AFR. AMER. >90 >90 ML/MIN/1.7 3 M2 02/26/2018 5:36 AM CDT [facility] EGFR AFR. AMER. >90 >90 ML/MIN/1.7 3 M2 02/26/2018 5:36 AM CDT [facility] Comment: NOTE: eGFR is not calculated for patients <18 years of age. This is an estimated GFR (CKD EPI) and should not be used for calculating drug doses. 02/26/2018 4:35 AM CDT Mariah BALL LABORATORY Final Result [facility] [address] [place] [address], [place] [phone] * (ABNORMAL) CBC W/DIFF AUTOMATED (02/26/2018 4:35 AM CDT) WBC 12.3(H) 4.5 - 11.0 x10'3/uL 02/26/2018 5:13 AM CDT [facility] RBC 3.23(L) 4.20 - 5.40 x10'6/uL 02/26/2018 5:13 AM CDT [facility] HGB 8.6(L) 12.0 - 16.0 G/DL 02/26/2018 5:13 AM T [facility] HCT 27.3(L) 38.0 - 48.0 % 02/26/2018 5:13 AM CDT [facility] MCV 84.5 80.0 - 94.0 FL 02/26/2018 5:13 AM CDT [facility] MCH 26.6(L) 27.0 - 31.0 PG 02/26/2018 5:13 AM CDT [facility] MCHC 31.5(L) 32.0 - 36.0 G/DL 02/26/2018 5:13 AM CDT [facility] RDW 12.4 11.5 - 14.5 % 02/26/2018 5:13 AM CDT [facility] PLT 257 130 - 400 x10'3/uL 02/26/2018 5:13 AM T [facility] MPV 10.4 9.3 - 12.2 FL 02/26/2018 5:13 AM T [facility] DIFFERENTIAL TYPE MANUAL DIFFERENTIAL 02/26/2018 5:35 AM T [facility] SEG NEUTROPHILS 88 % 8 5:35 AM CDT [facility] LYMPHOCYTES 5 % 02/26/2018 5:35 AM CDT [facility] MONOCYTES 7 % 02/26/2018 5:35 AM T [facility] ABS. NEUTROPHILS CALCULATED 10.82(H) 1.80 - 7.70 x10'3/uL 02/26/2018 5:35 AM CDT [facility] ABS.LYMPHOCYTES CALCULATED 0.62(L) 1.00 - 4.80 x10'3/uL 02/26/2018 5:35 AM CDT [facility] ABS. MONOCYTES CALCULATED 0.86 0.24 - 0.86 x10'3/uL 02/26/2018 5:35 AM CDT [facility] RBC MORPHOLOGY RBC MORPHOLOGY APPEARS NORMAL. SLIDE REVIEWED. 02/26/2018 5:35 AM CDT [facility] PLT EST. ADEQUATE 02/26/2018 5:35 AM CDT [facility] 02/26/2018 4:35 AM CDT us Mariah Montelongo CNM LABORATORY Final Result Performing Organization Address [facility] Co de Phone Number [facility] [address] [place] [id number], * CULTURE URINE (02/25/2018 3:50 PM CDT) SPEC DESCRIPTION URINE CLEAN CATCH 02/25/2018 8:51 PM CDT [facility] SPECIAL REQUESTS NO SPECIAL REQUEST 02/25/2018 8:51 PM CDT [facility] CULTURE RESULT POLYMICROBIAL GROWTH CONSISTENT WITH NORMAL GENITAL DEBORAH. ?? SUSCEPTIBILITIES NOT ROUTINELY PERFORMED. 02/28/2018 10:02 AM CDT [facility] URINE SPECIMEN OBTAINED BY CLEAN CATCH PROCEDURE / Unknown 02/25/2018 3:50 PM CDT 02/25/2018 8:51 PM CDT Aiden Schreiber MD MICROBIOLOGY - GENERAL ORDERA BLES Final Result Performing Organization Address [facility] Co de Phone Number [facility] [address] [place] [address], * (ABNORMAL) URINALYSIS (02/25/2018 3:50 PM CDT) SPECIMEN TYPE URINE CLEAN CATCH 02/25/2018 3:56 PM CDT [facility] COLOR (U) YELLOW 02/25/2018 4:12 PM CDT [facility] TRANSPARENCY CLOUDY 02/25/2018 4:12 PM CDT [facility] SPECIFIC GRAVITY (U) 1.018 1.001 - 1.030 02/25/2018 4:12 PM CDT [facility] U PH 6.0 5.0 - 9.0 02/25/2018 4:12 PM CDT [facility] LEUKOCYTES (U) SMALL(A) NEGATIVE 02/25/2018 4:12 PM CDT [facility] NITRITES NEGATIVE NEGATIVE 02/25/2018 4:12 PM CDT [facility] PROTEIN (U) 30(H) <30 MG/DL 02/25/2018 4:12 PM CDT [facility] URINE GLUCOSE NEGATIVE NEGATIVE MG/DL 02/25/2018 4:12 PM CDT [facility] KETONES MG/DL (U) 20(A) NEGATIVE MG/DL 02/25/2018 4:12 PM CDT [facility] UROBILINOGEN 2.0(A) NEGATIVE MG/DL 02/25/2018 4:12 PM CDT [facility] BILIRUBIN (U) NEGATIVE NEGATIVE MG/DL 02/25/2018 4:12 PM CDT [facility] BLOOD (U) NEGATIVE NEGATIVE 02/25/2018 4:12 PM CDT [facility] SQUAMOUS EPITHELIALS MANY /LPF 02/25/2018 4:12 PM CDT [facility] MUCUS MANY /LPF 02/25/2018 4:12 PM CDT [facility] WBC/HPF 5 <6 /HPF 02/25/2018 4:12 PM CDT [facility] RBC/HPF <1 <6 /HPF 02/25/2018 4:12 PM CDT [facility] URINE SPECIMEN OBTAINED BY CLEAN CATCH PROCEDURE / Unknown 02/25/2018 3:50 PM CDT Mariah Montelongo LIZZY URINE ORDERABLES Final Result [facility] [address] [place] [address], * (ABNORMAL) DRUG SCREEN RAPID (02/25/2018 3:50 PM CDT) AMPHETAMINE (U) NEGATIVE NEGATIVE 8 4:14 PM CDT [facility] BARBITURATES SCREEN (U) NEGATIVE NEGATIVE 02/25/2018 4:14 PM CDT [facility] BENZODIAZEPINES SCREEN (U) NEGATIVE NEGATIVE 02/25/2018 4:14 PM CDT [facility] CANNABINOIDS SCREEN (U) NEGATIVE NEGATIVE 02/25/2018 4:14 PM CDT [facility] COCAINE METABOLITES (U) NEGATIVE NEGATIVE 02/25/2018 4:14 PM CDT [facility] METHADONE (U) NEGATIVE NEGATIVE 02/25/2018 4:14 PM CDT [facility] OPIATE SCREEN (U) NEGATIVE NEGATIVE 018 4:14 PM CDT [facility] PHENCYCLIDINE PCP (U) NEGATIVE NEGATIVE 02/25/2018 4:14 PM CDT [facility] Comment: NOTE: RESULTS OF THIS DRUG SCREEN SHOULD BE USED FOR MEDICAL PURPOSES ONLY AND NOT FOR LEGAL OR EMPLOYMENT PURPOSES. POSITIVE RESULTS ARE NOT CONFIRMED. MEDICATIONS CONTAINING EPHEDRINE MAY CAUSE FALSE POSITIVE AMPHETAMINE CALL [phone], LAB, TO REQUEST CONFIRMATION TESTING. IF CREATININE IS <40 mg/dL. ??RECOLLECTION IS SUGGESTED. AMPHETAMINE- ?500 NG/ML BARBITURATE- ?200 NG/ML BENZODIAZEPINES- ??200 NG/ML THC- ? 50 NG/ML COCAINE- ?150 NG/ML METHADONE- ?300 NG/ML OPIATE- ? 300 MG/ML PCP- ? 25 NG/ML CREATININE (U) 247.0(H) 28 - 217 MG/DL 02/25/2018 4:14 PM CDT [facility] Urine specimen (specimen) URINE SPECIMEN / Unknown 02/25/2018 3:50 PM CDT Mariah BALL URINE ORDERABLES Final Result Performing Organization Address [facility]/State/ZIP Co de Phone Number [facility] [address] [place] [address], * (ABNORMAL) COMPREHENSIVE METABOLIC PANEL (02/25/2018 3:12 PM CDT) GLUCOSE 86 70 - 99 MG/DL 02/25/2018 4:20 PM CDT [facility] BUN 8 7 - 18 MG/DL 02/25/2018 4:20 PM CDT [facility] CREATININE S/P/B 0.58 0.55 - 1.02 MG/DL 02/25/2018 4:20 PM CDT [facility] SODIUM S/P/B 141 136 - 145 MMOL/L 02/25/2018 4:20 PM CDT [facility] POTASSIUM S/P/B 3.4(L) 3.5 - 5.1 MMOL/L 02/25/2018 4:20 PM CDT [facility] CHLORIDE S/P/B 109(H) 100 - 108 MMOL/L 02/25/2018 4:20 PM T [facility] CO2 21.8 21 - 32 MMOL/L 02/25/2018 4:20 PM [facility] CALCIUM S/P/B 8.5 8.5 - 10.1 MG/DL 02/25/2018 4:20 PM T [facility] BILIRUBIN TOTAL S/P/B 0.6 0.2 - 1.2 MG/DL 02/25/2018 4:20 PM T [facility] TOTAL PROTEIN S/P/B 7.3 6.4 - 8.2 G/DL 02/25/2018 4:20 PM [facility] ALBUMIN S/P/B 3.1(L) 3.4 - 5.0 G/DL 02/25/2018 4:20 PM T [facility] AST 17 15 - 37 U/L 02/25/2018 4:20 PM [facility] ALT 16 14 - 55 U/L 02/25/2018 4:20 PM [facility] ALKALINE PHOSPHATASE S/P/B 89 50 - 136 U/L 02/25/2018 4:20 PM [facility] ANION GAP 13.6 8 - 20 MMOL/L 02/25/2018 4:20 PM T [facility] BUN CREATININE RATIO 13.7 6 - 26 02/25/2018 4:20 PM [facility] A/G RATIO 0.7(L) 1.0 - 2.0 RATIO 02/25/2018 4:20 PM [facility] EGFR NON-AFR. AMER. >90 >90 ML/MIN/1.7 3 M2 02/25/2018 4:20 PM T [facility] EGFR AFR. AMER. >90 >90 ML/MIN/1.7 3 M2 02/25/2018 4:20 PM CDT [facility] Comment: NOTE: eGFR is not calculated for patients <18 years of age. This is an estimated GFR (CKD EPI) and should not be used for calculating drug doses. 02/25/2018 3:12 PM CDT Mar[facility] B[facility] LABORAT[facility] Final Result [facility] [address] [place] [address], * (ABNORMAL) CBC W/DIFF AUTOMATED (02/25/2018 3:12 PM CDT) WBC 15.9(H) 4.5 - 11.0 x10'3/uL 02/25/2018 4:05 PM CDT [facility] RBC 3.75(L) 4.20 - 5.40 x10'6/uL 02/25/2018 4:05 PM CDT [facility] HGB 10.1(L) 12.0 - 16.0 G/DL 02/25/2018 4:05 PM CDT [facility] HCT 30.9(L) 38.0 - 48.0 % 02/25/2018 4:05 PM CDT [facility] MCV 82.4 81.0 - 99.0 FL 02/25/2018 4:05 PM CDT [facility] MCH 26.9(L) 27.0 - 31.0 PG 02/25/2018 4:05 PM CDT [facility] MCHC 32.7 32.0 - 36.0 G/DL 02/25/2018 4:05 PM CDT [facility] RDW 12.3 11.5 - 14.5 % 02/25/2018 4:05 PM CDT [facility] PLT 295 130 - 400 x10'3/uL 02/25/2018 4:05 PM T [facility] MPV 10.2 9.3 - 12.2 FL 02/25/2018 4:05 PM T [facility] DIFFERENTIAL TYPE AUTOMATED DIFFERENTIAL 02/25/2018 4:05 PM CDT [facility] NEUTROPHILS % 86.9 % 02/25/2018 4:05 PM CDT [facility] LYMPHOCYTES % 5.9 % 02/25/2018 4:05 PM T [facility] MONOCYTES % 6.1 % 02/25/2018 4:05 PM CDT [facility] EOSINOPHILS 0.3 % 02/25/2018 4:05 PM CDT [facility] BASOPHILS 0.2 % 02/25/2018 4:05 PM CDT [facility] IMMATURE GRANS % 0.6(H) 0 % 02/26/20 4:05 PM T [facility] ABS. NEUTROPHILS TOTAL 13.77(H) 1.80 - 7.70 x10'3/uL 02/25/2018 4:05 PM T [facility] ABS. LYMPHOCYTES 0.93(L) 1.00 - 4.80 x10'3/uL 02/25/2018 4:05 PM CDT [facility] ABS. MONOCYTES 0.97(H) 0.24 - 0.86 x10'3/uL 02/25/2018 4:05 PM [facility] ABS. EOSINOPHILS 0.05 0.04 - 0.36 x10'3/uL 02/25/2018 4:05 PM T [facility] ABS. BASOPHILS 0.03 0.01 - 0.08 x10'3/uL 02/25/2018 4:05 PM CDT [facility] ABS. IMMATURE GRANULOCYTES 0.10(H) 0.00 - 0.03 x10'02/25/2018 4:05 PM CDT [facility] 02/25/2018 3:12 PM CDT Mariah Montelongo CNM LABORATORY Final Result [facility] [address] [place] [address], [place] [phone] documented in this encounter Visit Diagnoses Diagnosis Vomiting affecting , delivered ([facility])- Primary Nausea & vomiting Nausea with [...] On Sun02/25/18 at 1530Indications:Vomiting affecting , delivered ([facility]) New Bag 02/25/2018 4:00 PM CDT [...] Until Sun02/26/18 at 1027Indications:Vomiting affecting , delivered ([facility]) Given 02/25/2018 4:47 PM CDT 4 mg ondansetron (ZOFRAN-ODT) disintegrating tablet 8 mg 8 mg, Oral, Every 8 hours PRN, Nausea, Vomiting, Starting on Sun02/25/18 at 1510, Until Sun02/26/18 at 1027Indications:Vomiting affecting , delivered ([facility]) potassium chloride 20 mEq in sodium chloride [...]
--- OUTSIDE RECORDS SUMMARY | 2024-07-07 23:23 | XMS_ITS | Encounter Summary ---
Author Organization [facility] Address [address] [place] [address]. [place] [address] [place] [address] Care Team Providers Care Delicatessen Department Manager Name Role Phone Unavailable Primary Care Provider Unavailabl e Reason for Visit * Reason Comments (Nausea and Vomiting) Encounter Details Date Type Department Care Team (Latest Contact Info) Description 04/15/2018 2:53 PM CDT - 04/15/2018 6:55 PM CDT Hospital Encounter [facility] [place] [address] Zohra Marie, (Nausea and Vomiting) Discharge Disposition: [...] Final Progress Note Patient ID: Magda Vernon [id number] 23-year-old 1995 Admit date: 04/15/2018 Outcome of Hospitalization: Discharged home in stable condition Disposition: Home or Self Care (Routine Discharge) Provisions for Follow Up Care: Follow-up with [facility] provider in 1 week. Principal Diagnoses: [...] Be sure to include all prescription and xtez-szj-rwfiawg (OTC) drugs, and herbal supplements. Tell the [...] National Association of Specialist Obstetricians and Gynaecologists http://www.nasog.org.au/women/bbzktz-f-shvk/just-/xsempx-dmy-wquxgdnp-du ring- Last Reviewed Date 2013-12-05 Consumer Information [...] right for you. Copyright Copyright ?? 2017 [employer]. and its affiliates and/or licensors. All rights [...] st Contact Info) Description 07/24/2024 Hospital Encounter [facility] [place] [address] Osmin Hunt MD 7 [facility] [address] [place] [address] Scheduled Procedures Name Priority Associated Diagnoses Date/Ti [...] URINE CLEAN CATCH 04/15/2018 3:20 PM CDT [facility] COLOR (U) YELLOW 04/15/2018 3:49 PM CDT [facility] TRANSPARENCY CLEAR 04/15/2018 3:49 PM CDT [facility] SPECIFIC GRAVITY (U) 1.013 1.001 - 1.030 04/15/2018 3:49 PM CDT [facility] U PH 7.0 5.0 - 9.0 04/15/2018 3:49 PM CDT [facility] LEUKOCYTES (U) NEGATIVE NEGATIVE 04/15/2018 3:49 PM CDT [facility] NITRITES NEGATIVE NEGATIVE 04/15/2018 3:49 PM CDT [facility] PROTEIN (U) NEGATIVE <30 MG/DL 04/15/2018 3:49 PM CDT [facility] URINE GLUCOSE NEGATIVE NEGATIVE MG/DL 04/15/2018 3:49 PM CDT [facility] KETONES MG/DL (U) NEGATIVE NEGATIVE MG/DL 04/15/2018 3:49 PM CDT [facility] UROBILINOGEN NEGATIVE NEGATIVE MG/DL 04/15/2018 3:49 PM CDT [facility] BILIRUBIN (U) NEGATIVE NEGATIVE MG/DL 04/15/2018 3:49 PM CDT [facility] BLOOD (U) NEGATIVE NEGATIVE 04/15/2018 3:49 PM CDT [facility] URINE SPECIMEN OBTAINED BY CLEAN CATCH PROCEDURE / Unknown 04/15/2018 3:00 PM CDT us Klever Eagle VelascoJose CN URINE ORDERABLES Final Result [facility] [address] [place] [address], [place] [phone] * DRUG SCREEN RAPID (04/15/2018 3:00 PM CDT) Pathologist [facility] AMPHETAMINE (U) NEGATIVE NEGATIVE 8 3:58 PM CDT [facility] BARBITURATES SCREEN (U) NEGATIVE NEGATIVE 04/15/2018 3:58 PM CDT [facility] BENZODIAZEPINES SCREEN (U) NEGATIVE NEGATIVE 04/15/2018 3:58 PM CDT [facility] CANNABINOIDS SCREEN (U) NEGATIVE NEGATIVE 04/15/2018 3:58 PM CDT [facility] COCAINE METABOLITES (U) NEGATIVE NEGATIVE 04/15/2018 3:58 PM CDT [facility] METHADONE (U) NEGATIVE NEGATIVE 04/15/2018 3:58 PM CDT [facility] OPIATE SCREEN (U) NEGATIVE NEGATIVE 018 3:58 PM CDT [facility] PHENCYCLIDINE PCP (U) NEGATIVE NEGATIVE 04/15/2018 3:58 PM CDT [facility] Comment: NOTE: RESULTS OF THIS DRUG SCREEN SHOULD BE USED FOR MEDICAL PURPOSES ONLY AND NOT FOR LEGAL OR EMPLOYMENT PURPOSES. POSITIVE RESULTS ARE NOT CONFIRMED. MEDICATIONS CONTAINING EPHEDRINE MAY CAUSE FALSE POSITIVE AMPHETAMINE CALL [phone], LAB, TO REQUEST CONFIRMATION TESTING. IF CREATININE IS <40 mg/dL. ??RECOLLECTION IS SUGGESTED. AMPHETAMINE- ?500 NG/ML BARBITURATE- ?200 NG/ML BENZODIAZEPINES- ??200 NG/ML THC- ? 50 NG/ML COCAINE- ?150 NG/ML METHADONE- ?300 NG/ML OPIATE- ? 300 MG/ML PCP- ? 25 NG/ML CREATININE (U) 79.3 28 - 217 MG/DL 04/15/2018 3:58 PM CDT [facility] Urine specimen (specimen) URINE SPECIMEN / Unknown 04/15/2018 3:00 PM CDT us Klever Mercer CNM URINE ORDERABLES Final Result Performing Organization Address City/State/[facility] Co de Phone Number [facility] [address] [place] [address], [place] [phone] documented in this encounter Visit Diagnoses Diagnosis [...] Bag 04/15/2018 4:39 PM CDT 250 mL/hr bhmnihwbh-tjkgknko-dfsyqsl cone (MAALOX, MYLANTA EXTRA STRENGTH) [id number] mg/30mL suspension 10 mL, Oral, Every 4 [...] RN) PRN Medication Order 04/13/2018 04/14/2018 04/15/2018 [id number]-cqklwbzo-pofudtfynne (MAALOX, MYLANTA EXTRA STRENGTH) [id number] mg/30mL suspension 10 mL, Oral, Every 4 [...]
--- OUTSIDE RECORDS SUMMARY | 2024-07-07 23:23 | XMS_ITS | Encounter Summary ---
Author Organization [facility] Address [address] [place] [address]. [place] [address] [place] [address] Care Team Providers Care Substitute Nurse Name Role Phone None, Provider Primary Care Provider Unavaila ble Reason for Referral * Imaging (Emergency) - Closed Specialty Diagnoses / Procedures Referred By Contac t Referred To Contact Procedures US PELVIC NON OB COMP TV Mario Rodríguez MD Referral ID Status Reason Start Date Expiration Date Visits Re quested Visits Authorized [id number] Closed 07/17/2018 08/17/2019 1 1 ER TENDER * Imaging (Emergency) - Closed Specialty Diagnoses / Procedures Referred By Contac t Referred To Contact Procedures CT ABD+PEL W IV CON ONLY Mario Rodríguez MD Referral ID Status Reason Start Date Expiration Date Visits Re quested Visits Authorized [id number] Closed 07/17/2018 08/17/2019 1 1 ER TENDER Reason for Visit * Reason Comments Chest Pain Encounter Details Date Type Department Care Team (Late st Contact Info) Description 07/17/2018 3:46 AM COMBER TENDER - 07/17/2018 8:26 AM COMBER TENDER Emergency [facility] [place] [address] Mario Rodríguez MD Chest Pain Discharge Disposition: [...] Comments Blood Pressure 110/70 07/17/2018 8:16 AM COMBER TENDER Pulse 62 07/17/2018 8:16 AM COMBER TENDER Temperature 36.9 ??C (98.5 ??F) 07/17/2018 8:16 AM CS T Respiratory Rate 20 07/17/2018 8:16 AM COMBER TENDER Oxygen Saturation 99% 07/17/2018 8:16 AM COMBER TENDER Inhaled Oxygen Concentration - - Weight 74 kg (163 lb 1.6 oz) 07/17/2018 3:37 AM COMBER TENDER Height 170.2 cm (5' 7 ) 07/17/2018 3:37 AM COMBER TENDER Body Mass Index 25.55 07/17/2018 3:37 AM COMBER TENDER documented in this encounter Discharge Instructions * Discharge Instructions* Mario Rodríguez MD - 07/17/2018 7:57 AM COMBER TENDER Please follow-up with your SLOT ROUTER for further evaluation of your cysts on [...] to determine why you are having constipation. ER TENDER * Attachments The following attachments cannot be sent through Care Everywhere. * Ovarian Cyst Discharge Instructions (Venezuelan) * Constipation Discharge Instructions, Adult (Venezuelan) documented in this encounter Medications at Time [...] AM CST Pt returned from CT Scan ER TENDER * Mario Rodríguez MD - 07/17/2018 4:00 [...] not use alcohol. 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 LOT: [id number] IMAGING STUDIES US PELVIC NON OB COMP TV Final Result by User, [id number] (07/17 738) EXAMINATION: Pelvic ultrasound EXAM DATE/TIME: [...] IV CON ONLY Final Result by User, [id number] (07/17 0552) CT ABD+PEL W CON: 07/17/2018 [...] colon. CHEST PORTABLE Final Result by User, [id number] (07/17 0415) Examination: Chest radiograph Exam time: [...] patient and her that she needs tohave SLOT ROUTER follow-up for these. Patient stated an understanding. [...] 07/17/18 0759 Mario Rodríguez MD 07/17/18 0804 ER TENDER ER TENDER * Cyndi Fuentes RN - 07/17/2018 3:46 AM CST Bed: 18 Expected date: Expected time: Means of arrival: Comments: Do not use ER TENDER * Alicia Vega RN - 07/17/2018 3:36 AM CST Pt reports substernal chest pain today sharp in nature that occurred 2 other times, states it radiates into right chest area. ER TENDER documented in this encounter Plan of Treatment Upcoming Encounters Date Type Department Care Team (Late st Contact Info) Description 07/24/[address] [facility] [place] [address] Osmin Hunt MD [address] [place] [address] Scheduled Procedures Name Priority Associated Diagnoses Date/Ti me ROBOTIC XI HYSTERECTOMY MENORRHAGIA, DYSMENORRHEA N92.4, N94.4 documented as of this encounter Procedures Procedure Name Priority Date/Time Associated Diagnosis Comments US PELVIC NON OB COMP TV STAT 07/17/2018 7:[address] ABD+PEL W CON STAT 07/17/2018 5:32 AM COMBER TENDER POCT URINE (BACK OFFICE) STAT 07/17/2018 4:31 AM COMBER TENDER XR CHEST PORTABLE STAT 07/17/2018 4:1 3 AM COMBER TENDER COMPREHENSIVE METABOLIC PANEL STAT 07/17/2018 3:46 AM COMBER TENDER CBC W/DIFF AUTOMATED STAT 07/17/2018 3:46 AM COMBER TENDER TROPONIN, QUANT STAT 07/17/2018 3:46 AM COMBER TENDER LIPASE STAT 07/17/2018 3:46 AM COMBER TENDER ECG 12-LEAD STAT 07/17/2018 3:37 AM COMBER TENDER documented in this encounter Results * US PELVIC NON OB COMP TV (07/17/2018 7:31 AM COMBER TENDER) Anatomical Region Laterality Modality Pelvis Ultrasound 07/17/2018 7:31 AM COMBER TENDER Narrative 07/17/2018 7:38 AM COMBER TENDER EXAMINATION: Pelvic ultrasound EXAM DATE/TIME: 07/17/2018 6:28 [...] W IV CON ONLY (07/17/2018 5:32 AM COMBER TENDER) Anatomical Region Laterality Modality Abdomen Computed Tomogra phy 07/17/2018 5:47 AM COMBER TENDER Impressions 07/17/2018 5:51 AM COMBER TENDER IMPRESSION: Enlarged left adnexa probably ovarian cysts. Nonvisualization of appendix. Moderate stool burden ascending transverse colon. Narrative 07/17/2018 5:[address] ABD+PEL W CON: 07/17/2018 5:26 AM [...] Result * POCT urine (07/17/2018 4:31 AM COMBER TENDER) URINE HCG TEST NEG NEGATIVE Internal Control performed as Expected? LOT: [id number] Comment:CONTROL PRESENT us Mario Rodríguez MD POINT OF CARE TEST ORDERABLES Fi nal Result * XR CHEST PORTABLE (07/17/2018 4:13 AM COMBER TENDER) Anatomical Region Laterality Modality Chest Radiographic Heidi ging 07/17/2018 4:14 AM COMBER TENDER Impressions 07/17/2018 4:14 AM COMBER TENDER IMPRESSION: No acute findings. Narrative 07/17/2018 4:14 AM COMBER TENDER Examination: Chest radiograph Exam time: 07/17/2018 3:58 [...] Final Result * LIPASE (07/17/2018 3:46 AM COMBER TENDER) LIPASE 250 73 - 393 UNITS/L 07/17/2018 4:[address] [facility] 07/17/2018 3:46 AM COMBER TENDER Mario Rodríguez MD LABORATORY Final Result Performing Organization Address City/[facility]/ZIP Co de Phone Number [facility] [address] [place] [address], [place] [phone] * TROPONIN, QUANT (07/17/2018 3:46 AM COMBER TENDER) TROPONIN I <0.015 <0.045 ng/mL. 07/17/2018 4:[address] [facility] Comment: HIGH DOSES OF BIOTIN MAY INTERFERE WITH THIS TEST RESULT. CORRELATION TO CLINICAL HISTORY AND PRESENTATION RECOMMENDED. 07/17/2018 3:46 AM COMBER TENDER Mario Rodríguez MD LABORATORY Final Result Performing Organization Address [facility] Co de Phone Number [facility] [address] [place] [address], [place] [phone] * (ABNORMAL) COMPREHENSIVE METABOLIC PANEL (07/17/2018 3:46 AM COMBER TENDER) GLUCOSE 104(H) 70 - 99 MG/DL 07/17/2018 4:18 AM [facility] BUN 10 7 - 18 MG/DL 07/17/2018 4:18 AM [facility] CREATININE S/P/B 0.84 0.55 - 1.02 MG/DL 07/17/2018 4:18 AM [facility] SODIUM S/P/B 140 136 - 145 MMOL/L 07/17/2018 4:18 AM [facility] POTASSIUM S/P/B 3.3(L) 3.5 - 5.1 MMOL/L 07/17/2018 4:18 AM [facility] CHLORIDE S/P/B 104 100 - 108 MMOL/L 07/17/2018 4:18 AM [facility] CO2 29.8 21 - 32 MMOL/L 07/17/2018 4:18 AM [facility] CALCIUM S/P/B 8.7 8.5 - 10.1 MG/DL 07/17/2018 4:18 AM [facility] BILIRUBIN TOTAL S/P/B 0.3 0.2 - 1.2 MG/DL 07/17/2018 4:18 AM [facility] TOTAL PROTEIN S/P/B 8.1 6.4 - 8.2 G/DL 07/17/2018 4:18 AM [facility] ALBUMIN S/P/B 4.1 3.4 - 5.0 G/DL 07/17/2018 4:18 AM [facility] AST 14(L) 15 - 37 U/L 07/17/2018 4:18 AM [facility] ALT 15 14 - 55 U/L 07/17/2018 4:18 AM [facility] ALKALINE PHOSPHATASE S/P/B 108 50 - 136 U/L 07/17/2018 4:18 AM [facility] ANION GAP 9.5 8 - 20 MMOL/L 07/17/2018 4:18 AM [facility] BUN CREATININE RATIO 12.0 6 - 26 07/17/2018 4:18 AM [facility] A/G RATIO 1.0 1.0 - 2.0 RATIO 07/17/2018 4:18 AM [facility] EGFR NON-AFR. AMER. >90 >90 ML/MIN/1.7 3 M2 07/17/2018 4:18 AM [facility] EGFR AFR. AMER. >90 >90 ML/MIN/1.7 3 M2 07/17/2018 4:18 AM [facility] Comment: NOTE: eGFR is not calculated for patients <18 years of age. This is an estimated GFR (CKD EPI) and should not be used for calculating drug doses. 07/17/2018 3:46 AM COMBER TENDER Mario Rodríguez MD LABORATORY Final Result [facility] [address] [place] [address], * (ABNORMAL) CBC W/DIFF AUTOMATED (07/17/2018 3:46 AM COMBER TENDER) WBC 8.1 4.5 - 11.0 x10'3/uL 07/17/2018 4:09 AM [facility] RBC 4.66 4.20 - 5.40 x10'6/uL 07/17/2018 4:09 AM [facility] HGB 11.1(L) 12.0 - 16.0 G/DL 07/17/2018 4:09 AM [facility] HCT 37.7(L) 38.0 - 48.0 % 07/17/2018 4:09 AM [facility] MCV 80.9 80.0 - 94.0 FL 07/17/2018 4:09 AM [facility] MCH 23.8(L) 27.0 - 31.0 PG 07/17/2018 4:09 AM [facility] MCHC 29.4(L) 32.0 - 36.0 G/DL 07/17/2018 4:09 AM [facility] RDW 16.8(H) 11.5 - 14.5 % 07/17/2018 4:09 AM [facility] PLT 428(H) 130 - 400 x10'3/uL 07/17/2018 4:09 AM [facility] MPV 10.7 9.3 - 12.2 FL 07/17/2018 4:09 AM [facility] DIFFERENTIAL TYPE AUTOMATED DIFFERENTIAL 07/17/2018 4:09 AM [facility] NEUTROPHILS % 51.7 % 07/17/2018 4:09 AM [facility] LYMPHOCYTES % 33.7 % 07/17/2018 4:09 AM [facility] MONOCYTES % 9.3 % 07/17/2018 4:09 AM [facility] EOSINOPHILS 4.3 % 07/17/2018 4:09 AM [facility] BASOPHILS 0.9 % 07/17/2018 4:09 AM [facility] IMMATURE GRANS % 0.1(H) 0 % 07/17/19 19 4:09 AM [facility] ABS. NEUTROPHILS TOTAL 4.21 1.80 - 7.70 x10'3/uL 07/17/2018 4:09 AM [facility] ABS. LYMPHOCYTES 2.74 1.00 - 4.80 x10'3/uL 07/17/2018 4:09 AM [facility] ABS. MONOCYTES 0.76 0.24 - 0.86 x10'3/uL 07/17/2018 4:09 AM [facility] ABS. EOSINOPHILS 0.35 0.04 - 0.36 x10'3/uL 07/17/2018 4:09 AM [facility] ABS. BASOPHILS 0.07 0.01 - 0.08 x10'3/uL 07/17/2018 4:09 AM [facility] ABS. IMMATURE GRANULOCYTES 0.01 0.00 - 0.03 x10'3/uL 07/17/2018 4:09 AM [facility] 07/17/2018 3:46 AM COMBER TENDER us Mario Rodríguez MD LABORATORY Final Result [facility] [address] [place] [address], * ECG 12-Lead (07/17/2018 3:37 AM COMBER TENDER) 07/17/2018 3:37 AM COMBER TENDER Narrative [facility] NEAL RODRIGUEZ (RENEE) RAD - 07/17/2018 10:17 PM COMBER TENDER ?[facility] [address] [facility] [place] ? Test Date: ?2018-07-17 Pat Name: ? DOREEN NOBLES ?Department: ? Room: ? Gender: ? Female ? 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 Requested By: MARIO RODRÍGUEZ Order Number: [id number] ? Reading : ?? Maria Del Rosario Shahid ? Measurements Intervals ?Bartlett ? Rate: ? 50 ? P: ?57 IN: ? 132 ?QRS: ?43 QRSD: ? 85 ? T: ?26 QT: ? 415 ? QTc: ?381 ? Interpretive Statements SINUS BRADYCARDIA WITH SINUS ARRHYTHMIA Early transition No previous ECG available for comparison ER TENDER Procedure Note Maria Del Rosario Shahid MD - 07/17/[address] 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 Given 07/17/2018 6:44 AM COMBER TENDER 1 mg iopamidol (ISOVUE-370) 76 % injection 100 mL 100 mL, Intravenous, IMG once as needed, Contrast, 1 dose, Starting on Sun07/17/18 at 0541, Until Sun07/17/18 at 0528 Given 07/17/2018 5:28 AM COMBER TENDER 100 mLs Other morphine injection 4 mg 4 mg, Intravenous, Once, 1 dose, On Sun07/17/18 at 0445 Given 07/17/2018 6:07 AM COMBER TENDER 4 mg ondansetron (ZOFRAN) injection 4 mg 4 mg, Intravenous, Once, 1 dose, On Sun07/17/18 at 0415, IV push over 2-5 minutes. Given 07/17/2018 6:07 AM COMBER TENDER 4 mg ondansetron (ZOFRAN) injection 4 mg 4 mg, Intravenous, Once, 1 dose, On Sun07/17/18 at 0645, IV push over 2-5 minutes. Given 07/17/2018 6:42 AM COMBER TENDER 4 mg potassium chloride (K-TAB) tablet 40 mEq 40 mEq, Oral, Once, 1 dose, On Sun07/17/18 at 0730, Do not break, chew, or crush. Given 07/17/2018 8:09 AM COMBER TENDER 40 mEq documented in this encounter Active and Recently Administered Medications Times are shown in COMBER TENDER. Scheduled Medication Order 07/15/2018 07/16/2018 07/17/2018 aspirin [...] Wrist) documented in this encounter Care Teams Substitute Nurse Relationship Specialty Start Date End Date None, Provider, PCP - General 07/17/18 documented as of this encounter
--- OUTSIDE RECORDS SUMMARY | 2024-07-07 23:23 | XMS_ITS | Encounter Summary ---
Author Organization [facility] Address [address] [place] [address]. [place] [address] [place] [address] Care Team Providers Care Build Manager Name Role Phone Unavailable Primary Care Provider Unavailabl e Reason for Referral * (Emergency) - Closed Specialty Diagnoses / Procedures Referred By Contac t Referred To Contact Procedures US OB TRANSVAG US OB <[id number] TA Schuyler Zhong MD Phone: tel: fax: Referral ID Status Reason Start Date Expiration Date Visits Re quested Visits Authorized [id number] Closed 09/29/2017 10/30/2018 1 1 Reason for Visit * Reason Comments Abdominal Pain Encounter Details Date Type Department Care Team (Late st Contact Info) Description 09/29/2017 9:38 PM CDT - 09/30/2017 1:18 AM CDT Emergency [facility] [place] [address] Schuyler Zhong MD [address] [place] [address] [place] [address] Abdominal Pain Discharge Disposition: Home or Self [...] Written by the doctors and editors at [facility] What do I need to do differently while I am ???--??During , most women can be as active as they were before they got . This includes traveling, working, exercising, and having sex. If you have any questions about doing an activity during , be sure to ask your doctor or claim clinician. Women with certain conditions might need to limit their activity. If your doctor or claim clinician thinks you should limit your activity, he [...] to another country, let your doctor or claim clinician know. In some countries, infection is a concern. Ask your doctor or claim clinician whether you can safely go there. For [...] stop exercising and let your doctor or claim clinician know if you have any of the [...] process is complete. This topic retrieved from [employer] on: Jul 12, 2017. Topic 95746 Version 5.0 Release: 25.6.2-122 - C26.3 ?2018??[employer] and/or its affiliates.??All rights reserved. Consumer Information [...] that is right for you.The use of [employer] content is governed by the [employer] Terms of Use. ??2018 [employer]. All rights reserved. Copyright ?2018??[employer] and/or its affiliates.??All rights reserved. Patient Education [...] under control. Where can I learn more? [place] Congress of Obstetricians and Gynecologists https://www.acog.org/Patients/FAQs/Zwghhsbz-Tpkxus-Rbbavnvza Australian Association http://americanpregnancy.org/-complications/pxotfjwv-vowmoy-cvwjtkldf/ NHS Choices http://www.nhs.uk/conditions/asinzpjei-npj-trfn/pages/gwzkvdw-fjrstqmr-oulodxtb. aspx#close Last Reviewed Date 2017-06-26 Consumer Information [...] right for you. Copyright Copyright ?? 2018 [employer] and its affiliates and/or licensors. All rights [...] HCG Result Value Ref Range HCG, QUANTITATIVE 44609 MIU/ML URINALYSIS Result Value Ref Range Specimen Type URINE CLEAN CATCH COLOR STRAW TRANSPARENCY CLEAR Specific Belcher (U) 1.003 1.001 - 1.030 U PH [...] st Contact Info) Description 07/24/2024 Hospital Encounter [facility] [place] [address] Osmin Hunt MD [address] [address] Scheduled Procedures Name Priority Associated Diagnoses Date/Ti [...] ABO/RH A POSITIVE 09/30/2017 1:47 AM CDT [facility] 09/30/2017 12:5 6 AM CDT Schuyler Zhong MD BLOOD BANK TEST ORDERA BLES Final Result [facility] [address] [place] [address], [place] [phone] * US OB TRANSVAG (09/30/2017 12:20 AM [...] in the pelvis. heart rate 124 bpm. [place]-rump length 5.0 mm, 6 week 2 day [...] in the pelvis. heart rate 124 bpm. [place]-rump length 5.0 mm, 6 week 2 day [...] - 393 UNITS/L 09/29/2017 11:19 PM CDT [facility] 09/29/2017 10:2 3 PM CDT us Schuyler Zhong MD LABORATORY Final Result [facility] [address] [place] [address], * (ABNORMAL) URINALYSIS (09/29/2017 10:23 PM CDT) SPECIMEN TYPE URINE CLEAN CATCH 09/29/2017 10:20 PM CDT [facility] COLOR (U) STRAW 09/29/2017 10:45 PM CDT [facility] TRANSPARENCY CLEAR 09/29/2017 10:45 PM CDT [facility] SPECIFIC GRAVITY (U) 1.003 1.001 - 1.030 09/29/2017 10:45 PM CDT [facility] U PH 6.0 5.0 - 9.0 09/29/2017 10:45 PM CDT [facility] LEUKOCYTES (U) NEGATIVE NEGATIVE 09/29/2017 10:45 PM CDT [facility] NITRITES NEGATIVE NEGATIVE 09/29/2017 10:45 PM CDT [facility] PROTEIN (U) NEGATIVE <30 MG/DL 09/29/2017 10:45 PM CDT [facility] URINE GLUCOSE NEGATIVE NEGATIVE MG/DL 09/29/2017 10:45 PM CDT [facility] KETONES MG/DL (U) NEGATIVE NEGATIVE MG/DL 09/29/2017 10:45 PM CDT [facility] UROBILINOGEN NEGATIVE NEGATIVE MG/DL 09/29/2017 10:45 PM CDT [facility] BILIRUBIN (U) NEGATIVE NEGATIVE MG/DL 09/29/2017 10:45 PM CDT [facility] BLOOD (U) SMALL(A) NEGATIVE 09/29/2017 10:45 PM CDT [facility] CULTURE & SENSITIVITY INDICATED? CULTURE IS NOT INDICATED 09/29/2017 10:45 PM CDT [facility] SQUAMOUS EPITHELIALS MODERATE /LPF 09/29/2017 10:45 PM CDT [facility] WBC/HPF <1 <6 /HPF 09/29/2017 10:45 PM CDT [facility] RBC/HPF 2 <6 /HPF 09/29/2017 10:45 PM CDT [facility] SPERM (U) SPERMATOZOA PRESENT 09/29/2017 10:45 PM CDT [facility] URINE SPECIMEN OBTAINED BY CLEAN CATCH PROCEDURE / Unknown 09/29/2017 10:23 PM CDT Schuyler Zhong MD URINE ORDERABLES Final Result [facility] [address] [place] [address], * Quantitative HCG (09/29/2017 10:23 PM CDT) HCG QUANTITATIVE 27,027 MIU/ML 09/30/19 18 11:17 PM CDT [facility] Comment: WEEKS OF ? REFERENCE [...] us Schuyler Zhong MD LABORATORY Final Result [facility] [address] [place] [address], [place] [phone] * (ABNORMAL) COMPREHENSIVE METABOLIC PANEL (09/29/2017 10:23 PM CDT) [facility] GLUCOSE 102(H) 70 - 99 MG/DL 09/29/2017 11:17 PM CDT [facility] BUN 7 7 - 18 MG/DL 09/29/2017 11:17 PM CDT [facility] CREATININE S/P/B 0.73 0.55 - 1.02 MG/DL 09/29/2017 11:17 PM CDT [facility] SODIUM S/P/B 136 136 - 145 MMOL/L 09/29/2017 11:17 PM CDT [facility] POTASSIUM S/P/B 3.6 3.5 - 5.1 MMOL/L 09/29/2017 11:17 PM CDT [facility] CHLORIDE S/P/B 103 100 - 108 MMOL/L 09/29/2017 11:17 PM CDT [facility] CO2 27.5 21 - 32 MMOL/L 09/29/2017 11:17 PM CDT [facility] CALCIUM S/P/B 9.0 8.5 - 10.1 MG/DL 09/29/2017 11:17 PM CDT [facility] BILIRUBIN TOTAL S/P/B 0.3 0.2 - 1.2 MG/DL 09/29/2017 11:17 PM CDT [facility] TOTAL PROTEIN S/P/B 8.2 6.4 - 8.2 G/DL 09/29/2017 11:17 PM CDT [facility] ALBUMIN S/P/B 4.2 3.4 - 5.0 G/DL 09/29/2017 11:17 PM CDT [facility] AST 17 15 - 37 U/L 09/29/2017 11:17 PM CDT [facility] ALT 18 14 - 55 U/L 09/29/2017 11:17 PM CDT [facility] ALKALINE PHOSPHATASE S/P/B 75 50 - 136 U/L 09/29/2017 11:17 PM CDT [facility] ANION GAP 9.1 8 - 20 MMOL/L 09/29/2017 11:17 PM CDT [facility] BUN CREATININE RATIO 9.5 6 - 26 09/29/2017 11:17 PM CDT [facility] A/G RATIO 1.0 1.0 - 2.0 RATIO 09/29/2017 11:17 PM CDT [facility] EGFR NON-AFR. AMER. >60 >60 ML/MIN/1.7 3 M2 09/29/2017 11:17 PM CDT [facility] EGFR AFR. AMER. >60 >60 ML/MIN/1.7 3 M2 09/29/2017 11:17 PM CDT [facility] Comment: NOTE: eGFR is not calculated for patients <18 years of age. This is an estimated GFR (CKD EPI) and should not be used for calculating drug doses. 09/29/2017 10:2 3 PM CDT Schuyler Zhong MD LABORATORY Final Result [facility] [address] [place] [address], [place] [phone] * (ABNORMAL) CBC W/DIFF AUTOMATED (09/29/2017 10:23 PM CDT) WBC 8.5 4.8 - 10.8 x10'3/uL 09/29/2017 10:39 PM CDT [facility] RBC 4.39 4.20 - 5.40 x10'6/uL 09/29/2017 10:39 PM CDT [facility] HGB 11.9(L) 12.0 - 16.0 G/DL 09/29/2017 10:39 PM T [facility] HCT 36.9(L) 38.0 - 48.0 % 09/29/2017 10:39 PM CDT [facility] MCV 84.1 81.0 - 99.0 FL 09/29/2017 10:39 PM CDT [facility] MCH 27.1 27.0 - 31.0 PG 09/29/2017 10:39 PM CDT [facility] MCHC 32.2 32.0 - 36.0 G/DL 09/29/2017 10:39 PM CDT [facility] RDW 12.2 11.5 - 14.5 % 09/29/2017 10:39 PM CDT [facility] PLT 339 130 - 400 x10'3/uL 09/29/2017 10:39 PM CDT [facility] MPV 10.7 9.3 - 12.2 FL 09/29/2017 10:39 PM T [facility] NEUTROPHILS % 67.4(H) 43.0 - 65.0 % 09/29/2017 10:39 PM CDT [facility] LYMPHOCYTES % 21.1 20.0 - 46.0 % 09/29/2017 10:39 PM CDT [facility] MONOCYTES % 8.9 5.0 - 12.0 % 09/29/2017 10:39 PM CDT [facility] EOSINOPHILS 1.8 1.0 - 3.0 % 09/29/2017 10:39 PM CDT [facility] BASOPHILS 0.6 0.0 - 1.0 % 09/29/2017 10:39 PM CDT [facility] IMMATURE GRANS % 0.2 0.0 - 1.0 % 09/29/2017 10:39 PM CDT [facility] [place] [facility] 09/29/2017 10:2 3 PM CDT Schuyler Zhong MD LABORATORY Final Result [facility] [address] [place] [address], documented in this encounter Visit Diagnoses Diagnosis [...]
--- OUTSIDE RECORDS SUMMARY | 2024-07-07 23:23 | XMS_ITS | Encounter Summary ---
Author Organization [facility] Address [address] [place] [address]. [place] [address] [place] [address] Care Team Providers Care Respiratory Physician Name Role Phone Patti Briceño MD Primary Care Provider Unavailable None, Provider Primary Care Provider Unavaila ble Encounter Details Date Type Department Care Team (Late Contact Info) Description 05/12/2017 Abstract [place] [address] Patti Briceño MD Social History Tobacco Use [...] (Late Contact Info) Description 07/24/[address] [facility] [place] [address] Osmin Hunt MD [address] [place] [address] Scheduled Procedures Name Priority Associated Diagnoses Date/Ti me ROBOTIC XI HYSTERECTOMY MENORRHAGIA, DYSMENORRHEA N92.4, N94.4 documented as of this encounter Visit Diagnoses Not on filedocumented in this encounter Care Teams Respiratory Physician Relationship Specialty Start Date End Date Patti Briceño MD PCP - General 08/06/15 None, Provider, PCP - General 07/17/18 documented as of this encounter
--- OUTSIDE RECORDS SUMMARY | 2024-07-07 23:23 | XMS_ITS | Encounter Summary ---
Author Organization [facility] Address [address] [place] [address]. [place] [address] [place] [address] Care Team Providers Care Resident Director Name Role Phone Patti Cortez MD Primary Care Provider Unavailable Encounter Details Date Type Department Care Team (Late st Contact Info) Description 08/06/[address] [facility] [address] [place] [address] Griselda Han, SENIOR SUPPORT ANALYST [address] [facility] [address] [place] [address] Social History Tobacco Use Types Packs/Day Years [...] Encounter [facility] [place], [place] [id number] Osmin Hunt MD [address] [place] [address] [address] [place] [address] Scheduled Procedures Name Priority Associated Diagnoses Date/Ti me ROBOTIC XI HYSTERECTOMY MENORRHAGIA, DYSMENORRHEA N92.4, N94.4 documented as of this encounter Procedures Procedure Name Priority Date/Time Associated Diagnosis Comments CULTURE STREP A Routine 08/06/2015 12:30 PM APPLICATION ENGINEER RAPID STREP A STAT 08/06/2015 12:30 PM APPLICATION ENGINEER documented in this encounter Results * CULTURE STREP A (08/06/2015 12:30 PM APPLICATION ENGINEER) SPEC DESCRIPTION THROAT 08/06/2015 12:44 PM APPLICATION ENGINEER [facility] SPECIAL REQUESTS NO SPECIAL REQUEST 08/06/2015 12:44 PM APPLICATION ENGINEER [facility] CULTURE RESULT NO STREPTOCOCCUS PYOGENES (GROUP A) ISOLATED 08/08/2015 9:02 AM APPLICATION ENGINEER [facility] THROAT SWAB / Unknown 08/06/2015 12:30 PM APPLICATION ENGINEER 08/06/2015 12:43 PM APPLICATION ENGINEER us Generic Conversion Md [facility] - GENERAL ORDERABLES Final Result Performing Organization Address City/[facility]/ZIP Co de Phone Number [facility] [address] [place] [address], * RAPID STREP A (08/06/2015 12:30 PM APPLICATION ENGINEER) SPECIMEN TYPE THROAT 08/06/2015 12:35 PM APPLICATION ENGINEER [facility] RAPID STREP TEST NEGATIVE NEGATIVE 08/06/2015 12:43 PM APPLICATION ENGINEER [facility] Comment: TESTING PERFORMED AT [facility] [address] [place] [address] ??[id number] JOHANNA DAVIS M.D., INSTRUCTIONAL INTERVENTIONIST THROAT SWAB / Unknown 08/06/2015 12:30 PM APPLICATION ENGINEER 08/06/2015 12:35 PM APPLICATION ENGINEER us Generic Conversion Md [facility] - GENERAL ORDERABLES Final Result [facility] [address] [place] [address], documented in this encounter Visit Diagnoses Diagnosis Acute pharyngitis documented in this encounter Care Teams Resident Director Relationship Specialty Start Date End Date Patti Cortez, PCP - General 08/06/15 documented as of this encounter
--- OUTSIDE RECORDS SUMMARY | 2024-07-07 23:23 | XMS_ITS | Encounter Summary ---
Author Organization [facility] Address [address] [place] [address]. [place] [address] [place] [address] Care Team Providers Care Import Export Coordinator Name Role Phone Unavailable Primary Care Provider Unavailabl e Reason for Visit * Reason Comments Cough Encounter Details Date Type Department Care Team (Latest Contact Info) Description 10/27/2017 1:03 PM CDT - 10/27/2017 1:34 PM CDT Hospital Encounter [facility] [address] [place] [address] Olena Canales, PEST CONTROL WORKER HELPER [address] [place], [place] [id number] Cough Discharge Disposition: Home or Self Care [...] Discharge Instructions * Discharge Instructions* Olena Canales, PEST CONTROL WORKER HELPER - 10/27/2017 1:25 PM CDT Images from [...] trouble breathing. Where can I learn more? [place] [employer] http://www.lung.ca/diseases-maladies/a-z/cold-rhume/index_e.php [employer] [place] [employer] http://www.niaid.nih.gov/topics/commonCold/Pages/treatment.aspx Last [...] for you. Copyright Copyright ?? 2018 [employer] and its affiliates and/or licensors. All rights reserved. * Attachments The following attachments cannot be sent through Care Everywhere. * SMOKING IN (THAI) * TAKING [id number] MEDICINES DURING (THAI) documented in this encounter Medications at Time [...] presenting with cough. 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 [place] [address] Osmin Hunt MD [address] [place], [place] [id number] Scheduled Procedures Name Priority Associated Diagnoses Date/Ti me ROBOTIC XI HYSTERECTOMY MENORRHAGIA, DYSMENORRHEA N92.4, N94.4 documented as of this encounter Visit Diagnoses Diagnosis Viral URI with cough- Primary Acute upper respiratory infections of unspecified site documented in this encounter
--- OUTSIDE RECORDS SUMMARY | 2024-07-07 23:25 | XMS_ITS | Data Portability ---
Author Organization [facility] , [email or web address] Address [address] [place] [address] Care Team Providers Care Purchasing And Fiscal Clerk Name Role Phone [email or web address] Manager Quality Assessment No assessment recorded. Plan of Treatment Reminders Order Date Submit Date Provider Last Modified By Organization Details Last Modified Time Details Appointments None recorded. Lab bacterial vaginosis + vaginitis panel, vaginal 2022 023 [facility], [address] [place], [address], 3 09:06:01 hemoglobin A1c, QN, blood 2022 023 [facility], [address] [place], [address], 3 12:19:44 pap, LB 2022 023 [facility], [address] [facility], [place], [address], 3 19:09:35 unlisted lab - Pap reflex hold 2022 023 [facility], [address] [place], [address], 3 16:56:58 beta-HCG, quantitativ e, serum or plasma 2022 023 [facility] Keith, [address] [place], [address], 3 12:30:32 CBC w/ auto diff 2022 023 ISHANMaaguzi Keith, [address] [place], [address], 3 11:16:52 abo group + rh type, blood 2022 023 ISHAN [facility], [address] [place], [address], 3 12:27:34 TSH + free T4, serum 2022 023 HAMMOND [facility] Keith, [address] [place], [address], 3 12:30:35 CMP, serum or plasma 2022 023 HAMMOND [facility] Keith, [address] [place], [address], 3 12:19:45 TSH + free T4, serum 2023 024 ISHANMaaguzi Keith, [address] [place], [address], 4 11:43:51 CBC w/ auto diff 2023 024 ISHANMaaguzi Keith, [address] [place], [address], 4 12:20:31 magnesium, serum or plasma 2023 024 [email or web address] 6 [facility], [address] [place], [address], 4 17:34:44 beta-HCG, quantitativ e, serum or plasma 2023 024 ISHANKamelio, [address] [place], [address], 4 12:56:58 Referral None recorded. Procedures None recorded. Surgeries None recorded. Imaging None recorded. Medication Orders Slynd 4 mg (28) tablet 2023 024 ISHAN [id number], [address], [place], [id number], 17:02:37 Patient TargetsNo targets recorded. Patient InstructionsNo instructions recorded. Reason for Referral None Reported. Results Created Date Observation Date Name Description Value Unit Range Abnormal Flag Note LastModifiedBy Organization Detail LastModifiedTime 12/01/2022 HCG, TOTAL , QUANT HCG, total, quant 171 mIU/m L <5 high Refer ence Range s are for femal es aged 18 years - Adult Nonpr egnan t or preme nopau amaury <5 Postm enopa usal <10 Value s from diffe rent assay metho ds may vary. The use of this assay to monit or or to diagn ose patie nts with cance r or any other condi tion unrel ated to pregn adelfo has not been valid ated by the [facility] actur er of this assay . Not Available [address], [address], 12/01/2022 12:30:32 12/08/2022 ABO GROUP AND RH TYPE ABO group A Not Available [facility] [address], [address], 12/08/2022 12:27:34 12/08/2022 ABO GROUP AND RH TYPE Rh type RH(D) POSITI VE For addit ional infor mike hidalgo e refer to http: //[facility] catrell n.Que stDia gnost ics.c om/fa q/FAQ 111 (This link is being provi ded for infor ping horn/ educa chris l purpo ses only. ) NO COLLE CTION DATE RECEI GERAROD. WE HAVE USED THE DATE THE SPECI MEN WAS RECEI GERARDO BY THIS LABOR ATORY THE COLLE CTION DATE. IF THIS IS INCOR RECT, MIKE E CONTA CT CLIEN T SERVI LINDEN. PHONE NUMBE R: [phone] Not Available [facility] [address] [place], [address], 12/08/2022 12:27:34 12/12/2022 HCG, TOTAL , QUANT HCG, total, quant Sample stabil ity d. If testin g is still requir ed a new specim en and new order will need to be proces sed. Not Available [facility] [address] [place], [address], 12/12/2022 11:25:58 12/01/19 23 12/01/2022 CBC (INCL UDES DIFF/ PLT) WBC 6.1 thous and/u L 4.0 - 9.8 normal Not Available [facility] Keith [address] [place], [address], 12/01/2022 11:16:52 12/01/1912/01/2022 CBC (INCL UDES DIFF/ PLT) RBC 4.5 emil on/uL 3.9 - 4.9 normal Not Available [facility] Keith [address] [place], [address], 12/01/2022 11:16:52 12/01/19 23 12/01/2022 CBC (INCL UDES DIFF/ PLT) hemoglobin 11.7 g/dL 11.8 - 14.8 low Not Available [facility] Keith [address] [place], [address], 12/01/2022 11:16:52 12/01/1912/01/2022 CBC (INCL UDES DIFF/ PLT) hematocrit 37.1 % 35.5 - 44.0 normal Not Available [facility] Keith [address] [place], [address], 12/01/2022 11:16:52 12/01/1912/01/2022 CBC (INCL UDES DIFF/ PLT) MCV 82.3 fL 82.0 - 99.0 normal Not Available [facility] [address] [place], [address], 12/01/2022 11:16:52 12/01/19 23 12/01/2022 CBC (INCL UDES DIFF/ PLT) MCH 25.9 pg 27.2 - 32.6 low Not Available [address], [address], 12/01/2022 11:16:52 12/01/19 23 12/01/2022 CBC (INCL UDES DIFF/ PLT) MCHC 31.5 g/dL 31.5 - 35.5 normal Not Available [address], [address], 12/01/2022 11:16:52 12/01/19 23 12/01/2022 CBC (INCL UDES DIFF/ PLT) RDW-CV 12.7 % 11.5 - 14.5 normal Not Available [address], [address], 12/01/2022 11:16:52 12/01/19 23 12/01/2022 CBC (INCL UDES DIFF/ PLT) platelet 408 thous and/u L 140 - 350 high Not Available [address], [address], 12/01/2022 11:16:52 12/01/19 23 12/01/2022 CBC (INCL UDES DIFF/ PLT) MPV 11.0 fL 9.3 - 12.4 normal Not Available [address], [address], 12/01/2022 11:16:52 12/01/19 23 12/01/2022 CBC (INCL UDES DIFF/ PLT) absolute neutrophil 3.70 thous and/u L 1.90 - 7.00 normal Not Available [address], [address], 12/01/2022 11:16:52 12/01/19 23 12/01/2022 CBC (INCL UDES DIFF/ PLT) absolute lymphocyte 1.62 thous and/u L 0.70 - 4.50 normal Not Available [address], [address], 12/01/2022 11:16:52 12/01/19 23 12/01/2022 CBC (INCL UDES DIFF/ PLT) absolute monocyte 0.50 thous and/u L 0.10 - 1.30 normal Not Available [address], [address], 12/01/2022 11:16:52 12/01/19 23 12/01/2022 CBC (INCL UDES DIFF/ PLT) absolute eosinophil 0.16 thous and/u L <0.70 normal Not Available [address], [address], 12/01/2022 11:16:52 12/01/19 23 12/01/2022 CBC (INCL UDES DIFF/ PLT) absolute basophil 0.07 thous and/u L <0.20 normal Not Available [address], [address], 12/01/2022 11:16:52 12/01/19 23 12/01/2022 CBC (INCL UDES DIFF/ PLT) absolute immature granulocyte 0.01 thous and/u L <0.03 normal Not Available [address], [address], 12/01/2022 11:16:52 12/01/19 23 12/01/2022 HEMOG LOBIN A1C hemoglobin A1C 5.2 % <5.7 normal The refer ence range for HbA1c is indic ated in the table below . Sugge sted Diagn osis =6.5% Consi stent with diabe kadie 5.7 6.4% Consi stent with incre ased risk for diabe kadie (pred iabet ic) <5.7% Consi stent with the absen ce of diabe kadie Not Available [address], [address], 12/01/2022 12:19:44 12/01/19 23 12/01/2022 COMPR EHENS YOLIE METAB OLIC PANEL sodium 137 mmol/ L 136 - 145 normal Not Available [address], [address], 12/01/2022 12:19:45 12/01/19 23 12/01/2022 COMPR EHENS YOLIE METAB OLIC PANEL potassium 4.7 mmol/ L 3.5 - 5.1 normal Not Available [address], [address], 12/01/2022 12:19:45 12/01/19 23 12/01/2022 COMPR EHENS YOLIE METAB OLIC PANEL chloride 100 mmol/ L 98 - 107 normal Not Available [address], [address], 12/01/2022 12:19:45 12/01/19 23 12/01/2022 COMPR EHENS YOLIE METAB OLIC PANEL glucose 89 mg/dL 74 - 106 normal Not Available [address], [address], 12/01/2022 12:19:45 12/01/19 23 12/01/2022 COMPR EHENS YOLIE METAB OLIC PANEL carbon dioxide 29 mmol/ L 20 - 32 normal Not Available [address], [address], 12/01/2022 12:19:45 12/01/19 23 12/01/2022 COMPR EHENS YOLIE METAB OLIC PANEL calcium 9.4 mg/dL 8.5 - 10.1 normal Not Available [address], [address], 12/01/2022 12:19:45 12/01/19 23 12/01/2022 COMPR EHENS YOLIE METAB OLIC PANEL creatinine 0.88 mg/dL 0.60 - 1.00 normal Not Available [address], [address], 12/01/2022 12:19:45 12/01/19 23 12/01/2022 COMPR EHENS YOLIE METAB OLIC PANEL eGFR 93 mL/mi n/1.7 3m2 >60 normal The eGFR is based on the CKD-E PI 2020 equat ion. To calcu late the new eGFR from a previ ous Creat inine or Cysta jazmine orourke, go to https ://braulio todd.tito jefferson/pr faheem hansen s/kdo qi/gf r_cal culat or Not Available [address], [address], 12/01/2022 12:19:45 12/01/19 23 12/01/2022 COMPR EHENS YOLIE METAB OLIC PANEL AST 17 U/L 32 - 40 low Not Available [address], [address], 12/01/2022 12:19:45 12/01/19 23 12/01/2022 COMPR EHENS YOLIE METAB OLIC PANEL ALT 15 U/L 14 - 59 normal Not Available [address], [address], 12/01/2022 12:19:45 12/01/19 23 12/01/2022 COMPR EHENS YOLIE METAB OLIC PANEL alk phos 79 U/L 46 - 116 normal Not Available [address], [address], 12/01/2022 12:19:45 12/01/19 23 12/01/2022 COMPR EHENS YOLIE METAB OLIC PANEL albumin 4.2 g/dL 3.4 - 5.0 normal Not Available [address], [address], 12/01/2022 12:19:45 12/01/19 23 12/01/2022 COMPR EHENS YOLIE METAB OLIC PANEL protein, total 8.2 g/dL 6.4 - 8.2 normal Not Available [address], [address], 12/01/2022 12:19:45 12/01/19 23 12/01/2022 COMPR EHENS YOLIE METAB OLIC PANEL bilirubin, total 0.6 mg/dL 0.2 - 1.0 normal Not Available [address], [address], 12/01/2022 12:19:45 12/01/19 23 12/01/2022 COMPR EHENS YOLIE METAB OLIC PANEL urea nitrogen (BUN) 6 mg/dL 6 - 31 normal Not Available [address], [address], 12/01/2022 12:19:45 12/01/19 23 12/01/2022 TSH W/ T4, FREE TSH 1.58 mIU/L 0.55 - 4.78 normal Refer ence Range Femal e aged 18-Ad ult: 0.55- 4.78 Pregn adelfo Refer ence Range s First Trime ster 0.26- 2.66 Secon d Trime ster 0.55- 2.73 Third Trime ster 0.43- 2.91 Not Available [address], [address], 12/01/2022 12:30:35 12/01/19 23 12/01/2022 TSH W/ T4, FREE T4, free 1.11 NG/dL 0.89 - 1.76 normal Not Available [address], [address], 12/01/2022 12:30:35 12/01/19 23 12/01/2022 VAGIN ITIS PLUS STD PANEL bacterial vaginosis BV POS negati ve abnormal Not Available [address], [address], 12/02/2022 09:06:01 12/01/19 23 12/01/2022 VAGIN ITIS PLUS STD PANEL jacques species C. spp neg negati ve normal Not Available [address], [address], 12/02/2022 09:06:01 12/01/19 23 12/01/2022 VAGIN ITIS PLUS STD PANEL jacques glabrata C. gla neg negati ve normal Not Available [address], [address], 12/02/2022 09:06:01 12/01/19 23 12/01/2022 VAGIN ITIS PLUS STD PANEL trichomonas vaginalis CV/TV TRICH neg negati ve normal Not Available [address], [address], 12/02/2022 09:06:01 12/01/19 23 12/01/2022 VAGIN ITIS PLUS STD PANEL chlamydia trachomatis CT neg negati ve normal This repor t is inten ded for us in clini armando monit oring and manag ement of patie nts. It is not inten ded for use in medic al-le gal appli catio n. Not Available [address], [address], 12/02/2022 09:06:01 12/01/19 23 12/01/2022 VAGIN ITIS PLUS STD PANEL neisseria gonorrhoeae GC neg negati ve normal This repor t is inten ded for us in clini armando monit oring and manag ement of patie nts. It is not inten ded for use in medic al-le gal appli catio n. Not Available [address], [address], 12/02/2022 09:06:01 12/01/19 23 12/05/2022 THINP REP TIS PAP clinical information: normal None given Not Available [facility] [address] [address] [place], [address], 12/05/2022 19:09:35 12/01/19 23 12/05/2022 THINP REP TIS PAP LMP: normal None given Not Available [address], [address], 12/05/2022 19:09:35 12/01/19 23 12/05/2022 THINP REP TIS PAP prev. Pap: normal None given Not Available [address] [place] [address] [place], [address], 12/05/2022 19:09:35 12/01/1912/05/2022 THINP REP TIS PAP prev. BX: normal None given Not Available [address] [address] [place], [address], 12/05/2022 19:09:35 12/01/19 23 12/05/2022 THINP REP TIS PAP source: normal Cervi x Not Available [address] [address] [place], [address], 12/05/2022 19:09:35 12/01/19 23 12/05/2022 THINP REP TIS PAP statement of adequacy: normal Satis facto ry for evalu ation . Endoc ervic al/tr ansfo rmati on zone compo nent prese nt. Age and/o r menst rual statu s not provi ded Not Available [address] [address] [place], [address], 12/05/2022 19:09:35 12/01/19 23 12/05/2022 THINP REP TIS PAP interpretati on/result: normal Negat yolie for intra epith elial lesio n or malig alyssa . Not Available [address] [address] [place], [address], 12/05/2022 19:09:35 12/01/19 23 12/05/2022 THINP REP TIS PAP comment: normal This Pap test has been evalu ated with compu ter fredsi charbel techn ology . Not Available [address], [address], 12/05/2022 19:09:35 12/01/19 23 12/05/2022 THINP REP TIS PAP cytotechnolo gist: normal BKA, CT( CP) CT scree jenaro locat ion: [place] [address] [place] [address] Not Available [facility] [address] [place], [address], 12/05/2022 19:09:35 12/01/1912/05/2022 THINP REP TIS PAP comment EXPLA NATOR Y NOTE: The Pap is a scree jenaro test for cervi armando cance r. It is not a diagn ostic test and is subje ct to false negat yolie and false posit yolie resul ts. It is most relia ble when a satis facto ry sampl e, regul kaylin obtai masha, is submi tted with relev ant clini armando findi ngs and histo ry, and when the Pap resul t is evalu ated along with histo shantelle and curre nt clini armando infor matio n. Not Available [facility] [address] [address] , [place], [address], 12/05/2022 19:09:35 02/27/20 24 02/28/2024 TSH W/ T4, FREE TSH 1.49 mIU/L 0.55 - 4.78 normal Refer ence Range Femal e aged 18-Ad ult: 0.55- 4.78 Pregn adelfo Refer ence Range s First Trime ster 0.26- 2.66 Secon d Trime ster 0.55- 2.73 Third Trime ster 0.43- 2.91 Not Available [place], [address], 02/28/2024 11:43:51 02/27/20 24 02/28/2024 TSH W/ T4, FREE T4, free 1.14 NG/dL 0.89 - 1.76 normal Not Available [place], [address], 02/28/2024 11:43:51 02/27/20 24 02/28/2024 CBC (INCL UDES DIFF/ PLT) WBC 7.3 thous and/u L 4.0 - 9.8 normal Not Available [place], [address], 02/28/2024 12:20:31 02/27/20 24 02/28/2024 CBC (INCL UDES DIFF/ PLT) RBC 4.2 emil on/uL 3.9 - 4.9 normal Not Available [facility] [address] [place] [address], [address], 02/28/2024 12:20:31 02/27/20 24 02/28/2024 CBC (INCL UDES DIFF/ PLT) hemoglobin 10.6 g/dL 11.8 - 14.8 low Not Available [facility] [address] [place] [address], [address], 02/28/2024 12:20:31 02/27/20 24 02/28/2024 CBC (INCL UDES DIFF/ PLT) hematocrit 33.9 % 35.5 - 44.0 low Not Available [facility] [address] [place] [address], [address], 02/28/2024 12:20:31 02/27/20 24 02/28/2024 CBC (INCL UDES DIFF/ PLT) MCV 80.9 fL 82.0 - 99.0 low Not Available [facility] [address] [place] [address], [address], 02/28/2024 12:20:31 02/27/20 24 02/28/2024 CBC (INCL UDES DIFF/ PLT) MCH 25.3 pg 27.2 - 32.6 low Not Available [facility] [address] [place] [address], [address], 02/28/2024 12:20:31 02/27/20 24 02/28/2024 CBC (INCL UDES DIFF/ PLT) MCHC 31.3 g/dL 31.5 - 35.5 low Not Available [facility] [address] [place] [address], [address], 02/28/2024 12:20:31 02/27/20 24 02/28/2024 CBC (INCL UDES DIFF/ PLT) RDW-CV 14.0 % 11.5 - 14.5 normal Not Available [address], [address], 02/28/2024 12:20:31 02/27/20 24 02/28/2024 CBC (INCL UDES DIFF/ PLT) platelet 358 thous and/u L 140 - 350 high Not Available [address], [address], 02/28/2024 12:20:31 02/27/20 24 02/28/2024 CBC (INCL UDES DIFF/ PLT) MPV 11.7 fL 9.3 - 12.4 normal Not Available [address], [address], 02/28/2024 12:20:31 02/27/20 24 02/28/2024 CBC (INCL UDES DIFF/ PLT) absolute neutrophil 4.84 thous and/u L 1.90 - 7.00 normal Not Available [address], [address], 02/28/2024 12:20:31 02/27/20 24 02/28/2024 CBC (INCL UDES DIFF/ PLT) absolute lymphocyte 1.65 thous and/u L 0.70 - 4.50 normal Not Available [address], [address], 02/28/2024 12:20:31 02/27/20 24 02/28/2024 CBC (INCL UDES DIFF/ PLT) absolute monocyte 0.53 thous and/u L 0.10 - 1.30 normal Not Available [address], [address], 02/28/2024 12:20:31 02/27/20 24 02/28/2024 CBC (INCL UDES DIFF/ PLT) absolute eosinophil 0.20 thous and/u L <0.70 normal Not Available [address], [address], 02/28/2024 12:20:31 02/27/20 24 02/28/2024 CBC (INCL UDES DIFF/ PLT) absolute basophil 0.04 thous and/u L <0.20 normal Not Available [address], [address], 02/28/2024 12:20:31 02/27/20 24 02/28/2024 CBC (INCL UDES DIFF/ PLT) absolute immature granulocyte 0.00 thous and/u L <0.03 normal Not Available [address], [address], 02/28/2024 12:20:31 02/27/20 24 02/28/2024 HCG, TOTAL , QUANT HCG, total, quant 3134 mIU/m L <5 high Refer ence Range s are for femal es aged 18 years - Adult Nonpr egnan t or preme nopau amaury <5 Postm enopa usal <10 Value s from diffe rent assay metho ds may vary. The use of this assay to monit or or to diagn ose patie nts with cance r or any other condi tion unrel ated to pregn adelfo has not been valid ated by the manuf actur er of this assay . Not Available [address], [place], [address], 02/28/2024 12:56:58 12/12/19 23 12/11/2022 US, trans vagin al No observ ation record ed. [address] [facility], [place], [address], 12/12/2022 09:58:49 Result Notes None recorded. Problems Name Problem SNOMED Code Status Onset Date Resolution Date Notes Provider Name and Address Organization Details Recorded Time Lochia finding Completed 201705/10/2022 Encounte r for routine postpart um follow-u p; Progress : Stable Added By: Josi Hilario Add to Current Problems : YES ProblemS tatus: Current Laila Britsch null, [facility] 12:05:43 Vaginiti s and vulvovag initis Completed 201706/28/2018 Vaginiti s; Location : None Progress : Stable Added By: Chino Arguelles Add to Current Problems : YES ProblemS tatus: Resolve [facility] Available [facility] 19:43:30 Dysuria [id number] Completed 201706/07/2018 Dysuria; Location : None Progress : Stable Added By: Josi Hilario Add to Current Problems : YES ProblemS tatus: Resolve Painful micturit ion, unspecif ied; Progress : Stable Added By: Josi Hilario Add to Current Problems : NO ProblemS tatus: Resolve [facility] Available [facility] 2 19:43:31 Beckie ry postpart um mood disturba nce [id number] Completed 201705/10/2022 Postpart um mood disturba nce; Progress : Stable Added By: Josi Hilairo Add to Current Problems : YES ProblemS tatus: Current Laila Britsch null, [facility] 2 12:03:44 Poor growth affectin g manageme nt [id number] Completed 201706/21/2018 Small for dates; Progress : Stable Added By: Abida Barrientos Add to Current Problems : NO ProblemS tatus: Resolve Not Available [facility] 2 19:43:30 Gestatio n period, 33 weeks [id number] Completed 201706/07/2018 33 weeks gestatio n of pregnanc y; Progress : Stable Added By: Josi Hilario Add to Current Problems : NO ProblemS tatus: Resolve Not Available [facility] 19:43:31 Cyst of ovary [id number] Completed 201805/10/2022 Unspecif ied ovarian cyst, left side; Progress : Stable Added By: Chino Arguelles Add to Current Problems : YES ProblemS tatus: Current Laila Britsch null, [place] [facility] 2 12:05:57 Normal pregnanc y [id number] Active 2017 Medical visit for normal pregnanc y; Location : None Progress : Stable Added By: Sahron Dotson Add to Current Problems : YES ProblemS tatus: Current Not Available [facility] 2 19:43:30 anatomy study Active 2017 Encounte r for anatomic survey; Location : None Progress : Stable Added By: Kirstie Bess Add to Current Problems : YES ProblemS tatus: Current Not Available [facility] 2 21:18:38 Past pregnanc y history of section [id number] Active 2017 Jay Ernandez MD [address] [place], [address] , [facility] 3 14:43:31 Notes:Encounter for an atomic survey (V28.81) ; OnsetDate: 12/31/2017; ResolvedDate: 07/17/2018; Progress: Stable Added By: Kirstie Bess Add to Current Problems: NO ProblemStatus: Resolve screening; unspecified (V28.9) ; OnsetDate: 11/12/2017; ResolvedDate: 07/17/2018; Progress: Stable Added By: Sharon Lozano Add to Current Problems: NO ProblemStatus: Resolve Medical visit for normal (V22.1) ; OnsetDate: 11/12/2017; ResolvedDate: 07/17/2018; Progress: Stable Added By: Sharon Lozano Add to Current Problems: NO ProblemStatus: Resolve Problem Notes None recorded. Procedures Surgical History Date Name Laterality Status Provider Name and Address Organization Details Recorded Time 3 Date of Last Pap Smear completed Taylor Crowley MA [facility] 02/27/2024 15:45:57 delivery completed Trish Perez [facility] 11/30/2022 14:13:00 Imaging Results Imaging Date Name Status LastModified by Organization Details LastModified Time 12/11/2022 US, transvaginal completed kayli [address], [place], [address], 12/12/2022 09:58:49 Procedure Notes None recorded. Medical Equipment None Reported. Allergies No known drug allergies Medications Name Sig Start Date Stop Date Status Note LastModified by Organization Details LastModified Time ibuprofen 800 mg tablet TAKE 1 TABLET BY MOUTH EVERY 8 HOURS WITH FOOD NEEDED 11/30 completed Not Available Not Available Not Available Lidocaine Viscous 2 % mucosal solution APPLY TO THE AFFECTED AREA VIA MUCOUS MEMBRANE FOUR TIMES DAILY NEEDED 11/30 completed Not Available Not Available Not Available fluconazo le 150 mg tablet TAKE 1 TABLET BY MOUTH 1 TIME 05/10 completed Not Available Not Available Not Available prochlorp erazine maleate 5 mg tablet 1 tablet every 6 hrs for N/V PRN 04/08 completed Prochlor perazine 5mg Tablets Allow Substitu tion: True Refill Denied: No Not Available Not Available Not Available promethaz ine 12.5 mg tablet Take 1-2 tablets PO every 4 hours as needed for nausea 12/10 completed Prometha zine HCl 12.5mg Tablet Allow Substitu tion: True Refill Denied: No Not Available Not Available Not Available pyridoxin e (vitamin B6) 25 mg tablet 1 tab PO TID for nausea 12/31 completed Pyridoxi ne HCl 25mg Tablet Allow Substitu tion: True Refill Denied: No Not Available Not Available Not Available clindamyc in HCl 150 mg capsule TAKE 1 CAPSULE BY MOUTH EVERY 6 HOURS FOR 10 DAYS 05/10 completed Not Available Not Available Not Available clotrimaz ole 1 % vaginal cream Apply intravag inally x 7 nights 06/28 completed Clotrima zole 1% Vaginal Cream Allow Substitu tion: True Refill Denied: No For Problem: Vaginiti s Not Available Not Available Not Available metronida zole 500 mg tablet TAKE 1 TABLET BY MOUTH EVERY 12 HOURS 02/26 completed Not Available Not Available Not Available acetamino phen 500 mg tablet TAKE 1 TABLET BY MOUTH EVERY 6 HOURS NEEDED 11/30 completed Not Available Not Available Not Available dimenhydr inate 50 mg tablet Take 1 tablet(s ) by mouth q 4 to 6 hr prn 04/08 completed Dimenhyd rinate 50mg Tablet Allow Substitu tion: True Refill Denied: No Not Available Not Available Not Available Vitamin tablet Take 1 tab by mouth daily. 04/11 completed Multivit rodriguez Tablet Allow Substitu tion: True Refill Denied: No Not Available Not Available Not Available amoxicill in 875 mg tablet TAKE 1 TABLET BY MOUTH TWICE DAILY 05/10 completed Not Available Not Available Not Available promethaz ine 50 mg tablet Take 1-2 tablets PO every 4 hours as needed for nausea 01/07 completed Prometha zine HCl 12.5mg Tablet Allow Substitu tion: True Refill Denied: No Not Available Not Available Not Available cephalexi n 500 mg capsule 1 capsule po BID x 7 days 05/18 completed Cephalex in 500mg Capsules Allow Substitu tion: True Refill Denied: No Not Available Not Available Not Available promethaz ine 25 mg tablet Take 1-2 tablets PO every 4 hours as needed for nausea 01/07 completed Prometha zine HCl 12.5mg Tablet Allow Substitu tion: True Refill Denied: No Not Available Not Available Not Available ibuprofen 400 mg tablet TAKE 1 TABLET BY MOUTH THREE TIMES DAILY NEEDED 11/30 completed Not Available Not Available Not Available gabapenti n 300 mg capsule 1 tab once first day, 1 tab BID second day, then 1 tab TID daily 08/24 completed Gabapent in 300mg Capsules RxNorm: [id number] Allow Substitu tion: True Refill Denied: No Not Available Not Available Not Available ondansetr on 4 mg disintegr ating tablet every 6hours PRN for N&V. 04/08 completed Ondanset caitlyn HCl 4mg Tablets, Orally Disinteg rating Allow Substitu tion: True Refill Denied: No Not Available Not Available Not Available metoclopr amide 10 mg tablet 1 po q 6 hours as needed for n/v 12/10 completed Metoclop ramide HCl 10mg Tablet Allow Substitu tion: True Refill Denied: No Not Available Not Available Not Available Prometheg an 12.5 mg rectal supposito ry Take 1-2 tablets PO every 4 hours as needed for nausea 01/07 completed Prometha zine HCl 12.5mg Tablet Allow Substitu tion: True Refill Denied: No Not Available Not Available Not Available nitrofura ntoin monohydra te/macroc rystals 100 mg capsule TAKE 1 CAPSULE BY MOUTH EVERY 12 HOURS WITH FOOD FOR 7 DAYS 05/10 completed Not Available Not Available Not Available FeroSul 325 mg (65 mg iron) tablet 1 P.O. BID 08/08 completed Ferrous Sulfate 325mg Tablets Allow Substitu tion: True Refill Denied: No Not Available Not Available Not Available Slynd 4 mg (28) tablet Take 1 tablet every day by oral route. active Not Available Not Available No t Available ID NOW COVID-19 Test Kit TEST DIRECTED TODAY 11/30 completed Not Available Not Available Not Available Vitals Date Recorded Body temperature Body weight Body mass index (BMI) Body height Systolic blood pressure Diastolic blood pressure Provider Name and Address Organization Details Last Updated DateTime 3 98.3 [degF] 88261.3 7 g 26.8 kg/m2 170.18 cm 122 mm[Hg] 74 mm[Hg] Trish Perez [facility] 3 14:08:28 Date Recorded Body height Body mass index (BMI) Body weight Body temperature Systolic blood pressure Diastolic blood pressure Provider Name and Address Organization Details Last Updated DateTime 4 170.18 cm 27 kg/m2 34692.0 4 g 97.7 [degF] 102 mm[Hg] 64 mm[Hg] Taylor Crowley [facility] 4 15:43:09 Social History None recorded. Functional Status None recorded. Mental Status None recorded. Family History Relationship Description Onset Age of this Age Resolved Age Notes LastModified by Organization Details LastModified Time Sister Polycystic ovary syndrome [email or web address] Not available 2022 14:46:07 Unspecified Relation History of recurrent miscarriage - not [email or web address] Not available 2022 14:46:42 Notes:in her first cousin Medical History No medical history recorded. Gynecological History Statement/Question Response Date of last HPV 11/30/2022 Frequency of Cycle (Q days) 28 Date of LMP 01/10/2024 Date of Last Pap Smear 11/30/2022 Duration of Flow (days) 4 Current Control Method None Age at Menarche 16 Obstetrics History GPAL:G 4 P 1 0 3 1 Type Value Full Term 1 Spontaneous 3 Living 1 Total 4 Past Encounters Encounter ID Performer Location Encounter Start Date Encounter Closed Date Diagnosis/Indication Diagnosis SNOMED-CT Code Diagnosis ICD10 Code [id number] Jay Ernadnez MD [facility] [address] [place] [address] 11/30/2022 13:51:21 12/07/2022 09:38:15 Miscarriage 26249118 O03.9 Screening for malignant neoplasm of cervix 353440492 Z12.4 Vaginitis 85632441 N76.0 [facility] education 307180047 Z30.09 [id number] Osmin Hunt MD [facility] [address] [place] [address] 02/27/2024 15:19:13 03/03/2024 11:47:57 Threatened miscarriage 97934527 O20.0 Chronic constipation 236 101558 K59.09 Menorrhagia 709641110 N9 2.0 Secondary dysmenorrhea 19776196 N94.5 Health Concerns Section Related Observation LastModified by Organization Detai ls LastModified Time None Recorded Concern Status LastModified by Organization Details LastModified Time None Recorded Advance Directives Directive None Recorded Payers Encounter Date Sequence Insurance Name Policy Number Policy Day Covered Member ID Day Member ID Guarantor Name 11/30/2022 1 [facility] ON OR AFTER 01/06/21 (MEDICAID REPLACEMENT - HMO) Magda Vernon [id number] Magda Vernon 02/27/2024 1 [facility] ON OR AFTER 01/06/21 (MEDICAID REPLACEMENT - HMO) Magda Vernon [id number] Magda Vernon Notes Date Note Type Note Provider Name and Address Organization Details Recorded Time 11/30/2022 text/html Magda is here t o follow up for a possible miscarriage. Second SAB ( last one Jul 2022) Same partner, Had FT C/S different partner.Pt states that she did not go to the hospital. Desire PAP today since she does not come often to the doctor.Pt states that the fetus was passed vaginally on November 20. Reports mild bleeding today.Pt has had cramping and light bleeding for the past 2 weeks.Pt stated that one of her cosines (maternal Aunt's daughter) had recurrent ABs for boys fetus only! Jay Ernandez MD [facility], [place], [address], [facility] 11/30/2022 17:16:35 02/27/2024 text/html The patient verbally consented to documentation via virtual scribe for this encounter. Magda is a 29 year old woman presents today for ER follow up. She states that she went to [facility] on 02/25/24.and she was told that she has a miscarriage within 4-5 weeks. She reports that her HCG levels were high in the hospital. She was recommended to follow up with her PCP. 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 She denies any genetic abnormalities.She reports experiencing menorrhagia and dysmenorrhea. She has a history of chronic constipation. LMP: 01/10/24. Osmin Hunt MD [address] [place] [address], [place], [address], [facility] 02/29/2024 13:09:27 OBGyn Episode Ob Episode Information Episode Created Date Number of Fetuses Patient Bloodtype Patient rh Status Prepregnancy Weight lbs Domestic Partner Domestic Partner Phone Father Name Telephone Lineman Status 09/23/19 22 1 CLOSED Fetus Data First Name Last Name Admitted to NICU Weight (g) Sex Living Outcome Pediatric Complications Fetus ID Race Codes Race Delivery Type 2919.77 [id number] F Full Term [id number] Primary Dania Calculation DANIA Calculation Method Initial Dania Date Initial Exam Date Initial Exam Provider Initial Ultrasound Date Last Menstrual Period Date Ultra Sound Weeks Gestation Conception by IVF Embryo Age at Transfer Date of Transfer 0 Eighteen To Twenty Week Dania Update Ultra Sound Date Fundal Height At Umbil Quickening Date Ultra Sound Latest Weeks Gestation Final Dania Confirmed By Final Dania Confirmed Date Final Dania Date Ultra Sound Latest Days Gestation 0 0 Menstrual History Last Menstrual Date Menses Monthly On Bcp Conception Prior Menses Frequency Hcg Plus Date Menarche Onset Age Delivery Information Delivery Date Delivery Type Labor Anesthesia Weeks Gestation Incision Type Labor Labor Length Hrs Delivered By Post Complications Tubal Sterilization Discharge Date Comments 8 39.4 false Discharge Information Feeding Method Contraceptive Method Maternal HG B and HCT Levels
== END 2024-06-30 10:01 | disposition home or self-care (01) ==
PROVIDERS: Emergency Provider Nurse Practitioner Family
DX: K04.7 Periapical abscess without sinus (principal); F17.290 Nicotine dependence, other tobacco product, uncomplicated
CPT/HCPCS: 99213; G0463

== ENCOUNTER 2024-10-11 17:58 | Emergency (ER) | payer OTHER, SELFPAY ==
--- OUTSIDE RECORDS SUMMARY | 2024-10-11 18:00 | XMS_ITS | Encounter Summary ---
Author Organization [facility] Address [address] [place] [address] Care Team Providers Care Computer Builder Name Role Phone Patti Briceño MD Primary Care Provider Unavailable None, Provider Primary Care Provider Unavaila ble Encounter Details Date Type Department Care Team (Late st Contact Info) Description 05/12/2017 [place] [address] Patti Briceño MD Social History Tobacco Use Types Packs/Day Years Used Date Smoking Tobacco: Never Assessed Comments Unknown Sex and Gender Information Value Date Recorded Sex Assigned at Not on file Legal Sex Female 6:37 PM CDT Gender Identity Not on file Sexual Orientation Straight 10/30/2018 5: 50 PM CDT documented as of this encounter Plan of Treatment Not on file documented as of this encounter Visit Diagnoses Not on filedocumented in this encounter Care Teams Computer Builder Relationship Specialty Start Date End Date Patti Briceño MD PCP - General 08/06/15 Guillermina, MD Jose PCP - General 07/17/18 documented as of this encounter
--- OUTSIDE RECORDS SUMMARY | 2024-10-11 18:00 | XMS_ITS | Encounter Summary ---
Author Organization [facility] Address [address] [place] [address] Care Team Providers Care Slip Cover Estimator Name Role Phone None, Provider Primary Care Provider Jonel boyer Encounter Details Date Type Department Care Team (Late st Contact Info) Description 02/26/2018 Hospital Follow-up Call [facility] [place] [address] Chapito Escalante, RN Social History Tobacco Use [...] on filedocumented in this encounter Care Teams Slip Cover Estimator Relationship Specialty Start Date End Date None, Provider, PCP - General 07/17/18 documented as of this encounter
--- NOTE | 2024-10-11 18:01 | ED.GENADULT ---
HPI - General Adult General Chief complaint: Dental/Oral Stated complaint: Tooth Pain Time Seen by Provider: 10/11/24 18:01 Source: patient Mode of arrival: ambulatory Limitations: no limitations History of Present Illness HPI narrative: 29-year-old female patient presents to [facility] with complaints of right lower dental pain for the past 3 days. Patient was seen here about 4 months ago with same type of dental pain. Patient states that she tried calling the dental school [facility] but states they told her they lied take people over 65. Patient denies fevers, body aches or chills. Patient states she has been taking ibuprofen for pain. Related Data Home Medications ?Medication ?Instructions ?Recorded ?Confirmed ?Last Taken ?Type drospirenone (contraceptive) 4 mg 06/30/24 Unknown History (28) tablet (Slynd) Allergies Allergy/AdvReac Type Severity Reaction Status Date / Time No Known Allergies Allergy Verified 10/11/24 18:01 Review of Systems Review of Systems: CONSTITUTIONAL: Denies fever, chills, or sweats. EYES: Denies visual changes, redness, or discharge. ENT: Denies rhinorrhea, congestion, sore throat, or otalgia. Positive right lower dental pain x3 days CARDIOVASCULAR: Denies chest pain, palpitations, or edema. RESPIRATORY: Denies cough or dyspnea. GASTROINTESTINAL: Denies abdominal pain, nausea, vomiting, or diarrhea. GENITOURINARY: Denies dysuria or hematuria. SKIN: Denies rash or itching. MUSCULOSKELETAL: Denies back pain, joint pain, or myalgia. NEUROLOGIC: Denies headache, numbness, or weakness. PSYCHIATRIC: Denies anxiety or depression. [facility] Past Medical History Medical History Chronic constipation Acute appendicitis with localized peritonitis Anxiety Surgical History Surgical History Hx of appendectomy Social History Social History Smoking status: Current some day smoker Tobacco type: e-cigarettes/vaping Alcohol intake: never Substance use type: marijuana Last use: occaisional Living arrangements: with family Gender identity (if verbalized by the patient): Female Comments At the time of my signature I agree with nursing past medical history, surgical, social, and family history. There is no relevant family history pertinent to the presenting complaint. Exam Narrative: GENERAL: Well-appearing, well-nourished, and in no acute distress. HEAD: Normocephalic, atraumatic. EYES: PERRLA and EOMI. ENT: Nares clear, no rhinorrhea or epistaxis. Mucous membranes moist. patient appears to have an impacted wisdom tooth on the bottom right side with surrounding erythema and tenderness to the touch. No obvious swelling noted to the outside cheek and no open wounds or obvious drainage noted. NECK: Supple. No lymphadenopathy CHEST: Clear to auscultation. No respiratory distress. HEART: Regular rate and rhythm. No murmur heard. Normal peripheral pulses. ABDOMEN: Soft, nontender, nondistended, normal active bowel sounds. EXTREMITIES: Normal range of motion. No edema. SKIN: Warm, dry, no rash. NEURO: No focal deficits. Alert and oriented x3. Course Course Level of Care: Express Care Visit Vital Signs Vital signs: Vital Signs Temperature 36.9 C 10/11/24 18:05 Pulse Rate 84 10/11/24 18:05 Respiratory Rate 16 10/11/24 18:05 Blood Pressure 119/75 10/11/24 18:05 Pulse Oximetry 99 10/11/24 18:05 Oxygen Delivery Room Air 10/11/24 18:05 Temperature 36.9 C 10/11/24 18:05 Pulse Rate 84 10/11/24 18:05 Respiratory Rate 16 10/11/24 18:05 Blood Pressure 119/75 10/11/24 18:05 Pulse Oximetry 99 10/11/24 18:05 Oxygen Delivery Room Air 10/11/24 18:05 Vital signs reviewed. Medical Decision Making MDM Narrative Medical decision making narrative: Discussed with patient we will go ahead and provide her an antibiotic today for the dental pain and infection. 100 mg ibuprofen was also provided for pain. Discussed with patient that we will give her a dental referral sheet but I highly recommend that she tries to call the dental school again because I do believe they provide more services then just to 65 or older. Patient verbalized understanding denies any other questions or concerns at the time Differential Diagnosis Differential Diagnosis: Differential diagnosis: Dental caries, periodontal disease, avulsed tooth, tooth infections, mandibular infection, Emeterio's angiana, upper tooth infection, dry socket, gingivitis, acute necrotizing ulcerative gingivitis, sialolithiasis. Vital Signs Vital Signs: Vital Signs Temperature 36.9 C 10/11/24 18:05 Pulse Rate 84 10/11/24 18:05 Respiratory Rate 16 10/11/24 18:05 Blood Pressure 119/75 10/11/24 18:05 Pulse Oximetry 99 10/11/24 18:05 Oxygen Delivery Room Air 10/11/24 18:05 Temperature 36.9 C 10/11/24 18:05 Pulse Rate 84 10/11/24 18:05 Respiratory Rate 16 10/11/24 18:05 Blood Pressure 119/75 10/11/24 18:05 Pulse Oximetry 99 10/11/24 18:05 Oxygen Delivery Room Air 10/11/24 18:05 Critical Care Time Critical Care Time Critical Care Time: No Discharge Plan Discharge Clinical Impression: Infection of tooth Patient Disposition: Home, Self-Care Condition: Stable Instructions: Antibiotic Form, Toothache (ED) Additional Instructions: Antibiotic as directed Avoid temperature extremes May apply heat or ice to the face Gentle brushing and flossing Alternate Tylenol and ibuprofen as needed for pain Follow-up with the dentist as soon as possible--see the list provided Patient Language: Prydeinig Prescriptions: New amoxicillin-pot clavulanate 875-125 mg tablet 1 tablet PO Q12H 7 Days Qty: 14 0RF ibuprofen 800 mg tablet 800 mg PO TID PRN (Reason: pain) Qty: 30 0RF No Action Slynd 4 mg (28) tablet Follow-up/Referrals: PHYSICIAN,REAL ESTATE AGENT/BROKER [Primary Care Provider] - Time of Disposition: 18:16
--- OUTSIDE RECORDS SUMMARY | 2024-10-11 18:01 | XMS_ITS | Data Portability ---
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 Plan of Treatment Reminders Order Date Submit Date Provider Last Modified By Organization Details Last Modified Time Details Appointments None recorded. Lab TSH + free T4, serum 2023 024 [facility], [address] [place], [address], 4 11:43:51 CBC w/ auto diff 2023 024 [facility], [address] [place], [address], 4 12:20:31 magnesium, serum or plasma 2023 024 [email or web address] [facility], [address] [facility], [place], [address], 4 17:34:44 beta-HCG, quantitativ e, serum or plasma 2023 024 [facility], [address] [place], [address], 4 12:56:58 bacterial vaginosis + vaginitis panel, vaginal 2022 023 [facility], [address] [place], [address], 3 09:06:01 hemoglobin A1c, QN, blood 2022 023 [facility], [address] [place], [address], 3 12:19:44 pap, LB 2022 023 [facility], [address] [place], [address], 3 19:09:35 unlisted lab - Pap reflex hold 2022 023 [facility], [address] [place], [address], 3 16:56:58 beta-HCG, quantitativ e, serum or plasma 2022 023 [facility], [address] [place], [address], 3 12:30:32 CBC w/ auto diff 2022 023 [facility], [address] [place], [address], 3 11:16:52 abo group + rh type, blood 2022 023 [facility], [address] [place], [address], 3 12:27:34 TSH + free T4, serum 2022 023 [facility], [address] [place], [address], 3 12:30:35 CMP, serum or plasma 2022 023 [facility], [address] [place], [address], 3 12:19:45 Referral None recorded. Procedures None recorded. Surgeries None recorded. Imaging None recorded. Medication Orders Slynd 4 mg (28) tablet 2023 024 [id number], [address] [facility], [place], [place], [id number], 17:02:37 Patient TargetsNo targets recorded. Patient InstructionsNo instructions recorded. Reason for Referral None Reported. Results Created Date Observation Date Name Description Value Unit Range Abnormal Flag Note LastModifiedBy Organization Detail LastModifiedTime 12/02/1912/01/2022 HCG, TOTAL , QUANT HCG, total, quant [...] has not been valid ated by the [facility] actur er of this assay . Not Available [address], [address], 12/01/2022 12:30:32 12/09/1912/08/2022 ABO GROUP AND RH TYPE ABO group A Not Available [facility] [address] [place], [address], 12/08/2022 12:27:34 12/09/1912/08/2022 ABO GROUP AND RH TYPE Rh type RH(D) POSITI VE For addit ional infor mike hidalgo refer to http: //[facility] catrell n.Que stDia gnost ics.c om/fa q/FAQ 111 (This link is being provi ded for infor ping horn/ educlam mchugh purpo ses only. ) NO COLLE CTION DATE RECEI GERARDO. WE HAVE USED THE DATE THE SPECI MEN WAS RECEI GERARDO BY THIS LABOR ATORY THE COLLE CTION DATE. IF THIS IS INCOR RECT, MIKE E CONTA CT CLIEN T SERVI LINDEN. PHONE NUMBE R: [phone] Not Available [facility] [address], [place], [address], 12/08/2022 12:27:34 12/13/19 23 12/12/2022 HCG, TOTAL , QUANT HCG, total, quant Sample stabil ity d. If testin g is still requir ed a new specim en and new order will need to be proces sed. Not Available [facility] [address] [place], [address], 12/12/2022 11:25:58 12/01/19 23 12/01/2022 CBC (INCL UDES DIFF/ PLT) WBC 6.1 thous and/u L 4.0 - 9.8 normal Not Available [facility] [address] [place], [address], 12/01/2022 11:16:52 12/01/19 23 12/01/2022 CBC (INCL UDES DIFF/ PLT) RBC 4.5 emil on/uL 3.9 - 4.9 normal Not Available [facility] [address] [place], [address], 12/01/2022 11:16:52 12/01/19 23 12/01/2022 CBC (INCL UDES DIFF/ PLT) hemoglobin 11.7 g/dL 11.8 - 14.8 low Not Available [facility] [address] [place], [address], 12/01/2022 11:16:52 12/01/19 23 12/01/2022 CBC (INCL UDES DIFF/ PLT) hematocrit 37.1 % 35.5 - 44.0 normal Not Available [facility] Keith [address] [place], [address], 12/01/2022 11:16:52 12/01/19 23 12/01/2022 CBC (INCL UDES DIFF/ PLT) MCV 82.3 fL 82.0 - 99.0 normal Not Available [facility] [address] [place] [address], [address], 12/01/2022 11:16:52 12/01/19 23 12/01/2022 CBC (INCL UDES DIFF/ PLT) MCH 25.9 pg 27.2 - 32.6 low Not Available [address], [address], 12/01/2022 11:16:52 12/01/19 23 12/01/2022 CBC (INCL UDES DIFF/ PLT) MCHC 31.5 g/dL 31.5 - 35.5 normal Not Available [address], [address], 12/01/2022 11:16:52 12/01/19 23 12/01/2022 CBC (INCL UDES DIFF/ PLT) RDW-CV 12.7 % 11.5 - 14.5 normal Not Available [address], [address], 12/01/2022 11:16:52 12/01/19 23 12/01/2022 CBC (INCL UDES DIFF/ PLT) platelet 408 thous and/u L 140 - 350 high Not Available [address], [address], 12/01/2022 11:16:52 12/01/19 23 12/01/2022 CBC (INCL UDES DIFF/ PLT) MPV 11.0 fL 9.3 - 12.4 normal Not Available [address], [address], 12/01/2022 11:16:52 12/01/19 23 12/01/2022 CBC (INCL UDES DIFF/ PLT) absolute neutrophil 3.70 thous and/u L 1.90 - 7.00 normal Not Available [address], [address], 12/01/2022 11:16:52 12/01/19 23 12/01/2022 CBC (INCL UDES DIFF/ PLT) absolute lymphocyte 1.62 thous and/u L 0.70 - 4.50 normal Not Available [address], [address], 12/01/2022 11:16:52 12/01/19 23 12/01/2022 CBC (INCL UDES DIFF/ PLT) absolute monocyte 0.50 thous and/u L 0.10 - 1.30 normal Not Available [address], [address], 12/01/2022 11:16:52 12/01/19 23 12/01/2022 CBC (INCL UDES DIFF/ PLT) absolute eosinophil 0.16 thous and/u L <0.70 normal Not Available [address], [address], 12/01/2022 11:16:52 12/01/19 23 12/01/2022 CBC (INCL UDES DIFF/ PLT) absolute basophil 0.07 thous and/u L <0.20 normal Not Available [address], [address], 12/01/2022 11:16:52 12/01/19 23 12/01/2022 CBC (INCL UDES DIFF/ PLT) absolute immature granulocyte 0.01 thous and/u L <0.03 normal Not Available [address], [address], 12/01/2022 11:16:52 12/01/19 23 12/01/2022 HEMOG LOBIN A1C hemoglobin A1C 5.2 % <5.7 normal The refer ence range for HbA1c is indic ated in the table below . Sugge sted Diagn osis =6.5% Consi stent with diabe kadie 5.7 6.4% Consi stent with incre ased risk for diabe kadie (pred iabet ic) <5.7% Consi stent with the absen ce of diabe kdaie Not Available [address], [address], 12/01/2022 12:19:44 12/01/19 23 12/01/2022 COMPR EHENS YOLIE METAB OLIC PANEL sodium 137 mmol/ L 136 - 145 normal Not Available [address], [address], 12/01/2022 12:19:45 12/01/19 23 12/01/2022 COMPR EHENS YOLIE METAB OLIC PANEL potassium 4.7 mmol/ L 3.5 - 5.1 normal Not Available [address], [address], 12/01/2022 12:19:45 12/01/19 23 12/01/2022 COMPR EHENS YOLIE METAB OLIC PANEL chloride 100 mmol/ L 98 - 107 normal Not Available [address], [address], 12/01/2022 12:19:45 12/01/19 23 12/01/2022 COMPR EHENS YOLIE METAB OLIC PANEL glucose 89 mg/dL 74 - 106 normal Not Available [address], [address], 12/01/2022 12:19:45 12/01/19 23 12/01/2022 COMPR EHENS YOLIE METAB OLIC PANEL carbon dioxide 29 mmol/ L 20 - 32 normal Not Available [address], [address], 12/01/2022 12:19:45 12/01/19 23 12/01/2022 COMPR EHENS YOLIE METAB OLIC PANEL calcium 9.4 mg/dL 8.5 - 10.1 normal Not Available [address], [address], 12/01/2022 12:19:45 12/01/1912/01/2022 COMPR EHENS YOLIE METAB OLIC PANEL creatinine 0.88 mg/dL 0.60 - 1.00 normal Not Available [address], [address], 12/01/2022 12:19:45 12/01/19 23 12/01/2022 COMPR EHENS YOLIE METAB OLIC PANEL eGFR 93 mL/mi n/1.7 3m2 >60 normal The eGFR is based on the CKD-E PI 2020 equat ion. To calcu late the new eGFR from a previ ous Creat inine or Cysta tin C resul t, go to https ://braulio todd.o ronny/pr ofess ional s/kdo qi/gf r_cal culat or Not Available [address], [address], 12/01/2022 12:19:45 12/01/19 23 12/01/2022 COMPR EHENS YOLIE METAB OLIC PANEL AST 17 U/L 32 - 40 low Not Available [address], [address], 12/01/2022 12:19:45 12/01/19 23 12/01/2022 COMPR EHENS YOLIE METAB OLIC PANEL ALT 15 U/L 14 - 59 normal Not Available [address], [address], 12/01/2022 12:19:45 12/01/19 23 12/01/2022 COMPR EHENS YOLIE METAB OLIC PANEL alk phos 79 U/L 46 - 116 normal Not Available [address], [address], 12/01/2022 12:19:45 12/01/19 23 12/01/2022 COMPR EHENS YOLIE METAB OLIC PANEL albumin 4.2 g/dL 3.4 - 5.0 normal Not Available [address], [address], 12/01/2022 12:19:45 12/01/19 23 12/01/2022 COMPR EHENS YOLIE METAB OLIC PANEL protein, total 8.2 g/dL 6.4 - 8.2 normal Not Available [address], [address], 12/01/2022 12:19:45 12/01/1912/01/2022 COMPR EHENS YOLIE METAB OLIC PANEL bilirubin, total 0.6 mg/dL 0.2 - 1.0 normal Not Available [address], [address], 12/01/2022 12:19:45 12/01/19 23 12/01/2022 COMPR EHENS YOLIE METAB OLIC PANEL urea nitrogen (BUN) 6 mg/dL 6 - 31 normal Not Available [address], [address], 12/01/2022 12:19:45 12/01/1912/01/2022 TSH W/ T4, FREE TSH 1.58 mIU/L 0.55 - 4.78 normal Refer ence Range Femal e aged 18-Ad ult: 0.55- 4.78 Pregn adelfo Refer ence Range s First Trime ster 0.26- 2.66 Secon d Trime ster 0.55- 2.73 Third Trime ster 0.43- 2.91 Not Available [address], [address], 12/01/2022 12:30:35 12/01/1912/01/2022 TSH W/ T4, FREE T4, free 1.11 NG/dL 0.89 - 1.76 normal Not Available [address], [address], 12/01/2022 12:30:35 12/01/1912/01/2022 VAGIN ITIS PLUS STD PANEL bacterial vaginosis BV POS negati ve abnormal Not Available [address], [address], 12/02/2022 09:06:01 12/01/1912/01/2022 VAGIN ITIS PLUS STD PANEL jacques species C. spp neg negati ve normal Not Available [address], [address], 12/02/2022 09:06:01 05/25/20 23 12/01/2022 VAGIN ITIS PLUS STD PANEL jacques glabrata C. gla neg negati ve normal Not Available [address], [address], 12/02/2022 09:06:01 12/01/19 23 12/01/2022 VAGIN ITIS PLUS STD PANEL trichomonas vaginalis CV/TV TRICH neg negati ve normal Not Available [address], [address], 12/02/2022 09:06:01 12/01/19 23 12/01/2022 VAGIN ITIS PLUS STD PANEL chlamydia trachomatis CT neg negati ve normal This repor t is inten ded for us in clini armando monit oring and manag ement of patie nts. It is not inten ded for use in medic al-le gal appli catio n. Not Available [address], [address], 12/02/2022 09:06:01 12/01/19 23 12/01/2022 VAGIN ITIS PLUS STD PANEL neisseria gonorrhoeae GC neg negati ve normal This repor t is inten ded for us in clini armando monit oring and manag ement of patie nts. It is not inten ded for use in medic al-le gal appli catio n. Not Available [address], [address], 12/02/2022 09:06:01 12/01/19 23 12/05/2022 THINP REP TIS PAP clinical information: normal None given Not Available [facility] [address] [address] [place], [address], 12/05/2022 19:09:35 12/01/19 23 12/05/2022 THINP REP TIS PAP LMP: normal None given Not Available [facility] [address] [address] [place], [address], 12/05/2022 19:09:35 12/01/19 23 12/05/2022 THINP REP TIS PAP prev. Pap: normal None given Not Available [address], [address], 12/05/2022 19:09:35 12/01/19 23 12/05/2022 THINP REP TIS PAP prev. BX: normal None given Not Available [address], [address], 12/05/2022 19:09:35 12/01/19 23 12/05/2022 THINP REP TIS PAP source: normal Cervi x Not Available [address], [address], 12/05/2022 19:09:35 12/01/19 23 12/05/2022 THINP REP TIS PAP statement of adequacy: normal Satis facto ry for evalu ation . Endoc ervic al/tr ansfo rmati on zone compo nent prese nt. Age and/o r menst rual statu s not provi ded Not Available [address], [address], 12/05/2022 19:09:35 12/01/19 23 12/05/2022 THINP REP TIS PAP interpretati on/result: normal Negat yolie for intra epith elial lesio n or malig alyssa . Not Available [address], [address], 12/05/2022 19:09:35 12/01/19 23 12/05/2022 THINP REP TIS PAP comment: normal This Pap test has been evalu ated with compu ter fredis charbel techn ology . Not Available [address], [address], 12/05/2022 19:09:35 12/01/19 23 12/05/2022 THINP REP TIS PAP cytotechnolo gist: normal BKA, CT( CP) CT scree jenaro locat ion: [facility] [address] [address] [place] [address] Not Available [facility] [address] [address] [place], [address], 12/05/2022 19:09:35 12/01/19 23 12/05/2022 THINP REP TIS PAP comment EXPLA NATOR [...] clini armando infor matio n. Not Available [facility] [address] [address] [place], [address], 12/05/2022 19:09:35 02/27/20 24 02/28/2024 TSH W/ T4, FREE TSH 1.49 mIU/L 0.55 - 4.78 normal Refer ence Range Femal e aged 18-Ad ult: 0.55- 4.78 Pregn adelfo Refer ence Range s First Trime ster 0.26- 2.66 Secon d Trime ster 0.55- 2.73 Third Trime ster 0.43- 2.91 Not Available [place] [facility] [place], [address], 02/28/2024 11:43:51 02/27/20 24 02/28/2024 TSH W/ T4, FREE T4, free 1.14 NG/dL 0.89 - 1.76 normal Not Available [facility] [place], [address], 02/28/2024 11:43:51 02/27/20 24 02/28/2024 CBC (INCL UDES DIFF/ PLT) WBC 7.3 thous and/u L 4.0 - 9.8 normal Not Available [place] [address] [place], [address], 02/28/2024 12:20:31 02/27/20 24 02/28/2024 CBC (INCL UDES DIFF/ PLT) RBC 4.2 emil on/uL 3.9 - 4.9 normal Not Available [address], [address], 02/28/2024 12:20:31 02/27/20 24 02/28/2024 CBC (INCL UDES DIFF/ PLT) hemoglobin 10.6 g/dL 11.8 - 14.8 low Not Available [facility] [address] [place] [address], [address], 02/28/2024 12:20:31 02/27/20 24 02/28/2024 CBC (INCL UDES DIFF/ PLT) hematocrit 33.9 % 35.5 - 44.0 low Not Available [facility] [address] [place] [address], [address], 02/28/2024 12:20:31 02/27/20 24 02/28/2024 CBC (INCL UDES DIFF/ PLT) MCV 80.9 fL 82.0 - 99.0 low Not Available [place] [address], [address], 02/28/2024 12:20:31 02/27/20 24 02/28/2024 CBC (INCL UDES DIFF/ PLT) MCH 25.3 pg 27.2 - 32.6 low Not Available [facility] [address] [place] [address], [address], 02/28/2024 12:20:31 02/27/20 24 02/28/2024 CBC (INCL UDES DIFF/ PLT) MCHC 31.3 g/dL 31.5 - 35.5 low Not Available [facility] [address] [place] [address], [address], 02/28/2024 12:20:31 02/27/20 24 02/28/2024 CBC (INCL UDES DIFF/ PLT) RDW-CV 14.0 % 11.5 - 14.5 normal Not Available [address], [address], 02/28/2024 12:20:31 02/27/20 24 02/28/2024 CBC (INCL UDES DIFF/ PLT) platelet 358 thous and/u L 140 - 350 high Not Available [address], [address], 02/28/2024 12:20:31 02/27/20 24 02/28/2024 CBC (INCL UDES DIFF/ PLT) MPV 11.7 fL 9.3 - 12.4 normal Not Available [address], [address], 02/28/2024 12:20:31 02/27/20 24 02/28/2024 CBC (INCL UDES DIFF/ PLT) absolute neutrophil 4.84 thous and/u L 1.90 - 7.00 normal Not Available [address], [address], 02/28/2024 12:20:31 02/27/20 24 02/28/2024 CBC (INCL UDES DIFF/ PLT) absolute lymphocyte 1.65 thous and/u L 0.70 - 4.50 normal Not Available [address], [address], 02/28/2024 12:20:31 02/27/20 24 02/28/2024 CBC (INCL UDES DIFF/ PLT) absolute monocyte 0.53 thous and/u L 0.10 - 1.30 normal Not Available [address], [address], 02/28/2024 12:20:31 02/27/20 24 02/28/2024 CBC (INCL UDES DIFF/ PLT) absolute eosinophil 0.20 thous and/u L <0.70 normal Not Available [address], [address], 02/28/2024 12:20:31 02/27/20 24 02/28/2024 CBC (INCL UDES DIFF/ PLT) absolute basophil 0.04 thous and/u L <0.20 normal Not Available [address], [address], 02/28/2024 12:20:31 02/27/20 24 02/28/2024 CBC (INCL UDES DIFF/ PLT) absolute immature granulocyte 0.00 thous and/u L <0.03 normal Not Available [address], [address], 02/28/2024 12:20:31 02/27/20 24 02/28/2024 HCG, TOTAL [...] has not been valid ated by the [facility] actur er of this assay . Not Available [address], [place], [address], 02/28/2024 12:56:58 12/12/1912/11/2022 US, trans vagin al No observ ation record ed. kayli Stapleton [address] [facility], [place], [address], 12/12/2022 09:58:49 Result Notes None recorded. Problems Name Problem SNOMED Code Status Onset Date Resolution Date Notes Provider Name and Address Organization Details Recorded Time Lochia finding Completed 201705/10/2022 Encounte r for routine postpart um follow-u p; Progress : Stable Added By: Josi Hilario Add to Current Problems : YES ProblemS tatus: Current Laila Britsch null, [facility] [facility] 2 12:05:43 Vaginiti s and vulvovag initis Completed 201706/28/2018 Vaginiti s; Location : None Progress : Stable Added By: Chino Arguelles Add to Current Problems : YES ProblemS tatus: Resolve Not Available [facility] 2 19:43:30 Dysuria 46806896 Completed 201706/07/2018 Dysuria; Location : None Progress : Stable Added By: Josi Hilario Add to Current Problems : YES ProblemS tatus: Resolve Painful micturit ion, unspecif ied; Progress : Stable Added By: Josi Hilario Add to Current Problems : NO ProblemS tatus: Resolve Not Available [facility] 2 19:43:31 Beckie ry postpart um mood disturba nce 08987991 Completed 201705/10/2022 Postpart um mood disturba nce; Progress : Stable Added By: Josi Hilario Add to Current Problems : YES ProblemS tatus: Current Laila Britsch null, [facility] 2 12:03:44 Poor growth affectin g manageme nt 643631218 Completed 201706/21/2018 Small for dates; Progress : Stable Added By: Abida Barrientos Add to Current Problems : NO ProblemS tatus: Resolve Not Available [facility] 2 19:43:30 Gestatio n period, 33 weeks 38912396 Completed 201706/07/2018 33 weeks gestatio n of pregnanc y; Progress : Stable Added By: Josi Hilario Add to Current Problems : NO ProblemS tatus: Resolve Not Available [facility] 2 19:43:31 Cyst of ovary 04273441 Completed 201805/10/2022 Unspecif ied ovarian cyst, left side; Progress : Stable Added By: Chino Arguelles Add to Current Problems : YES ProblemS tatus: Current Laila Britsch null, [facility] 2 12:05:57 Normal pregnanc y 60210133 Active 2017 Medical visit for normal pregnanc y; Location : None Progress : Stable Added By: Sharon Dotson Add to Current Problems : YES ProblemS tatus: Current Not Available [facility] 2 19:43:30 anatomy study Active 2017 Encounte r for anatomic survey; Location : None Progress : Stable Added By: Kirstie Bess Add to Current Problems : YES ProblemS tatus: Current Not Available [facility] 2 21:18:38 Past pregnanc y history of section 205625936 Active 2017 Jay Ernandez MD [address] [place], [address] , [employer] [facility] [employer] IV 3 14:43:31 Notes:Encounter for an atomic [...] of Last Pap Smear completed Taylor Crowley [employer] [facility] [employer] IV 02/27/2024 15:45:57 delivery completed Trishlam Perez [employer] [facility] [employer] IV 11/30/2022 14:13:00 Imaging Results Imaging Date Name Status LastModified by Organization Details LastModified Time 12/11/2022 US, transvaginal completed kayli Stapleton [address], [place], [address], 12/12/2022 09:58:49 Procedure Notes None recorded. Medical [...] 08/24 completed Gabapent in 300mg Capsules RxNorm: [id number] Allow Substitu tion: True Refill Denied: No [...] Details Last Updated DateTime 3 98.3 [degF] 87223.3 7 g 26.8 kg/m2 170.18 cm 122 mm[Hg] 74 mm[Hg] Trish Perez [facility] 3 14:08:28 Date Recorded Body height Body mass index (BMI) Body weight Body temperature Systolic blood pressure Diastolic blood pressure Provider Name and Address Organization Details Last Updated DateTime 4 170.18 cm 27 kg/m2 20819.0 4 g 97.7 [degF] 102 mm[Hg] 64 mm[Hg] Taylor Crowley [place] [employer] 4 15:43:09 Social History None recorded. Functional Status None recorded. Mental Status None recorded. Family History Relationship Description Onset Age of this Age Resolved Age Notes LastModified by Organization Details LastModified Time Sister Polycystic ovary syndrome [email or web address] Not available 2022 14:46:07 Unspecified Relation History of recurrent miscarriage - not [email or web address] Not available 2022 14:46:42 Notes:in her first [...] Diagnosis/Indication Diagnosis SNOMED-CT Code Diagnosis ICD10 Code Diagnosis Note [id number] Jay Ernandez MD [facility] [address] [place] [address] 11/30/2022 13:51:21 12/07/2022 09:38:15 Miscarriage 71020374 O03.9 Screening for malignant neoplasm of cervix 492897216 Z12.4 Vaginitis 56072876 N76.0 [facility] education 247665449 Z30.09 She desire the patch , tried OCP and DMPA in the past she does want to try the patch. I explained to her she may get the patch after we rule out she is by weekly serial HCG until negative. 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 The surgical procedure for Da Juan total Laparoscop ic Hyst and bilateral salpingect wayne, the alternativ es and risks including but not limited to anethesia, bleeding, infection, injury to surroundin g organs, improper wound healing, DVT, VTE, PE, pneumonia, possible need for laparotomy , ureteral or bladder injury, , or possible need for more surgery at a later date were all discussed and explained. The procedure was explained with the aid of an anatomical model and pamphlet. The patient wants to keep her ovaries unless they look abnormal or we discussed removing them and ramificati ons of surgical menopause as well as recommend to do HRT in some regard . She understand s that her uterus is being removed and she then will not be able to carry a for herself or anyone else. The expected recovery was discussed. The patient was able to tell me back a good understand ing of the procedure, it's indication , the risks and recovery. She has no questions and wants to proceed as scheduled Health Concerns Section Related Observation LastModified by Organization Detai ls LastModified Time None Recorded Concern Status LastModified by Organization Details LastModified Time None Recorded Advance Directives Directive None Recorded Payers Encounter Date Sequence Insurance Name Policy Number Policy Day Covered Member ID Day Member ID Guarantor Name 11/30/2022 1 [facility] ON OR AFTER 01/06/21 (MEDICAID REPLACEMENT - HMO) Magda Vernon [id number] Magda Vernon 02/27/2024 1 [facility] ON OR AFTER 01/06/21 (MEDICAID REPLACEMENT - HMO) Magda Vernon [id number] Magda Vernon Notes Date Note Type Note [...] for boys fetus only! Jay Ernandez MD [address] [facility], [place], [address], [facility] IV 11/30/2022 17:16:35 02/27/2024 text/html The patient verbally consented to documentation via virtual scribe for this encounter. Magda is a 29 year old woman presents today for ER follow up. She states that she went to [facility] on 02/25/24.and she was told that she [...] chronic constipation. LMP: 01/10/24. Osmin Hunt MD [address] [place], [address], [facility] 02/29/2024 13:09:27 OBGyn Episode Ob Episode Information Episode Created Date Number of Fetuses Patient Bloodtype Patient rh Status Prepregnancy Weight lbs Domestic Partner Domestic Partner Phone Father Name Bucket Pusher Status 09/23/19 22 1 CLOSED Fetus Data First Name Last Name Admitted to NICU Weight (g) Sex Living Outcome Pediatric Complications Fetus ID Race Codes Race Delivery Type 2919.77 1704 F Full Term [id number] Primary Johny Calculation Initial Johny Date Initial Exam Date Initial Exam Provider Initial Ultrasound Date Last Menstrual Period Date Ultra Sound Weeks Gestation 0 Eighteen To Twenty Week Johny Update Ultra Sound Date Fundal Height At Umbil Quickening Date Ultra Sound Latest Weeks Gestation Final Johny Confirmed By Final Johny Confirmed Date Final Johny Date Ultra Sound Latest Days Gestation 0 [...]
--- OUTSIDE RECORDS SUMMARY | 2024-10-11 18:01 | XMS_ITS | Clinical Summary ---
Author Organization [facility] Address [address] [place] [id number] Care Team Providers Care Mobile Home Laborer Name Role Phone None, Provider MD Primary Care Provider Unavaila ble Allergies No known active allergies Medications No known medications Active Problems Problem Noted Date Diagnosed Date Acute pancreatitis ([facility]) 11/01/2018 Assessment & Plan (11/01/2018 7:42 AM [...] cholecystectomy as outpatient Vomiting or nausea of ([facility]) 2017 Nausea & vomiting 02/25/2018 Social History [...] 78 11/10/2023 1:11 PM CDT Temperature 36.6 C (97.8 F) 11/10/2023 1:11 PM CDT Respiratory Rate 16 11/10/2023 1:11 PM CDT Oxygen Saturation 98% 11/10/2023 1:11 PM CDT Inhaled Oxygen Concentration - - Weight 74.8 kg (165 lb) 11/10/2023 1:12 PM CDT Height 172.7 cm (5' 8 ) 11/10/2023 1:11 PM CDT Body Mass Index 25.09 11/10/2023 1:11 PM CDT Plan of Treatment Health Maintenance Due Date Last Done Comments [...] complete this topic HPV Vaccines Completed 09/08/2009, 10/2008, 03/10/2009 Meningococcal B Vaccine Aged Out No l onger eligible based on patient's age to complete this topic Pneumococcal Vaccine: Pediatrics (0 to 5 Years) and At-Risk Patients (6 to 64 Years) Aged Out No longer eligible based on patient's age to complete this topic RSV Immunizations Under 20 Months Aged Out No longer eligible based on patient's age to complete this topic Medical Devices Implanted Type Area Sweater Operator Device Identifier Shelf Expiration Date Model / Serial / Lot Advanix Pancreatic Stent Implanted:Qty: 1 on 10/31/2018 by Isrrael Rousseau MD at [facility] N/A: Pancreas [id number] 03/26/2020 / [id number] / [id number] Insurance [facility] Advance Directives * Full Code (Latest Code Status on File) Date Activated Date Inactivated Comments 10/30/2018 4:35 PM 11/02/2018 11:13 AM Care Teams Mobile Home Laborer Relationship Specialty Start Date End Date None, Provider, PCP - General 07/17/18
[2024-10-11 18:05] VITALS: BP 119/75; PULSE 84; RESP 16; TEMP 36.9; O2SAT 99
== END 2024-10-11 18:17 | disposition home or self-care (01) ==
PROVIDERS: Emergency Provider Nurse Practitioner Family
DX: K04.7 Periapical abscess without sinus (principal); F17.290 Nicotine dependence, other tobacco product, uncomplicated
CPT/HCPCS: 99213; G0463

== ENCOUNTER 2024-12-02 16:59 | Emergency (ER) | payer OTHER, SELFPAY ==
--- OUTSIDE RECORDS SUMMARY | 2024-12-02 17:01 | XMS_ITS | Data Portability ---
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 Plan of Treatment Reminders Order Date Submit Date Provider Last Modified By Organization Details Last Modified Time Details Appointments None recorded. Lab TSH + free T4, serum 2023 024 [facility], [address] [place], [address], 4 11:43:51 CBC w/ auto diff 2023 024 [facility], [address] [place], [address], 4 12:20:31 magnesium, serum or plasma 2023 024 [email or web address] [id number] [facility], [address] [facility], [place], [address], 4 17:34:44 beta-HCG, quantitativ e, serum or plasma 2023 024 [facility], [address] [place], [address], 4 12:56:58 bacterial vaginosis + vaginitis panel, vaginal 2022 023 [facility], [address] [place], [address], 3 09:06:01 hemoglobin A1c, QN, blood 2022 023 [employer] [place], [address] [place], [address], 3 12:19:44 pap, LB 2022 023 [email or web address], [address] [place], [address], 3 19:09:35 unlisted lab - Pap reflex hold 2022 023 [facility], [address] [place], [address], 3 16:56:58 beta-HCG, quantitativ e, serum or plasma 2022 023 [facility], [address] [place], [address], 3 12:30:32 CBC w/ auto diff 2022 023 [facility], [address] [place], [address], 3 11:16:52 abo group + rh type, blood 2022 023 [email or web address], [address] [place], [address], 3 12:27:34 TSH + free T4, serum 2022 023 [facility], [address] [place], [address], 3 12:30:35 CMP, serum or plasma 2022 023 [facility], [address] [place], [address], 3 12:19:45 Referral None recorded. Procedures None recorded. Surgeries None recorded. Imaging None recorded. Medication Orders Slynd 4 mg (28) tablet 2023 024 ISH[id number], [address] [facility], [place], [place], [id number], 17:02:37 Patient TargetsNo targets recorded. Patient InstructionsNo [...] has not been valid ated by the [facility] actur er of this assay . Not Available [address], [address], 12/01/2022 12:30:32 12/09/1912/08/2022 ABO GROUP AND RH TYPE ABO group A Not Available [facility] [address] [place], [address], 12/08/2022 12:27:34 12/09/1912/08/2022 ABO GROUP AND RH TYPE Rh type RH(D) POSITI VE For addit ional infor mike hidalgo refer to http: //[facility] catrell n.Que stDia gnost ics.c om/fa q/FAQ [...] NUMBE R: 866.6 97.83 78 Not Available [facility] [address], [place], [address], 12/08/2022 12:27:34 12/13/19 23 12/12/2022 HCG, TOTAL , QUANT HCG, total, quant Sample stabil ity d. If testin g is still requir ed a new specim en and new order will need to be proces sed. Not Available [facility] [place] [address] [place], [address], 12/12/2022 11:25:58 12/01/19 23 12/01/2022 CBC (INCL UDES DIFF/ PLT) WBC 6.1 thous and/u L 4.0 - 9.8 normal Not Available [facility] [address] [place], [address], 12/01/2022 11:16:52 12/01/19 23 12/01/2022 CBC (INCL UDES DIFF/ PLT) RBC 4.5 emil on/uL 3.9 - 4.9 normal Not Available [facility] [address] [place], [address], 12/01/2022 11:16:52 12/01/19 23 12/01/2022 CBC (INCL UDES DIFF/ PLT) hemoglobin 11.7 g/dL 11.8 - 14.8 low Not Available [facility] [address] [place], [address], 12/01/2022 11:16:52 12/01/19 23 12/01/2022 CBC (INCL UDES DIFF/ PLT) hematocrit 37.1 % 35.5 - 44.0 normal Not Available [facility] [address] [place], [address], 12/01/2022 11:16:52 12/01/19 23 12/01/2022 CBC (INCL UDES DIFF/ PLT) MCV 82.3 fL 82.0 - 99.0 normal Not Available [facility] [address] [place] [address], [address], 12/01/2022 11:16:52 12/01/19 23 12/01/2022 CBC (INCL UDES DIFF/ PLT) MCH 25.9 pg 27.2 - 32.6 low Not Available [address], [address], 12/01/2022 11:16:52 12/01/19 23 12/01/2022 CBC (INCL UDES DIFF/ PLT) MCHC 31.5 g/dL 31.5 - 35.5 normal Not Available [address], [address], 12/01/2022 11:16:52 12/01/19 23 12/01/2022 CBC (INCL UDES DIFF/ PLT) RDW-CV 12.7 % 11.5 - 14.5 normal Not Available [address], [address], 12/01/2022 11:16:52 12/01/19 23 12/01/2022 CBC (INCL UDES DIFF/ PLT) platelet 408 thous and/u L 140 - 350 high Not Available [address], [address], 12/01/2022 11:16:52 12/01/19 23 12/01/2022 CBC (INCL UDES DIFF/ PLT) MPV 11.0 fL 9.3 - 12.4 normal Not Available [address], [address], 12/01/2022 11:16:52 12/01/19 23 12/01/2022 CBC (INCL UDES DIFF/ PLT) absolute neutrophil 3.70 thous and/u L 1.90 - 7.00 normal Not Available [address], [address], 12/01/2022 11:16:52 12/01/19 23 12/01/2022 CBC (INCL UDES DIFF/ PLT) absolute lymphocyte 1.62 thous and/u L 0.70 - 4.50 normal Not Available [address], [address], 12/01/2022 11:16:52 12/01/19 23 12/01/2022 CBC (INCL UDES DIFF/ PLT) absolute monocyte 0.50 thous and/u L 0.10 - 1.30 normal Not Available [address], [address], 12/01/2022 11:16:52 12/01/19 23 12/01/2022 CBC (INCL UDES DIFF/ PLT) absolute eosinophil 0.16 thous and/u L <0.70 normal Not Available [address], [address], 12/01/2022 11:16:52 12/01/19 23 12/01/2022 CBC (INCL UDES DIFF/ PLT) absolute basophil 0.07 thous and/u L <0.20 normal Not Available [address], [address], 12/01/2022 11:16:52 12/01/19 23 12/01/2022 CBC (INCL UDES DIFF/ PLT) absolute immature granulocyte 0.01 thous and/u L <0.03 normal Not Available [address], [address], 12/01/2022 11:16:52 12/01/19 23 12/01/2022 HEMOG LOBIN [...] absen ce of diabe kadie Not Available [address], [address], 12/01/2022 12:19:44 12/01/19 23 12/01/2022 COMPR EHENS YOLIE METAB OLIC PANEL sodium 137 mmol/ L 136 - 145 normal Not Available [address], [address], 12/01/2022 12:19:45 12/01/19 23 12/01/2022 COMPR EHENS YOLIE METAB OLIC PANEL potassium 4.7 mmol/ L 3.5 - 5.1 normal Not Available [address], [address], 12/01/2022 12:19:45 12/01/19 23 12/01/2022 COMPR EHENS YOLIE METAB OLIC PANEL chloride 100 mmol/ L 98 - 107 normal Not Available [address], [address], 12/01/2022 12:19:45 12/01/19 23 12/01/2022 COMPR EHENS YOLIE METAB OLIC PANEL glucose 89 mg/dL 74 - 106 normal Not Available [address], [address], 12/01/2022 12:19:45 12/01/19 23 12/01/2022 COMPR EHENS YOLIE METAB OLIC PANEL carbon dioxide 29 mmol/ L 20 - 32 normal Not Available [address], [address], 12/01/2022 12:19:45 12/01/19 23 12/01/2022 COMPR EHENS YOLIE METAB OLIC PANEL calcium 9.4 mg/dL 8.5 - 10.1 normal Not Available [address], [address], 12/01/2022 12:19:45 12/01/1912/01/2022 COMPR EHENS YOLIE METAB OLIC PANEL creatinine 0.88 mg/dL 0.60 - 1.00 normal Not Available [address], [address], 12/01/2022 12:19:45 12/01/19 23 12/01/2022 COMPR EHENS YOLIE METAB OLIC PANEL eGFR 93 mL/mi n/1.7 3m2 >60 normal The eGFR is based on the CKD-E PI 2020 equat ion. To calcu late the new eGFR from a previ ous Creat inine or Cysta tin C resul t, go to https ://braulio todd.o ronny/pr ofess ional s/kdo qi/gf r_cal culat or Not Available [address], [address], 12/01/2022 12:19:45 12/01/19 23 12/01/2022 COMPR EHENS YOLIE METAB OLIC PANEL AST 17 U/L 32 - 40 low Not Available [address], [address], 12/01/2022 12:19:45 12/01/19 23 12/01/2022 COMPR EHENS YOLIE METAB OLIC PANEL ALT 15 U/L 14 - 59 normal Not Available [address], [address], 12/01/2022 12:19:45 12/01/19 23 12/01/2022 COMPR EHENS YOLIE METAB OLIC PANEL alk phos 79 U/L 46 - 116 normal Not Available [address], [address], 12/01/2022 12:19:45 12/01/19 23 12/01/2022 COMPR EHENS YOLIE METAB OLIC PANEL albumin 4.2 g/dL 3.4 - 5.0 normal Not Available [address], [address], 12/01/2022 12:19:45 12/01/19 23 12/01/2022 COMPR EHENS YOLIE METAB OLIC PANEL protein, total 8.2 g/dL 6.4 - 8.2 normal Not Available [address], [address], 12/01/2022 12:19:45 12/01/1912/01/2022 COMPR EHENS YOLIE METAB OLIC PANEL bilirubin, total 0.6 mg/dL 0.2 - 1.0 normal Not Available [address], [address], 12/01/2022 12:19:45 12/01/19 23 12/01/2022 COMPR EHENS YOLIE METAB OLIC PANEL urea nitrogen (BUN) 6 mg/dL 6 - 31 normal Not Available [address], [address], 12/01/2022 12:19:45 12/01/1912/01/2022 TSH W/ T4, FREE TSH 1.58 mIU/L 0.55 - 4.78 normal Refer ence Range Femal e aged 18-Ad ult: 0.55- 4.78 Pregn adelfo Refer ence Range s First Trime ster 0.26- 2.66 Secon d Trime ster 0.55- 2.73 Third Trime ster 0.43- 2.91 Not Available [address], [address], 12/01/2022 12:30:35 12/01/1912/01/2022 TSH W/ T4, FREE T4, free 1.11 NG/dL 0.89 - 1.76 normal Not Available [address], [address], 12/01/2022 12:30:35 12/01/1912/01/2022 VAGIN ITIS PLUS STD PANEL bacterial vaginosis BV POS negati ve abnormal Not Available [address], [address], 12/02/2022 09:06:01 12/01/1912/01/2022 VAGIN ITIS PLUS STD PANEL jacques species C. spp neg negati ve normal Not Available [address], [address], 12/02/2022 09:06:01 05/25/20 23 12/01/2022 VAGIN ITIS PLUS STD PANEL jacques glabrata C. gla neg negati ve normal Not Available [address], [address], 12/02/2022 09:06:01 12/01/19 23 12/01/2022 VAGIN ITIS PLUS STD PANEL trichomonas vaginalis CV/TV TRICH neg negati ve normal Not Available [address], [address], 12/02/2022 09:06:01 12/01/19 23 12/01/2022 VAGIN ITIS PLUS STD PANEL chlamydia trachomatis CT neg negati ve normal This repor t is inten ded for us in clini armando monit oring and manag ement of patie nts. It is not inten ded for use in medic al-le gal appli catio n. Not Available [address], [address], 12/02/2022 09:06:01 12/01/19 23 12/01/2022 VAGIN ITIS PLUS STD PANEL neisseria gonorrhoeae GC neg negati ve normal This repor t is inten ded for us in clini armando monit oring and manag ement of patie nts. It is not inten ded for use in medic al-le gal appli catio n. Not Available [address], [address], 12/02/2022 09:06:01 12/01/19 23 12/05/2022 THINP REP TIS PAP clinical information: normal None given Not Available [facility] [address] [address] [place], [address], 12/05/2022 19:09:35 12/01/19 23 12/05/2022 THINP REP TIS PAP LMP: normal None given Not Available [facility] [address] [address] [place], [address], 12/05/2022 19:09:35 12/01/19 23 12/05/2022 THINP REP TIS PAP prev. Pap: normal None given Not Available [address], [address], 12/05/2022 19:09:35 12/01/19 23 12/05/2022 THINP REP TIS PAP prev. BX: normal None given Not Available [address], [address], 12/05/2022 19:09:35 12/01/19 23 12/05/2022 THINP REP TIS PAP source: normal Cervi x Not Available [address], [address], 12/05/2022 19:09:35 12/01/19 23 12/05/2022 THINP REP TIS PAP statement of adequacy: normal Satis facto ry for evalu ation . Endoc ervic al/tr ansfo rmati on zone compo nent prese nt. Age and/o r menst rual statu s not provi ded Not Available [address], [address], 12/05/2022 19:09:35 12/01/19 23 12/05/2022 THINP REP TIS PAP interpretati on/result: normal Negat yolie for intra epith elial lesio n or malig alyssa . Not Available [address], [address], 12/05/2022 19:09:35 12/01/19 23 12/05/2022 THINP REP TIS PAP comment: normal This Pap test has been evalu ated with compu ter fredis charbel techn ology . Not Available [address], [address], 12/05/2022 19:09:35 12/01/19 23 12/05/2022 THINP REP TIS PAP cytotechnolo gist: normal BKA, CT( CP) CT scree jenaro locat ion: [facility] [address] [address] [place] [address] Not Available [employer] [address] [address] [place], [address], 12/05/2022 19:09:35 12/01/19 23 12/05/2022 THINP REP [...] clini armando infor matio n. Not Available [employer] [address] [address] [place], [address], 12/05/2022 19:09:35 02/27/20 24 02/28/2024 TSH W/ T4, FREE TSH 1.49 mIU/L 0.55 - 4.78 normal Refer ence Range Femal e aged 18-Ad ult: 0.55- 4.78 Pregn adelfo Refer ence Range s First Trime ster 0.26- 2.66 Secon d Trime ster 0.55- 2.73 Third Trime ster 0.43- 2.91 Not Available [facility] [place], [address], 02/28/2024 11:43:51 02/27/20 24 02/28/2024 TSH W/ T4, FREE T4, free 1.14 NG/dL 0.89 - 1.76 normal Not [place], [address], 02/28/2024 11:43:51 02/27/20 24 02/28/2024 CBC (INCL UDES DIFF/ PLT) WBC 7.3 thous and/u L 4.0 - 9.8 normal Not Available [facility] [address] [place], [address], 02/28/2024 12:20:31 02/27/20 24 02/28/2024 CBC (INCL UDES DIFF/ PLT) RBC 4.2 emil on/uL 3.9 - 4.9 normal Not Available [address], [address], 02/28/2024 12:20:31 02/27/20 24 02/28/2024 CBC (INCL UDES DIFF/ PLT) hemoglobin 10.6 g/dL 11.8 - 14.8 low Not Available [facility] [address] [place] [address], [address], 02/28/2024 12:20:31 02/27/20 24 02/28/2024 CBC (INCL UDES DIFF/ PLT) hematocrit 33.9 % 35.5 - 44.0 low Not Available [facility] [address] [place] [address], [address], 02/28/2024 12:20:31 02/27/20 24 02/28/2024 CBC (INCL UDES DIFF/ PLT) MCV 80.9 fL 82.0 - 99.0 low Not Available [facility] [address], [address], 02/28/2024 12:20:31 02/27/20 24 02/28/2024 CBC (INCL UDES DIFF/ PLT) MCH 25.3 pg 27.2 - 32.6 low Not Available [facility] [address] [place] [address], [address], 02/28/2024 12:20:31 02/27/20 24 02/28/2024 CBC (INCL UDES DIFF/ PLT) MCHC 31.3 g/dL 31.5 - 35.5 low Not Available [facility] [address] [place] [address], [address], 02/28/2024 12:20:31 02/27/20 24 02/28/2024 CBC (INCL UDES DIFF/ PLT) RDW-CV 14.0 % 11.5 - 14.5 normal Not Available [address], [address], 02/28/2024 12:20:31 02/27/20 24 02/28/2024 CBC (INCL UDES DIFF/ PLT) platelet 358 thous and/u L 140 - 350 high Not Available [address], [address], 02/28/2024 12:20:31 02/27/20 24 02/28/2024 CBC (INCL UDES DIFF/ PLT) MPV 11.7 fL 9.3 - 12.4 normal Not Available [address], [address], 02/28/2024 12:20:31 02/27/20 24 02/28/2024 CBC (INCL UDES DIFF/ PLT) absolute neutrophil 4.84 thous and/u L 1.90 - 7.00 normal Not Available [address], [address], 02/28/2024 12:20:31 02/27/20 24 02/28/2024 CBC (INCL UDES DIFF/ PLT) absolute lymphocyte 1.65 thous and/u L 0.70 - 4.50 normal Not Available [address], [address], 02/28/2024 12:20:31 02/27/20 24 02/28/2024 CBC (INCL UDES DIFF/ PLT) absolute monocyte 0.53 thous and/u L 0.10 - 1.30 normal Not Available [address], [address], 02/28/2024 12:20:31 02/27/20 24 02/28/2024 CBC (INCL UDES DIFF/ PLT) absolute eosinophil 0.20 thous and/u L <0.70 normal Not Available [address], [address], 02/28/2024 12:20:31 02/27/20 24 02/28/2024 CBC (INCL UDES DIFF/ PLT) absolute basophil 0.04 thous and/u L <0.20 normal Not Available [address], [address], 02/28/2024 12:20:31 02/27/20 24 02/28/2024 CBC (INCL UDES DIFF/ PLT) absolute immature granulocyte 0.00 thous and/u L <0.03 normal Not Available [address], [address], 02/28/2024 12:20:31 02/27/20 24 02/28/2024 HCG, TOTAL [...] er of this assay . Not Available [address], [place], [address], 02/28/2024 12:56:58 12/12/1912/11/2022 US, trans vagin al No observ ation record ed. kayli [address], [facility], [place], [address], 12/12/2022 09:58:49 Result Notes None recorded. Problems Name Problem SNOMED Code Status Onset Date Resolution Date Notes Provider Name and Address Organization Details Recorded Time Lochia finding Completed 201705/10/2022 Encounte r for routine postpart um follow-u p; Progress : Stable Added By: Josi Hilario Add to Current Problems : YES ProblemS tatus: Current Laila Britsch null, [employer] [facility] 2 12:05:43 Vaginiti s and vulvovag initis Completed 201706/28/2018 Vaginiti s; Location : None Progress : Stable Added By: Chino Arguelles Add to Current Problems : YES ProblemS tatus: Resolve Not Available [facility] 2 19:43:30 Dysuria [id number] Completed 201706/07/2018 Dysuria; Location : None Progress : Stable Added By: Josi Hilario Add to Current Problems : YES ProblemS tatus: Resolve Painful micturit ion, unspecif ied; Progress : Stable Added By: Josi Hilario Add to Current Problems : NO ProblemS tatus: Resolve Not Available [facility] 2 19:43:31 Beckie ry postpart um mood disturba nce [id number] Completed 201705/10/2022 Postpart um mood disturba nce; Progress : Stable Added By: Josi Hilairo Add to Current Problems : YES ProblemS tatus: Current Laila Britsch null, [facility] 2 12:03:44 Poor growth affectin g manageme nt [id number] Completed 201706/21/2018 Small for dates; Progress : Stable Added By: Abida Barrientos Add to Current Problems : NO ProblemS tatus: Resolve Not Available [facility] 2 19:43:30 Gestatio n period, 33 weeks [id number] Completed 201706/07/2018 33 weeks gestatio n of pregnanc y; Progress : Stable Added By: Josi Hilario Add to Current Problems : NO ProblemS tatus: Resolve Not Available [facility] 2 19:43:31 Cyst of ovary [id number] Completed 201805/10/2022 Unspecif ied ovarian cyst, left side; Progress : Stable Added By: Chino Arguelles Add to Current Problems : YES ProblemS tatus: Current Laila Britsch null, [facility] 2 12:05:57 Normal pregnanc y 05122494 Active 2017 Medical visit for normal pregnanc y; Location : None Progress : Stable Added By: Sharon Dotson Add to Current Problems : YES ProblemS tatus: Current Not Available [facility] 2 19:43:30 anatomy study Active 2017 Encounte r for anatomic survey; Location : None Progress : Stable Added By: Kirstie Bess Add to Current Problems : YES ProblemS tatus: Current Not Available [facility] 2 21:18:38 Past pregnanc y history of section 341124345 Active 2017 Jay Ernandez MD [address] [place], [address] , [employer] [facility] 3 14:43:31 Notes:Encounter for an atomic [...] Date of Last Pap Smear completed Taylor Keo [employer] [facility] 02/27/2024 15:45:57 delivery completed Trishlam Perez [employer] [facility] 11/30/2022 14:13:00 Imaging Results None recorded. Procedure Notes None recorded. Medical Equipment None [...] 08/24 completed Gabapent in 300mg Capsules RxNorm: [id number] Allow Substitu tion: True Refill Denied: No [...] Body mass index (BMI) Body height Systolic And Diastolic Provider Name and Address Organization Details Last Updated DateTime 11/30/2022 98.3 [degF] 30042.37 g 26.8 kg/m2 170.18 cm 122/74 mm[Hg] Trish Perez [place] [facility] 3 14:08:28 Date Recorded Body height Body mass index (BMI) Body weight Body temperature Systolic And Diastolic Provider Name and Address Organization Details Last Updated DateTime 02/27/2024 170.18 cm 27 kg/m2 21635.0 4 g 97.7 [degF] 102/64 mm[Hg] Taylor Crowley [place] [facility] 4 15:43:09 Social History None recorded. Functional Status None recorded. Mental Status None recorded. Family History Relationship Description Onset Age of this Age Resolved Age Notes LastModified by Organization Details LastModified Time Sister Polycystic ovary syndrome [facility] bilateral [facility]ies [email or web address] Not available 2022 14:46:07 Unspecified Relation History of recurrent miscarriage - not [email or web address] Not available 2022 14:46:42 Notes:in her first [...] SNOMED-CT Code Diagnosis ICD10 Code Diagnosis Note [id number] Jay Ernandez MD [facility] [address] [place] [address] 11/30/2022 13:51:21 12/07/2022 09:38:15 Miscarriage [id number] O03.9 Screening for malignant neoplasm of cervix 376329513 Z12.4 Vaginitis 56808779 N76.0 [facility] education 399180198 Z30.09 She desire the patch , tried OCP and DMPA in the past she does want to try the patch. I explained to her she may get the patch after we rule out she is by weekly serial HCG until negative. [id number] Osmin Hunt MD [facility] [address] [place] [address] 02/27/2024 15:19:13 03/03/2024 11:47:57 Threatened miscarriage 24449871 O20.0 has miscarried and follow to <5 Chronic constipation 236 296998 K59.09 miralax 1 tsp - tblsp twice per day as well as benefiber 1 tsp - tbls twice per day and magnesium citrate 500mg twice per day(may use the fluid which is 1 tsp twice per day) and then adjust to as low a dose with the benefiber and miralax so u have soft BMs at least every other day Menorrhagia 125123218 N9 2.0 Secondary dysmenorrhea 39310020 N94.5 COUNSELING was provided today regarding the [...] Recorded Advance Directives Directive None Recorded Payers Insurance Date Sequence Insurance Name Policy Number Policy Day Covered Member ID Day Member ID Guarantor Name 11/06/2024 1 [facility] - DOS ON OR AFTER 21 (MEDICAID REPLACEMENT - HMO) Magda Vernon [id number] Magda Vernon Notes Date Note Type Note [...] for boys fetus only! Jay Ernandez MD [address] [place] [address], [phone], [employer] [facility] 11/30/2022 17:16:35 02/27/2024 text/html The patient verbally consented to documentation via virtual scribe for this encounter. Magda is a 29 year old woman presents today for ER follow up. She states that she went to [facility] on 02/25/24.and she was told [...] chronic constipation. LMP: 01/10/24. Osmin Hunt MD [address] [place] [address], [place], [address], [employer] [facility] 02/29/2024 13:09:27 OBGyn Episode Ob Episode Information Episode Created Date Number of Fetuses Patient Bloodtype Patient rh Status Prepregnancy Weight lbs Domestic Partner Domestic Partner Phone Father Name [employer]aning [employer] Member Status 09/23/19 22 1 CLOSED Fetus Data First Name Last Name Admitted to NICU Weight (g) Sex Living Outcome Pediatric Complications Fetus ID Race Codes Race Delivery Type 2919.77 1704 F Full Term [id number] Primary Johny Calculation Initial Johny Date Initial [...]
--- NOTE | 2024-12-02 17:07 | ED_ITS ---
HPI - General Adult General Chief complaint: Urogenital-Female Stated complaint: UTI Time Seen by Provider: 12/02/24 17:10 Source: patient, RN notes reviewed and old records reviewed Mode of arrival: ambulatory Limitations: no limitations History of Present Illness HPI narrative: 29 year old female who presents to [facility] care with complaints of urinary tract infection symptoms for one month duration and took AZO for the first 3 days and did seem to get better then for the past 3 days symptoms have become worse. Patient reports that she has burning with urination, frequency and urgency of urination with low back pain. Patient reports that she has been drinking large amounts of water and has been using heating pad to her back. Patient reports that she has not had any fevers, chills or sweats or any nausea or vomiting, Patient reports no concern for STD exposure. MD complaint: UTI symptoms Onset (ago): month(s) (started a month ago and took azo went away till 3 days ago returned wose today) Location: back (lower) Severity: moderate Quality: burning and aching Pain Consistency: constant Treatments prior to arrival: heat therapy and other (increased oral fluids water) Related Data Home Medications ?Medication ?Instructions ?Recorded ?Confirmed ?Last Taken ?Type drospirenone (contraceptive) 4 mg 06/30/24 Unknown History (28) tablet (Slynd) Allergies Allergy/AdvReac Type Severity Reaction Status Date / Time No Known Allergies Allergy Verified 10/11/24 18:01 Review of Systems Review of Systems: CONSTITUTIONAL: Denies fever, chills, or sweats. CARDIOVASCULAR: Denies chest pain, palpitations, or edema. RESPIRATORY: Denies cough or dyspnea. GASTROINTESTINAL: Denies abdominal pain, nausea, vomiting, or diarrhea. GENITOURINARY: Reports dysuria, frequency, urgency. Denies flank pain or hematuria. SKIN: Denies rash or itching. MUSCULOSKELETAL: Reports low back pain or myalgia. Denies CVA tenderness NEUROLOGIC: Denies headache All systems reviewed & are unremarkable except as noted in HPI and below PMFSH Past Medical History Medical History Urinary tract infection Chronic constipation Acute appendicitis with localized peritonitis Anxiety Surgical History Surgical History Hx of appendectomy Social History Social History Smoking status: Current some day smoker Tobacco type: e-cigarettes/vaping Alcohol intake: never Substance use type: marijuana Last use: occaisional Living arrangements: with family Gender identity (if verbalized by the patient): Female Comments At time of signature, agree with nursing past medical, surgical, social and family history. There is no relevant family history pertinent to the presenting complaint Exam Narrative: GENERAL: Well-appearing, well-nourished, and in no acute distress. HEAD: Normocephalic, atraumatic. NECK: Supple.no lymphadenopathy CHEST: Clear to auscultation. No respiratory distress.SAO2 99% on room air HEART: Regular rate and rhythm. No murmur heard. Normal peripheral pulses. ABDOMEN: Soft, nontender, nondistended, normal active bowel sounds. No CVA tenderness reports burning with urination, urgency and frequency and ow back pain EXTREMITIES: Normal range of motion. No edema. SKIN: Warm, dry, no rash. NEURO: No focal deficits. Alert and oriented x Course Course Emergency Course: Patient is aware of diagnosis, understands and agrees to treatment plan.? Anticipatory guidance given.? Patient agrees to follow-up as directed and is aware of reasons to seek care at the emergency department. Portions of this record may have been created with voice recognition software Level of Care: Express Care Visit Vital Signs Vital signs: Vital Signs Temperature 36.8 C 12/02/24 17:19 Pulse Rate 77 12/02/24 17:19 Respiratory Rate 18 12/02/24 17:19 Blood Pressure 106/76 12/02/24 17:19 Pulse Oximetry 99 12/02/24 17:19 Oxygen Delivery Room Air 12/02/24 17:19 Temperature 36.8 C 12/02/24 17:19 Pulse Rate 77 12/02/24 17:19 Respiratory Rate 18 12/02/24 17:19 Blood Pressure 106/76 12/02/24 17:19 Pulse Oximetry 99 12/02/24 17:19 Oxygen Delivery Room Air 12/02/24 17:19 Medical Decision Making Differential Diagnosis Differential Diagnosis: Urinary tract infection, cystitis, low back pain, dysuria Medical Records Medical records reviewed: Yes I reviewed the external patient's medical records. Vital Signs Vital Signs: Vital Signs Temperature 36.8 C 12/02/24 17:19 Pulse Rate 77 12/02/24 17:19 Respiratory Rate 18 12/02/24 17:19 Blood Pressure 106/76 12/02/24 17:19 Pulse Oximetry 99 12/02/24 17:19 Oxygen Delivery Room Air 12/02/24 17:19 Temperature 36.8 C 12/02/24 17:19 Pulse Rate 77 12/02/24 17:19 Respiratory Rate 18 12/02/24 17:19 Blood Pressure 106/76 12/02/24 17:19 Pulse Oximetry 99 12/02/24 17:19 Oxygen Delivery Room Air 12/02/24 17:19 Lab Data Lab results reviewed: Yes I reviewed the patient's lab results. Lab results narrative: see urine dip: 2+ blood,3+ leukocytes, 2+ Protein Labs: Lab Results 12/02/24 Range/Units 17:31 POC Urine Color Yellow POC Urine Clarity Clear POC Urine pH 7.0 POC Ur Specif [place] 1.015 POC Urine Protein 2+ (Negative) POC Ur Glucose (UA) Negative (Negative) POC Urine Ketones Negative (Negative) POC Urine Blood 2+ (Negative) POC Urine Nitrite Negative (Negative) POC Urine Bilirubin Negative (Negative) POC Urine Urobilinogen 0.2 POC U Leukocyte Esteras 3+ (Negative) reviewed Critical Care Time Critical Care Time Critical Care Time: No Discharge Plan Discharge Clinical Impression: Urinary tract infection Qualifiers: Urinary tract infection type: site unspecified Hematuria presence: with hematuria Qualified Code(s): N39.0 - Urinary tract infection, site not specified ; R31.9 - Hematuria, unspecified Patient Disposition: Home Condition: Stable Instructions: Antibiotic Form, Urinary Tract Infection in Women (DC) Additional Instructions: Increase fluids especially cranberry juice and water Avoid caffeine and carbonated beverages Antibiotic as directed Tylenol/ibuprofen for pain or fever Follow-up with her primary care provider if further problems or concerns Recheck if you have fever over 101, nausea and vomiting. If your symptoms persist, change or worsen significantly before you can contact your personal physician then please, without delay, go to the emergency department for further evaluation. Follow-up with PCP in 7-10 days or sooner if needed Patient Language: Greek Prescriptions: New amoxicillin-pot clavulanate 875-125 mg tablet 1 tablet PO Q12H Qty: 14 0RF No Action Slynd 4 mg (28) tablet amoxicillin-pot clavulanate 875-125 mg tablet 1 tablet PO Q12H 7 Days Qty: 14 0RF ibuprofen 800 mg tablet 800 mg PO TID PRN (Reason: pain) Qty: 30 0RF Follow-up/Referrals: PHYSICIAN,[facility] [Primary Care Provider] - Time of Disposition: 18:04 Quality Madhavi Coma Scale Eyes: Open Verbal: Oriented and Alert Motor: Follows Commands [place] Coma Total Score: 15
[2024-12-02 17:19] VITALS: BP 106/76; PULSE 77; RESP 18; TEMP 36.8; O2SAT 99
[2024-12-02 17:32] LABS: EDUAAPPEAR Clear; EDUABILI Negative (Negative); EDUABLOOD 2+ (Negative); EDUACOLOR1 Yellow; EDUAGLUCOSE Negative (Negative); EDUAKETONE Negative (Negative); EDUALEUKO 3+ (Negative); EDUANITRATE Negative (Negative); EDUAPROTEIN 2+ (Negative); EDUASPGRAVITY 1.015; EDUAUROBILI 0.2
== END 2024-12-02 18:18 | disposition home or self-care (01) ==
PROVIDERS: Emergency Provider Registered Nurse
DX: N39.0 Urinary tract infection, site not specified (principal); R31.9 Hematuria, unspecified; F17.290 Nicotine dependence, other tobacco product, uncomplicated; F12.90 Cannabis use, unspecified, uncomplicated
CPT/HCPCS: 81003; 87086; 99213; G0463

== ENCOUNTER 2025-06-23 08:19 | Emergency (ER) | payer OTHER, SELFPAY ==
--- NOTE | 2025-06-23 08:25 | ED_ITS ---
HPI - URI/Sore Throat General Chief Complaint: Upper Respiratory Infection Stated Complaint: URI Source: patient and RN notes reviewed Mode of arrival: ambulatory Limitations: no limitations History of Present Illness HPI Narrative: Patient is a 30-year-old female who presents to the [facility] with multiple complaints. Patient states that she has been sick for a week. She endorses congestion, sore throat, cough, headache. She also reports generalized body aches and chills. Denies known fevers. She endorses a frequent nonproductive cough. Reports nasal congestion and drainage. She states that she took an at- home COVID and flu test on day 2 that were both negative. She denies any chest pain or shortness of breath. Her respirations are unlabored. Related Data Home Medications ?Medication ?Instructions ?Recorded ?Confirmed ?Last Taken ?Type drospirenone (contraceptive) 4 mg 06/30/24 Unknown H istory (28) tablet (Slynd) Allergies Allergy/AdvReac Type Severity Reaction Status Date / Time No Known Allergies Allergy Verified 06/23/25 08:35 Review of Systems Review of Systems: CONSTITUTIONAL: Denies fever, but reports chills. EYES: Denies visual changes, redness, or discharge. ENT: Denies otalgia but reports sore throat congestion. CARDIOVASCULAR: Denies chest pain, palpitations, or edema. RESPIRATORY: Reports cough but denies dyspnea. GASTROINTESTINAL: Denies abdominal pain, nausea, vomiting, or diarrhea. GENITOURINARY: Denies dysuria or hematuria. SKIN: Denies rash or itching. MUSCULOSKELETAL: Denies back pain, joint pain, or myalgia. NEUROLOGIC: Reports headache but denies numbness or weakness. Pertinent positives per HPI. [facility] Past Medical History Medical History Urinary tract infection Chronic constipation Acute appendicitis with localized peritonitis Anxiety Surgical History Surgical History Hx of appendectomy Social History Social History Smoking status: Current some day smoker Tobacco type: e-cigarettes/vaping Alcohol intake: never Substance use type: marijuana Last use: occaisional Living arrangements: with family Gender identity (if verbalized by the patient): Female Comments At the time of my signature, I reviewed and agree with the nursing past medical, surgical, social, and family history. There is no relevant family history pertinent to the patient complaint. Exam Narrative: GENERAL: This is a well-nourished, well-developed patient, in no apparent distress. HEAD: normocephalic, atraumatic. EYES: Sclera clear/white. Vision is grossly intact. EARS: External ears normal. Hearing grossly intact. NOSE: External nose normal. Nasal congestion. THROAT: Mucous membranes moist, oropharyngeal erythema. NECK: Neck supple, non-tender without lymphadenopathy, masses or thyromegaly. CARDIOVASCULAR: Regular rate and rhythm without murmurs, gallops, or rubs. RESPIRATORY: Clear to auscultation. Breath sounds equal bilaterally. No wheezes, rales, or rhonchi. GASTROINTESTINAL: Abdomen soft, non-tender, nondistended. Bowel sounds are active. No hepato-splenomegaly, or palpable masses. No guarding. SKIN: warm, intact with no suspicious lesions or rash, good texture and turgor. NEURO: awake, alert, and oriented to person, place and time. There were no obvious focal neurologic abnormalities. Course Course Level of Care: Express Care Visit Vital Signs Vital signs: Vital Signs Temperature 98.3 F 06/23/25 08:40 Pulse Rate 61 06/23/25 08:40 Respiratory Rate 18 06/23/25 08:40 Blood Pressure 121/77 06/23/25 08:40 Pulse Oximetry 99 06/23/25 08:40 Oxygen Delivery Room Air 06/23/25 08:40 Temperature 98.3 F 06/23/25 08:40 Pulse Rate 61 06/23/25 08:40 Respiratory Rate 18 06/23/25 08:40 Blood Pressure 121/77 06/23/25 08:40 Pulse Oximetry 99 06/23/25 08:40 Oxygen Delivery Room Air 06/23/25 08:40 Reviewed MDM MDM Narrative Medical decision making narrative: After 24 hours on antibiotics throw tooth brush away and start using a new one. Increase your Vitamin C. Do not share drinks. Take Motrin alternating with Tylenol for pain and/or fever alternating every 4 hours. Increase fluids, avoid caffeine. Take a probiotic daily or eat a low sugar yogurt while taking the antibiotic. Follow up with Primary provider if not getting better this week Differential Diagnosis Differential Diagnosis: strep, pharyngitis, viral illness, sinusitis Lab Data MDM Lab Attestation statement: I personally reviewed the patient's lab results. Critical Care Time Critical Care Time Critical Care Time: No Discharge Plan Discharge Clinical Impression: Strep pharyngitis Patient Disposition: Home Condition: Stable Instructions: Antibiotic Form, Strep Throat (ED) Additional Instructions: After 24 hours on antibiotics throw tooth brush away and start using a new one. Increase your Vitamin C. Do not share drinks. Take Motrin alternating with Tylenol for pain and/or fever alternating every 4 hours. Increase fluids, avoid caffeine. Take a probiotic daily or eat a low sugar yogurt while taking the antibiotic. Follow up with Primary provider if not getting better this week Patient Language: Faroese Prescriptions: New amoxicillin 500 mg capsule 500 mg PO Q12H 10 Days Qty: 20 0RF No Action Slynd 4 mg (28) tablet amoxicillin-pot clavulanate 875-125 mg tablet 1 tablet PO Q12H 7 Days Qty: 14 0RF ibuprofen 800 mg tablet 800 mg PO TID PRN (Reason: pain) Qty: 30 0RF amoxicillin-pot clavulanate 875-125 mg tablet 1 tablet PO Q12H Qty: 14 0RF Follow-up/Referrals: Leandro Walker MD [Primary Care Provider, Family Practice] Stand Alone Forms: Work/School Release IP Time of Disposition: 08:54
--- OUTSIDE RECORDS SUMMARY | 2025-06-23 08:36 | XMS_ITS | Encounter Summary ---
Author Organization [facility] Address [address] [place] [address] Care Team Providers Care Technical Inspector Name Role Phone Patti Briceño MD Primary Care Provider Unavailable None, Provider Primary Care Provider Unavaila ble Encounter Details Date Type Department Care Team (Late st Contact Info) Description 05/12/2017 [place] [address] Patti Briceño MD Social History Tobacco Use [...] on filedocumented in this encounter Care Teams Technical Inspector Relationship Specialty Start Date End Date Patti Briceño MD PCP - General 08/06/15 Guillermina, MD Jose PCP - General 07/17/18 documented as of this encounter
--- OUTSIDE RECORDS SUMMARY | 2025-06-23 08:36 | XMS_ITS | Clinical Summary ---
Author Organization [facility] Address [address] [place] [id number] Care Team Providers Care Global Supply Chain Director Name Role Phone None, Provider MD Primary Care Provider Unavaila ble Allergies No known active allergies Medications No known medications Active Problems Problem Noted Date Diagnosed Date Acute pancreatitis 11/01/2018 Assessment & Plan (11/01/2018 7:42 AM [...] cholecystectomy as outpatient Vomiting or nausea of 04/15/2018 Nausea & vomiting 02/25/2018 Social History Tobacco [...] 1:12 PM CDT Height 172.7 cm (5' 8) 11/10/2023 1:11 PM CDT Body Mass Index [...] 3-dose series) 01/21/2016 COVID-19 Vaccine ( season) 2025 Influenza Adult (#1) 2025 05/12/2009 Meningococcal Vaccine Aged Out 03/10/2009 No dain oziel eligible based on patient's age to complete this topic HPV Vaccines Completed 09/08/2009, 10/2008, 03/10/2009 Hepatitis A Vaccines Aged Out No long er eligible based on patient's age to complete this topic Meningococcal B Vaccine Aged Out No l onger eligible based on patient's age to complete this topic Pneumococcal Vaccine: Pediatrics (0 to 5 Years) and At-Risk Patients (6 to 49 Years) Aged Out No longer eligible based on patient's age to complete this topic RSV Immunizations Under 20 Months Aged Out No longer eligible based on patient's age to complete this topic Medical Devices Implanted Type Area Communications Project Manager Device Identifier Shelf Expiration Date Model / Serial / Lot Advanix Pancreatic Stent Implanted:Qty: 1 on 10/31/2018 by Isrrael Rousseau MD at [facility] N/A: Pancreas [id number] 03/26/2020 / [id number] / [id number] Insurance [facility] [id number] Advance Directives * Full Code (Latest Code Status on File) Date Activated Date Inactivated Comments 10/30/2018 4:35 PM 11/02/2018 11:13 AM Care Teams Global Supply Chain Director Relationship Specialty Start Date End Date None, Provider, PCP - General 07/17/18
--- OUTSIDE RECORDS SUMMARY | 2025-06-23 08:36 | XMS_ITS | Encounter Summary ---
Author Organization [facility] Address [address] [place] [id number] Care Team Providers Care Shank Maker Name Role Phone None, Provider Primary Care Provider Jonel boyer Encounter Details Date Type Department Care Team (Late st Contact Info) Description 02/26/2018 Hospital Follow-up Call [facility] [place] [address] Chapito Escalante, RN Social History Tobacco Use [...] on filedocumented in this encounter Care Teams Shank Maker Relationship Specialty Start Date End Date None, Provider, PCP - General 07/17/18 documented as of this encounter
--- OUTSIDE RECORDS SUMMARY | 2025-06-23 08:39 | XMS_ITS | Continuity of Care Document ---
Author Organization [facility], [facility] Address [address] [place] [address] Care Team Providers Care Video Game Designer Name Role Phone [facility] Machine Stoppage Frequency Checker Assessment No assessment recorded. Plan of Treatment Reminders Order Date Submit Date Provider Last Modified By Organization Details Last Modified Time Details Appointments None recorded. Lab test, urine 2024 025 [email or web address] [facility], [address] [place], [address], 15:38:10 Referral None recorded. Procedures None recorded. Surgeries None recorded. Imaging None recorded. Medication Orders Xulane 150 mcg-35 mcg/24 hr transdermal patch 2024 [id number], [address] [facility], [place], [place], [phone], 15:38:25 Patient TargetsNo targets recorded. Patient InstructionsNo instructions recorded. Reason for Referral None Reported. Results Created Date Observation Date Name Description Value Unit Range Abnormal Flag Note LastModifiedBy Organization Detail LastModifiedTime 04/20/2004/20/2025 pregn adelfo test, urine HCG negati ve Not Available [facility] [address] [place], [address], 04/20/2025 14:50:22 Result Notes None recorded. Problems Name Problem SNOMED Code Status Onset Date Resolution Date Notes Provider Name and Address Organization Details Recorded Time Normal pregnanc y 28980274 Active 2017 Medical visit for normal pregnanc y; Location : None Progress : Stable Added By: Sharon Dotson Add to Current Problems : YES ProblemS tatus: Current Not Available [facility] 2 19:43:30 anatomy study Active 2017 Encounte for anatomic survey; Location : None Progress : Stable Added By: Kirstie Bess Add to Current Problems : YES ProblemS tatus: Current Not Available [facility] 2 21:18:38 Dysuria 80197950 Completed 201706/07/2018 Dysuria; Location : None Progress : Stable Added By: Josi Hilario Add to Current Problems : YES ProblemS tatus: Resolve Painful micturit ion, unspecif ied; Progress : Stable Added By: Josi Hilario Add to Current Problems : NO ProblemS tatus: Resolve Not Available [facility] 2 19:43:31 Gestatio n period, 33 weeks 05511473 Completed 201706/07/2018 33 weeks gestatio n of pregnanc y; Progress : Stable Added By: Josi Hilario Add to Current Problems : NO ProblemS tatus: Resolve Not Available [facility] 2 19:43:31 Poor growth affectin g manageme nt 579526480 Completed 201706/21/2018 Small for dates; Progress : Stable Added By: Abida Barrientos Add to Current Problems : NO ProblemS tatus: Resolve Not Available [facility] 2 19:43:30 Vaginiti s and vulvovag initis Completed 201706/28/2018 Vaginiti s; Location : None Progress : Stable Added By: Chino Arguelles Add to Current Problems : YES ProblemS tatus: Resolve Not Available [facility] 2 19:43:30 Past pregnanc y history of section 316381955 Active 2017 Jay Ernandez MD [address] [facility], [place], [address] , [facility] 3 14:43:31 Lochia finding Completed 201705/10/2022 Encounte r for routine postpart um follow-u p; Progress : Stable Added By: Josi Hilario Add to Current Problems : YES ProblemS tatus: Current Laila Britsch null, [facility] 2 12:05:43 Beckie ry postpart um mood disturba nce 31558981 Completed 201705/10/2022 Postpart um mood disturba nce; Progress : Stable Added By: Josi Hilario Add to Current Problems : YES ProblemS tatus: Current Laila Britsch null, [facility] 2 12:03:44 Cyst of ovary 52745869 Completed 201805/10/2022 Unspecif ied ovarian cyst, left side; Progress : Stable Added By: Chino Arguelles Add to Current Problems : YES ProblemS tatus: Current Laila Britsch null, [facility] 2 12:05:57 Notes:Encounter for an atomic survey (V28.81) ; [...] of Last Pap Smear completed Taylor Crowley [facility] 02/27/2024 15:45:57 delivery completed Trish Perez [facility] 11/30/2022 14:13:00 Imaging Results None recorded. [...] completed Not Available Not Available Not Available tramadol 50 mg tablet TAKE 1 TABLET BY MOUTH EVERY 8 HOURS NEEDED 04/20 completed Not Available Not Available Not Available [...] 08/24 completed Gabapent in 300mg Capsules RxNorm: 985151 Allow Substitu tion: True Refill Denied: No [...] Not Available Not Available amoxicill in 875 mg-potass ium clavulana te 125 mg tablet TAKE 1 TABLET BY MOUTH EVERY 12 HOURS 01/25 completed Not Available Not Available Not Available Prometheg [...] 1 tablet every day by oral route. 04/20 completed Not Available Not Available Not Available ID NOW COVID-19 Test Kit TEST DIRECTED TODAY 11/30 completed Not Available Not Available Not Available Zafemy 150 mcg-35 mcg/24 hr transderm al patch APPLY 1 PATCH TOPICALL Y TO THE SKIN EVERY WEEK active Not Available Not Available No t Available Vitals Date Recorded Body height Body mass index (BMI) Body weight Systolic And Diastolic Provider Name and Address Organization Details Last Updated DateTime 04/20/2025 170.18 cm 29.4 kg/m2 89455.57 g 104/76 mm[Hg] Taylor Crowley [facility] 04/20/2025 14:48:30 Social History Question Answer Notes LastModified by Organizat ion Details LastModified Time Tobacco Smoking Status Former Smoker Taylor rosenbaum, [facility] 04/20/2025 14:33:43 If You Are , What Was Your Level Of Alcohol Consumption Prior To ? None [email or web address] Information not available 04/20/2025 Are You Blind Or Do You Have Difficulty Seeing? No [email or web address] Information not available 04/20/2025 Are You Deaf Or Do You Have Serious Difficulty Hearing? No [email or web address] Information not available 04/20/2025 What Type Of Diet Are You Following? REGULAR Information not available 04/20/2025 How Many Children Do You Have? 1 [email or web address] Information not available 04/20/2025 What Is Your Relationship Status? Single Information not available 04/20/2025 Are You Sexually Active? Yes [email or web address] Information not available 04/20/2025 Have You Used IV Drugs? No [email or web address] Information not available 04/20/2025 Sex: Unknown Functional Status Question Answer Note LastModified by Organizat ion Details LastModified Time Do you use any illicit or recreational drugs? Yes Information not available 04/20/2025 Do you or have you ever used any other forms of tobacco or nicotine? No [email or web address] Information not available 04/20/2025 What is your level of alcohol consumption? None [email or web address] Information not available 04/20/2025 Do you or have you ever used e-cigarettes or vape? Current user of electronic cigarettes [email or web address] Information not available 04/20/2025 What is your exercise level? Occasional [email or web address] Information not available 04/20/2025 Mental Status None recorded. Family History Relationship Description Onset Age of this Age Resolved Age Notes LastModified by Organization Details LastModified Time Sister Polycystic ovary syndrome of bilateral ovaries [email or web address] Not available 2024 14:33:42 Unspecified Relation History of recurrent miscarriage - not [email or web address] Not available 2024 14:33:42 Father Malignant neoplastic disease [email or web address] Not available 2024 14:33:42 Father Malignant neoplasm of testis Not available 2024 14:44:05 Father Type 1 diabetes mellitus [email or web address] Not available 2024 14:44:49 Maternal Grandfather Malignant neoplasm of neck Not available 2024 14:44:17 Maternal Grandfather Type 1 diabetes mellitus Not available 2024 14:44:49 Notes:in her first cousin Medical History Condition Response Other Cancer N High Blood Pressure N Colon Cancer N Cytomegalovirus N Hyperthyroidism N Breast Cancer N Herpes (HSV) N MRSA N Blood Transfusion Y Lung Cancer N Hypothyroidism N Depression N Panic Attacks N Neurological Disorder N Deep Vein Thrombosis N Anxiety Disorder Y Autoimmune disease N Arthritis N Shingles N Tuberculosis/Positive PPD N Polycystic Ovarian Syndrome N Infertility N Cervical Cancer N Chlamydia N Hematuria N Stroke N Varicosities N Seasonal allergies N Crohn's Disease N Alzheimer's/Dementia N COPD/Emphysema N Endometriosis N HPV/Genital Warts N IBS (Irritable Bowel Syndrome) N History of Abnormal Pap N High Cholesterol N Liver Disease N Kidney Infection N Fibromyalgia N Ulcer N Kidney Disease N HIV N Gallbladder disease N Von Willebrand disease N Sickle Cell Disease/Trait N ADD/ADHD N Eating Disorder N Diabetes Mellitus (non-insulin dependent ) N Anemia Y Ovarian Problems N Multiple Sclerosis N Gonorrhea N Frequent Urinary Tract infections N Osteopenia N Headaches/migraines N GERD (reflux) N Ovarian Cancer N Diabetes (insulin dependent) N Seizures/Epilepsy N Breast Problems N Fibroids N Asthma N Heart Attack N Endometrial Cancer N Lupus N Rubella N Blood Clotting Disorder N Bipolar Disorder N Diabetes Mellitus (during ) N Heart Disease N Pulmonary Embolism N RPR N Chicken Pox N Osteoporosis N Gynecological History Statement/Question Response Flow Heavy Date of last HPV 11/30/2022 Date of LMP 02/09/2025 Duration of Flow (days) 4 Most Recent Mammogram Current Control Method None Age at Menarche 16 Date of Last Colonoscopy Most Recent Bone Density Frequency of Cycle (Q days) 28 Date of Last Pap Smear 11/30/2022 Obstetrics History GPAL:G 4 P 1 0 3 1 Type Value Full Term 1 Spontaneous 3 Living 1 Total 4 Past Encounters Encounter ID Performer Location Encounter Start Date Encounter Closed Date Diagnosis/Indication Diagnosis SNOMED-CT Code Diagnosis ICD10 Code Diagnosis IMO Codes Diagnosis Note [id number] Osmin Hunt MD [facility] [address] [place] [address] 04/20/2025 14:31:51 04/23/2025 08:01:59 Contraceptive counseling [id number] 2105 Z30.09 [id number] Pt educated on risks which include but not limited to stroke, blood clot or hypertensi on Vs benefits of use, and reviewed ACHES symptoms. Importance of daily administra tion within the same 30 minute time frame reinforced to pt, and on use of condoms or abstinence if dosing schedule is interrupte d. Refills sent. Plan to F/U PRN or at next [facility]. Health Concerns Section Related Observation LastModified by Organization Detai ls LastModified Time None Recorded Concern Status LastModified by Organization Details LastModified Time None Recorded Payers Encounter Date Sequence Insurance Name Policy Number Policy Day Covered Member ID Day Member ID Guarantor Name 04/20/2025 1 [facility] - DOS ON OR AFTER 21 (MEDICAID REPLACEMENT - HMO) Magda Vernon [id number] Magda Vernon Notes Date Note Type Note Provider Name and Address Organization Details Recorded Time 04/20/2025 text/html ROS as noted in the HPI The patient verbally consented to documentation via virtual scribe for this encounter. Magda is a 30 year old woman. Pt stated that she is here to follow up in regards to her last consult. Pt stated that her last pill on BC was on 04-08-25 and has not taken anything since she finished it. She was previously on Slynd and states she tolerated it well without any side effects. Osmin Hunt MD [facility] [facility], [place], [address], [facility] 04/22/2025 22:09:17 OBGyn Episode No OBEpisode recorded.
--- OUTSIDE RECORDS SUMMARY | 2025-06-23 08:39 | XMS_ITS | Data Portability ---
Author Organization [facility] [employer] , 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 Plan of Treatment Reminders Order Date Submit Date Provider Last Modified By Organization Details Last Modified Time Details Appointments None recorded. Lab test, urine 2024 025 [email or web address] [facility], [address] [place], [address], 5 15:38:10 CMP, serum or plasma 2024 025 [employer] [facility], [address] [place], [address], 5 11:34:55 magnesium, serum or plasma 2024 025 [employer] [facility], [address] [facility], [place], [address], 5 03:30:11 TSH + free T4, serum 2024 025 [employer] [facility], [address] [place], [address], 5 11:34:56 CBC w/ auto diff 2024 025 [employer], [address] [place], [address], 5 13:28:48 TSH + free T4, serum 2023 024 [employer] [employer] [facility], [address] [place], [address], 4 11:43:51 CBC w/ auto diff 2023 024 [facility] [employer] [facility], [address] [place], [address], 4 12:20:31 magnesium, serum or plasma 2023 024 [email or web address] [employer] [facility], [address] [place], [address], 4 17:34:44 beta-HCG, quantitativ e, serum or plasma 2023 024 [facility] [employer] [facility], [address] [place] [address], [address], 4 12:56:58 bacterial vaginosis + vaginitis panel, vaginal 2022 023 [facility] [employer] [facility], [address] [place], [address], 3 09:06:01 hemoglobin A1c, QN, blood 2022 023 [facility] [employer] [facility], [address] [place], [address], 3 12:19:44 pap, LB 2022 023 [facility] [employer] [facility], [address] [place], [address], 3 19:09:35 unlisted lab - Pap reflex hold 2022 023 [facility], [address] [place], [address], 3 16:56:58 beta-HCG, quantitativ e, serum or plasma 2022 023 [facility] [employer] [facility], [address] [place], [address], 3 12:30:32 CBC w/ auto diff 2022 023 [facility] [employer] [facility], [address] [place], [address], 3 11:16:52 abo group + rh type, blood 2022 023 [facility], [address] [facility], [place], [address], 12:27:34 TSH + free T4, serum 2022 023 [facility] [employer] [facility], [address] [place], [address], 3 12:30:35 CMP, serum or plasma 2022 023 [facility] [employer] [facility], [address] [place], [address], 3 12:19:45 Referral None recorded. Procedures None recorded. Surgeries None recorded. Imaging None recorded. Medication Orders Xulane 150 mcg-35 mcg/24 hr transdermal patch 2024 025 [id number], [address], [place], [id number], 5 15:38:25 tramadol 50 mg tablet 2024 025 [id number], [address], [place], [id number], 5 14:43:08 Slynd 4 mg (28) tablet 2023 024 [email or web address] [id number], [address], [place], [id number], 14:42:51 Patient TargetsNo targets recorded. Patient InstructionsNo instructions [...] has not been valid ated by the [facility] actur er of this assay . Not Available [address], [address], 12/01/2022 12:30:32 12/09/1912/08/2022 ABO GROUP AND RH TYPE ABO group A Not Available [employer] [facility] [address] [place], [address], 12/08/2022 12:27:34 12/09/1912/08/2022 ABO GROUP AND RH TYPE Rh type RH(D) POSITI VE For addit ional infor mike hidalgo refer to http: //[facility] soria.Que stDia gnost ics.c om/fa q/FAQ 111 (This [...] NUMBE R: [id number] [phone] 78 Not Available [employer] [facility] [address] [place], [address], 12/08/2022 12:27:34 12/13/1912/12/2022 HCG, TOTAL , QUANT HCG, total, quant Sample stabil ity d. If testin g is still requir ed a new specim en and new order will need to be proces sed. Not Available [employer] [address] [place], [address], 12/12/2022 11:25:58 01/30/20 25 01/29/2025 MAGNE SIUM magnesium 2.3 mg/dL 1.5-2. 5 normal NO COLLE CTION DATE RECEI GERARDO. WE HAVE USED THE DATE THE SPECI MEN WAS RECEI GERARDO BY THIS LABOR ATORY THE COLLE CTION DATE. IF THIS IS INCOR RECT, PLEAS E CONTA CT CLIEN T SERVI LINDEN. PHONE NUMBE R: [id number] [phone] 78 Not Available [employer] [facility] [address] [place], [address], 01/29/2025 03:30:11 12/01/19 23 12/01/2022 CBC (INCL UDES DIFF/ PLT) WBC 6.1 thous and/u L 4.0 - 9.8 normal Not Available [employer] [facility] [address] [place], [address], 12/01/2022 11:16:52 12/01/19 23 12/01/2022 CBC (INCL UDES DIFF/ PLT) RBC 4.5 emil on/uL 3.9 - 4.9 normal Not Available [employer] [facility] [address] [place], [address], 12/01/2022 11:16:52 12/01/19 23 12/01/2022 CBC (INCL UDES DIFF/ PLT) hemoglobin 11.7 g/dL 11.8 - 14.8 low Not Available [employer] [facility] [address] [place], [address], 12/01/2022 11:16:52 12/01/19 23 12/01/2022 CBC (INCL UDES DIFF/ PLT) hematocrit 37.1 % 35.5 - 44.0 normal Not Available [address], [address], 12/01/2022 11:16:52 12/01/19 23 12/01/2022 CBC (INCL UDES DIFF/ PLT) MCV 82.3 fL 82.0 - 99.0 normal Not Available [address], [address], 12/01/2022 11:16:52 12/01/19 23 12/01/2022 CBC (INCL UDES DIFF/ PLT) MCH 25.9 pg 27.2 - 32.6 low Not Available [address], [address], 12/01/2022 11:16:52 12/01/19 23 12/01/2022 CBC (INCL UDES DIFF/ PLT) MCHC 31.5 g/dL 31.5 - 35.5 normal Not Available [address], [address], 12/01/2022 11:16:52 12/01/19 23 12/01/2022 CBC (INCL UDES DIFF/ PLT) RDW-CV 12.7 % 11.5 - 14.5 normal Not Available [address], [address], 12/01/2022 11:16:52 12/01/19 23 12/01/2022 CBC (INCL UDES DIFF/ PLT) platelet 408 thous and/u L 140 - 350 high Not Available [address], [address], 12/01/2022 11:16:52 12/01/19 23 12/01/2022 CBC (INCL UDES DIFF/ PLT) MPV 11.0 fL 9.3 - 12.4 normal Not Available [address], [address], 12/01/2022 11:16:52 12/01/19 23 12/01/2022 CBC (INCL UDES DIFF/ PLT) absolute neutrophil 3.70 thous and/u L 1.90 - 7.00 normal Not Available [address], [address], 12/01/2022 11:16:52 12/01/19 23 12/01/2022 CBC (INCL UDES DIFF/ PLT) absolute lymphocyte 1.62 thous and/u L 0.70 - 4.50 normal Not Available [address], [address], 12/01/2022 11:16:52 12/01/19 23 12/01/2022 CBC (INCL UDES DIFF/ PLT) absolute monocyte 0.50 thous and/u L 0.10 - 1.30 normal Not Available [address], [address], 12/01/2022 11:16:52 12/01/19 23 12/01/2022 CBC (INCL UDES DIFF/ PLT) absolute eosinophil 0.16 thous and/u L <0.70 normal Not Available [address], [address], 12/01/2022 11:16:52 12/01/19 23 12/01/2022 CBC (INCL UDES DIFF/ PLT) absolute basophil 0.07 thous and/u L <0.20 normal Not Available [address], [address], 12/01/2022 11:16:52 12/01/19 23 12/01/2022 CBC (INCL UDES DIFF/ PLT) absolute immature granulocyte 0.01 thous and/u L <0.03 normal Not Available [address], [address], 12/01/2022 11:16:52 12/01/19 23 12/01/2022 HEMOG LOBIN [...] absen ce of diabe kadie Not Available [address], [address], 12/01/2022 12:19:44 12/01/19 23 12/01/2022 COMPR EHENS YOLIE METAB OLIC PANEL sodium 137 mmol/ L 136 - 145 normal Not Available [address], [address], 12/01/2022 12:19:45 12/01/19 23 12/01/2022 COMPR EHENS YOLIE METAB OLIC PANEL potassium 4.7 mmol/ L 3.5 - 5.1 normal Not Available [address], [address], 12/01/2022 12:19:45 12/01/19 23 12/01/2022 COMPR EHENS YOLIE METAB OLIC PANEL chloride 100 mmol/ L 98 - 107 normal Not Available [address], [address], 12/01/2022 12:19:45 12/01/19 23 12/01/2022 COMPR EHENS YOLIE METAB OLIC PANEL glucose 89 mg/dL 74 - 106 normal Not Available [address], [address], 12/01/2022 12:19:45 12/01/19 23 12/01/2022 COMPR EHENS YOLIE METAB OLIC PANEL carbon dioxide 29 mmol/ L 20 - 32 normal Not Available [address], [address], 12/01/2022 12:19:45 12/01/1912/01/2022 COMPR EHENS YOLIE METAB OLIC PANEL calcium 9.4 mg/dL 8.5 - 10.1 normal Not Available [address], [address], 12/01/2022 12:19:45 12/01/19 23 12/01/2022 COMPR EHENS YOLIE METAB OLIC PANEL creatinine 0.88 mg/dL 0.60 - 1.00 normal Not Available [address], [address], 12/01/2022 12:19:45 12/01/19 23 12/01/2022 COMPR EHENS YOLIE METAB OLIC PANEL eGFR 93 mL/mi n/1.7 3m2 >60 normal The eGFR is based on the CKD-E PI 2020 equat ion. To calcu late the new eGFR from a previ ous Creat inine or Cysta tin C resul t, go to https ://braulio todd.tito jefferson/cosmo hansen s/kdo qi/gf r_cal culat or Not Available [address], [address], 12/01/2022 12:19:45 12/01/19 23 12/01/2022 COMPR EHENS YOLIE METAB OLIC PANEL AST 17 U/L 32 - 40 low Not Available [address], [address], 12/01/2022 12:19:45 12/01/19 23 12/01/2022 COMPR EHENS YOLIE METAB OLIC PANEL ALT 15 U/L 14 - 59 normal Not Available [address], [address], 12/01/2022 12:19:45 12/01/19 23 12/01/2022 COMPR EHENS YOLIE METAB OLIC PANEL alk phos 79 U/L 46 - 116 normal Not Available [address], [address], 12/01/2022 12:19:45 12/01/19 23 12/01/2022 COMPR EHENS YOLIE METAB OLIC PANEL albumin 4.2 g/dL 3.4 - 5.0 normal Not Available [address], [address], 12/01/2022 12:19:45 12/01/19 23 12/01/2022 COMPR EHENS YOLIE METAB OLIC PANEL protein, total 8.2 g/dL 6.4 - 8.2 normal Not Available [address], [address], 12/01/2022 12:19:45 12/01/19 23 12/01/2022 COMPR EHENS YOLIE METAB OLIC PANEL bilirubin, total 0.6 mg/dL 0.2 - 1.0 normal Not Available [address], [address], 12/01/2022 12:19:45 12/01/19 23 12/01/2022 COMPR EHENS YOLIE METAB OLIC PANEL urea nitrogen (BUN) 6 mg/dL 6 - 31 normal Not Available [address], [address], 12/01/2022 12:19:45 12/01/19 23 12/01/2022 TSH W/ T4, FREE TSH 1.58 mIU/L 0.55 - 4.78 normal Refer ence Range Femal e aged 18-Ad ult: 0.55- 4.78 Pregn adelfo Refer ence Range s First Trime ster 0.26- 2.66 Secon d Trime ster 0.55- 2.73 Third Trime ster 0.43- 2.91 Not Available [address], [address], 12/01/2022 12:30:35 12/01/19 23 12/01/2022 TSH W/ T4, FREE T4, free 1.11 NG/dL 0.89 - 1.76 normal Not Available [address], [address], 12/01/2022 12:30:35 12/01/19 23 12/01/2022 VAGIN ITIS PLUS STD PANEL bacterial vaginosis BV POS negati ve abnormal Not Available [address], [address], 12/02/2022 09:06:01 12/01/19 23 12/01/2022 VAGIN ITIS PLUS STD PANEL jacques species C. spp neg negati ve normal Not Available [address], [address], 12/02/2022 09:06:01 12/01/19 23 12/01/2022 VAGIN ITIS PLUS STD PANEL jacques glabrata C. gla neg negati ve normal Not Available [address], [address], 12/02/2022 09:06:01 12/01/19 23 12/01/2022 VAGIN ITIS PLUS STD PANEL trichomonas vaginalis CV/TV TRICH neg negati ve normal Not Available [address], [address], 12/02/2022 09:06:01 12/01/19 23 12/01/2022 VAGIN ITIS PLUS STD PANEL chlamydia trachomatis CT neg negati ve normal This repor t is inten ded for us in clini armando monit oring and manag ement of patie nts. It is not inten ded for use in medic al-le gal appli catio n. Not Available [address], [address], 12/02/2022 09:06:01 12/01/19 23 12/01/2022 VAGIN ITIS PLUS STD PANEL neisseria gonorrhoeae GC neg negati ve normal This repor t is inten ded for us in clini armando monit oring and manag ement of patie nts. It is not inten ded for use in medic al-le gal appli catio n. Not Available [address], [address], 12/02/2022 09:06:01 12/01/19 23 12/05/2022 THINP REP TIS PAP clinical information: normal None given Not Available [employer] [facility] [address] [place], [address], 12/05/2022 19:09:35 12/01/19 23 12/05/2022 THINP REP TIS PAP LMP: normal None given Not Available [address], [address], 12/05/2022 19:09:35 12/01/19 23 12/05/2022 THINP REP TIS PAP prev. Pap: normal None given Not Available [address], [address], 12/05/2022 19:09:35 12/01/19 23 12/05/2022 THINP REP TIS PAP prev. BX: normal None given Not Available [address], [address], 12/05/2022 19:09:35 12/01/19 23 12/05/2022 THINP REP TIS PAP source: normal Cervi x Not Available [address], [address], 12/05/2022 19:09:35 12/01/19 23 12/05/2022 THINP REP TIS PAP statement of adequacy: normal Satis facto ry for evalu ation . Endoc ervic al/tr ansfo rmati on zone compo nent prese nt. Age and/o r menst rual statu s not provi ded Not Available [address], [address], 12/05/2022 19:09:35 12/01/19 23 12/05/2022 THINP REP TIS PAP interpretati on/result: normal Negat yolie for intra epith elial lesio n or malluis shah . Not Available [address], [address], 12/05/2022 19:09:35 12/01/19 23 12/05/2022 THINP REP TIS PAP comment: normal This Pap test has been evalu ated with compu ter fredis charbel techn ology . Not Available [employer] [facility] [address] [address] [place], [address], 12/05/2022 19:09:35 12/01/19 23 12/05/2022 THINP REP TIS PAP cytotechnolo gist: normal BKA, CT( CP) CT scree jenaro locat ion: [address] [address] [place] [address] Not Available [employer] [facility] [address] [address] [place], [address], 12/05/2022 19:09:35 12/01/1912/05/2022 THINP REP TIS PAP comment EXPLA NATAKASH Y NOTE: The Pap is a scree [...] clini armando infor matio n. Not Available [employer] [address] [address] [address], [place], [address], 12/05/2022 19:09:35 02/27/20 24 02/28/2024 TSH W/ T4, FREE TSH 1.49 mIU/L 0.55 - 4.78 normal Refer ence Range Femal e aged 18-Ad ult: 0.55- 4.78 Pregn adelfo Refer ence Range s First Trime ster 0.26- 2.66 Secon d Trime ster 0.55- 2.73 Third Trime ster 0.43- 2.91 Not Available [facility] [address] [place], [address], 02/28/2024 11:43:51 02/27/20 24 02/28/2024 TSH W/ T4, FREE T4, free 1.14 NG/dL 0.89 - 1.76 normal Not Available [address], [address], 02/28/2024 11:43:51 02/27/20 24 02/28/2024 CBC (INCL UDES DIFF/ PLT) WBC 7.3 thous and/u L 4.0 - 9.8 normal Not Available [address], [address], 02/28/2024 12:20:31 02/27/20 24 02/28/2024 CBC (INCL UDES DIFF/ PLT) RBC 4.2 emil on/uL 3.9 - 4.9 normal Not Available [address], [address], 02/28/2024 12:20:31 02/27/20 24 02/28/2024 CBC (INCL UDES DIFF/ PLT) hemoglobin 10.6 g/dL 11.8 - 14.8 low Not Available [address], [address], 02/28/2024 12:20:31 02/27/20 24 02/28/2024 CBC (INCL UDES DIFF/ PLT) hematocrit 33.9 % 35.5 - 44.0 low Not Available [facility] [address] [place] [address], [address], 02/28/2024 12:20:31 02/27/20 24 02/28/2024 CBC (INCL UDES DIFF/ PLT) MCV 80.9 fL 82.0 - 99.0 low Not Available [employer] [employer] [address] [place] [address], [address], 02/28/2024 12:20:31 02/27/20 24 02/28/2024 CBC (INCL UDES DIFF/ PLT) MCH 25.3 pg 27.2 - 32.6 low Not Available [employer] [employer] [address] [place] [address], [address], 02/28/2024 12:20:31 02/27/20 24 02/28/2024 CBC (INCL UDES DIFF/ PLT) MCHC 31.3 g/dL 31.5 - 35.5 low Not Available [address], [address], 02/28/2024 12:20:31 02/27/20 24 02/28/2024 CBC (INCL UDES DIFF/ PLT) RDW-CV 14.0 % 11.5 - 14.5 normal Not Available [address], [address], 02/28/2024 12:20:31 02/27/20 24 02/28/2024 CBC (INCL UDES DIFF/ PLT) platelet 358 thous and/u L 140 - 350 high Not Available [address], [address], 02/28/2024 12:20:31 02/27/20 24 02/28/2024 CBC (INCL UDES DIFF/ PLT) MPV 11.7 fL 9.3 - 12.4 normal Not Available [address], [address], 02/28/2024 12:20:31 02/27/20 24 02/28/2024 CBC (INCL UDES DIFF/ PLT) absolute neutrophil 4.84 thous and/u L 1.90 - 7.00 normal Not Available [address], [address], 02/28/2024 12:20:31 02/27/20 24 02/28/2024 CBC (INCL UDES DIFF/ PLT) absolute lymphocyte 1.65 thous and/u L 0.70 - 4.50 normal Not Available [address], [address], 02/28/2024 12:20:31 02/27/20 24 02/28/2024 CBC (INCL UDES DIFF/ PLT) absolute monocyte 0.53 thous and/u L 0.10 - 1.30 normal Not Available [address], [address], 02/28/2024 12:20:31 02/27/20 24 02/28/2024 CBC (INCL UDES DIFF/ PLT) absolute eosinophil 0.20 thous and/u L <0.70 normal Not Available [address], [address], 02/28/2024 12:20:31 02/27/20 24 02/28/2024 CBC (INCL UDES DIFF/ PLT) absolute basophil 0.04 thous and/u L <0.20 normal Not Available [address], [address], 02/28/2024 12:20:31 02/27/20 24 02/28/2024 CBC (INCL UDES DIFF/ PLT) absolute immature granulocyte 0.00 thous and/u L <0.03 normal Not Available [address], [address], 02/28/2024 12:20:31 02/27/20 24 02/28/2024 HCG, TOTAL [...] other condi tion unrel ated to pregn adlefo has not been valid ated by the manuf actur er of this assay . Not Available [address], [address], 02/28/2024 12:56:58 01/29/2001/29/2025 COMPR EHENS YOLIE METAB OLIC PANEL sodium 141 mmol/ L 136 - 145 normal Not Available [address], [address], 01/29/2025 11:34:55 01/29/20 25 01/29/2025 COMPR EHENS YOLIE METAB OLIC PANEL potassium 4.6 mmol/ L 3.5 - 5.1 normal Not Available [address], [address], 01/29/2025 11:34:55 01/29/20 25 01/29/2025 COMPR EHENS YOLIE METAB OLIC PANEL chloride 103 mmol/ L 98 - 107 normal Not Available [address], [address], 01/29/2025 11:34:55 01/29/20 25 01/29/2025 COMPR EHENS YOLIE METAB OLIC PANEL glucose 93 mg/dL 74 - 106 normal Not Available [address], [address], 01/29/2025 11:34:55 01/29/20 25 01/29/2025 COMPR EHENS YOLIE METAB OLIC PANEL carbon dioxide 27 mmol/ L 20 - 32 normal Not Available [address], [address], 01/29/2025 11:34:55 01/29/20 25 01/29/2025 COMPR EHENS YOLIE METAB OLIC PANEL calcium 9.6 mg/dL 8.5 - 10.1 normal Not Available [address], [address], 01/29/2025 11:34:55 01/29/20 25 01/29/2025 COMPR EHENS YOLIE METAB OLIC PANEL creatinine 0.86 mg/dL 0.60 - 1.00 normal Not Available [address], [address], 01/29/2025 11:34:55 01/29/20 25 01/29/2025 COMPR EHENS YOLIE METAB OLIC PANEL eGFR 94 mL/mi n/1.7 3m2 >60 normal The eGFR is based on the CKD-E PI 2020 equat ion. To calcu late the new eGFR from a previ ous Creat inine or Cysta tin C resul t, go to https ://braulio todd.o ronny/pr faheem hansen s/kdo qi/gf r_cal culat or Not Available [address], [address], 01/29/2025 11:34:55 01/29/20 25 01/29/2025 COMPR EHENS YOLIE METAB OLIC PANEL AST 12 U/L 15 - 37 low Not Available [address], [address], 01/29/2025 11:34:55 01/29/20 25 01/29/2025 COMPR EHENS YOLIE METAB OLIC PANEL ALT 14 U/L 14 - 59 low Not Available [address], [address], 01/29/2025 11:34:55 01/29/20 25 01/29/2025 COMPR EHENS YOLIE METAB OLIC PANEL alk phos 75 U/L 46 - 116 normal Not Available [address], [address], 01/29/2025 11:34:55 01/29/20 25 01/29/2025 COMPR EHENS YOLIE METAB OLIC PANEL albumin 4.3 g/dL 3.4 - 5.0 normal Not Available [address], [address], 01/29/2025 11:34:55 01/29/20 25 01/29/2025 COMPR EHENS YOLIE METAB OLIC PANEL protein, total 8.3 g/dL 6.4 - 8.2 high Not Available [address], [address], 01/29/2025 11:34:55 01/29/20 25 01/29/2025 COMPR EHENS YOLIE METAB OLIC PANEL bilirubin, total 0.5 mg/dL 0.2 - 1.0 normal Not Available [address], [address], 01/29/2025 11:34:55 01/29/20 25 01/29/2025 COMPR EHENS YOLIE METAB OLIC PANEL urea nitrogen (BUN) 13 mg/dL 7 - 18 normal Not Available [address], [address], 01/29/2025 11:34:55 01/29/20 25 01/29/2025 TSH W/ T4, FREE TSH 1.64 mIU/L 0.55 - 4.78 normal Refer ence Range Femal e aged 18-Ad ult: 0.55- 4.78 Pregn adelfo Refer ence Range s First Trime ster 0.26- 2.66 Secon d Trime ster 0.55- 2.73 Third Trime ster 0.43- 2.91 Not Available [address], [address], 01/29/2025 11:34:56 01/29/20 25 01/29/2025 TSH W/ T4, FREE T4, free 1.09 NG/dL 0.89 - 1.76 normal Not Available [address], [address], 01/29/2025 11:34:56 01/29/20 25 01/29/2025 CBC (INCL UDES DIFF/ PLT) WBC 7.9 thous and/u L 4.0 - 9.8 normal Not Available [address], [address], 01/29/2025 13:28:48 01/29/20 25 01/29/2025 CBC (INCL UDES DIFF/ PLT) RBC 4.9 emil on/uL 3.9 - 4.9 normal Not Available [address], [address], 01/29/2025 13:28:48 01/29/20 25 01/29/2025 CBC (INCL UDES DIFF/ PLT) hemoglobin 13.4 g/dL 11.8 - 14.8 normal Not Available [address] [place], [address], 01/29/2025 13:28:48 01/29/20 25 01/29/2025 CBC (INCL UDES DIFF/ PLT) hematocrit 41.6 % 35.5 - 44.0 normal Not Available [address], [address], 01/29/2025 13:28:48 01/29/20 25 01/29/2025 CBC (INCL UDES DIFF/ PLT) MCV 85.6 fL 82.0 - 99.0 normal Not Available [address], [address], 01/29/2025 13:28:48 01/29/20 25 01/29/2025 CBC (INCL UDES DIFF/ PLT) MCH 27.6 pg 27.2 - 32.6 normal Not Available [address], [address], 01/29/2025 13:28:48 01/29/20 25 01/29/2025 CBC (INCL UDES DIFF/ PLT) MCHC 32.2 g/dL 31.5 - 35.5 normal Not Available [address], [address], 01/29/2025 13:28:48 01/29/20 25 01/29/2025 CBC (INCL UDES DIFF/ PLT) RDW-CV 12.2 % 11.5 - 14.5 normal Not Available [address], [address], 01/29/2025 13:28:48 01/29/20 25 01/29/2025 CBC (INCL UDES DIFF/ PLT) platelet 432 thous and/u L 140 - 350 high Not Available [address], [address], 01/29/2025 13:28:48 01/29/20 25 01/29/2025 CBC (INCL UDES DIFF/ PLT) MPV 11.1 fL 9.3 - 12.4 normal Not Available [address], [address], 01/29/2025 13:28:48 01/29/20 25 01/29/2025 CBC (INCL UDES DIFF/ PLT) absolute neutrophil 5.47 thous and/u L 1.90 - 7.00 normal Not Available [address], [address], 01/29/2025 13:28:48 01/29/20 25 01/29/2025 CBC (INCL UDES DIFF/ PLT) absolute lymphocyte 1.63 thous and/u L 0.70 - 4.50 normal Not Available [address], [address], 01/29/2025 13:28:48 01/29/20 25 01/29/2025 CBC (INCL UDES DIFF/ PLT) absolute monocyte 0.49 thous and/u L 0.10 - 1.30 normal Not Available [address], [address], 01/29/2025 13:28:48 01/29/20 25 01/29/2025 CBC (INCL UDES DIFF/ PLT) absolute eosinophil 0.22 thous and/u L <0.70 normal Not Available [address], [address], 01/29/2025 13:28:48 01/29/20 25 01/29/2025 CBC (INCL UDES DIFF/ PLT) absolute basophil 0.06 thous and/u L <0.20 normal Not Available [address], [address], 01/29/2025 13:28:48 01/29/20 25 01/29/2025 CBC (INCL UDES DIFF/ PLT) absolute immature granulocyte 0.00 thous and/u L <0.03 normal Not Available [address], [address], 01/29/2025 13:28:48 04/20/20 25 04/20/2025 pregn adelfo test, urine HCG negati ve Not Available [facility] [address] [place], [address], 04/20/2025 14:50:22 12/12/19 23 12/11/2022 US, trans vagin al No observ ation record ed. kayli [place] [address], [place], [address], 12/12/2022 09:58:49 Result Notes None recorded. Problems Name Problem SNOMED Code Status Onset Date Resolution Date Notes Provider Name and Address Organization Details Recorded Time Normal pregnanc y 73532416 Active 2017 Medical visit for normal pregnanc y; Location : None Progress : Stable Added By: Sharon Dotson Add to Current Problems : YES ProblemS tatus: Current Not Available [facility] 2 19:43:30 anatomy study Active 2017 [facility] for anatomic survey; Location : None Progress : Stable Added By: Kirstie Bess Add to Current Problems : YES ProblemS tatus: Current Not Available [facility] 2 21:18:38 Dysuria [id number] Completed 201706/07/2018 Dysuria; Location : None Progress : Stable Added By: Josi Hilario Add to Current Problems : YES ProblemS tatus: Resolve Painful micturit ion, unspecif ied; Progress : Stable Added By: Josi Hilario Add to Current Problems : NO ProblemS tatus: Resolve Not Available [facility] 2 19:43:31 Gestatio n period, 33 weeks [id number] Completed 201706/07/2018 33 weeks gestatio n of pregnanc y; Progress : Stable Added By: Josi Hilario Add to Current Problems : NO ProblemS tatus: Resolve Not Available [facility] 2 19:43:31 Poor growth affectin g manageme nt [id number] Completed 201706/21/2018 Small for dates; Progress : Stable Added By: Abida Barrientos Add to Current Problems : NO ProblemS tatus: Resolve Not Available [facility] 2 19:43:30 Vaginiti s and vulvovag initis Completed 201706/28/2018 Vaginiti s; Location : None Progress : Stable Added By: Chino Arguelles Add to Current Problems : YES ProblemS tatus: Resolve Not Available [facility] 2 19:43:30 Past pregnanc y history of section [id number] Active 2017 Jay Ernandez MD [address] [facility], [place], [place], [address] , [place] [facility] IV 3 14:43:31 Lochia finding Completed 201705/10/2022 Encounte r for routine postpart um follow-u p; Progress : Stable Added By: Josi Hilario Add to Current Problems : YES ProblemS tatus: Current Laila Britsch null, [place] [facility] 2 12:05:43 Beckie ry postpart um mood disturba nce [id number] Completed 201705/10/2022 Postpart um mood disturba nce; Progress : Stable Added By: Josi Hilario Add to Current Problems : YES ProblemS tatus: Current Laila Britsch null, [place] [facility] 2 12:03:44 Cyst of ovary [id number] Completed 201805/10/2022 Unspecif ied ovarian cyst, left side; Progress : Stable Added By: Chino Arguelles Add to Current Problems : YES ProblemS tatus: Current Laila Britsch null, [place] [facility] 2 12:05:57 Notes:Encounter for an [...] Name and Address Organization Details Recorded Time Date of Last Pap Smear completed Taylor Crowley [facility] 02/27/2024 15:45:57 delivery completed Trish Perez [facility] 11/30/2022 14:13:00 Imaging Results None recorded. Procedure [...] 08/24 completed Gabapent in 300mg Capsules RxNorm: [id number] Allow Substitu tion: True Refill Denied: No [...] No t Available Vitals Date Recorded Body temperature Body weight Body mass index (BMI) Body height Systolic And Diastolic Provider Name and Address Organization Details Last Updated DateTime 11/30/2022 98.3 [degF] 42804.37 g 26.8 kg/m2 170.18 cm 122/74 mm[Hg] Trish Perez [facility] [employer] [facility] IV 3 14:08:28 Date Recorded Body height Body mass index (BMI) Body weight Systolic And Diastolic Provider Name and Address Organization Details Last Updated DateTime 01/28/2025 170.18 cm 27.7 kg/m2 20285.85 g 104/60 mm[Hg] Jessica Arroyo [facility] [employer] [facility] 01/28/2025 16:41:56 Date Recorded Body height Body mass index (BMI) Body weight Body temperature Systolic And Diastolic Provider Name and Address Organization Details Last Updated DateTime 02/27/2024 170.18 cm 27 kg/m2 75591.0 4 g 97.7 [degF] 102/64 mm[Hg] Taylor Crowley [facility] 15:43:09 Date Recorded Body height Body mass index (BMI) Body weight Systolic And Diastolic Provider Name and Address Organization Details Last Updated DateTime 04/20/2025 170.18 cm 29.4 kg/m2 02854.57 g 104/76 mm[Hg] Taylor Crowley [facility] 04/20/2025 14:48:30 Social History Question Answer Notes LastModified by Organizat ion Details LastModified Time Tobacco Smoking Status Former Smoker [email or web address] [employer] [facility] 04/20/2025 14:33:43 If You Are , What Was Your Level Of Alcohol Consumption Prior To ? None [email or web address] Information not available 04/20/2025 Are You Blind Or Do You Have Difficulty Seeing? No [email or web address] Information not available 04/20/2025 Are You Deaf Or Do You Have Serious Difficulty Hearing? No [email or web address] Information not available 04/20/2025 What Type Of Diet Are You Following? REGULAR [email or web address] Information not available 04/20/2025 How Many Children Do You Have? 1 [email or web address] Information not available 04/20/2025 What Is Your Relationship Status? Single [email or web address] Information not available 04/20/2025 Are You Sexually Active? Yes Information not available 04/20/2025 Have You Used IV Drugs? No [email or web address] Information not available 04/20/2025 Sex: Unknown Functional Status Question Answer Note LastModified by Organizat ion Details LastModified Time Do you use any illicit or recreational drugs? Yes Information not available 04/20/2025 Do you or have you ever used any other forms of tobacco or nicotine? No [email or web address] Information not available 04/20/2025 What is your level of alcohol consumption? None [email or web address] Information not available 04/20/2025 Do you or have you ever used e-cigarettes or vape? Current user of electronic cigarettes [email or web address] Information not available 04/20/2025 What is your exercise level? Occasional [email or web address] Information not available 04/20/2025 Mental Status None recorded. Family History Relationship Description Onset Age of this Age Resolved Age Notes LastModified by Organization Details LastModified Time Sister Polycystic ovary syndrome of bilateral ovaries [email or web address] Not available 2024 14:33:42 Unspecified Relation History of recurrent miscarriage - not [email or web address] Not available 2024 14:33:42 Father Malignant neoplastic disease Not available 2024 14:33:42 Father Malignant neoplasm of testis [email or web address] Not available 2024 14:44:05 Father Type 1 diabetes mellitus [email or web address] Not available 2024 14:44:49 Maternal Grandfather Malignant neoplasm of neck [email or web address] Not available 2024 14:44:17 Maternal Grandfather Type 1 diabetes mellitus Not available 2024 14:44:49 Notes:in her first cousin Medical History Condition Response Other Cancer N High Blood Pressure N Colon Cancer N Cytomegalovirus N Hyperthyroidism N Breast Cancer N Herpes (HSV) N Blood Transfusion Y MRSA N Lung Cancer N Hypothyroidism N Depression N Panic Attacks N Neurological Disorder N Deep Vein Thrombosis N Anxiety Disorder Y Autoimmune disease N Arthritis N Tuberculosis/Positive PPD N Shingles N Polycystic Ovarian Syndrome N Infertility N Cervical Cancer N Chlamydia N Hematuria N Stroke N Varicosities N Crohn's Disease N Seasonal allergies N Alzheimer's/Dementia N COPD/Emphysema N HPV/Genital Warts N Endometriosis N IBS (Irritable Bowel Syndrome) N History of Abnormal Pap N High Cholesterol N Liver Disease N Kidney Infection N Fibromyalgia N Ulcer N Kidney Disease N HIV N Gallbladder disease N Sickle Cell Disease/Trait N Von Willebrand disease N ADD/ADHD N Eating Disorder N Anemia Y Diabetes Mellitus (non-insulin dependent ) N Ovarian Problems N Multiple Sclerosis N Gonorrhea N Frequent Urinary Tract infections N Osteopenia N Headaches/migraines N GERD (reflux) N Ovarian Cancer N Diabetes (insulin dependent) N Seizures/Epilepsy N Breast Problems N Fibroids N Heart Attack N Asthma N Lupus N Endometrial Cancer N Rubella N Blood Clotting Disorder N [...] ICD10 Code Diagnosis IMO Codes Diagnosis Note [id number] Jay Ernandez MD [address] [address] 11/30/2022 13:51:21 12/07/2022 09:38:15 Miscarriage 80033257 O03.9 Screening for malignant neoplasm of cervix 900116040 Z12.4 Vaginitis 86413675 N76.0 [facility] care education 186905724 Z30.09 She desire the patch , tried OCP and DMPA in the past she does want to try the patch. I explained to her she may get the patch after we rule out she is by weekly serial HCG until negative. [id number] Osmin Hunt MD [address] [address] 02/27/2024 15:19:13 03/03/2024 11:47:57 Threatened miscarriage 95061588 O20.0 34611 has miscarried and follow to <5 Chronic constipation 236 509306 K59.09 203607 miralax 1 tsp - tblsp twice per day as well as benefiber 1 tsp - tbls twice per day and magnesium citrate 500mg twice per day(may use the fluid which is 1 tsp twice per day) and then adjust to as low a dose with the benefiber and miralax so u have soft BMs at least every other day Menorrhagia 660296412 N9 2.0 3338897 Secondary dysmenorrhea 56754563 N94.5 [id number] COUNSELING was provided today regarding the following [...] questions and wants to proceed as scheduled [id number] Osmin Hunt MD [facility] [address] [place] [address] 01/28/2025 15:59:43 02/23/2025 12:31:20 Pain in pelvis 34905583 R10.2 55751 will give meds for dysmenorrh ea and wants to preserve fertilityu Chronic constipation 236 266364 K59.09 375990 We talked about all different kind of medication s including Linzess. Menorrhagia 935451469 N9 2.0 5982157 Secondary dysmenorrhea 84481204 N94.5 [id number] COUNSELING was provided today regarding the following [...] questions and wants to proceed as scheduled [id number] Osmin Hunt MD [facility] [address] [place] [address] 04/20/2025 14:31:51 04/23/2025 08:01:59 Contraceptive counseling [id number] 2105 Z30.09 [id number] Pt educated on risks which include but [...] Member ID Day Member ID Guarantor Name 04/23/2025 1 [facility] - DOS ON OR AFTER 21 (MEDICAID REPLACEMENT - HMO) Magda Lamar Vernon [id number] Magda Ameena Vernon Notes Date Note Type Note Provider Name and Address Organization Details Recorded Time 3 text/html Magda is here to follow up for a possible miscarriage. Second [...] for boys fetus only! Jay Ernandez MD [address] [place] [address], [place], [address], [facility] [employer] [facility] 11/30/2022 17:16:35 4 text/html The patient verbally consented to documentation via virtual scribe for this encounter. Magda is a 29 year old woman presents today for ER follow up. She states that she went to [facility] on 02/25/24.and she was told [...] constipation. LMP: 01/10/24. Osmin Hunt MD [address] [place] [address], [place], [address], [facility] [employer] [facility] 02/29/2024 13:09:27 5 text/html Abnormal BleedingReported by PatientHPIFor quality, patient reportsirregularbut reportsspotting. For duration, patient reports1-2 days. For associated symptoms, patient reportsno vaginal dischargeandno vaginal itching/irritation. The patient verbally consented to documentation via virtual scribe for this encounter. Magda is a 30 yr old here today for abnormal bleeding/ passing clots. Pt states her period 2weeks ago & it stopped & started back & hasn't stopped since. Says she has heavy cramping/shooting pain from pelvis to back hips for about 1-2hrs & it would stop. She states that her pain is intermittent and goes and goes and has intermittent bleeding. She states that her menses are regular, She states she has problems with her bowel movements and states that her bowel movements are mostly fe. She denies any pain in her back. Osmin Hunt MD [address] [place] [address], [place], [address], [employer] [facility] 02/22/2025 17:54:59 5 text/html ROS as noted in the HPI [...] without any side effects. Osmin Hunt MD [facility] [place], [address], [facility] 04/22/2025 22:09:17 OBGyn Episode Ob Episode Information Episode Created Date Number of Fetuses Patient Bloodtype Patient rh Status Prepregnancy Weight lbs Domestic Partner Domestic Partner Phone Father Name Ophthalmic Assistant Status 09/23/19 22 1 CLOSED Fetus Data First Name Last Name Admitted to NICU Weight (g) Sex Living Outcome Pediatric Complications Fetus ID Race Codes Race Delivery Type 2919.77 1704 F Full Term [id number] Primary Johny Calculation Initial Johny Date Initial [...]
[2025-06-23 08:40] VITALS: BP 121/77; PULSE 61; RESP 18; TEMP 36.8; O2SAT 99
[2025-06-23 09:01] LABS: EDSTREPNEGPOS1 Positive (Negative)
== END 2025-06-23 08:55 | disposition home or self-care (01) ==
PROVIDERS: Emergency Provider Nurse Practitioner; PCP Emergency Medicine
DX: J02.0 Streptococcal pharyngitis (principal); F17.290 Nicotine dependence, other tobacco product, uncomplicated
CPT/HCPCS: 87880; 99213; G0463